=== PATIENT | male | born 1950 | race Caucasian/White ===

== ENCOUNTER 2019-12-20 10:56 | Emergency (ER) | payer OTHER ==
[~2019-12-20] VITALS: Ht 180.3 cm; Wt 106.8 kg
[~2019-12-20 10:56] MED LIST: ATR20T PO; BUDE10.2 IH; C250T PO; CLOP75TA PO; LOSA50TA63 PO; MELO-195 PO; MTX2.5T PO; MULT-974 PO; NIA500ERT PO; OMG1KC PO; TRAM50TA2 PO
[2019-12-20] MEDS ORDERED: NS IV 500 ML 500 ML IV ONE (11:35)
--- NOTE | 2019-12-20 11:39 | ED GU-Male ---
General Chief Complaint: Male Reproductive Stated Complaint: GROIN PAIN Nursing Triage Note: AMB TO ROOM C/O R TESTICULAR PAIN FOR 1 WEEK. PAIN WORSE TODAY C/O NAUSEA WITH IT. Source: patient Exam Limitations: no limitations History of Present Illness Date Seen by Provider: Dec 20, 2019 Time Seen by Provider: 11:25 Initial Comments Patient presents to the ER with a history of 4-5 days of hematuria, dysuria and now the last day or so has increased swelling and pain in his right testicle. No history of prostatitis, STD. He has a fever today. No cough shortness of air or sick contacts. Does not follow with urologist. Known to Dr. Manning. No history of prostate cancer. He has a history of COPD so nursing put him on 2 L because after walking in the ER he had a oxygen saturation of 90%. Patient is a history of prostatism having to get up 3 or 4 times within the night to urinate. He does not feel like he has incomplete emptying of bladder at this time. Allergies and Home Medications Allergies Coded Allergies: No Known Drug Allergies (Unverified , 03/28/13) Home Medications Atorvastatin 20 Mg Tablet, 1 EACH PO DAILY, (Reported) Budesonide/Formoterol Fumarate 10.2 Gm Hfa.aer.ad, 2 PUFF IH BID, (Reported) Losartan Potassium 50 Mg Tablet, 50 MG PO DAILY, (Reported) Tramadol Hcl 50 Mg Tablet, 50 MG PO DAILY, (Reported) Patient Home Medication List Home Medication List Reviewed: Yes Review of Systems Review of Systems Constitutional: No chills, No diaphoresis EENTM: No ear discharge, No ear pain Respiratory: No cough, No short of breath Cardiovascular: No chest pain, No edema Gastrointestinal: No abdominal pain, No nausea, No vomiting Genitourinary: denies discharge; dysuria, pain (r teste) Musculoskeletal: No back pain, No joint pain Skin: No pruritus, No rash Psychiatric/Neurological: Denies Headache, Denies Numbness All Other Systemes Reviewed Negative Unless Noted: Yes Past Pzeemmt-Epeing-Tbqzzk Hx Patient Social History Alcohol Use: Denies Use Recreational Drug Use: No Smoking Status: Current Everyday Smoker Recent Foreign Travel: No Contact w/Someone Who Travel: No Recent Infectious Disease Expo: No Immunizations Up To Date Date of Pneumonia Vaccine: Feb 28, 2007 Past Medical History Surgeries: Yes (HERNIA, LUNG) Respiratory: Yes (PNEUMOTHORAX) Pneumonia Cardiac: No Neurological: No Gastrointestinal: No Musculoskeletal: Yes Rheumatoid Arthritis Endocrine: No Cancer: No Physical Exam Vital Signs Vital Signs - First Documented 12/20/19 11:04 Temp 39.0 Pulse 85 Resp 18 B/P (MAP) 194/90 (124) Pulse Ox 90 O2 Delivery Room Air Capillary Refill : Less Than 3 Seconds Height, Weight, BMI Height: 5'11.00" Weight: 270lbs. 0.0oz. 122.756476nn; 32.00 BMI Method: General Appearance: WD/WN, moderate distress HEENT: PERRL/EOMI, pharynx normal Neck: full range of motion, normal inspection Cardiovascular: normal peripheral pulses, regular rate, rhythm Respiratory: no respiratory distress, no accessory muscle use Gastrointestinal: normal bowel sounds, non tender, soft Genital/Rectal: other (normal-appearing penis without lesions or discharge from the urethra. Right testicle is erythematous, warm to touch, swollen about 4 times normal size and exquisitely tender to touch. No significant, palpable hernia in the right inguinal canal.) Neurologic/Psychiatric: alert, normal mood/affect, oriented x 3 Skin: normal color, warm/dry Focused Exam Lactate Level 12/20/19 12:21: Lactic Acid Level 0.96 Lactic Acid Level Laboratory Tests Test 12/20/19 12:21 Lactic Acid Level 0.96 MMOL/L (0.50-2.00) Progress/Results/Core Measures Suspected Sepsis Recent Fever Within 48 Hours: No Infection Criteria Present: None New/Unexplained Altered Menta: No Sepsis Screen: No Definite Risk SIRS Temperature: Pulse: 85 Respiratory Rate: 18 Laboratory Tests 12/20/19 12:21: White Blood Count 10.0 Blood Pressure 194 /90 Mean: 124 12/20/19 12:21: Lactic Acid Level 0.96 Laboratory Tests 12/20/19 12:21: Creatinine 0.81, Platelet Count 110L, Total Bilirubin 1.3H Results/Orders Lab Results Laboratory Tests Test 12/20/19 12:21 12/20/19 13:27 Range/Units White Blood Count 10.0 4.3-11.0 10^3/uL Red Blood Count 4.73 4.30-5.52 10^6/uL Hemoglobin 15.9 13.3-17.7 g/dL Hematocrit 47 40-54 % Mean Corpuscular Volume 99 80-99 fL Mean Corpuscular Hemoglobin 34 25-34 pg Mean Corpuscular Hemoglobin Concent 34 32-36 g/dL Red Cell Distribution Width 14.0 10.0-14.5 % Platelet Count 110 L 130-400 10^3/uL Mean Platelet Volume 9.1 9.0-12.2 fL Immature Granulocyte % (Auto) 1 % Neutrophils (%) (Auto) 91 H 42-75 % Lymphocytes (%) (Auto) 3 L 12-44 % Monocytes (%) (Auto) 5 0-12 % Eosinophils (%) (Auto) 0 0-10 % Basophils (%) (Auto) 0 0-10 % Neutrophils # (Auto) 9.1 H 1.8-7.8 10^3/uL Lymphocytes # (Auto) 0.3 L 1.0-4.0 10^3/uL Monocytes # (Auto) 0.5 0.0-1.0 10^3/uL Eosinophils # (Auto) 0.0 0.0-0.3 10^3/uL Basophils # (Auto) 0.0 0.0-0.1 10^3/uL Immature Granulocyte # (Auto) 0.1 0.0-0.1 10^3/uL Neutrophils % (Manual) 86 % Lymphocytes % (Manual) 5 % Monocytes % (Manual) 4 % Eosinophils % (Manual) 0 % Basophils % (Manual) 0 % Band Neutrophils 5 % Blood Morphology Comment NORMAL Sodium Level 136 135-145 MMOL/L Potassium Level 4.4 3.6-5.0 MMOL/L Chloride Level 97 L 98-107 MMOL/L Carbon Dioxide Level 29 21-32 MMOL/L Anion Gap 10 5-14 MMOL/L Blood Urea Nitrogen 16 7-18 MG/DL Creatinine 0.81 0.60-1.30 MG/DL Estimat Glomerular Filtration Rate > 60 BUN/Creatinine Ratio 20 Glucose Level 118 H 70-105 MG/DL Lactic Acid Level 0.96 0.50-2.00 MMOL/L Calcium Level 9.1 8.5-10.1 MG/DL Corrected Calcium 9.1 8.5-10.1 MG/DL Total Bilirubin 1.3 H 0.1-1.0 MG/DL Aspartate Amino Transf (AST/SGOT) 17 5-34 U/L Alanine Aminotransferase (ALT/SGPT) 31 0-55 U/L Alkaline Phosphatase 70 40-136 U/L Total Protein 6.5 6.4-8.2 GM/DL Albumin 4.0 3.2-4.5 GM/DL Urine Color YELLOW Urine Clarity CLEAR Urine pH 6.0 5-[address] 1.025 H 1.016-1.022 Urine Protein 1+ H NEGATIVE Urine Glucose (UA) NEGATIVE NEGATIVE Urine Ketones 1+ H NEGATIVE Urine Nitrite POSITIVE H NEGATIVE Urine Bilirubin 1+ H NEGATIVE Urine Urobilinogen 1.0 < = 1.0 MG/DL Urine Leukocyte Esterase TRACE H NEGATIVE Urine RBC (Auto) 2+ H NEGATIVE Urine RBC 0-2 /HPF Urine WBC 5-10 H /HPF Urine Squamous Epithelial Cells 0-2 /HPF Urine Crystals PRESENT H /LPF Urine Amorphous Sediment RARE LUIS URATES H /LPF Urine Bacteria MODERATE H /HPF Urine Casts NONE /LPF Urine Mucus NEGATIVE /LPF Urine Culture Indicated YES My Orders Orders - CARA GUERRERO Us Scrotum (Testicle) [id number] (12/20/19 11:35) Ed Iv/Invasive Line Start (12/20/19 11:35) Ns Iv 500 Ml (Sodium Chloride 0.9%) (12/20/19 11:35) Ua Culture If Indicated (12/20/19 11:35) Fentanyl Injection (Sublimaze Injection (12/20/19 11:45) Cbc With Automated Diff (12/20/19 11:35) Comprehensive Metabolic Panel (12/20/19 11:35) Ceftriaxone For Iv Use (Rocephin For I (12/20/19 11:45) Blood Culture (12/20/19 11:39) Acetaminophen Tablet (Tylenol Tablet) (12/20/19 12:30) Lactic Acid Analyzer (12/20/19 12:21) Manual Differential (12/20/19 12:21) Urine Culture (12/20/19 13:27) Midazolam Injection (Versed Injection) (12/20/19 15:30) Medications Given in ED Current Medications Medications Dose Ordered Sig/Margarita Route Start Time Stop Time Status Last Admin Dose Admin Acetaminophen 1,000 mg ONCE ONCE PO 12/20/19 12:30 12/20/19 12:31 DC 12/20/19 12:33 1,000 MG Ceftriaxone Sodium 1000 mg/ Sterile Water 10 ml @ 200 mls/hr ONCE ONCE IV 12/20/19 11:45 12/20/19 11:47 DC 12/20/19 13:11 200 MLS/HR Fentanyl Citrate 50 mcg ONCE ONCE IVP 12/20/19 11:45 12/20/19 11:46 DC 12/20/19 12:19 50 MCG Sodium Chloride 500 ml @ 0 mls/hr Q0M ONCE IV 12/20/19 11:35 12/20/19 11:38 DC 12/20/19 12:19 500 MLS/HR Vital Signs/I&O 12/20/19 11:04 Temp 39.0 Pulse 85 Resp 18 B/P (MAP) 194/90 (124) Pulse Ox 90 O2 Delivery Room Air Capillary Refill : Less Than 3 Seconds Blood Pressure Mean: 124 Progress Note #1: Time: 11:55 Progress Note Orchitis possibly from a prostatitis. He does describe a history of prostatism. We'll give him a gram or Rocephin get some blood cultures and labs. He has a fever so we'll give him some Tylenol. If he has an elevated white count we would do a septic workup. We have ordered an ultrasound to ascertain good blood flow and rule out torsion or cancer. Progress Note #2: Time: 15:19 Progress Note Patient's no longer septic with normal heart rate. If his pains under control we can let him follow-up outpatient with urology on antibiotics. Diagnostic Imaging Diagonstic Imaging: Ultrasound Plain Films/CT/US/NM/MRI: other Comments [facility] [place], [place] NAME: MIKHAIL VEGA [facility] REC#: [id number] PT STATUS: REG ER : 1950 PHYSICIAN: CARA GUERRERO MD ADMIT DATE: 12/20/19/ER Draft Date of Exam:12/20/19 US SCROTUM (Testicle) [id number] PROCEDURE: US Scrotum. TECHNIQUE: Multiple real-time grayscale images were obtained over the scrotum in various projections bilaterally. INDICATION: Testicular swelling for one week. FINDINGS: Right testicle measures 5.1 x 3.3 x 3.6 cm and the left testicle measures 4.5 x 2.4 x 2.9 cm. The testes demonstrate homogeneous echotexture. No discrete testicular mass is identified. There is blood flow to both testes. Left epididymis is unremarkable. Right epididymis is enlarged and shows increased vascularity, suggestive of acute epididymitis. There is also a moderate complex hydrocele on the right containing internal debris and septations. There is a simple small left hydrocele. No varicocele is detected. IMPRESSION: 1. No evidence of testicular mass or vascular compromise. 2. Enlarged, heterogeneous and vascular right epididymis consistent with acute epididymitis. There is also a complex right hydrocele which could represent a pyocele. Dictated on workstation # [id number] Dict: 12/20/19 1305 Trans: 12/20/19 1311 [id number] [id number] Interpreted by: DEIDRA PULLIAM MD Electronically signed by: Reviewed: Reviewed by Me Departure Impression Primary Impression: Epididymitis Additional Impression: Prostatitis Qualified Codes: N41.0 - Acute prostatitis Disposition: 01 HOME, SELF-CARE Condition: Improved Departure-Patient Inst. Decision time for Depature: 15:26 Referrals: ANNALISA MANNING MD (PCP/Family) Primary Care Physician KRSITEN WIGGINS MD Patient Instructions: Epididymitis (DC) Add. Discharge Instructions: Drink lots of fluids to help flush out her bladder. Levaquin 1 tablet with food every day for the next [address] Wiggins, urology and request a follow-up appointment next week. Return to the ER if you're having inability to take your medicines, worsening pain or other worrisome symptoms. Hydrocodone one tablet every 6 hours as necessary for breakthrough pain. Tylenol and warm moist compresses for pain. All discharge instructions reviewed with patient and/or family. Voiced understanding. Scripts Levofloxacin (Levofloxacin) 500 Mg Tablet 500 MG PO DAILY for 7 Days, #7 TAB 0 Refills Prov: CARA GUERRERO 12/20/19 Copy Copies To 1: KRISTEN WIGGINS MD, TITUS J Dec 20, 2019 11:39
[2019-12-20] MEDS ORDERED: fentaNYL INJECTION 100 MCG/2 ML AMP IVP ONE (11:45)
[2019-12-20] MEDS ORDERED: cefTRIAXone FOR IV USE 1,000 MG in WATER (STERILE) FOR INJECTION 10 ML IV ONE (11:45)
[2019-12-20] MEDS ORDERED: ACETAMINOPHEN 500 MG TAB (TYLENOL) PO ONE (12:30)
[2019-12-20 12:37] LABS: BASOPHILS % (AUTO) 0 % (0-10); EOSINOPHILS % (AUTO) 0 % (0-10); HEMATOCRIT 47 % (40-54); HEMOGLOBIN 15.9 g/dL (13.3-17.7); LYMPHOCYTES # (AUTO) 0.3 10^3/uL (1.0-4.0); LYMPHOCYTES % (AUTO) 3 % (12-44); MEAN CORPUSCULAR HEMOGLOBIN 34 pg (25-34); MEAN CORPUSCULAR HGB CONC 34 g/dL (32-36); MEAN CORPUSCULAR VOLUME 99 fL (80-99); MEAN PLATELET VOLUME 9.1 fL (9.0-12.2); MONOCYTES # (AUTO) 0.5 10^3/uL (0.0-1.0); MONOCYTES % (AUTO) 5 % (0-12); NEUTROPHILS # (AUTO) 9.1 10^3/uL (1.8-7.8); NEUTROPHILS % (AUTO) 91 % (42-75); PLATELET COUNT 110 10^3/uL (130-400)
[2019-12-20 12:45] LABS: CHLORIDE 97 MMOL/L (98-107); POTASSIUM 4.4 MMOL/L (3.6-5.0); SODIUM 136 MMOL/L (135-145)
[2019-12-20 12:46] LABS: CALCIUM 9.1 MG/DL (8.5-10.1)
[2019-12-20 12:47] LABS: GLUCOSE 118 MG/DL (70-105); TOTAL PROTEIN 6.5 GM/DL (6.4-8.2)
[2019-12-20 12:48] LABS: CARBON DIOXIDE 29 MMOL/L (21-32)
[2019-12-20 12:49] LABS: BILIRUBIN,TOTAL 1.3 MG/DL (0.1-1.0)
[2019-12-20 12:50] LABS: ALKALINE PHOSPHATASE 70 U/L (40-136)
[2019-12-20 12:51] LABS: CREATININE SERUM 0.81 MG/DL (0.60-1.30); GFR ESTIMATED > 60
[2019-12-20 12:52] LABS: BUN/CREATININE RATIO 20
[2019-12-20 12:53] LABS: ALANINE AMINOTRANSFERASE 31 U/L (0-55)
--- NOTE | 2019-12-20 13:11 | Diagnostic Imaging Report ---
PROCEDURE: US Scrotum. TECHNIQUE: Multiple real-time grayscale images were obtained over the scrotum in various projections bilaterally. INDICATION: Testicular swelling for one week. FINDINGS: Right testicle measures 5.1 x 3.3 x 3.6 cm and the left testicle measures 4.5 x 2.4 x 2.9 cm. The testes demonstrate homogeneous echotexture. No discrete testicular mass is identified. There is blood flow to both testes. Left epididymis is unremarkable. Right epididymis is enlarged and shows increased vascularity, suggestive of acute epididymitis. There is also a moderate complex hydrocele on the right containing internal debris and septations. There is a simple small left hydrocele. No varicocele is detected. IMPRESSION: 1. No evidence of testicular mass or vascular compromise. 2. Enlarged, heterogeneous and vascular right epididymis consistent with acute epididymitis. There is also a complex right hydrocele which could represent a pyocele. Dictated by: Dictated on workstation # [id number]
[2019-12-20 13:18] LABS: BAND NEUTROPHILS 5 %; BASOPHILS % (MANUAL) 0 %; EOSINOPHILS % (MANUAL) 0 %; LYMPHOCYTES % (MANUAL) 5 %; MONOCYTES % (MANUAL) 4 %; NEUTROPHILS % (MANUAL) 86 %; RBC MORPH NORMAL
[2019-12-20 13:33] LABS: CLARITY,URINE CLEAR; COLOR,URINE YELLOW; GLUCOSE, URINE (UA) NEGATIVE (NEGATIVE); KETONES,URINE 1+ (NEGATIVE); LEUKOCYTE ESTERASE ,URINE TRACE (NEGATIVE); NITRITE,URINE POSITIVE (NEGATIVE); PROTEIN,URINE 1+ (NEGATIVE)
[2019-12-20 13:42] LABS: BILIRUBIN,URINE 1+ (NEGATIVE)
[2019-12-20 13:43] LABS: AMORPHOUS SEDIMENT,UR RARE AMOR URATES /LPF; BACTERIA,URINE MODERATE /HPF; RBC,URINE 0-2 /HPF; SQUAMOUS EPITHELIAL CELL,UR 0-2 /HPF
[2019-12-20] MEDS ORDERED: ACHD5005 PO (15:28)
[2019-12-20] MEDS ORDERED: LEVO500T80 PO (15:28)
[2019-12-20] MEDS ORDERED: MIDAZOLAM 5 MG/5 ML (VERSED) VIAL IVP ONE (15:30)
[2019-12-20 15:38] VITALS: BP 144/56
== END 2019-12-20 15:38 | disposition home or self-care (01) ==
LOC: EDUNIT# 10:56 → ER 11:00
DX: N45.1 Epididymitis (principal); N41.9 Inflammatory disease of prostate, unspecified; F17.200 Nicotine dependence, unspecified, uncomplicated
CPT/HCPCS: 36415; 76870; 80053; 81000; 83605; 85007; 85027; 87040; 87077; 87088; 87186

== ENCOUNTER → 2020-07-08 | Outpatient (CLI) | payer OTHER ==
[~2020-07-08] MED LIST changes: +ACHD5005 PO; +LEVO500T80 PO
--- NOTE | 2020-07-08 11:41 | Diagnostic Imaging Report ---
CT Lung Screening INDICATION:60 pack-year smoking history. TECHNIQUE: Noncontrast, low-dose CT imaging performed according to the lung cancer screening protocol. Auto Exposure Controls were utilize during the CT exam to meet ALARA standards for radiation dose reduction. COMPARISON: 02/14/2015 FINDINGS: The previous CT chest exam performed on 02/14/2015 noted a 4.7 cm spiculated mass along the posterior medial aspect of the left midlung. This mass was subsequently biopsied using CT guidance on 02/27/2015. The results of the biopsy are not known to me on this exam that mass appears to have resolved. There is no residual density still present in this area. The previous study also showed a thin band of increased density in the right lung base near the right hemidiaphragm. This measured approximately 1 cm. That density has increased in size since the prior study and is now estimated to be 1.9 cm. This finding could be secondary to scar formation/chronic atelectasis. The possibility that this is neoplastic in nature should still be considered. I would recommend that a short-term (three-month) follow-up CT chest exam be performed for further study. There is no other parenchymal lung mass noted. There are chronic pulmonary changes evident. There is no sign of failure, pneumonia or pleural effusion to indicate an acute abnormality. The heart is enlarged but stable when compared to the prior exam. Coronary calcifications are again noted. The aorta is not abnormally dilated. There is no obvious mediastinal or hilar adenopathy. The thyroid gland was not well visualized. The bone windows show no sign of a fracture or destructive lesion. The sections through the upper abdomen are unremarkable for an acute abnormality. IMPRESSION: 1. There are mixed results. The mass along the posterior aspect of the left midlung seen previously has resolved. However, there is now a small area of increased density in the right lung base which has increased in size since the prior study. This finding may be secondary to chronic atelectasis/scar formation alone, but the possibility that this is neoplastic in nature should still be considered. Recommendations as above. 2. There is no acute cardiopulmonary abnormality noted. 3. There is cardiomegaly and coronary disease. LUNG-RADS CATEGORY: 4A MODIFIER: OTHER SIGNIFICANT FINDINGS: Dictated by: Dictated on workstation # [id number]
== END ==
LOC: RAD 10:38
PROVIDERS: ATTEND Nurse Practitioner Family
DX: Z12.2 Encounter for screening for malignant neoplasm of respiratory organs (principal); I51.7 Cardiomegaly; I25.10 Atherosclerotic heart disease of native coronary artery without angina pectoris; Z87.891 Personal history of nicotine dependence
CPT/HCPCS: 71271

== ENCOUNTER 2020-07-24 05:41 | Outpatient (CLI) | payer MEDICARE ==
[~2020-07-24] VITALS: Ht 177.8 cm; Wt 106.2 kg
[2020-07-29] MEDS ORDERED: AMLO-251 PO (14:41)
[2020-07-29] MEDS ORDERED: ATOR20TA66 PO (14:41)
[2020-07-29] MEDS ORDERED: METO50TA15 PO (14:41)
[2020-07-29] MEDS ORDERED: LOSA100T57 PO (14:41)
[2020-07-29] MEDS ORDERED: MELO10CA3 PO (14:41)
[2020-07-29] MEDS ORDERED: HYDR-3820 PO (14:41)
[2020-07-29] MEDS ORDERED: ESCI20TA39 PO (14:41)
== END 2020-07-29 15:12 | disposition home or self-care (01) ==
LOC: PREOP 05:41
PROVIDERS: ATTEND Internal Medicine
DX: Z01.818 Encounter for other preprocedural examination (principal)

== ENCOUNTER 2020-08-01 07:50 | Day surgery (SDC) | payer MEDICARE, OTHER ==
--- NOTE | 2020-07-24 07:47 | HISTORY AND PHYSICAL ---
DATE OF SERVICE: COLONOSCOPY HISTORY AND PHYSICAL HISTORY OF PRESENT ILLNESS: The patient is a 69-year-old white male referred by ROBE Valdivia for screening colonoscopy. He reports no change in bowel habit. Denies abdominal pain, melena or bright red blood per rectum. He is not aware of a definite family history for colon cancer. His father did in his early 70s of cancer that had spread to the liver, but is understanding they were not sure where the primary tumor site was. PAST MEDICAL HISTORY: Significant for longstanding smoking with presumed COPD and recent need for oxygen 2 liters per nasal cannula continuous for reported O2 saturation on his wellness exam in May of 82% on room air, which increased to 92% at rest. He has history of hypertension, anxiety and depression and no known history of coronary artery disease. Review of his electronic medical record did reveal that he had rather large suspicious pulmonary mass in 2014, but biopsies were negative and it subsequently resolved, although he has a new smaller lesion that is increased in size on screening CT scan from 1 cm to 1.9 cm over the last year. 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 FAMILY HISTORY: He has one brother living alive and well. A daughter and son who are alive and well. Father around 70 with reportedly metastatic cancer to the liver of unknown primary and mother of complications of congestive heart failure at age of 72. REVIEW OF SYSTEMS: CONSTITUTIONAL: The patient reports increased fatigue and some dyspnea on exertion, but no dyspnea at rest with no night sweats, chills, fever. He believes that he has put on some weight over the past several months, although believes he has been eating less. CARDIOVASCULAR: The patient denies chest pain. Positive dyspnea on exertion, no dyspnea at rest and no syncope or presyncope. RESPIRATORY: The patient reports cough, nonpurulent sputum production. Denies hemoptysis. Denies wheezing. GASTROINTESTINAL: As noted in the HPI. PHYSICAL EXAMINATION: GENERAL: Reveals a white male, overweight, in no acute distress. VITAL SIGNS: Weight 234 pounds, blood pressure 150/74. NECK: Revealed no JVD, adenopathy or bruits. CHEST: Clear, although some diminishment of breath sounds posteriorly. No wheezes, rales or rhonchi noted. CARDIOVASCULAR: Reveals a regular rate and rhythm without significant murmur, S3 or S4. ABDOMEN: Obese. There is a firm left large mid quadrant abdominal mass that is nontender to palpation. No organomegaly is noted, although obesity diminishes sensitivity of evaluation. EXTREMITIES: Reveal no cyanosis or clubbing. There is trace bilateral edema. ASSESSMENT AND PLAN: The patient was being set up for screening colonoscopy, although on physical examination, there is a large left mid quadrant abdominal mass. We will proceed with colonoscopy with likely a CT evaluation to follow. Prep instructions with the Suprep kit were given and questions were answered with review of electronic medical record and 45 minutes care time spent. Thank you for the referral of this pleasant gentleman. Job ID: [id number] DocumentID: [id number] Dictated Date: 07/11/2020 06:46:22 Cushion Maker Hand Date: 07/11/2020 07:23:35 Dictated By: APOLINAR ZHANG MD
[~2020-08-01] VITALS: Ht 177.8 cm; Wt 106.2 kg
[2020-08-01] VITALS (8 sets, daily range): BP systolic 106–157; BP diastolic 60–78
[~2020-08-01 07:50] MED LIST changes: +AMLO-251 PO; +ATOR20TA66 PO; +ESCI20TA39 PO; +HYDR-3820 PO; +LACTATED RINGERS 1,000 ML IV ONE; +LOSA100T57 PO; +MELO10CA3 PO; +METO50TA15 PO
[2020-08-01] MEDS ORDERED: LACTATED RINGERS 1,000 ML IV STA (07:57)
[2020-08-01] MEDS ORDERED: LIDOCAINE JELLY 2% 6 ML SYRINGE MM PRN (08:00)
[2020-08-01] MEDS ORDERED: PROPOFOL INJECTION 50 ML IV ONE (08:54)
--- NOTE | 2020-08-01 10:02 | Anesthesia-General Post-Op ---
MAC Patient Condition Mental Status/LOC: Same as Preop Cardiovascular: Satisfactory Nausea/Vomiting: Absent Respiratory: Satisfactory Pain: Controlled Complications: Absent Post Op Complications Complications None Follow Up Care/Instructions Patient Instructions None needed. Anesthesiology Discharge Order Discharge Order Patient is doing well, no complaints, stable vital signs, no apparent adverse anesthesia problems. No complications reported per nursing. RENE OH CRNA Aug 01, 2020 10:02
--- NOTE | 2020-08-01 13:04 | Pre-Op Note & Conscious Sedat ---
Pre-Operative Progress Note H&P Reviewed The H&P was reviewed, patient examined and no changes noted. Date H&P Reviewed: Aug 01, 2020 Time H&P Reviewed: 07:55 Conscious Sedation Pre-Proced ASA Score 2 For ASA 3 and 4: Consider anesthesia and medical clearance. Also, for patients with a history of failed moderate sedation consider anesthesia. Airway Lungs Heart ASA score ASA 1: a normal healthy patient ASA 2: a patient with a mild systemic disease (mid diabetes, controlled hypertension, obesity ASA 3: a patient with a severe systemic disease that limits activity (angina, COPD, prior Myocardial infarction) ASA 4: a patient with an incapacitating disease that is a constant threat to life (CHF, renal failure) ASA 5: a moribund patient not expected to survive 24 hrs. (ruptured aneurysm) ASA 6: a declared brain- patient whose organs are being harvested. For emergent operations, add the letter E after the classification Mallampati Classification Grade 1 Sedation Plan Analgesia, Amnesia, Plan communicated to team members, Discussed options with patient/fam, Discussed risks with patient/fam The patient is an appropriate candidate to undergo the planned procedure, sedation, and anesthesia. The patient immediately re-assessed prior to indication. APOLINAR ZHAGN MD Aug 01, 2020 13:04
--- NOTE | 2020-08-01 14:30 | OPERATIVE REPORT ---
DATE OF SERVICE: COLONOSCOPY SUMMARY INDICATION FOR THE PROCEDURE: Screening colonoscopy. DESCRIPTION OF PROCEDURE: The patient was placed in the left lateral decubitus position. Prior to undergoing colonoscopy, digital rectal evaluation was performed. Anal sphincter tone was normal and the perianal reflexes intact. Prostate is mildly enlarged and anodular on digital inspection. No abnormalities were noted on digital inspection of anal canal or distal rectal vault. The colonoscope was then inserted into the rectum and under direct visualization advanced to the cecum. The cecum was identified by identification of the ileocecal valve and cecal strap. Photographic documentation was obtained. Careful inspection was made as the colonoscope withdrawn. Quality of prep was fair. FINDINGS: There was no evidence for internal or external hemorrhoids. Present in the rectosigmoid junction was a diminutive polyp. It was biopsied and ablated and submitted for histopathology. An inflammatory appearing polyp was noted in the distal sigmoid colon measuring 8 mm in size. It was biopsied and ablated as well. The remainder of the sigmoid colon, descending colon, splenic flexure and transverse colon were unremarkable. Small sessile adenomatous appearing polyps were noted, one in the distal ascending and the other in the mid ascending colon, both biopsied and ablated with no subsequent blood loss. The cecum and the colon were unremarkable. ASSESSMENT: Four polyps were removed today. The largest 8 mm in size noted in the distal sigmoid colon. As long as there are no surprises on histopathology report, we will advocate repeat surveillance colonoscopy in one year. Digital evaluation of the prostate was compatible with mild benign prostatic hypertrophy. I thank you for the referral of this pleasant gentleman. Job ID: [id number] DocumentID: [id number] Dictated Date: 08/01/2020 09:44:06 Instructional Support Assistant Date: 08/01/2020 14:29:12 Dictated By: APOLINAR ZHANG MD
== END 2020-08-01 10:25 | disposition home or self-care (01) ==
LOC: ENDO 07:50
PROVIDERS: ATTEND Internal Medicine
DX: Z12.11 Encounter for screening for malignant neoplasm of colon (principal); D12.2 Benign neoplasm of ascending colon; K63.5 Polyp of colon; J44.9 Chronic obstructive pulmonary disease, unspecified; I10 Essential (primary) hypertension; F41.9 Anxiety disorder, unspecified; F32.9 Major depressive disorder, single episode, unspecified; Z87.891 Personal history of nicotine dependence; Z99.81 Dependence on supplemental oxygen; E66.9 Obesity, unspecified

== ENCOUNTER → 2020-10-08 | Outpatient (CLI) | payer MEDICARE ==
[~2020-10-08] MED LIST changes: -LACTATED RINGERS 1,000 ML IV ONE
[2020-10-08 10:08] LABS: ABSOLUTE RETIC # 51 10e9/uL (24-90); BASOPHILS % (AUTO) 0 % (0-10); EOSINOPHILS # (AUTO) 0.2 10^3/uL (0.0-0.3); EOSINOPHILS % (AUTO) 5 % (0-10); HEMATOCRIT 37 % (40-54); HEMOGLOBIN 12.1 g/dL (13.3-17.7); LYMPHOCYTES # (AUTO) 0.8 10^3/uL (1.0-4.0); LYMPHOCYTES % (AUTO) 21 % (12-44); MEAN CORPUSCULAR HEMOGLOBIN 35 pg (25-34); MEAN CORPUSCULAR HGB CONC 33 g/dL (32-36); MEAN CORPUSCULAR VOLUME 106 fL (80-99); MEAN PLATELET VOLUME 9.7 fL (9.0-12.2); MONOCYTES # (AUTO) 0.4 10^3/uL (0.0-1.0); MONOCYTES % (AUTO) 12 % (0-12); NEUTROPHILS # (AUTO) 2.2 10^3/uL (1.8-7.8); NEUTROPHILS % (AUTO) 62 % (42-75); PLATELET COUNT 128 10^3/uL (130-400); RETICULOCYTE % 1.48 % (0.50-2.40); WHITE BLOOD COUNT 3.6 10^3/uL (4.3-11.0)
--- NOTE | 2020-10-08 10:38 | Diagnostic Imaging Report ---
EXAMINATION: CT chest without contrast. TECHNIQUE: Multiple contiguous axial images were obtained through the chest without the use of intravenous contrast. All CT scans use one or more of the following dose optimizing techniques: automated exposure control, MA and/or KvP adjustment based on patient size and exam type or iterative reconstruction. HISTORY: Abnormal lung cancer screening. COMPARISON: 07/08/2020 FINDINGS: There is no edema or pneumonia. No pleural effusion. No pneumothorax. The right lower lobe abnormality is unchanged and now has the appearance of atelectasis or scarring. No discrete measurable nodule is present. Lungs are mildly emphysematous. There has been a prior partial left lung resection. There is no axillary or supraclavicular lymphadenopathy. There is no mediastinal lymphadenopathy. Heart size is normal. There are moderate coronary artery calcifications. No pericardial effusion. Aorta is normal in caliber. Limited views of the upper abdomen show an indeterminate likely cystic left renal lesion measuring 9.5 x 7.7 cm with calcifications associated with the blakely. There are no suspicious osseous lesions. IMPRESSION: 1. The right lower lobe abnormality now has the appearance of atelectasis or scarring and is unchanged in overall size. Patient can return to annual screening (lung RADS category: 2). 2. Indeterminate left renal lesion is likely a complex cyst but a renal protocol CT or MRI is recommended for further evaluation. Dictated by: Dictated on workstation # [id number]
[2020-10-08 11:04] LABS: BAND NEUTROPHILS 2 %; EOSINOPHILS % (MANUAL) 3 %; LYMPHOCYTES % (MANUAL) 17 %; MONOCYTES % (MANUAL) 12 %; NEUTROPHILS % (MANUAL) 66 %; STOMATOCYTES SLIGHT
== END ==
LOC: RAD 10:15
PROVIDERS: ATTEND Nurse Practitioner Family
DX: Z12.2 Encounter for screening for malignant neoplasm of respiratory organs (principal); J98.4 Other disorders of lung; D61.818 Other pancytopenia; N28.89 Other specified disorders of kidney and ureter
CPT/HCPCS: 36415; 71250; 85007; 85027; 85045; 85055

== ENCOUNTER → 2021-07-02 | Outpatient (CLI) | payer MEDICARE ==
[~2021-07-02] MED LIST changes: -LEVO500T80 PO; +LEVO500T81 PO
== END ==
LOC: CARD 13:00
PROVIDERS: ATTEND Nurse Practitioner Family
DX: I48.91 Unspecified atrial fibrillation (principal)
CPT/HCPCS: 93005

== ENCOUNTER 2021-07-08 10:00 | Inpatient (IN) | payer MEDICARE ==
[~2021-07-08] VITALS: Ht 180 cm; Wt 102.0 kg
[2021-07-08 12:12] LABS: HEMATOCRIT 37 % (40-54); HEMOGLOBIN 11.7 g/dL (13.3-17.7); MEAN CORPUSCULAR HEMOGLOBIN 34 pg (25-34); MEAN CORPUSCULAR HGB CONC 32 g/dL (32-36); MEAN CORPUSCULAR VOLUME 106 fL (80-99); MEAN PLATELET VOLUME 10.4 fL (9.0-12.2); PLATELET COUNT 155 10^3/uL (130-400)
[2021-07-08] MEDS ORDERED: NS IV 1000 ML 1,000 ML IV ONE ×2 (12:15→14:15)
[2021-07-08 12:16] LABS: ALBUMIN 3.4 GM/DL (3.2-4.5); POTASSIUM 4.4 MMOL/L (3.6-5.0)
[2021-07-08] MEDS: dilTIAZem DRIP PRE-MIX 125 ML IV SCH (12:16)
[2021-07-08 12:17] LABS: CALCIUM 8.8 MG/DL (8.5-10.1)
[2021-07-08 12:18] LABS: INR 1.8 (0.8-1.4); PROTHROMBIN TIME PATIENT 21.3 SEC (12.2-14.7); TOTAL PROTEIN 5.6 GM/DL (6.4-8.2)
[2021-07-08 12:20] LABS: BILIRUBIN,TOTAL 0.7 MG/DL (0.1-1.0)
[2021-07-08 12:22] LABS: CREATININE SERUM 0.87 MG/DL (0.60-1.30)
--- NOTE | 2021-07-08 13:11 | Consultation-Cardiology ---
HPI-Cardiology Cardiology Consultation Date of Consultation 07/08/21 Date of Admission Time Seen by Provider: 13:07 Indication: Tachycardia HPI 70-year-old gentleman with history of COPD, oxygen dependent. Noted to have tachycardia during office visit, he was in atrial fibrillation on December 07, 2021, refused hospital admission, I started him on Cardizem and arrange for 2D echo evaluation. Today during his 2D echo he was still tachycardic, complained of fatigue and shortness of breath. Echocardiogram showed severe cardiomyopathy, I discussed with him the management plan recommended admission to ICU. Patient agreed and he will be started on Cardizem. Home Medications & Allergies Allergies: Coded Allergies: No Known Drug Allergies (Unverified , 03/28/13) Home Medication List Reviewed: Yes HJP-[id number]-[id number] Hx Patient Social History Marital Status: Employed/Student: employed Type Used: Cigarettes 2nd Hand Smoke Exposure: No Recent Hopitalizations: No Immunizations Up To Date Date of Pneumonia Vaccine: Feb 28, 2007 Past Medical History Discussed below Family Medical History Family Medical Hx Noncontributory Review of Systems-General Review of Systems Constitutional: see HPI, malaise, weakness EENTM: see HPI, no symptoms reported Respiratory: no symptoms reported, see HPI; No cough; dyspnea on exertion; No hemoptysis, No orthopnea, No phlegm; short of breath; No stridor, No wheezing, No other Cardiovascular: see HPI; No chest pain; edema; No Hx of Intervention; palpitations; No syncope, No vascular heart diseas, No other Gastrointestinal: no symptoms reported, see HPI Genitourinary: no symptoms reported, see HPI Musculoskeletal: no symptoms reported, see HPI Skin: no symptoms reported, see HPI Psychiatric/Neurological: No Symptoms Reported, See HPI Reviewed Test Results Reviewed Test Results Lab Laboratory Tests Test 07/08/21 12:02 Range/Units White Blood Count 5.0 4.3-11.0 10^3/uL Red Blood Count 3.44 L 4.30-5.52 10^6/uL Hemoglobin 11.7 L 13.3-17.7 g/dL Hematocrit 37 L 40-54 % Mean Corpuscular Volume 106 H 80-99 fL Mean Corpuscular Hemoglobin 34 25-34 pg Mean Corpuscular Hemoglobin Concent 32 32-36 g/dL Red Cell Distribution Width 12.9 10.0-14.5 % Platelet Count 155 130-400 10^3/uL Mean Platelet Volume 10.4 9.0-12.2 fL Prothrombin Time 21.3 H 12.2-14.7 SEC INR Comment 1.8 H 0.8-1.4 Activated Partial Thromboplast Time 39 H 24-35 SEC Sodium Level 142 135-145 MMOL/L Potassium Level 4.4 3.6-5.0 MMOL/L Chloride Level 101 98-107 MMOL/L Carbon Dioxide Level 32 21-32 MMOL/L Anion Gap 9 5-14 MMOL/L Blood Urea Nitrogen 26 H 7-18 MG/DL Creatinine 0.87 0.60-1.30 MG/DL Estimat Glomerular Filtration Rate 94 BUN/Creatinine Ratio 30 Glucose Level 104 70-105 MG/DL Calcium Level 8.8 8.5-10.1 MG/DL Corrected Calcium 9.3 8.5-10.1 MG/DL Total Bilirubin 0.7 0.1-1.0 MG/DL Aspartate Amino Transf (AST/SGOT) 15 5-34 U/L Alanine Aminotransferase (ALT/SGPT) 14 0-55 U/L Alkaline Phosphatase 99 40-136 U/L Total Protein 5.6 L 6.4-8.2 GM/DL Albumin 3.4 3.2-4.5 GM/DL Physical Exam Physical Exam Vital Signs Vital Signs - First Documented 07/08/21 07/08/21 07/08/21 11:00 11:05 11:15 Pulse 161 Resp 29 B/P (MAP) 93/61 Pulse Ox 93 Capillary Refill : Height, Weight, BMI Height: 5'11.00" Weight: 270lbs. 0.0oz. 122.505350zl; 33.59 BMI Method: General Appearance: No Apparent Distress, WD/WN Eyes: Bilateral Eye Normal Inspection, Bilateral Eye PERRL, Bilateral Eye EOMI HEENT: PERRL/EOMI, TMs Normal, Normal ENT Inspection, Pharynx Normal, Moist Mucous Membranes Neck: Full Range of Motion, Normal Inspection, Non Tender, Supple, Carotid Bruit Respiratory: Chest Non Tender, Normal Breath Sounds, No Accessory Muscle Use, No Respiratory Distress Cardiovascular: No Edema, No Gallop, No JVD, No Murmur, Normal Peripheral Pulses, Irregularly Irregular, Tachycardia Gastrointestinal: Normal Bowel Sounds, No Organomegaly, No Pulsatile Mass, Non Tender, Soft Back: Normal Inspection, No CVA Tenderness, No Vertebral Tenderness Extremity: Normal Capillary Refill, Normal Inspection, Normal Range of Motion, Non Tender, No Calf Tenderness, No Pedal Edema Neurologic/Psychiatric: Alert, Oriented x3, No Motor/Sensory Deficits, Normal Mood/Affect Skin: Normal Color, Warm/Dry Lymphatic: No Adenopathy A/P-Cardiology Admission Diagnosis Paroxysmal atrial fibrillation Tachycardia Congestive heart failure, acute left ventricular systolic dysfunction Hypotension Assessment/Plan Paroxysmal atrial fibrillation, new onset, unknown duration. Patient is at a h igher risk of stroke. Start oral Cardizem CD1 20 mg daily on July 07, 2021. Seen today in the echo lab and he was severely tachycardic. Patient is admitted to ICU and started on Cardizem drip. I will monitor heart rate closely, planning for MOON and cardi oversion Started on Xarelto. To reduce the risk of stroke. [id number] score 3, started on Xarelto on July 07, 2021. Generalized fatigue, shortness of breath, loss of energy, oxygen dependent. Currently in atrial fibrillation. 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 Will evaluate troponin level. COPD, oxygen dependent, dyspnea on exertion. EKG is abnormal along with atrial fibrillation with a heart rate 140 and right bundle branch block. I am adding Cardizem and I will evaluate his tolerance and response. My recommendation is admission to the hospital for aggressive management Hypertension, currently borderline hypotensive. I will give him bolus of IV fluid and monitor tolerance and response Hyperlipidemia, maintained on Lipitor 20 mg daily, I will evaluate lipid profile Mild bilateral carotid stenosis, ultrasound was done on July 07, 2021 Obesity, BMI is 33, concern about loss of appetite. I instructed him on additional diet and weight loss. LAURA MACE MD July 08, 2021 13:11
[2021-07-08] MEDS ORDERED: DIGOXIN 0.25 MG/ML (LANOXIN) 2 ML AMP ONE (13:58)
[2021-07-08] MEDS ORDERED: NS IV 1000 ML 1,000 ML ONE (13:58)
[2021-07-08] MEDS ORDERED: DIGOXIN 0.25 MG/ML (LANOXIN) 2 ML AMP IV ONE ×2 (14:15→21:00)
--- NOTE | 2021-07-08 15:18 | Tele-ICU Consult ---
History of Present Illness History of Present Illness Date Seen by Provider: July 08, 2021 Time Seen by Provider: 15:16 Date of Admission (Tele-ICU Physician , consultation) Available chart/ vitals / labs / Images reviewed H&P is from ER notes Patient's information available about PMH, Shx, Fhx allergy reviewed in EMR. ROS as per chart and RN report Now in ICU, hemodynamically stable Video assessment done using teleICU camera, rest of exam as per RN Discussed with RN. Consultants: jorge Hospital course: 70 y/o male from OP with afib rvr from outpatient ECHO lab A/P PAF , RVR ( new onset, unknown duration -cardizem gtt , dig -ECHO pending -planning for MOON and cardioversion as per [facility] note - on Xarelto CHF - compensated COPD, -oxygen dependent, 4 L - MAT prot Obesity, BMI is 33- ? FRANCISCO Lines : (Central Line Necessity Reviewed) Plasencia: OG: Nutrition: Analgesia: Anxiety/ delirium VTE Prophylaxis: xarelto Stress Ulcer Prophylaxis: po Plans in collaboration with bedside consultants and IM MDs. Discussed with RN to reach out if any questions or concerns A total of 20 minutes of critical care time was devoted to this patient today, required to treat and/or prevent further deterioration of critical care condition ( as above ) . Reason for Visit: Tachycardia Allergies and Home Medications Allergies Coded Allergies: No Known Drug Allergies (Unverified , 03/28/13) Home Medications Amlodipine Besylate 10 Mg Tablet, 10 MG PO DAILY, (Reported) Atorvastatin Calcium 20 Mg Tablet, 20 MG PO DAILY, (Reported) Escitalopram Oxalate 20 Mg Tablet, 20 MG PO DAILY, (Reported) Hydrocodone/Acetaminophen 1 Each Tablet, 1 EACH PO PRN, (Reported) Losartan Potassium 100 Mg Tablet, 100 MG PO DAILY, (Reported) Meloxicam, Submicronized 10 Mg Capsule, 10 MG PO DAILY, (Reported) Metoprolol Tartrate 50 Mg Tablet, 50 MG PO BID, (Reported) Past Medical/Social/Family Hx Patient Social History Marrital Status: Employed/Student: employed Immunizations Up To Date Date of Pneumonia Vaccine: Feb 28, 2007 Review of Systems Constitutional: see HPI Focused Exam Height, Weight, BMI Height: 5'11.00" Weight: 270lbs. 0.0oz. 122.965086os; 33.59 BMI Method: Exam Exam Patient acknowledged, consented, and participated in this virtual visit which was conducted using real time audio/video Vital Signs Date Time Temp Pulse Resp B/P (MAP) Pulse Ox O2 Delivery O2 Flow Rate FiO2 07/08/21 15:00 135 18 103/91 94 Nasal Cannula 4.00 07/08/21 14:00 138 15 91/53 92 Nasal Cannula 4.00 07/08/21 13:00 140 16 119/91 96 Nasal Cannula 4.00 07/08/21 12:56 109 07/08/21 12:00 144 16 91/76 96 07/08/21 11:30 105 9 116/76 94 07/08/21 11:15 147 29 117/75 93 07/08/21 11:05 161 07/08/21 11:00 93/61 Height & Weight Height: 5'" Weight: 270lbs. 0.0oz. 122.316006lb; 33.59 BMI Method: General Appearance: No Apparent Distress, WD/WN HEENT: PERRL/EOMI, TMs Normal, Normal ENT Inspection, Pharynx Normal, Moist M ucous Membranes Neck: Full Range of Motion, Normal Inspection, Non Tender, Supple, Carotid Bruit Respiratory: Chest Non Tender, Normal Breath Sounds, No Accessory Muscle Use, No Respiratory Distress Cardiovascular: No Edema, No Gallop, No JVD, No Murmur, Normal Peripheral Pulses, Irregularly Irregular, Tachycardia Extremity: Normal Capillary Refill, Normal Inspection, Normal Range of Motion, Non Tender, No Calf Tenderness, No Pedal Edema Neurologic/Psychiatric: Alert, Oriented x3, No Motor/Sensory Deficits, Normal Mood/Affect Skin: Normal Color, Warm/Dry Lymphatic: No Adenopathy Results Lab Laboratory Tests 07/08/21 12:02 Assessment/Plan Assessment/Plan ` YANELIS MCKEON MD July 08, 2021 15:18
[2021-07-08] MEDS ORDERED: ASCO-262 PO (15:44)
[2021-07-08] MEDS ORDERED: RIVA20TA PO (15:44)
[2021-07-08] MEDS ORDERED: MELO15TA39 PO (15:44)
[2021-07-08] MEDS ORDERED: METO50TA7 PO (15:44)
[2021-07-08] MEDS ORDERED: DILT-27 PO (15:44)
[2021-07-08] MEDS ORDERED: CYAN-41 PO (15:44)
[2021-07-08 16:03] VITALS: BP 103/91
[2021-07-08] MEDS ORDERED: RT-ALBUTEROL/IPRATROPIUM 3 ML (DUONEB) VIAL INH PRN (16:15)
--- NOTE | 2021-07-08 16:54 | History & Physical ---
History of Present Illness History of Present Illness Reason for visit/HPI PT IS A 70 Y/O MALE WHO IS KNOWN TO ME FROM CLINIC. HE WAS ADMITTED TO THE HOSPITAL BY DR. REYNA AFTER AN ECHOCARDIOGRAM REVEALED SEVERE CARDIAC FUNCTIONAL DECLINE WITH ACUTE ATRIAL FIBRILLATION. THE PATIENT WAS SEEN IN OUR OFFICE ABOUT 7 DAYS AGO WITH COMPLAINT OF FATIGUE AND WEAKNESS, FOUND TO BE IN ATRIAL FIBRILLATION, STARTED ON ANTICOAGULATION AND REFERRED TO DR. REYNA, HE STARTED EVAL ON PATIENT, ADVISED ADMISSION WHICH THE PT REFUSED, AND THEN FURTHER WORK UP REVEALED A DECREASED EJECTION FRACTION AND PT EVENTUALLY AGREED TO ADMISSION FOR TREATMENT. HE WAS SENT TO THE ICU, STARTED ON A CARDIZEM DRIP, AND REPORTS THIS EVENING THAT HE IS FEELING A LITTLE BIT BETTER. Date of Admission July 08, 2021 at 11:19 Date Seen by a Provider: July 08, 2021 Time Seen by a Provider: 16:20 I consulted on this patient on 07/08/21 16:38 Attending Physician Cali Reyna MD Admitting Physician Annalisa Manning MD Consult EICU Allergies and Home Medications Allergies Coded Allergies: No Known Drug Allergies (Unverified , 03/28/13) Patient Home Medication List Home Medication List Reviewed: Yes Ascorbate Calcium (Vitamin C) 500 Mg Tablet, 500 MG PO DAILY, (Reported) Entered as Reported by: KEVAN HARTLEY on 07/08/211543 Last Action: Held Atorvastatin Calcium (Atorvastatin Calcium) 20 Mg Tablet, 20 MG PO DAILY, (Reported) Entered as Reported by: ANUP VASQUEZ on 07/29/201440 Last Action: Continued Cyanocobalamin (Vitamin B-12) (Vitamin B-12) 1,000 Mcg Tablet, 1,000 MCG PO DAILY, (Reported) Entered as Reported by: KEVAN HARTLEY on 07/08/211543 Last Action: Held Diltiazem HCl (Diltiazem 24Hr ER) 120 Mg Cap.er.24h, 120 MG PO DAILY, (Reported) Entered as Reported by: KEVAN HARTLEY on 07/08/211543 Last Action: Held Hydrocodone/Acetaminophen (Hydrocodone-Acetamin 10-325 mg) 1 Each Tablet, 1 EACH PO Q6H PRN for PAIN-MODERATE (5-7), (Reported) Entered as Reported by: ANUP VASQUEZ on 07/29/201440 Last Action: Continued Meloxicam (Meloxicam) 15 Mg Tablet, 15 MG PO DAILY, (Reported) Entered as Reported by: KEVAN HARTLEY on 07/08/211543 Last Action: Held Metoprolol Succinate (Metoprolol Succinate) 50 Mg Tab.er.24h, 50 MG PO DAILY, (Reported) Entered as Reported by: KEVAN HARTLEY on 07/08/211543 Last Action: Reviewed Rivaroxaban (Xarelto) 20 Mg Tablet, 20 MG PO DAILY, (Reported) Entered as Reported by: KEVAN HARTLEY on 07/08/211543 Last Action: Reviewed Discontinued Medications Amlodipine Besylate (Amlodipine Besylate) 10 Mg Tablet, 10 MG PO DAILY, (Reported) Discontinued Reason: No Longer Taking Entered as Reported by: ANUP VASQUEZ on 07/29/201440 Last Action: Discontinued Escitalopram Oxalate (Escitalopram Oxalate) 20 Mg Tablet, 20 MG PO DAILY, (Reported) Discontinued Reason: No Longer Taking Entered as Reported by: ANUP VASQUEZ on 07/29/201440 Last Action: Discontinued Losartan Potassium (Losartan Potassium) 100 Mg Tablet, 100 MG PO DAILY, (Reported) Discontinued Reason: No Longer Taking Entered as Reported by: ANUP VASQUEZ on 07/29/201440 Last Action: Discontinued Meloxicam, Submicronized (Meloxicam) 10 Mg Capsule, 10 MG PO DAILY, (Reported) Discontinued Reason: Duplicate Order Entered as Reported by: ANUP VASQUEZ on 07/29/201440 Last Action: Discontinued Metoprolol Tartrate (Metoprolol Tartrate) 50 Mg Tablet, 50 MG PO BID, (Reported) Discontinued Reason: No Longer Taking Entered as Reported by: ANUP VASQUEZ on 07/29/201440 Last Action: Discontinued Past Nsfyqpw-Qmpowi-Ehdstk Hx Patient Social History Marrital Status: Employed/Student: employed Tobacco Use?: Yes Tobacco type used: Cigarettes Smoking Status: Current Everyday Smoker Use of E-Cig and/or Vaping dev: No Substance use?: No Alcohol Use?: No Pt feels they are or have been: No Immunizations Up To Date Date of Pneumonia Vaccine: Feb 28, 2007 Seasonal Allergies Seasonal Allergies: No Current Status Implanted or Applied Medical D: None Past Medical History Pneumonia, COPD Currently Using CPAP: No Hypertension TIA Sexually Transmitted Disease: No HIV/AIDS: No Hiatal Hernia Rheumatoid Arthritis Are Your Blood Sugars Over 250: No Loss of Vision: Denies Hearing Impairment: Denies Blood Disorders: No HERNIA REPAIR, 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 (NONCANCEROUS), LEFT RENAL MASS (PT HAS AVOIDED FOLLOW UP IMAGING) Family Medical History Reviewed and Corrections made Review of Systems Constitutional: No chills, No fever; malaise, weakness EENTM: No hoarseness Respiratory: cough, dyspnea on exertion, short of breath Cardiovascular: No chest pain; palpitations Gastrointestinal: No abdominal pain, No nausea, No vomiting Genitourinary: no symptoms reported Musculoskeletal: No back pain; muscle weakness Skin: other (DRY SKIN ON LOWER LEGS) Psychiatric/Neurological: Denies Anxiety, Denies Depressed; Weakness All Other Systems Reviewed Negative Unless Noted: Yes Physical Exam Vital Signs Vital Signs - First Documented 07/08/21 07/08/21 07/08/21 07/08/21 11:00 11:05 11:15 13:00 Pulse 161 Resp 29 B/P (MAP) 93/61 Pulse Ox 93 O2 Delivery Nasal Cannula O2 Flow Rate 4.00 Capillary Refill : Height, Weight, BMI Height: 5'11.00" Weight: 270lbs. 0.0oz. 122.069854rt; 33.59 BMI Method: General Appearance: No Apparent Distress, WD/WN HEENT: PERRL/EOMI, Pharynx Normal Neck: Full Range of Motion, Non Tender, Supple Respiratory: Chest Non Tender, Lungs Clear, No Accessory Muscle Use, Other (FAINT WHEEZING) Cardiovascular: Irregularly Irregular, Tachycardia Gastrointestinal: Normal Bowel Sounds, No Organomegaly, No Pulsatile Mass, Non Tender, Soft Rectal: Deferred Extremity: Normal Capillary Refill, Pedal Edema (2+ AT ANKLES/LOWER LEGS AND 1+ POSTERIOR THIGHS) Neurologic/Psychiatric: Alert, Oriented x3, No Motor/Sensory Deficits, Normal Mood/Affect, photo mask pattern generator II-XII Norm as Tested Skin: Normal Color, Warm/Dry Lymphatic: No Adenopathy Assessment/Plan Assessment and Plan ACUTE ATRIAL FIBRILLATION SEVERE CARDIOMYOPATHY HYPERTENSION HYPERTENSIVE HEART DISEASE COPD PULMONARY HYPERTENSION ANEMIA HYPERLIPIDEMIA ACUTE ATRIAL FIBRILLATION WITH SEVERE CARDIOMYOPATHY - CARDIZEM DRIP - ONE TIME DOSE OF IV DIGOXIN - ORAL ANTICOAG WITH XARELTO HYPERTENSION WITH HYPERTENSIVE HEART DISEASE - PT ON CARDIZEM AT THIS TIME, WILL NEED TO BE TRANSITIONED TO ORAL MEDICATIONS PRIOR TO DC. - HOLD HOME REGIMEN AT THIS TIME. COPD - PT ON DUONEB INHALERS - WILL CHECK CT OF CHEST PRIOR TO DC TO HOME. PULMONARY HYPERTENSION - MANAGEMENT OF CARDIAC DISEASE AND REPEAT ECHO WILL BE PERFORMED OUTPT PER DR. REYNA. ANEMIA - MONITOR LABS. HYPERLIPIDEMIA - RESUME STATIN THERAPY. DVT PROPHYLAXIS WITH SCD'S AND XARELTO GI PROPHYLAXIS WITH PPI THERAPY. ECHO REPORT - SEVERE CONCENTRIC HYPERTROPHY, SEVERELY REDUCED SYSTOLIC FUNCTION, EF ESTIMATION 25 - 30%, SEVERE DIFFUSE HYPOKINESIS OF LEFT VENTRICLE, AND INCREASED CAVITY SIDE OF RIGHT VENTRICLE AND REDUCED SYSTOLIC FUNCTION, DILATED LEFT ATRIUM, RIGHT ATRIUM AND MOD DRICUSPID REGURGITATION WITH PULMONARY ARTERY PRESSURE OF 35 - 40mmHg. Admission Diagnosis ACUTE ATRIAL FIBRILLATION SEVERE CARDIOMYOPATHY HYPERTENSION HYPERTENSIVE HEART DISEASE COPD PULMONARY HYPERTENSION ANEMIA HYPERLIPIDEMIA Admission Status: Inpatient Order (span 2 midnights) Reason for Inpatient Admission: INPT ADMISSION FOR ATRIAL FIBRILLATION AND CARDIOMYOPATHY - WILL REQUIRE AT LEAST 3-4 DAYS IN THE HOSPITAL. ANNALISA MANNING MD July 08, 2021 16:54
[2021-07-08 17:42] LABS: MAGNESIUM 1.5 MG/DL (1.6-2.4)
[2021-07-08] MEDS ORDERED: PANTOPRAZOLE 40 MG (PROTONIX) TAB PO NR (17:45)
[2021-07-08 18:03] LABS: FREE T4 (FREE THYROXINE) 0.91 NG/DL (0.70-1.48)
[2021-07-08] MEDS: RIVAROXABAN 20 MG TABLET (XARELTO) PO SCH (18:50)
[2021-07-08] MEDS: RT-ALBUTEROL/IPRATROPIUM 3 ML (DUONEB) VIAL INH SCH (20:24)
[2021-07-08] MEDS ORDERED: DIGOXIN 0.25 MG/ML (LANOXIN) 2 ML AMP IV SCH (23:00)
[2021-07-09] MEDS: dilTIAZem DRIP PRE-MIX 125 ML IV SCH ×2 (02:12→19:45)
[2021-07-09 04:46] LABS: HEMOGLOBIN 11.9 g/dL (13.3-17.7); MEAN PLATELET VOLUME 10.3 fL (9.0-12.2); WHITE BLOOD COUNT 4.7 10^3/uL (4.3-11.0)
[2021-07-09 05:02] LABS: ALBUMIN 3.3 GM/DL (3.2-4.5); CHLORIDE 103 MMOL/L (98-107); SODIUM 144 MMOL/L (135-145)
[2021-07-09 05:03] LABS: CALCIUM 8.7 MG/DL (8.5-10.1)
[2021-07-09 05:04] LABS: GLUCOSE 96 MG/DL (70-105)
[2021-07-09 05:05] LABS: TOTAL PROTEIN 5.5 GM/DL (6.4-8.2)
[2021-07-09 05:06] LABS: BILIRUBIN,TOTAL 0.6 MG/DL (0.1-1.0); CARBON DIOXIDE 30 MMOL/L (21-32)
[2021-07-09 05:08] LABS: ALKALINE PHOSPHATASE 93 U/L (40-136); CREATININE SERUM 0.71 MG/DL (0.60-1.30); GFR ESTIMATED 100
[2021-07-09 05:09] LABS: BUN/CREATININE RATIO 23
[2021-07-09 05:11] LABS: ALANINE AMINOTRANSFERASE 13 U/L (0-55)
[2021-07-09] MEDS ORDERED: NS IV 500 ML 500 ML ONE (07:26)
[2021-07-09] MEDS ORDERED: LIDOCAINE 2% VISCOUS 15 ML UDC ONE (07:29)
--- NOTE | 2021-07-09 07:45 | Progress Note ---
Subjective Subjective Date Seen by Provider: July 09, 2021 Time Seen by Provider: 07:30 Patient denies any chest pain, and reports trouble breathing that has not changed since yesterday. Review of Systems General: No Chills, No Night Sweats; Fatigue HEENT: No Head Aches, No Eye Pain; Other (dry throat) Pulmonary: Dyspnea, Cough; No Pleuritic Chest Pain Cardiovascular: Palpitations; No: Chest Pain Gastrointestinal: No: Nausea, Vomiting, Abdominal Pain Genitourinary: No Dysuria, No Frequency, No Hematuria Musculoskeletal: No: neck pain, back pain Neurological: No: Incoordination, Confusion All Other Systems Reviewed All Other Systems Reviewed: Yes Objective Exam Vital Signs Vital Signs Date Time Temp Pulse Resp B/P (MAP) Pulse Ox O2 Delivery O2 Flow Rate FiO2 07/09/21 06:00 103 26 95/71 95 Nasal Cannula 4.00 07/09/21 05:00 97 25 105/64 92 Nasal Cannula 4.00 07/09/21 04:00 96 25 108/73 95 Nasal Cannula 4.00 07/09/21 03:18 Nasal Cannula 4.00 07/09/21 03:00 124 25 111/84 94 Nasal Cannula 4.00 07/09/21 02:00 117 25 110/65 94 Nasal Cannula 4.00 07/09/21 01:00 115 07/09/21 01:00 115 24 120/77 90 Nasal Cannula 4.00 07/09/21 00:00 Nasal Cannula 4.00 07/09/21 00:00 112 19 118/95 92 Nasal Cannula 4.00 07/08/21 23:00 130 22 100/67 93 Nasal Cannula 4.00 07/08/21 22:00 103 25 100/73 90 Nasal Cannula 4.00 07/08/21 21:00 147 23 121/87 90 Nasal Cannula 4.00 07/08/21 20:36 Nasal Cannula 4.00 07/08/21 20:29 94 Nasal Cannula 3.50 07/08/21 20:00 137 20 95/73 95 Nasal Cannula 4.00 07/08/21 19:46 36.6 07/08/21 19:00 135 07/08/21 19:00 135 14 104/74 90 Nasal Cannula 4.00 07/08/21 18:00 96 19 106/65 93 Nasal Cannula 4.00 07/08/21 17:15 116 20 99/62 92 Nasal Cannula 4.00 07/08/21 17:00 98 07/08/21 16:03 135 94 07/08/21 16:00 36.0 Nasal Cannula 4.00 07/08/21 16:00 108 20 96/77 93 Nasal Cannula 4.00 07/08/21 16:00 Nasal Cannula 4.00 07/08/21 15:00 135 18 103/91 94 Nasal Cannula 4.00 07/08/21 14:00 138 15 91/53 92 Nasal Cannula 4.00 07/08/21 13:00 140 16 119/91 96 Nasal Cannula 4.00 07/08/21 12:56 109 07/08/21 12:00 144 16 91/76 96 07/08/21 12:00 Nasal Cannula 4.00 07/08/21 11:30 105 9 116/76 94 07/08/21 11:15 147 29 117/75 93 07/08/21 11:05 161 07/08/21 11:05 36.5 07/08/21 11:00 93/61 I & O 07/09/21 07:00 Intake Total 2665 ml Output Total 1350 ml Balance 1315 ml General Appearance: No Apparent Distress, WD/WN Eyes: Bilateral Eye Normal Inspection, Bilateral Eye PERRL, Bilateral Eye EOMI HEENT: PERRL/EOMI, Pharynx Normal Neck: Full Range of Motion, Non Tender, Supple Respiratory: Chest Non Tender, Lungs Clear, No Accessory Muscle Use Cardiovascular: Irregularly Irregular, Tachycardia Gastrointestinal: Normal Bowel Sounds, No Organomegaly, Non Tender, Soft, Mass Rectal: Deferred Back: Normal Inspection, No CVA Tenderness, No Vertebral Tenderness Extremity: Normal Capillary Refill, Pedal Edema Neurologic/Psychiatric: Alert, Oriented x3, No Motor/Sensory Deficits, Normal 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, 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 Skin: Normal Color, Warm/Dry Lymphatic: No Adenopathy Results Lab Laboratory Tests 07/08/21 12:02: White Blood Count 5.0, Red Blood Count 3.44L, Hemoglobin 11.7L, Hematocrit 37L, Mean Corpuscular Volume 106H, Mean Corpuscular Hemoglobin 34, Mean Corpuscular Hemoglobin Concent 32, Red Cell Distribution Width 12.9, Platelet Count 155, Mean Platelet Volume 10.4, Prothrombin Time 21.3H, INR Comment 1.8H, Activated Partial Thromboplast Time 39H, Sodium Level 142, Potassium Level 4.4, Chloride Level 101, Carbon Dioxide Level 32, Anion Gap 9, Blood Urea Nitrogen 26H, Creatinine 0.87, Estimat Glomerular Filtration Rate 94, BUN/Creatinine Ratio 30, Glucose Level 104, Calcium Level 8.8, Corrected Calcium 9.3, Magnesium Level 1.5L, Total Bilirubin 0.7, Aspartate Amino Transf (AST/SGOT) 15, Alanine Aminotransferase (ALT/SGPT) 14, Alkaline Phosphatase 99, Troponin I < 0.028, Total Protein 5.6L, Albumin 3.4, Thyroid Stimulating Hormone (TSH) 1.52, Free Thyroxine 0.91 07/09/21 04:30: White Blood Count 4.7, Red Blood Count 3.54L, Hemoglobin 11.9L, Hematocrit 38L, Mean Corpuscular Volume 107H, Mean Corpuscular Hemoglobin 34, Mean Corpuscular Hemoglobin Concent 31L, Red Cell Distribution Width 12.8, Platelet Count 113L, Mean Platelet Volume 10.3, Sodium Level 144, Potassium Level 4.0, Chloride Level 103, Carbon Dioxide Level 30, Anion Gap 11, Blood Urea Nitrogen 16, Creatinine 0.71, Estimat Glomerular Filtration Rate 100, BUN/Creatinine Ratio 23, Glucose Level 96, Calcium Level 8.7, Corrected Calcium 9.3, Total Bilirubin 0.6, Aspartate Amino Transf (AST/SGOT) 13, Alanine Aminotransferase (ALT/SGPT) 13, Alkaline Phosphatase 93, Troponin I < 0.028, Total Protein 5.5L, Albumin 3.3, Percent Immature Platelet Fraction 3.0 Assessment/Plan Assessment/Plan Admission Dx ACUTE ATRIAL FIBRILLATION SEVERE CARDIOMYOPATHY HYPERTENSION HYPERTENSIVE HEART DISEASE COPD PULMONARY HYPERTENSION ANEMIA HYPERLIPIDEMIA Elevated BUN Low magnesium Assessment and Plan ACUTE ATRIAL FIBRILLATION SEVERE CARDIOMYOPATHY HYPERTENSION HYPERTENSIVE HEART DISEASE COPD PULMONARY HYPERTENSION ANEMIA HYPERLIPIDEMIA Thrombocytopenia Hypotension Elevated BUN Low magnesium ACUTE ATRIAL FIBRILLATION WITH SEVERE CARDIOMYOPATHY - CARDIZEM DRIP - ONE TIME DOSE OF IV DIGOXIN - ORAL ANTICOAG WITH XARELTO -Will have a MOON and cardioversion performed today, repeat EKG, follow troponin levels HYPERTENSION WITH HYPERTENSIVE HEART DISEASE - PT ON CARDIZEM AT THIS TIME, WILL NEED TO BE TRANSITIONED TO ORAL MEDICAT IONS PRIOR TO DC. - HOLD HOME REGIMEN AT THIS TIME. COPD - PT ON DUONEB INHALERS, continue use of oxygen, incentive spirometer - WILL CHECK CT OF CHEST PRIOR TO DC TO HOME. PULMONARY HYPERTENSION - MANAGEMENT OF CARDIAC DISEASE AND REPEAT ECHO WILL BE PERFORMED OUTPT PER DR. MACE. ANEMIA - MONITOR LABS. HYPERLIPIDEMIA - RESUME STATIN THERAPY. Thrombocytopenia Hypotension -Monitor BP Elevated BUN -Resolved Low magnesium DVT PROPHYLAXIS WITH SCD'S AND XARELTO GI PROPHYLAXIS WITH PPI THERAPY. ECHO REPORT - SEVERE CONCENTRIC HYPERTROPHY, SEVERELY REDUCED SYSTOLIC FUNCTION, EF ESTIMATION 25 - 30%, SEVERE DIFFUSE HYPOKINESIS OF LEFT VENTRICLE, AND INCREASED CAVITY SIDE OF RIGHT VENTRICLE AND REDUCED SYSTOLIC FUNCTION, DILATED LEFT ATRIUM, RIGHT ATRIUM AND MOD DRICUSPID REGURGITATION WITH PULMONARY ARTERY PRESSURE OF 35 - 40mmHg. Supervisory-Addendum Brief Verification & Attestation Participated in pt care: history, MDM, physical Personally performed: exam, history, MDM, supervision of care Care discussed with: Medical Student Procedures: n/a Results interpretation: Verified all documentation AGREE WITH STUDENT NOTE DOCUMENTED. ACUTE ATRIAL FIBRILLATION SEVERE CARDIOMYOPATHY HYPERTENSION HYPERTENSIVE HEART DISEASE COPD PULMONARY HYPERTENSION ANEMIA HYPERLIPIDEMIA ACUTE ATRIAL FIBRILLATION WITH SEVERE CARDIOMYOPATHY - CARDIZEM DRIP - ONE TIME DOSE OF IV DIGOXIN - ORAL ANTICOAG WITH XARELTO HYPERTENSION WITH HYPERTENSIVE HEART DISEASE - PT ON CARDIZEM AT THIS TIME, WILL NEED TO BE TRANSITIONED TO ORAL MEDICATIONS PRIOR TO DC. - HOLD HOME REGIMEN AT THIS TIME. COPD - PT ON DUONEB INHALERS - WILL CHECK CT OF CHEST PRIOR TO DC TO HOME. PULMONARY HYPERTENSION - MANAGEMENT OF CARDIAC DISEASE AND REPEAT ECHO WILL BE PERFORMED OUTPT PER DR. MACE. ANEMIA - MONITOR LABS. HYPERLIPIDEMIA - RESUME STATIN THERAPY. DVT PROPHYLAXIS WITH SCD'S AND XARELTO GI PROPHYLAXIS WITH PPI THERAPY. ECHO REPORT - SEVERE CONCENTRIC HYPERTROPHY, SEVERELY REDUCED SYSTOLIC FUNCTION, EF ESTIMATION 25 - 30%, SEVERE DIFFUSE HYPOKINESIS OF LEFT VENTRICLE, AND INCREASED CAVITY SIDE OF RIGHT VENTRICLE AND REDUCED SYSTOLIC FUNCTION, DILATED LEFT ATRIUM, RIGHT ATRIUM AND MOD DRICUSPID REGURGITATION WITH PULMONARY ARTERY PRESSURE OF 35 - 40mmHg. ANITA MIRAMONTES July 09, 2021 07:45 ANNALISA VALDIVIA MD July 11, 2021 09:40
--- NOTE | 2021-07-09 07:48 | Conscious Sedation/ASA ---
Conscious Sedation Pre-Proced Time 07:48 ASA Score 3 For ASA 3 and 4: Consider anesthesia and medical clearance. Also, for patients with a history of failed moderate sedation consider anesthesia. Airway Lungs Heart ASA score ASA 1: a normal healthy patient ASA 2: a patient with a mild systemic disease (mid diabetes, controlled hypertension, obesity x ASA 3: a patient with a severe systemic disease that limits activity (angina, COPD, prior Myocardial infarction) ASA 4: a patient with an incapacitating disease that is a constant threat to life (CHF, renal failure) ASA 5: a moribund patient not expected to survive 24 hrs. (ruptured aneurysm) ASA 6: a declared brain- patient whose organs are being harvested. For emergent operations, add the letter E after the classification Mallampati Classification Grade 3 Sedation Plan Analgesia, Amnesia, Plan communicated to team members, Discussed options with patient/fam, Discussed risks with patient/fam The patient is an appropriate candidate to undergo the planned procedure, sedation, and anesthesia. The patient immediately re-assessed prior to indication. LAURA MACE MD July 09, 2021 07:48
--- NOTE | 2021-07-09 07:48 | Cardiology Progress Note ---
Subjective Date Seen by Provider: July 09, 2021 Time Seen by Provider: 07:46 Subjective/Events-last exam Patient is laying down in bed, feeling better. Still tachycardic Review of Systems General: No Chills, No Night Sweats; Fatigue; No Malaise, No Appetite, No Other HEENT: No Head Aches, No Visual Changes, No Eye Pain, No Ear Pain, No Dysphasia, No Sinus Congestion, No Post Nasal Drip, No Sore Throat, No Other Pulmonary: Dyspnea; No Cough, No Pleuritic Chest Pain, No Other Cardiovascular: No: Chest Pain, Palpitations, Orthopnea, Paroxysmal Noc. Dyspnea, Edema, Lt Headedness, Other Objective-Cardiology Exam Last Set of Vital Signs Vital Signs 07/08/21 07/09/21 19:46 06:00 Temp 36.6 Pulse 103 Resp 26 B/P (MAP) 95/71 Pulse Ox 95 O2 Delivery Nasal Cannula O2 Flow Rate 4.00 I&O Intake and Output 07/09/21 00:00 Intake Total 2540 ml Output Total 350 ml Balance 2190 ml Intake Oral 540 ml IV Total 2000 ml Output Urine Total 350 ml Daily Weight Change No General: Alert, Oriented X3, Cooperative HEENT: Atraumatic, PERRLA Neck: Supple, No JVD, No Thyromegaly Lungs: Clear to Auscultation, Normal Air Movement Heart: Normal S1, Normal S2, No Murmurs, Other (Atrial fibrillation) Abdomen: Normal Bowel Sounds, Soft, No Tenderness, No Hepatosplenomegaly, No Masses Extremities: No Clubbing, No Cyanosis, No Edema, Normal Pulses, No Tenderness/Swelling Skin: No Rashes, No Breakdown, No Significant Lesion Neuro: Normal Gait, Normal Speech, Strength at 5/5 X4 Ext, Normal Tone, Sensation Intact Psych/Mental Status: Mental Status NL, Mood NL Results Lab Laboratory Tests 07/08/21 12:02 07/09/21 04:30 A/P-Cardiology Admission Diagnosis Paroxysmal atrial fibrillation Tachycardia Congestive heart failure, acute left ventricular systolic dysfunction Hypotension Assessment/Plan Paroxysmal atrial fibrillation, new onset, unknown duration. Patient is at a higher risk of stroke. Start oral Cardizem CD1 20 mg daily on July 07, 2021. Seen today in the echo lab and he was severely tachycardic. Patient is admitted to ICU and started on Cardizem drip. I will monitor heart rate closely, planning for MOON and cardioversion [id number] score 3, started on Xarelto on July 07, 2021. Generalized fatigue, shortness of breath, loss of energy, oxygen dependent. Currently in atrial fibrillation. 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 Will evaluate troponin level. COPD, oxygen dependent, dyspnea on exertion. EKG is abnormal along with atrial fibrillation with a heart rate 140 and right bundle branch block. I am adding Cardizem and I will evaluate his tolerance and response. My recommendation is admission to the hospital for aggressive management Hypertension, was hypotensive, blood pressure is better at this point. Continue to monitor Hyperlipidemia, maintained on Lipitor 20 mg daily, I will evaluate lipid profile Mild bilateral carotid stenosis, ultrasound was done on July 07, 2021 Obesity, BMI is 33, concern about loss of appetite. I instructed him on additi onal diet and weight loss. LAURA MACE MD July 09, 2021 07:47
--- NOTE | 2021-07-09 08:26 | Diagnostic Imaging Report ---
PROCEDURE: US Renal Bilateral. TECHNIQUE: Multiple real-time grayscale images were obtained over the kidneys in various projections bilaterally. INDICATION: Renal lesion. No relevant comparison. The right kidney measures 10.6 and the left 12.7 cm. Some exophytic lower pole cyst measuring 2.4 cm. The left kidney measures 12.7 cm. There is a large heterogeneous exophytic left renal mass which appears solid measuring 6.3 cm as well as an additional cystic appearing lesion measuring 2.4 cm. There is no hydronephrosis. Urinary bladder appeared unremarkable. There is an echodense fatty appearing liver. Additional smaller appearing bilateral renal cysts noted. IMPRESSION: Large complex solid appearing left renal mass of at least 6.3 cm worrisome for carcinoma. If this patient cannot tolerate iodinated contrast pre and postcontrast enhanced abdominal MRI would be recommended for its further workup. There are additional cystic-appearing renal lesions with no other suspected solid renal mass revealed at this exam. Normal renal volumes with no hydronephrosis. Fatty infiltration of the liver noted incidentally. Dictated by: Dictated on workstation # [id number]
[2021-07-09] MEDS ORDERED: MIDAZOLAM 2 MG/2 ML (VERSED) VIAL ONE (08:34)
[2021-07-09] MEDS ORDERED: KETAMINE 50 MG/5 ML SYRINGE ONE (08:34)
[2021-07-09] MEDS ORDERED: proPOfol 200 MG/20 ML (DIPRIVAN) VIAL IV ONE (08:34)
--- NOTE | 2021-07-09 09:42 | Tele-ICU Progress Note ---
Subjective Date Seen by a Provider: July 09, 2021 Time Seen by a Provider: 09:42 Subjective/Events-last exam Patient today underwent MOON procedure and found to have a left ventricular clot hence the cardioversion was not done. He is on digoxin and Cardizem orally. Also receiving anticoagulant with Xarelto. He is still tachycardic with a heart rate of about 150-120/min. Cardiology following the patient. Review of Systems ROS PER RN Sepsis Event Evaluation Height, Weight, BMI Height: 5'11.00" Weight: 270lbs. 0.0oz. 122.093412be; 33.20 BMI Method: Exam Exam Patient acknowledged, consented, and participated in this virtual visit which was conducted using real time audio/video Vital Signs Date Time Temp Pulse Resp B/P (MAP) Pulse Ox O2 Delivery O2 Flow Rate FiO2 07/09/21 09:00 113 39 98/77 94 Nasal Cannula 4.00 07/09/21 08:00 36.8 07/09/21 08:00 131 19 125/76 88 Nasal Cannula 4.00 07/09/21 07:00 131 07/09/21 07:00 126 26 119/83 95 Nasal Cannula 4.00 07/09/21 06:00 103 26 95/71 95 Nasal Cannula 4.00 07/09/21 05:00 97 25 105/64 92 Nasal Cannula 4.00 07/09/21 04:00 96 25 108/73 95 Nasal Cannula 4.00 07/09/21 03:18 Nasal Cannula 4.00 07/09/21 03:00 124 25 111/84 94 Nasal Cannula 4.00 07/09/21 02:00 117 25 110/65 94 Nasal Cannula 4.00 07/09/21 01:00 115 07/09/21 01:00 115 24 120/77 90 Nasal Cannula 4.00 07/09/21 00:00 Nasal Cannula 4.00 07/09/21 00:00 112 19 118/95 92 Nasal Cannula 4.00 07/08/21 23:00 130 22 100/67 93 Nasal Cannula 4.00 07/08/21 22:00 103 25 100/73 90 Nasal Cannula 4.00 07/08/21 21:00 147 23 121/87 90 Nasal Cannula 4.00 07/08/21 20:36 Nasal Cannula 4.00 07/08/21 20:29 94 Nasal Cannula 3.50 5/11/22 20:00 137 20 95/73 95 Nasal Cannula 4.00 07/08/21 19:46 36.6 07/08/21 19:00 135 07/08/21 19:00 135 14 104/74 90 Nasal Cannula 4.00 07/08/21 18:00 96 19 106/65 93 Nasal Cannula 4.00 07/08/21 17:15 116 20 99/62 92 Nasal Cannula 4.00 07/08/21 17:00 98 07/08/21 16:03 135 94 07/08/21 16:00 36.0 Nasal Cannula 4.00 07/08/21 16:00 108 20 96/77 93 Nasal Cannula 4.00 07/08/21 16:00 Nasal Cannula 4.00 07/08/21 15:00 135 18 103/91 94 Nasal Cannula 4.00 07/08/21 14:00 138 15 91/53 92 Nasal Cannula 4.00 07/08/21 13:00 140 16 119/91 96 Nasal Cannula 4.00 07/08/21 12:56 109 07/08/21 12:00 144 16 91/76 96 07/08/21 12:00 Nasal Cannula 4.00 07/08/21 11:30 105 9 116/76 94 07/08/21 11:15 147 29 117/75 93 07/08/21 11:05 161 07/08/21 11:05 36.5 07/08/21 11:00 93/61 I & O 07/09/21 07:00 Intake Total 2665 ml Output Total 1350 ml Balance 1315 ml Height & Weight Height: 5'11.00" Weight: 270lbs. 0.0oz. 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 2. Acute systolic congestive heart failure 3. Obesity. Recommendations 1. Management of atrial fibrillation per cardiology service 2. Continue diuretic therapy per cardiology service. 3. Needs chronic anticoagulation per cardiology service. Critical Care: Critically Ill Patient Time spent with patient (mins): 15 CHEPE SCHWARTZ MD July 09, 2021 09:42
[2021-07-09] MEDS: NICOTINE 21 MG (NICODERM) PATCH TD SCH (10:00)
[2021-07-09] MEDS: PANTOPRAZOLE 40 MG (PROTONIX) TAB PO SCH (10:01)
[2021-07-09] MEDS: meTOproloL SUCCINATE 50 MG (TOPROL XL) TAB PO SCH (10:01)
[2021-07-09] MEDS: DIGOXIN 0.25 MG (LANOXIN) TAB PO SCH (10:01)
[2021-07-09] MEDS: RT-ALBUTEROL/IPRATROPIUM 3 ML (DUONEB) VIAL INH SCH ×2 (10:15→18:47)
--- NOTE | 2021-07-09 10:19 | Anesthesia-General Post-Op ---
MAC Patient Condition Mental Status/LOC: Same as Preop Cardiovascular: Satisfactory Nausea/Vomiting: Absent Respiratory: Satisfactory Pain: Controlled Complications: Absent Post Op Complications Complications None Follow Up Care/Instructions Patient Instructions None needed. Anesthesiology Discharge Order Discharge Order Patient is doing well, no complaints, stable vital signs, no apparent adverse anesthesia problems. DEB STEPHENSON DO July 09, 2021 10:19
[2021-07-09] MEDS: RIVAROXABAN 20 MG TABLET (XARELTO) PO SCH (16:51)
[2021-07-09] MEDS: PATCH REMOVAL TP SCH (21:30)
[2021-07-10] MEDS: POTASSIUM CL 10MEQ/50ML IVPB 50 ML IV SCH (05:45)
[2021-07-10] MEDS: KCL 20 MEQ TAB (K-DUR) PO SCH (05:45)
[2021-07-10 05:47] LABS: CREATININE SERUM 0.63 MG/DL (0.60-1.30)
[2021-07-10 05:49] LABS: MAGNESIUM 1.4 MG/DL (1.6-2.4)
[2021-07-10] MEDS: MAGNESIUM 1 GM/100 ML IVPB 100 ML IV SCH ×3 (05:54→06:31)
--- NOTE | 2021-07-10 07:13 | Progress Note ---
Subjective Subjective Date Seen by Provider: July 10, 2021 Time Seen by Provider: 07:00 Patient denies any chest pain, and reports trouble breathing that has not changed since he got here, but is otherwise doing well. Review of Systems General: No Chills, No Night Sweats; Fatigue HEENT: No Head Aches, No Eye Pain; Other (dry throat) Pulmonary: Dyspnea, Cough; No Pleuritic Chest Pain Cardiovascular: Palpitations; No: Chest Pain Gastrointestinal: No: Nausea, Vomiting, Abdominal Pain Genitourinary: No Dysuria, No Frequency, No Hematuria Musculoskeletal: No: neck pain, back pain Neurological: No: Incoordination, Confusion All Other Systems Reviewed All Other Systems Reviewed: Yes Objective Exam Vital Signs Vital Signs Date Time Temp Pulse Resp B/P (MAP) Pulse Ox O2 Delivery O2 Flow Rate FiO2 07/10/21 06:00 81 18 139/64 97 Nasal Cannula 6.00 07/10/21 05:00 92 18 114/69 96 Nasal Cannula 6.00 07/10/21 04:00 36.3 07/10/21 04:00 High Flow N/C 6.00 07/10/21 04:00 104 19 115/70 91 Nasal Cannula 6.00 07/10/21 03:00 87 12 123/71 100 Nasal Cannula 6.00 07/10/21 02:00 89 14 107/66 92 Nasal Cannula 6.00 07/10/21 01:00 80 07/10/21 01:00 92 18 110/71 93 Nasal Cannula 6.00 07/10/21 00:00 92 20 92/56 95 Nasal Cannula 6.00 07/10/21 00:00 High Flow N/C 6.00 07/10/21 00:00 36.3 07/09/21 23:00 93 20 105/48 94 Nasal Cannula 6.00 07/09/21 22:00 65 20 107/63 98 Nasal Cannula 6.00 07/09/21 21:00 112 22 116/74 96 Nasal Cannula 6.00 07/09/21 20:00 High Flow N/C 6.00 07/09/21 20:00 36.1 07/09/21 20:00 96 16 111/68 96 Nasal Cannula 6.00 07/09/21 19:44 Nasal Cannula 6.00 07/09/21 19:00 80 07/09/21 19:00 105 19 112/64 92 Nasal Cannula 6.00 07/09/21 18:47 93 High Flow N/C 8.00 07/09/21 18:00 77 19 128/82 98 Nasal Cannula 4.00 07/09/21 17:00 80 18 114/71 Nasal Cannula 4.00 07/09/21 16:00 90 19 113/63 98 Nasal Cannula 4.00 07/09/21 16:00 36.8 07/09/21 15:32 High Flow N/C 6.00 07/09/21 15:00 78 17 116/81 99 Nasal Cannula 4.00 07/09/21 14:00 101 22 94/68 97 Nasal Cannula 4.00 07/09/21 13:00 96 104/64 99 Nasal Cannula 4.00 07/09/21 13:00 129 07/09/21 12:00 High Flow N/C 6.00 07/09/21 12:00 92 High Flow N/C 6.00 07/09/21 12:00 90 23 89/54 95 Nasal Cannula 4.00 07/09/21 11:00 112 21 105/65 88 Nasal Cannula 4.00 07/09/21 10:15 92 Nasal Cannula 5.00 07/09/21 10:00 141 22 122/70 91 Nasal Cannula 4.00 07/09/21 09:00 113 39 98/77 94 Nasal Cannula 4.00 07/09/21 08:25 97 OxyMask 12.00 07/09/21 08:00 36.8 07/09/21 08:00 131 19 125/76 88 Nasal Cannula 4.00 07/09/21 08:00 Nasal Cannula 4.00 I & O 07/10/21 07:00 Intake Total 750 ml Output Total 1700 ml Balance -950 ml General Appearance: No Apparent Distress, WD/WN Eyes: Bilateral Eye Normal Inspection, Bilateral Eye PERRL, Bilateral Eye EOMI HEENT: PERRL/EOMI, Pharynx Normal Neck: Full Range of Motion, Non Tender, Supple Respiratory: Chest Non Tender, Lungs Clear, No Accessory Muscle Use Cardiovascular: Irregularly Irregular, Tachycardia Gastrointestinal: Normal Bowel Sounds, No Organomegaly, Non Tender, Soft, Mass (LLQ) Rectal: Deferred Back: Normal Inspection, No CVA Tenderness, No Vertebral Tenderness Extremity: Normal Capillary Refill, Pedal Edema Neurologic/Psychiatric: Alert, Oriented x3, No Motor/Sensory Deficits, Normal Mood/Affect, 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 Norm as Tested Skin: Normal Color, Warm/Dry Lymphatic: No Adenopathy Results Lab Laboratory Tests 07/09/21 12:08: Lab Scanned Report Transfusion Reaction Form 07/10/21 04:05: Sodium Level 145, Potassium Level 4.0, Chloride Level 102, Carbon Dioxide Level 31, Anion Gap 12, Blood Urea Nitrogen 10, Creatinine 0.63, Estimat Glomerular Filtration Rate 104, BUN/Creatinine Ratio 16, Glucose Level 90, Calcium Level 9.0, Magnesium Level 1.4L, Digoxin Level 1.03 Microbiology 07/08/21 MRSA Screen - Final, Complete MRSA not isolated Assessment/Plan Assessment/Plan Admission Dx ACUTE ATRIAL FIBRILLATION SEVERE CARDIOMYOPATHY HYPERTENSION HYPERTENSIVE HEART DISEASE COPD PULMONARY HYPERTENSION ANEMIA HYPERLIPIDEMIA Elevated BUN Low magnesium Assessment and Plan ACUTE ATRIAL FIBRILLATION SEVERE CARDIOMYOPATHY HYPERTENSION HYPERTENSIVE HEART DISEASE COPD PULMONARY HYPERTENSION ANEMIA HYPERLIPIDEMIA Thrombocytopenia Hypotension Elevated BUN Low magnesium Renal mass ACUTE ATRIAL FIBRILLATION WITH SEVERE CARDIOMYOPATHY - CARDIZEM DRIP - ONE TIME DOSE OF IV DIGOXIN - ORAL ANTICOAG WITH XARELTO -Will have a MOON and cardioversion performed on 07/09, repeat EKG, follow troponin levels -Cardioversion not performed due to clot in atrium, will continue anticoagulation medications and rate control for 6 weeks and will be seen by Dr. Reyna outpatient. -[facility] one or two weeks, manager social services will be notified to talk to him again. HYPERTENSION WITH HYPERTENSIVE HEART DISEASE - PT ON CARDIZEM AT THIS TIME, WILL NEED TO BE TRANSITIONED TO ORAL MEDICATIONS PRIOR TO DC. - HOLD HOME REGIMEN AT THIS TIME. COPD - PT ON DUONEB INHALERS, continue use of oxygen, incentive spirometer - WILL CHECK CT OF CHEST PRIOR TO DC TO HOME. PULMONARY HYPERTENSION - MANAGEMENT OF CARDIAC DISEASE AND REPEAT ECHO WILL BE PERFORMED OUTPT PER DR. REYNA. ANEMIA - MONITOR LABS. HYPERLIPIDEMIA - RESUME STATIN THERAPY. Thrombocytopenia Hypotension -Monitor BP Elevated BUN -Resolved Low magnesium -IV magnesium given Renal Mass -MRI is recommended for further workup, previous metal removed from eye years ago will undergo X-ray of eyes before MRI. Depending on imaging, Urology will be consulted. DVT PROPHYLAXIS WITH SCD'S AND XARELTO GI PROPHYLAXIS WITH PPI THERAPY. ECHO REPORT - SEVERE CONCENTRIC HYPERTROPHY, SEVERELY REDUCED SYSTOLIC FUNCTION, EF ESTIMATION 25 - 30%, SEVERE DIFFUSE HYPOKINESIS OF LEFT VENTRICLE, AND INCREASED CAVITY SIDE OF RIGHT VENTRICLE AND REDUCED SYSTOLIC FUNCTION, DILATED LEFT ATRIUM, RIGHT ATRIUM AND MOD DRICUSPID REGURGITATION WITH PULMONARY ARTERY PRESSURE OF 35 - 40mmHg. Admission Dx ACUTE ATRIAL FIBRILLATION SEVERE CARDIOMYOPATHY HYPERTENSION HYPERTENSIVE HEART DISEASE COPD PULMONARY HYPERTENSION ANEMIA HYPERLIPIDEMIA Elevated BUN Low magnesium Clinical Quality Measures Admission Status Admission Dx ACUTE ATRIAL FIBRILLATION SEVERE CARDIOMYOPATHY HYPERTENSION HYPERTENSIVE HEART DISEASE COPD PULMONARY HYPERTENSION ANEMIA HYPERLIPIDEMIA Elevated BUN Low magnesium Supervisory-Addendum Brief Verification & Attestation Participated in pt care: history, MDM, physical Personally performed: exam, history, MDM, supervision of care Care discussed with: Medical Student Procedures: n/a Results interpretation: Verified all documentation ACUTE ATRIAL FIBRILLATION SEVERE CARDIOMYOPATHY HYPERTENSION HYPERTENSIVE HEART DISEASE COPD PULMONARY HYPERTENSION ANEMIA HYPERLIPIDEMIA RENAL MASS ACUTE ATRIAL FIBRILLATION WITH SEVERE CARDIOMYOPATHY - CARDIZEM DRIP - ORAL ANTICOAG WITH XARELTO HYPERTENSION WITH HYPERTENSIVE HEART DISEASE - PT ON CARDIZEM AT THIS TIME, WILL NEED TO BE TRANSITIONED TO ORAL MED ICATIONS PRIOR TO DC. - HOLD HOME REGIMEN AT THIS TIME. RENAL MASS - CHECK MRI TODAY COPD - PT ON DUONEB INHALERS - WILL CHECK CT OF CHEST PRIOR TO DC TO HOME. PULMONARY HYPERTENSION - MANAGEMENT OF CARDIAC DISEASE AND REPEAT ECHO WILL BE PERFORMED OUTPT PER DR. REYNA. ECHO REPORT - SEVERE CONCENTRIC HYPERTROPHY, SEVERELY REDUCED SYSTOLIC FUNCTION, EF ESTIMATION 25 - 30%, SEVERE DIFFUSE HYPOKINESIS OF LEFT VENTRICLE, AND INCREASED CAVITY SIDE OF RIGHT VENTRICLE AND REDUCED SYSTOLIC FUNCTION, DILATED LEFT ATRIUM, RIGHT ATRIUM AND MOD DRICUSPID REGURGITATION WITH PULMONARY ARTERY PRESSURE OF 35 - 40mmHg. ANEMIA - MONITOR LABS. HYPERLIPIDEMIA - RESUMED STATIN THERAPY. DVT PROPHYLAXIS WITH SCD'S AND XARELTO GI PROPHYLAXIS WITH PPI THERAPY. ANITA MIRAMONTES July 10, 2021 07:13 ANNALISA VALDVIIA MD July 11, 2021 09:41
[2021-07-10] MEDS: RT-ALBUTEROL/IPRATROPIUM 3 ML (DUONEB) VIAL INH SCH ×2 (07:18→19:57)
[2021-07-10] MEDS: DIGOXIN 0.25 MG (LANOXIN) TAB PO SCH (08:15)
[2021-07-10] MEDS: PANTOPRAZOLE 40 MG (PROTONIX) TAB PO SCH (08:15)
[2021-07-10] MEDS: meTOproloL SUCCINATE 50 MG (TOPROL XL) TAB PO SCH (08:15)
[2021-07-10] MEDS: NICOTINE 21 MG (NICODERM) PATCH TD SCH (08:15)
--- NOTE | 2021-07-10 09:50 | Cardiology Progress Note ---
Subjective Date Seen by Provider: July 10, 2021 Time Seen by Provider: 09:45 Subjective/Events-last exam Patient is laying down in bed. Slight improvement today Having generalized fatigue, still tachycardic Review of Systems General: No Chills, No Night Sweats; Fatigue, Malaise; No Appetite, No Other HEENT: No Head Aches, No Visual Changes, No Eye Pain, No Ear Pain, No Dysphasia, No Sinus Congestion, No Post Nasal Drip, No Sore Throat, No Other Pulmonary: Dyspnea; No Cough, No Pleuritic Chest Pain, No Other Cardiovascular: No: Chest Pain, Palpitations, Orthopnea, Paroxysmal Noc. Dyspnea, Edema, Lt Headedness, Other Objective-Cardiology Exam Last Set of Vital Signs Vital Signs 07/10/21 07/10/21 07:29 09:00 Temp 36.6 Pulse 129 Resp 16 B/P (MAP) 141/79 Pulse Ox 93 O2 Delivery Nasal Cannula O2 Flow Rate 6.00 I&O Intake and Output 07/09/21 23:59 Intake Total 725 ml Output Total 2100 ml Balance -1375 ml Intake Oral 475 ml IV Total 250 ml Output Urine Total 2100 ml General: Alert, Oriented X3, Cooperative HEENT: Atraumatic, PERRLA Neck: Supple, No JVD, No Thyromegaly Lungs: Clear to Auscultation, Normal Air Movement Heart: Normal S1, Normal S2, No Murmurs, Other (Atrial fibrillation) Abdomen: Normal Bowel Sounds, Soft, No Tenderness, No Hepatosplenomegaly, No Masses Extremities: No Clubbing, No Cyanosis, No Edema, Normal Pulses, No Tenderness/Swelling Skin: No Rashes, No Breakdown, No Significant Lesion Neuro: Normal Gait, Normal Speech, Strength at 5/5 X4 Ext, Normal Tone, Sensation Intact Psych/Mental Status: Mental Status NL, Mood NL Results Lab Laboratory Tests 07/10/21 04:05 A/P-Cardiology Admission Diagnosis Paroxysmal atrial fibrillation Tachycardia Congestive heart failure, acute left ventricular systolic dysfunction Hypotension Assessment/Plan Paroxysmal atrial fibrillation, new onset, unknown duration. MOON showed echogenic density in the left atrial appendage suggestive of a thrombus. Left ventricular systolic dysfunction, mild mitral regurgitation Still on Cardizem drip and digoxin, I am starting oral Cardizem with close monitoring to his blood pressure. [id number] score 3, identified thrombus within the left atrial appendage, started on Xarelto on July 07, 2021. Generalized fatigue, shortness of breath, loss of energy, oxygen dependent. Currently in atrial fibrillation. 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 2D echo done on July 08, 2021 showing dilated left ventricle with left ventricular hypertrophy and ejection fraction 20 to 25%, dilated right ventricle and biatrial enlargement, PA pressure 35 to 40 mmHg. During the MOON on July 09, 2021, his ejection fraction appeared to be better after his heart rate improved slightly. He was still tachycardic but ejection fraction appeared to be 45%. We will continue with aggressive calcium channel blockers rate control trying to add low-dose beta-blockers and MONICA inhibitor if tolerating it COPD, oxygen dependent, dyspnea on exertion. Hypertension, has been borderline hypotensive. Continue to monitor blood pressure Hyperlipidemia, maintained on Lipitor 20 mg daily, I will evaluate lipid profile Mild bilateral carotid stenosis, ultrasound was done on July 07, 2021 Hypomagnesemia, being replaced per protocol, monitor magnesium level Obesity, BMI is 33, concern about loss of appetite. I instructed him on additional diet and weight loss. LAURA MACE MD July 10, 2021 09:50
--- NOTE | 2021-07-10 09:59 | Diagnostic Imaging Report ---
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 Findings: No metallic opaque orbital foreign body. Impression: Negative. Dictated by: Dictated on workstation # [id number]
[2021-07-10] MEDS ORDERED: GADOTERATE 0.5 MMOL/ML (CLARISCAN) 5 ML VIAL IV ONE (10:30)
[2021-07-10] MEDS ORDERED: GADOTERATE 0.5 MMOL/ML (CLARISCAN) 20 ML VIAL IV ONE (10:30)
--- NOTE | 2021-07-10 11:09 | Physical Therapy Evaluation ---
PT Evaluation-General Medical Diagnosis Admission Date July 08, 2021 at 11:19 Medical Diagnosis: A-fib with RVR Onset Date: July 08, 2021 Therapy Diagnosis Therapy Diagnosis: debility/weakness Height/Weight Height (Feet): 5 Height (Inches): 11.00 Weight (Pounds): 270 Weight (Ounces): 0.0 Precautions Precautions/Isolations: Fall Prevention, Standard Precautions Referral Physician: Kerri Reason for Referral: Evaluation/Treatment Medical History Pertinent Medical History: Atrial Fib, COPD, HTN, Rheumatoid Arthritis, Smoking Current History Admit due to cardiac issues Reviewed History: Yes Social History Home: Single Level Current Living Status: Spouse Prior Prior Level of Function SCALE: Activities may be completed with or without assistive devices. 4-Lgfjjfbyli-emngoow completes the activity by him/herself with no assistance from a helper. 5-Set-up or Clean-up Assistance-helper sets up or cleans up; patient completes activity. Jasper assists only prior to or following the activity. 4-Supervision or Touching Assistance-helper provides verbal cues and/or touching/steadying and/or contact guard assistance as patient completes activity. Assistance may be provided throughout the activity or intermittently. 3-Partial/Moderate Assistance-helper does LESS THAN HALF the effort. Jasper lifts, holds or supports trunk or limbs, but provides less than half the effort. 2-Substantial/Maximal Assistance-helper does MORE THAN HALF the effort. Jasper lifts or holds trunk or limbs and provides more than half the effort. 5-Rbabacuvp-rkuwra does ALL the effort. Patient does none of the effort to complete the activity. Or, the assistance of 2 or more helpers is required for the patient to complete the activity. If activity was not attempted, code reason: 7-Patient Refused. 9-Not Applicable-not attempted and the patient did not perform the activity before the current illness, exacerbation or injury. 10-Not Attempted due to Environmental Limitations-(lack of equipment, weather restraints, etc.). 88-Not Attempted due to Medical Conditions or Safety Concerns. Bed Mobility: 6 Transfers (B,C,W/C): 6 Gait: 6 Stairs: 6 Indoor Mobility (Ambulation): Independent Stairs: Independent Prior Devices Use: None PT Evaluation-Current Subjective Patient reports he has just started using a walker for his safety. Objective Patient Orientation: Normal For Age Attachments: Oxygen ROM/Strength ROM Lower Extremities bilateral LE WFL Strength Lower Extremities 4/5 grossly bilateral LE Integumentary/Posture Bowel Incontinence: No Bladder Incontinence: No Posture WFL Neuromuscular (Tone, Coordination, Reflexes) grossly intact Sensory Vision: Wears Glasses Hearing: Functional Transfers Lying to Sitting/Side of Bed(Q: 6 Sit to Stand (QC): 4 Chair/Ppy-nl-Zzyqf Xfer(QC): 4 Gait Mode of Locomotion: Walk Anticipated Mode of Locomotion: Walk Walk 10 feet (QC): 4 Walk 50 ft with 2 Turns(QC): 4 Walk 150 ft (QC): 4 Distance: 175' Gait Assistive Device: FWW Comments/Gait Description safe and functional with no deviation Balance Sitting Static: Normal Sitting Dynamic: Normal Standing Static: Normal Standing Dynamic: Normal Assessment/Needs 70 y.o. male, will be seen short term by skilled PT to address functional strength and mobility to improve current LOF to safely return to home at maximum LOF. Rehab Potential: Fair PT Prison Goals Prison Goals PT Prison Goals Time Frame: July 18, 2021 Roll Left & Right (QC): 6 Sit to Lying (QC): 6 Lying-Sitting on Side/Bed(QC): 6 Sit to Stand (QC): 6 Chair/Rum-hh-Tgznd Xfer(QC): 6 Toilet Transfer (QC): 6 Walk 10 feet (QC): 6 Walk 50ft with 2 Turns (QC): 6 Walk 150 ft (QC): 6 PT Plan Problem List Problem List: Activity Tolerance, Functional Strength, Safety, Balance, Gait, Transfer, Bed Mobility Treatment/Plan Treatment Plan: Continue Plan of Care Treatment Plan: Bed Mobility, Education, Functional Activity Ramakrishna, Functional Strength, Gait, Safety, Therapeutic Exercise, Transfers Treatment Duration: July 18, 2021 Frequency: 6 times per week Estimated Hrs Per Day: .25 hour per day Patient and/or Family Agrees t: Yes Time/GCodes Time In: 1041 Time Out: 1051 Total Billed Treatment Time: 10 Total Billed Treatment 1 visit EVModC 10 min JUAN CHAVEZ PT July 10, 2021 11:09
--- NOTE | 2021-07-10 12:50 | Diagnostic Imaging Report ---
PROCEDURE: MR imaging abdomen with and without contrast. TECHNIQUE: Multiplanar, multisequence MR imaging of the abdomen was performed with and without contrast. INDICATION: Left renal lesion. Correlated with its partial visualization at a recent nonenhanced chest CT 10/08/2020, also correlated with recent ultrasound. FINDINGS: There are multiple bilateral simple benign renal cortical cysts the largest simple cyst exophytic off the ventral aspect of the lower pole the left kidney measuring a diameter of 12 cm. In addition, there is a large mixed cystic solid complex mass off the lower pole of the left kidney measuring 7 cm transverse by 6.5 cm AP by 6.6 cm cephalocaudal. This contains a hemorrhagic cystic component of 3 cm in length. This mass abuts and distorts the posterior contour of the large measured 11 cm adjacent lower pole cortical cyst. There is some stranding of the adjacent perinephric retroperitoneal fat tracking caudally into the upper iliac level which likely reflects an element of perilesional hemorrhage. This a small in volume. There is a 3.7 cm fusiform infrarenal abdominal aortic aneurysm, but no MRI findings to suggest its rupture. Small fatty umbilical hernia. There is no suspicious adrenal mass. No suspicious liver lesions. Gallbladder unremarkable. No bile duct dilatation. The spleen within normal limits. The renal veins appeared patent. The cava patent. There is no pathological appearing abdominal mesenteric or retroperitoneal lymphadenopathy. There appear to be small dependent pleural effusions. There is vertebral body marrow heterogeneity at the L4 level diffusely as well as small focal lesion in the L5 vertebral body and a partially visualized lesion in the left posterior iliac bone. Bony metastatic disease could not be excluded. IMPRESSION: 1. Complex solid cystic left renal lower pole mass worrisome for cystic neoplasm. Abnormal marrow lesions at L4-L5 in the left iliac bone may reflect metastatic deposits. Negative liver and no findings of adenopathy. 2. There is some infiltration of the retroperitoneal fat adjacent to the lower pole of the left kidney and extending caudally below the field of view suspicious for small amount of perilesional hemorrhage. 3. Unruptured fusiform infrarenal abdominal aortic aneurysm, probable trace pleural effusions. Nonfocal liver. No lymphadenopathy. Dictated by: Dictated on workstation # [id number]
--- NOTE | 2021-07-10 13:27 | Occupational Therapy Eval ---
OT Evaluation-General/PLF Medical Diagnosis Admission Date July 08, 2021 at 11:19 Medical Diagnosis: A-fib with RVR Onset Date: July 08, 2021 Therapy Diagnosis Therapy Diagnosis: reduced adl status Height/Weight Height (Feet): 5 Height (Inches): 11.00 Weight (Pounds): 270 Weight (Ounces): 0.0 Precautions Precautions/Isolations: Fall Prevention, Standard Precautions Referral Physician: Kerri Referral Reason: Evaluation/Treatment Medical History Pertinent Medical History: Atrial Fib, COPD, HTN, Rheumatoid Arthritis, Smoking Current History Pt admitted secondary to cardiac issues. Per patient, he lives with his in a single story home with a ramp entrance. Pt was indep with adls and his performs all the iadls. He states that he uses his walker to go up/down ramp as there is no handrails to hold onto and will use his cane for all other mobility. Pt states that he was recently given supplemental oxygen ~3 months ago but no one taught him how to use it. He will use it only when he is out in the community for a long time and at that time it will usually be set at 4L. Reviewed History: Yes Social History Home: Single Level Current Living Status: Spouse Entry Into Home: Ramp ADL-Prior Level of Function SCALE: Activities may be completed with or without assistive devices. 0-Tapjrxuldp-bjhmhgk completes the activity by him/herself with no assistance from a helper. 5-Set-up or Clean-up Assistance-helper sets up or cleans up; patient completes activity. [place] assists only prior to or following the activity. 4-Supervision or Touching Assistance-helper provides verbal cues and/or touching/steadying and/or contact guard assistance as patient completes activity. Assistance may be provided throughout the activity or intermittently. 3-Partial/Moderate Assistance-helper does LESS THAN HALF the effort. [place] lifts, holds or supports trunk or limbs, but provides less than half the effort. 2-Substantial/Maximal Assistance-helper does MORE THAN HALF the effort. [place] lifts or holds trunk or limbs and provides more than half the effort. 5-Rwvulagne-igmdgv does ALL the effort. Patient does none of the effort to complete the activity. Or, the assistance of 2 or more helpers is required for the patient to complete the activity. If activity was not attempted, code reason: 7-Patient Refused. 9-Not Applicable-not attempted and the patient did not perform the activity before the current illness, exacerbation or injury. 10-Not Attempted due to Environmental Limitations-(lack of equipment, weather restraints, etc.). 88-Not Attempted due to Medical Conditions or Safety Concerns. Self Care: Independent Functional Cognition: Needed Some Help DME/Equipment: Bath Chair, Tub/Shower Drive Self: Yes OT Current Status Subjective Pt denies pain, agreeable to eval. Appearance Pt returned to supine in bed, all needs within reach, [employer] notified regarding leaking IV. Mental Status/Objective Patient Orientation: Person, Place, Situation Attachments: IV, Oxygen, Telemetry Current Glasses/Contacts: Yes Hearing Aids: No Dentures/Partials: Yes Hand Dominance: Right Upper Extremity ROM WNL Upper Extremity Strength 4/5 throughout ADL-Treatment Eating (QC): 6 Oral Hygiene (QC): 5 (per clinical judgment) Lower Body Dressing (QC): 4 On/Off Footwear (QC): 4 Supine<>sit: SBA. Pt on 5L O2 at rest. Desats into high 80's once sitting upright. Recovers quickly with cues for PLB. Education provided on use of pulse ox and when to adjust oxygen L. HR ranging from low 80's to 120's with minimal activity. He was able to don/doff bilateral socks with use of cross over method and extra effort. Sit<>stand: CGA. He ambulated ~5 feet with use of walker and CGA, no unsteadiness. HR in 120's with gait. Anticipate steadying assist during dynamic standing activities at this time. He returned to sitting, cues for safety and reaching back for surface. Education OT Patient Education: Correct positioning, Energy conservation, Purpose of tx/functional activities, Reviewed precautions, Safety issues, Transfer techniques, Use of adapted equipment Teaching Recipient: Patient Teaching Methods: Demonstration, Discussion Response to Teaching: Verbalize Understanding, Return Demonstration, Reinforcement Needed OT [employer]rication Supervisor Goals Detention Goals Time Frame: July 21, 2021 Eating (QC): 6 Oral Hygiene (QC): 6 Toileting Hygiene (QC): 6 Shower/Bathe Self (QC): 4 Upper Body Dressing (QC): 5 Lower Body Dressing (QC): 5 On/Off Footwear (QC): 5 1=Demonstrate adherence to instructed precautions during ADL tasks. 2=Patient will verbalize/demonstrate understanding of assistive devices/modifications for ADL. 3=Patient will improve strength/tolerance for activity to enable patient to perform ADL's. OT Education/Plan Problem List/Assessment Assessment: Decreased Activ Tolerance, Decreased Safety Aware, Edema, Impaired Funct Balance, Impaired Self-Care Skills Discharge Recommendations Plan/Recommendations: Continue POC Target Placement ongoing assessment. Anticipate Home with family support vs home health pending progress Treatment Plan/Plan of Care Treatment,Training & Education: Yes Patient would benefit from OT for education, treatment and training to promote independence in ADL's, mobility, safety and/or upper extremity function for ADL's. Plan of Care: ADL Retraining, Functional Mobility, Group Exercise/Act as Ind, UE Funct Exercise/Act Treatment Duration: July 21, 2021 Frequency: 3 times per week (3-5x/week) Estimated Hrs Per Day: .25 hour per day Agreement: Yes Rehab Potential: Fair Time/GCodes Start Time: 12:42 Stop Time: 12:56 Total Time Billed (hr/min): 14 Billed Treatment Time 1 visit Ana Rhodes OT July 10, 2021 13:27
[2021-07-10] MEDS: RIVAROXABAN 20 MG TABLET (XARELTO) PO SCH (16:24)
[2021-07-10] MEDS: PATCH REMOVAL TP SCH (21:27)
[2021-07-11] MEDS: POTASSIUM CL 10MEQ/50ML IVPB 50 ML IV SCH (05:04)
[2021-07-11 05:25] LABS: CALCIUM 8.8 MG/DL (8.5-10.1)
[2021-07-11 05:30] LABS: CREATININE SERUM 0.56 MG/DL (0.60-1.30)
[2021-07-11 05:32] LABS: MAGNESIUM 1.5 MG/DL (1.6-2.4)
[2021-07-11] MEDS: MAGNESIUM 1 GM/100 ML IVPB 100 ML IV SCH (06:26)
[2021-07-11] MEDS: KCL 20 MEQ TAB (K-DUR) PO SCH (06:27)
[2021-07-11] MEDS: RT-ALBUTEROL/IPRATROPIUM 3 ML (DUONEB) VIAL INH SCH ×2 (07:21→19:59)
[2021-07-11] MEDS: PANTOPRAZOLE 40 MG (PROTONIX) TAB PO SCH (08:33)
[2021-07-11] MEDS: DIGOXIN 0.25 MG (LANOXIN) TAB PO SCH (08:33)
[2021-07-11] MEDS: meTOproloL SUCCINATE 50 MG (TOPROL XL) TAB PO SCH (08:33)
[2021-07-11] MEDS: NICOTINE 21 MG (NICODERM) PATCH TD SCH (08:33)
--- NOTE | 2021-07-11 09:42 | Progress Note ---
Subjective Subjective Date Seen by Provider: July 11, 2021 Time Seen by Provider: 08:15 PT REPORTS THAT HE IS FEELING A LITTLE BIT BETTER TODAY, LESS SWELLING IN HIS LEGS, STILL WITH ABOUT THE SAME AMOUNT OF SHORTNESS OF BREATH. HE REPORTS THAT HE IS ANXIOUS ABOUT GETTING HIS MRI REPORT. HE DOES FEEL VERY WEAK AND SHORT OF BREATH WITH ANY ACTIVITY. HE HAS NOT HAD A BOWEL MOVEMENT IN SEVERAL DAYS. Review of Systems General: No Chills, No Night Sweats; Fatigue HEENT: No Head Aches, No Eye Pain; Other (dry throat) Pulmonary: Dyspnea, Cough; No Pleuritic Chest Pain Cardiovascular: Palpitations; No: Chest Pain Gastrointestinal: Constipation; No: Nausea, Vomiting, Abdominal Pain Genitourinary: No Dysuria, No Frequency, No Hematuria Musculoskeletal: No: neck pain, back pain Neurological: No: Incoordination, Confusion All Other Systems Reviewed All Other Systems Reviewed: Yes Objective Exam Vital Signs Vital Signs Date Time Temp Pulse Resp B/P (MAP) Pulse Ox O2 Delivery O2 Flow Rate FiO2 07/11/21 08:00 124 19 129/77 93 Nasal Cannula 7.00 07/11/21 07:56 36.8 07/11/21 07:24 95 High Flow N/C 7.00 07/11/21 07:00 91 07/11/21 04:00 94 16 124/89 93 Nasal Cannula 7.00 07/11/21 01:00 112 07/11/21 00:00 93 18 120/64 92 Nasal Cannula 7.00 07/10/21 21:00 High Flow N/C 7.00 07/10/21 20:00 36.3 07/10/21 20:00 65 17 80/53 99 Nasal Cannula 6.00 07/10/21 19:57 98 High Flow N/C 7.00 07/10/21 19:00 81 07/10/21 16:00 98 19 132/76 93 Nasal Cannula 6.00 07/10/21 12:20 36.2 07/10/21 12:19 66 07/10/21 12:00 100 14 123/84 92 Nasal Cannula 6.00 I & O 07/11/21 07:00 Intake Total 475 ml Output Total 1650 ml Balance -1175 ml General Appearance: No Apparent Distress, WD/WN Eyes: Bilateral Eye Normal Inspection, Bilateral Eye PERRL, Bilateral Eye EOMI HEENT: PERRL/EOMI, Pharynx Normal Neck: Full Range of Motion, Non Tender, Supple Respiratory: Chest Non Tender, Lungs Clear, No Accessory Muscle Use, No Respiratory Distress Cardiovascular: Irregularly Irregular, Tachycardia, Other (EDEMA BILATERAL LOWER EXTREMITIES, IMPROVED) Gastrointestinal: Normal Bowel Sounds, No Organomegaly, Non Tender, Soft, Mass (LLQ) Rectal: Deferred Back: Normal Inspection, No CVA Tenderness, No Vertebral Tenderness Extremity: Normal Capillary Refill, Pedal Edema (IMPROVING) Neurologic/Psychiatric: Alert, Oriented x3, No Motor/Sensory Deficits, Normal Mood/Affect, physical integration practitioner II-XII Norm as Tested Skin: Normal Color, Warm/Dry Lymphatic: No Adenopathy Results Lab Laboratory Tests 07/11/21 04:00: Sodium Level 141, Potassium Level 4.0, Chloride Level 100, Carbon Dioxide Level 31, Anion Gap 10, Blood Urea Nitrogen 7, Creatinine 0.56L, Estimat Glomerular Filtration Rate 107, BUN/Creatinine Ratio 13, Glucose Level 89, Calcium Level 8.8, Magnesium Level 1.5L, Digoxin Level 1.20 Microbiology 07/08/21 MRSA Screen - Final, Complete MRSA not isolated Assessment/Plan Assessment/Plan Admission Dx ACUTE ATRIAL FIBRILLATION SEVERE CARDIOMYOPATHY HYPERTENSION HYPERTENSIVE HEART DISEASE COPD PULMONARY HYPERTENSION ANEMIA HYPERLIPIDEMIA RENAL MASS Assessment and Plan ACUTE ATRIAL FIBRILLATION SEVERE CARDIOMYOPATHY HYPERTENSION HYPERTENSIVE HEART DISEASE COPD PULMONARY HYPERTENSION ANEMIA HYPERLIPIDEMIA RENAL MASS CONSTIPATION ACUTE ATRIAL FIBRILLATION WITH SEVERE CARDIOMYOPATHY - CARDIZEM ORALLY - ORAL DIGOXIN - ORAL ANTICOAG WITH XARELTO HYPERTENSION WITH HYPERTENSIVE HEART DISEASE - PT ON CARDIZEM RENAL MASS - DISCUSSED WITH PT AND HIS SHE RECORDED THE CONVERSATION ON HER PHONE WITH MY PERMISSION SO THAT THEY COULD SEND IT TO HIS DTR. I INFORMED THE PT THAT THE PLAN WOULD BE TO SEE IF A BIOPSY COULD BE DONE HERE BY THE RADIOLOGIST, IF NOT, THEN WE WOULD HAVE TO INITIATE A REFERRAL TO UROLOGY FOR BIOPSY AND ULTIMATELY FOR THE INTERVENTION NEEDED EITHER THROUGH THE UROLOGY DEPARTMENT OR INTERVENTIONAL RADIOLOGY. - CHECKED MRI - 6.5 X 6.6 CM MASS IN LOWER POLE OF LEFT KIDNEY, CONCERN FOR POSSIBLE METASTATIC DISEASE IN L4/L5 AND INFRARENAL ANEURYSM - FULL FINDINGS AND IMPRESSION FOLLOWS: FINDINGS: There are multiple bilateral simple benign renal cortical cysts the largest simple cyst exophytic off the ventral aspect of the lower pole the left kidney measuring a diameter of 12 cm. In addition, there is a large mixed cystic solid complex mass off the lower pole of the left kidney measuring 7 cm transverse by 6.5 cm AP by 6.6 cm cephalocaudal. This contains a hemorrhagic cystic component of 3 cm in length. This mass abuts and distorts the posterior contour of the large measured 11 cm adjacent lower pole cortical cyst. There is some stranding of the adjacent perinephric retroperitoneal fat tracking caudally into the upper iliac level which likely reflects an element of perilesional hemorrhage. This a small in volume. There is a 3.7 cm fusiform infrarenal abdominal aortic aneurysm, but no MRI findings to suggest its rupture. Small fatty umbilical hernia. There is no suspicious adrenal mass. No suspicious liver lesions. Gallbladder unremarkable. No bile duct dilatation. The spleen within normal limits. The renal veins appeared patent. The cava patent. There is no pathological appearing abdominal mesenteric or retroperitoneal lymphadenopathy. There appear to be small dependent pleural effusions. There is vertebral body marrow heterogeneity at the L4 level diffusely as well as small focal lesion in the L5 vertebral body and a partially visualized lesion in the left posterior iliac bone. Bony metastatic disease could not be excluded. IMPRESSION: 1. Complex solid cystic left renal lower pole mass worrisome for cystic neoplasm. Abnormal marrow lesions at L4-L5 in the left iliac bone may reflect metastatic deposits. Negative liver and no findings of adenopathy. 2. There is some infiltration of the retroperitoneal fat adjacent to the lower pole of the left kidney and extending caudally below the field of view suspicious for small amount of perilesional hemorrhage. 3. Unruptured fusiform infrarenal abdominal aortic aneurysm, probable trace pleural effusions. Nonfocal liver. No lymphadenopathy. COPD - PT ON DUONEB INHALERS - WILL CHECK CT OF CHEST PRIOR TO DC TO HOME. PULMONARY HYPERTENSION - MANAGEMENT OF CARDIAC DISEASE AND REPEAT ECHO WILL BE PERFORMED OUTPT PER DR. MACE. ECHO REPORT - SEVERE CONCENTRIC HYPERTROPHY, SEVERELY REDUCED SYSTOLIC FUNCTION, EF ESTIMATION 25 - 30%, SEVERE DIFFUSE HYPOKINESIS OF LEFT VENTRICLE, AND INCREASED CAVITY SIDE OF RIGHT VENTRICLE AND REDUCED SYSTOLIC FUNCTION, DILATED LEFT ATRIUM, RIGHT ATRIUM AND MOD DRICUSPID REGURGITATION WITH PULMONARY ARTERY PRESSURE OF 35 - 40mmHg. ANEMIA - MONITOR LABS. HYPERLIPIDEMIA - RESUMED STATIN THERAPY. CONSTIPATION - TREAT WITH DULCOLAX AND MIRALAX DVT PROPHYLAXIS WITH SCD'S AND XARELTO GI PROPHYLAXIS WITH PPI THERAPY. Admission Dx ACUTE ATRIAL FIBRILLATION SEVERE CARDIOMYOPATHY HYPERTENSION HYPERTENSIVE HEART DISEASE COPD PULMONARY HYPERTENSION ANEMIA HYPERLIPIDEMIA Clinical Quality Measures Admission Status Admission Dx ACUTE ATRIAL FIBRILLATION SEVERE CARDIOMYOPATHY HYPERTENSION HYPERTENSIVE HEART DISEASE COPD PULMONARY HYPERTENSION ANEMIA HYPERLIPIDEMIA ANNALISA VALDIVIA MD July 11, 2021 09:42
[2021-07-11] MEDS ORDERED: BISACODYL 10 MG SUPP (DULCOLAX) PR ONE (10:00)
[2021-07-11] MEDS ORDERED: polyethylene glycoL POWDER 17 GM (MIRALAX) PACK PO ONE (10:00)
--- NOTE | 2021-07-11 10:02 | Physical Therapy Daily Note ---
PT Daily Note-Current Subjective Patient in bed pre tx, agrees to PT but states that he is not supposed to get out of bed until they get his HR under control. Nurse if not available to ask about this so patient agrees to exercises in bed. Patient has unrated pain in feet, knees, hips, and low back. Appearance Patient in bed post tx with nurse call, phone, tray, all needs met. Mental Status Patient Orientation: Person, Place, Situation Attachments: Oxygen Transfers SCALE: Activities may be completed with or without assistive devices. 7-Xamueezscb-fpzxjll completes the activity by him/herself with no assistance from a helper. 5-Set-up or Clean-up Assistance-helper sets up or cleans up; patient completes activity. [place] assists only prior to or following the activity. 4-Supervision or Touching Assistance-helper provides verbal cues and/or touching/steadying and/or contact guard assistance as patient completes activity. Assistance may be provided throughout the activity or intermittently. 3-Partial/Moderate Assistance-helper does LESS THAN HALF the effort. [place] lifts, holds or supports trunk or limbs, but provides less than half the effort. 2-Substantial/Maximal Assistance-helper does MORE THAN HALF the effort. [place] lifts or holds trunk or limbs and provides more than half the effort. 3-Fdebymzkx-aqdobb does ALL the effort. Patient does none of the effort to complete the activity. Or, the assistance of 2 or more helpers is required for the patient to complete the activity. If activity was not attempted, code reason: 7-Patient Refused. 9-Not Applicable-not attempted and the patient did not perform the activity before the current illness, exacerbation or injury. 10-Not Attempted due to Environmental Limitations-(lack of equipment, weather restraints, etc.). 88-Not Attempted due to Medical Conditions or Safety Concerns. Exercises Supine Ex: Ankle pumps, Quad Set, Glut sets, Heel Slides, Hip abd/add Supine Reps: 20 Treatments LE strengthening Assessment Current Status: Fair Progress Patient's HR varied from upper 90's to upper 120's during exercise PT Senior Living Goals Ups Driver Goals PT Ups Driver Goals Time Frame: July 18, 2021 Roll Left & Right (QC): 6 Sit to Lying (QC): 6 Lying-Sitting on Side/Bed(QC): 6 Sit to Stand (QC): 6 Chair/Gmt-mr-Ltzpy Xfer(QC): 6 Toilet Transfer (QC): 6 Walk 10 feet (QC): 6 Walk 50ft with 2 Turns (QC): 6 Walk 150 ft (QC): 6 PT Plan Problem List Problem List: Activity Tolerance, Functional Strength, Safety, Balance, Gait, Transfer, Bed Mobility, ROM Treatment/Plan Treatment Plan: Continue Plan of Care Treatment Plan: Bed Mobility, Education, Functional Activity Ramakrishna, Functional Strength, Gait, Safety, Therapeutic Exercise, Transfers Treatment Duration: July 18, 2021 Frequency: 6 times per week Estimated Hrs Per Day: .25 hour per day Patient and/or Family Agrees t: Yes Safety Risks/Education Patient Education: Correct Positioning, Safety Issues Teaching Recipient: Patient Teaching Methods: Demonstration, Discussion Response to Teaching: Reinforcement Needed Time/GCodes Time In: 0940 Time Out: 0950 Total Billed Treatment Time: 10 Total Billed Treatment 1 visit EX 10' NASIR DÍAZ PT July 11, 2021 10:02
[2021-07-11] MEDS: BISACODYL 5 MG (DULCOLAX) TABLET PO SCH (10:22)
[2021-07-11] MEDS: dilTIAZem DRIP PRE-MIX 125 ML IV SCH (12:00)
--- NOTE | 2021-07-11 12:13 | Diagnostic Imaging Report ---
PROCEDURE: CT chest without contrast. TECHNIQUE: Multiple contiguous axial images were obtained through the chest without the use of intravenous contrast. Auto Exposure Controls were utilized during the CT exam to meet ALARA standards for radiation dose reduction. INDICATION: Renal mass. Possible lung mass. Pleural effusions. COMPARISON: CT chest without contrast 10/08/2020. MRI abdomen without and with IV contrast 07/10/2021. FINDINGS: A 1.5 cm solid pulmonary nodule in the left lung base. There is also a region of adjacent consolidation with air bronchograms in the left lower lobe. Solid pulmonary nodule in the left upper lobe measures up to 0.5 cm. Solid pulmonary nodule in the right upper lobe measures up to 0.7 cm. Small to moderate bilateral pleural effusions. Cardiomegaly. Left hilar lymphadenopathy measuring up to 1.1 cm in short axis dimension has progressed since the prior. Colonic diverticulosis in the upper abdomen. Nonspecific cysts in the partially visualized kidneys. No acute osseous findings. Nonspecific lytic changes in the inferior endplate of the T3 vertebral body. Chronic right rib fractures. IMPRESSION: 1. New bilateral solid pulmonary nodules suspicious for metastatic disease. There is also a region of consolidation with air bronchograms in the left lower lobe which could represent pneumonitis. 2. Small to moderate bilateral pleural effusions are new. 3. Borderline enlarged left hilar lymph nodes have grown since the prior CT chest. 4. Indeterminate lytic changes in the inferior endplate of T3 could also represent metastatic disease. This could be further investigated with MRI. Dictated by: Dictated on workstation # [id number]
[2021-07-11] MEDS: RIVAROXABAN 20 MG TABLET (XARELTO) PO SCH (15:34)
[2021-07-11 16:18] VITALS: BP 132/79
--- NOTE | 2021-07-11 16:43 | Progress Note - Cardiology ---
Cardiology SOAP Progress Note Subjective: No cp or palp or syncope or shortness of breath Gen weakness and malaise present No n/v/d Objective: I&O/Vital Signs 07/11/21 07/11/21 07/11/21 07/11/21 07:00 07:24 07:56 08:00 Temp 36.8 Pulse 91 124 Resp 19 B/P (MAP) 129/77 Pulse Ox 95 93 O2 Delivery High Flow N/C Nasal Cannula O2 Flow Rate 7.00 7.00 07/11/21 07/11/21 07/11/21 07/11/21 09:00 11:48 12:00 12:48 Temp 37.1 Pulse 93 88 Resp 14 B/P (MAP) 132/79 Pulse Ox 98 O2 Delivery High Flow N/C Nasal Cannula O2 Flow Rate 4.00 7.00 07/11/21 16:18 Temp 37.1 Pulse 88 Pulse Ox 96 07/10/21 23:59 Intake Total 225 ml Output Total 800 ml Balance -575 ml Weight (Pounds): 270 Weight (Ounces): 0.0 Weight (Calculated Kilograms): [id number] Constitutional: AAO x 3, well-developed, well-nourished Respiratory: other (fair to good bilat air entry, diminished at the bases) Cardiovascular: irregularly irregular, S1 and S2, systolic murmur (soft KAREN at the card bse) Gastrointestional: No tender; soft; No guarding, No rebound; audible bowel sounds Extremities: other (mild, bilateral leg edema); No clubbing, No cyanosis Neurologic/Psychiatric: oriented x 3, other (moves all limbs equally) Results/Procedures: Labs Laboratory Tests 07/11/21 04:00: Sodium Level 141, Potassium Level 4.0, Chloride Level 100, Carbon Dioxide Level 31, Anion Gap 10, Blood Urea Nitrogen 7, Creatinine 0.56L, Estimat Glomerular Filtration Rate 107, BUN/Creatinine Ratio 13, Glucose Level 89, Calcium Level 8.8, Magnesium Level 1.5L, Digoxin Level 1.20 Microbiology 07/08/21 MRSA Screen - Final, Complete MRSA not isolated Laboratory Tests 07/10/21 04:05 07/11/21 04:00 A/P: Assessment: PAF, newly diagnosed, duration unknown - MOON showed echogenic density in the left atrial appendage suggestive of a thrombus. Left ventricular systolic dysfunction, mild mitral regurgitation - started on Xarelto on July 07, 2021. 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 - 2D echo done on July 08, 2021: dilated left ventricle with left ventricular hypertrophy and ejection fraction 20 to 25%, dilated right ventricle and biatrial enlargement, PA pressure 35 to 40 mmHg. - During the MOON on July 09, 2021, his ejection fraction appeared to be better after his heart rate improved slightly COPD, oxygen dependent, dyspnea on exertion. Hypertension, by history Hyperlipidemia - treated with atorvastatin Mild bilateral carotid stenosis - ultrasound was done on July 07, 2021 Plan: * I interviewed and examined the patient and reviewed his records * Continue current regimen * Monitor labs closely * I discussed his CV issues and our treatment plan with him KEVIN FOWLER MD FACP [facility] July 11, 2021 16:43
[2021-07-11] MEDS: PATCH REMOVAL TP SCH (22:14)
[2021-07-12] MEDS: RT-ALBUTEROL/IPRATROPIUM 3 ML (DUONEB) VIAL INH SCH ×4 (02:42→21:36)
[2021-07-12 05:37] LABS: BASOPHILS % (AUTO) 0 % (0-10); EOSINOPHILS # (AUTO) 0.1 10^3/uL (0.0-0.3); EOSINOPHILS % (AUTO) 2 % (0-10); HEMATOCRIT 38 % (40-54); HEMOGLOBIN 12.4 g/dL (13.3-17.7); LYMPHOCYTES # (AUTO) 0.5 10^3/uL (1.0-4.0); LYMPHOCYTES % (AUTO) 9 % (12-44); MEAN CORPUSCULAR HEMOGLOBIN 34 pg (25-34); MEAN CORPUSCULAR HGB CONC 33 g/dL (32-36); MEAN CORPUSCULAR VOLUME 104 fL (80-99); MEAN PLATELET VOLUME 9.7 fL (9.0-12.2); MONOCYTES # (AUTO) 0.4 10^3/uL (0.0-1.0); MONOCYTES % (AUTO) 8 % (0-12); NEUTROPHILS # (AUTO) 4.6 10^3/uL (1.8-7.8); NEUTROPHILS % (AUTO) 81 % (42-75); PLATELET COUNT 106 10^3/uL (130-400); WHITE BLOOD COUNT 5.6 10^3/uL (4.3-11.0)
[2021-07-12 05:56] LABS: ALBUMIN 3.2 GM/DL (3.2-4.5); POTASSIUM 4.1 MMOL/L (3.6-5.0)
[2021-07-12 05:58] LABS: CALCIUM 9.3 MG/DL (8.5-10.1)
[2021-07-12 05:59] LABS: TOTAL PROTEIN 5.6 GM/DL (6.4-8.2)
[2021-07-12 06:00] LABS: BILIRUBIN,TOTAL 0.9 MG/DL (0.1-1.0)
[2021-07-12 06:03] LABS: CREATININE SERUM 0.58 MG/DL (0.60-1.30)
[2021-07-12 06:05] LABS: MAGNESIUM 1.5 MG/DL (1.6-2.4)
[2021-07-12] MEDS: NICOTINE 21 MG (NICODERM) PATCH TD SCH (08:53)
[2021-07-12] MEDS: meTOproloL SUCCINATE 50 MG (TOPROL XL) TAB PO SCH (08:54)
[2021-07-12] MEDS: PANTOPRAZOLE 40 MG (PROTONIX) TAB PO SCH (08:54)
[2021-07-12] MEDS: DIGOXIN 0.25 MG (LANOXIN) TAB PO SCH (08:54)
[2021-07-12] MEDS: BISACODYL 5 MG (DULCOLAX) TABLET PO SCH ×2 (09:08→09:44)
--- NOTE | 2021-07-12 09:32 | Progress Note ---
Subjective Subjective Date Seen by Provider: July 12, 2021 Time Seen by Provider: 08:30 MIKHAIL REPORTS THAT HE IS FEELING A LITTLE STRONGER, HE IS WORRIED ABOUT THE COST OF GOING TO A ALF AND IS THINKING ABOUT JUST GOING HOME WITH HOME HEALTH INSTEAD. HE DOES FEEL WEAK AND SHORT OF BREATH WITH ACTIVITY, BUT WITH HIS HEART RATE IMPROVED HE IS FEELING A LITTLE BETTER THAN YESTERDAY. HE HAS NOT HAD A BOWEL MOVEMENT IN SEVERAL DAYS DESPITE MEDICATION YESTERDAY. Review of Systems General: No Chills, No Night Sweats; Fatigue HEENT: No Head Aches, No Eye Pain; Other (dry throat) Pulmonary: Dyspnea, Cough; No Pleuritic Chest Pain Cardiovascular: Palpitations; No: Chest Pain Gastrointestinal: Constipation; No: Nausea, Vomiting, Abdominal Pain Genitourinary: No Dysuria, No Frequency, No Hematuria Musculoskeletal: No: neck pain, back pain Neurological: No: Incoordination, Confusion All Other Systems Reviewed All Other Systems Reviewed: Yes Objective Exam Vital Signs Vital Signs Date Time Temp Pulse Resp B/P (MAP) Pulse Ox O2 Delivery O2 Flow Rate FiO2 07/12/21 08:06 High Flow N/C 4.00 07/12/21 07:50 36.8 07/12/21 07:00 122 07/12/21 04:00 109 15 133/75 95 Nasal Cannula 5.00 07/12/21 02:42 92 High Flow N/C 4.00 07/12/21 01:00 80 07/12/21 00:00 36.3 Nasal Cannula 5.00 07/12/21 00:00 93 15 85/66 97 Nasal Cannula 5.00 07/11/21 21:00 High Flow N/C 4.00 07/11/21 20:00 75 21 116/66 98 Nasal Cannula 5.00 07/11/21 19:59 99 High Flow N/C 4.50 07/11/21 19:50 36.6 Nasal Cannula 5.00 07/11/21 19:00 80 07/11/21 16:18 37.1 88 96 07/11/21 16:00 83 17 126/78 98 Nasal Cannula 7.00 07/11/21 12:48 88 07/11/21 12:00 93 14 132/79 98 Nasal Cannula 7.00 07/11/21 11:48 37.1 I & O 07/12/21 07:00 Intake Total 775 ml Output Total 925 ml Balance -150 ml General Appearance: No Apparent Distress, WD/WN Eyes: Bilateral Eye Normal Inspection, Bilateral Eye PERRL, Bilateral Eye EOMI HEENT: PERRL/EOMI, Pharynx Normal Neck: Full Range of Motion, Non Tender, Supple Respiratory: Chest Non Tender, Lungs Clear, No Accessory Muscle Use, No Respiratory Distress Cardiovascular: Irregularly Irregular, Tachycardia (improved - rate between 80- 110 this morning), Other (EDEMA BILATERAL LOWER EXTREMITIES, IMPROVED) Gastrointestinal: Normal Bowel Sounds, No Organomegaly, Non Tender, Soft, Mass (LLQ) Rectal: Deferred Back: Normal Inspection, No CVA Tenderness, No Vertebral Tenderness Extremity: Normal Capillary Refill, Pedal Edema (IMPROVING) Neurologic/Psychiatric: Alert, Oriented x3, No Motor/Sensory Deficits, Normal Mood/Affect, adjutant general II-XII Norm as Tested Skin: Normal Color, Warm/Dry Lymphatic: No Adenopathy Results Lab Laboratory Tests 07/12/21 05:05: White Blood Count 5.6, Red Blood Count 3.67L, Hemoglobin 12.4L, Hematocrit 38L, Mean Corpuscular Volume 104H, Mean Corpuscular Hemoglobin 34, Mean Corpuscular Hemoglobin Concent 33, Red Cell Distribution Width 12.6, Platelet Count 106L, Mean Platelet Volume 9.7, Immature Granulocyte % (Auto) 0, Neutrophils (%) (Auto) 81H, Lymphocytes (%) (Auto) 9L, Monocytes (%) (Auto) 8, Eosinophils (%) (Auto) 2, Basophils (%) (Auto) 0, Neutrophils # (Auto) 4.6, Lymphocytes # (Auto) 0.5L, Monocytes # (Auto) 0.4, Eosinophils # (Auto) 0.1, Basophils # (Auto) 0.0, Immature Granulocyte # (Auto) 0.0, Sodium Level 140, Potassium Level 4.1, Chloride Level 97L, Carbon Dioxide Level 31, Anion Gap 12, Blood Urea Nitrogen 7, Creatinine 0.58L, Estimat Glomerular Filtration Rate 106, BUN/Creatinine Ratio 12, Glucose Level 92, Calcium Level 9.3, Corrected Calcium 9.9, Magnesium Level 1.5L, Total Bilirubin 0.9, Aspartate Amino Transf (AST/SGOT) 9, Alanine Aminotransferase (ALT/SGPT) 8, Alkaline Phosphatase 98, Total Protein 5.6L, Albumin 3.2, Digoxin Level 1.07 Microbiology 07/08/21 MRSA Screen - Final, Complete MRSA not isolated Assessment/Plan Assessment/Plan Admission Dx ACUTE ATRIAL FIBRILLATION SEVERE CARDIOMYOPATHY HYPERTENSION HYPERTENSIVE HEART DISEASE COPD PULMONARY HYPERTENSION ANEMIA HYPERLIPIDEMIA RENAL MASS Assessment and Plan ACUTE ATRIAL FIBRILLATION SEVERE CARDIOMYOPATHY HYPERTENSION HYPERTENSIVE HEART DISEASE COPD PULMONARY HYPERTENSION ANEMIA HYPERLIPIDEMIA RENAL MASS CONSTIPATION LUNG NODULES POSSIBLE METASTATIC DISEASE IN BONES OF SPINE ACUTE ATRIAL FIBRILLATION WITH SEVERE CARDIOMYOPATHY - CARDIZEM ORALLY - ORAL DIGOXIN - CARDIOLOGY ADDED METOPROLOL, HEART RATE IMPROVED - ORAL ANTICOAG WITH XARELTO HYPERTENSION WITH HYPERTENSIVE HEART DISEASE - PT ON CARDIZEM AND METOPROLOL RENAL MASS - DISCUSSED WITH PT AND HIS SHE RECORDED THE CONVERSATION ON HER PHONE WITH MY PERMISSION SO THAT THEY COULD SEND IT TO HIS DTR. I INFORMED THE PT THAT THE PLAN WOULD BE TO SEE IF A BIOPSY COULD BE DONE HERE BY THE RADIOLOGIST, IF NOT, THEN WE WOULD HAVE TO INITIATE A REFERRAL TO UROLOGY FOR BIOPSY AND ULTIMATELY FOR THE INTERVENTION NEEDED EITHER THROUGH THE UROLOGY DEPARTMENT OR INTERVENTIONAL RADIOLOGY. - CHECKED MRI - 6.5 X 6.6 CM MASS IN LOWER POLE OF LEFT KIDNEY, CONCERN FOR POSSIBLE METASTATIC DISEASE IN L4/L5 AND INFRARENAL ANEURYSM - FULL FINDINGS AND IMPRESSION FOLLOWS: FINDINGS: There are multiple bilateral simple benign renal cortical cysts the largest simple cyst exophytic off the ventral aspect of the lower pole the left kidney measuring a diameter of 12 cm. In addition, there is a large mixed cystic solid complex mass off the lower pole of the left kidney measuring 7 cm transverse by 6.5 cm AP by 6.6 cm cephalocaudal. This contains a hemorrhagic cystic component of 3 cm in length. This mass abuts and distorts the posterior contour of the large measured 11 cm adjacent lower pole cortical cyst. There is some stranding of the adjacent perinephric retroperitoneal fat tracking caudally into the upper iliac level which likely reflects an element of perilesional hemorrhage. This a small in volume. There is a 3.7 cm fusiform infrarenal abdominal aortic aneurysm, but no MRI findings to suggest its rupture. Small fatty umbilical hernia. There is no suspicious adrenal mass. No suspicious liver lesions. Gallbladder unremarkable. No bile duct dilatation. The spleen within normal limits. The renal veins appeared patent. The cava patent. There is no pathological appearing abdominal mesenteric or retroperitoneal lymphadenopathy. There appear to be small dependent pleural effusions. There is vertebral body marrow heterogeneity at the L4 level diffusely as well as small focal lesion in the L5 vertebral body and a partially visualized lesion in the left posterior iliac bone. Bony metastatic disease could not be excluded. IMPRESSION: 1. Complex solid cystic left renal lower pole mass worrisome for cystic n eoplasm. Abnormal marrow lesions at L4-L5 in the left iliac bone may reflect metastatic deposits. Negative liver and no findings of adenopathy. 2. There is some infiltration of the retroperitoneal fat adjacent to the lower pole of the left kidney and extending caudally below the field of view suspicious for small amount of perilesional hemorrhage. 3. Unruptured fusiform infrarenal abdominal aortic aneurysm, probable trace pleural effusions. Nonfocal liver. No lymphadenopathy. COPD - PT ON DUONEB INHALERS - WILL CHECK CT OF CHEST PRIOR TO DC TO HOME. PULMONARY HYPERTENSION - MANAGEMENT OF CARDIAC DISEASE AND REPEAT ECHO WILL BE PERFORMED OUTPT PER DR. MACE. ECHO REPORT - SEVERE CONCENTRIC HYPERTROPHY, SEVERELY REDUCED SYSTOLIC FUNCTION, EF ESTIMATION 25 - 30%, SEVERE DIFFUSE HYPOKINESIS OF LEFT VENTRICLE, AND INCREASED CAVITY SIDE OF RIGHT VENTRICLE AND REDUCED SYSTOLIC FUNCTION, DILATED LEFT ATRIUM, RIGHT ATRIUM AND MOD DRICUSPID REGURGITATION WITH PULMONARY ARTERY PRESSURE OF 35 - 40mmHg. ANEMIA - MONITOR LABS. HYPERLIPIDEMIA - RESUMED STATIN THERAPY. HYPOMAGNESEMIA - REPLENISH WITH IV MAG TODAY CONSTIPATION - TREAT WITH DULCOLAX AND MIRALAX CHRONIC TOBACCOISM (SMOKING) WITH LUNG NODULES WITH POSSIBLE METASTATIC DISEASE IN BONES OF SPINE - CT SCAN FINDINGS BELOW, WILL SEE WHEN/IF BIOPSY OF LUNG OR SPINE OR RENAL MASS CAN BE OBTAINED. IMPRESSION: 1. New bilateral solid pulmonary nodules suspicious for metastatic disease. There is also a region of consolidation with air bronchograms in the left lower lobe which could represent pneumonitis. 2. Small to moderate bilateral pleural effusions are new. 3. Borderline enlarged left hilar lymph nodes have grown since the prior CT chest. 4. Indeterminate lytic changes in the inferior endplate of T3 could also represent metastatic disease. This could be further investigated with MRI. DVT PROPHYLAXIS WITH SCD'S AND XARELTO GI PROPHYLAXIS WITH PPI THERAPY. INITIAL PLANS FOR DC WERE TO GO TO ALF FOR THERAPY -PT NOW FEELING BETTER WITH HIS HEART RATE BEING CONTROLLED, WILL NOW ATTEMPT HOME HEALTH FOR THERAPY ON DC. I WILL DISCUSS WITH RADIOLOGY BIOPSY PLANS, AND WE WILL INITIATE A REFERRAL TO [facility]. Admission Dx ACUTE ATRIAL FIBRILLATION SEVERE CARDIOMYOPATHY HYPERTENSION HYPERTENSIVE HEART DISEASE COPD PULMONARY HYPERTENSION ANEMIA HYPERLIPIDEMIA RENAL MASS Clinical Quality Measures Admission Status Admission Dx ACUTE ATRIAL FIBRILLATION SEVERE CARDIOMYOPATHY HYPERTENSION HYPERTENSIVE HEART DISEASE COPD PULMONARY HYPERTENSION ANEMIA HYPERLIPIDEMIA RENAL MASS ANNALISA VALDIVIA MD July 12, 2021 09:32
[2021-07-12] MEDS: MAGNESIUM 1 GM/100 ML IVPB 100 ML IV SCH (09:44)
[2021-07-12] MEDS ORDERED: polyethylene glycoL POWDER 17 GM (MIRALAX) PACK PO ONE (09:45)
[2021-07-12] MEDS: dilTIAZem DRIP PRE-MIX 125 ML IV SCH (12:07)
[2021-07-12] MEDS: RIVAROXABAN 20 MG TABLET (XARELTO) PO SCH (17:15)
[2021-07-12] MEDS: PATCH REMOVAL TP SCH (21:44)
[2021-07-13] MEDS: RT-ALBUTEROL/IPRATROPIUM 3 ML (DUONEB) VIAL INH SCH ×4 (03:10→21:12)
[2021-07-13 04:29] LABS: EOSINOPHILS # (AUTO) 0.1 10^3/uL (0.0-0.3); LYMPHOCYTES # (AUTO) 0.5 10^3/uL (1.0-4.0)
[2021-07-13 04:31] LABS: BASOPHILS % (AUTO) 0 % (0-10); EOSINOPHILS % (AUTO) 2 % (0-10); HEMATOCRIT 37 % (40-54); HEMOGLOBIN 12.2 g/dL (13.3-17.7); LYMPHOCYTES % (AUTO) 9 % (12-44); MEAN CORPUSCULAR HEMOGLOBIN 34 pg (25-34); MEAN CORPUSCULAR HGB CONC 33 g/dL (32-36); MEAN CORPUSCULAR VOLUME 103 fL (80-99); MEAN PLATELET VOLUME 9.5 fL (9.0-12.2); MONOCYTES # (AUTO) 0.4 10^3/uL (0.0-1.0); MONOCYTES % (AUTO) 8 % (0-12); NEUTROPHILS % (AUTO) 81 % (42-75); PLATELET COUNT 113 10^3/uL (130-400)
[2021-07-13 04:51] LABS: POTASSIUM 4.2 MMOL/L (3.6-5.0)
[2021-07-13 04:52] LABS: CALCIUM 9.4 MG/DL (8.5-10.1)
[2021-07-13 04:56] LABS: CREATININE SERUM 0.56 MG/DL (0.60-1.30)
[2021-07-13 04:58] LABS: MAGNESIUM 1.8 MG/DL (1.6-2.4)
[2021-07-13] MEDS: DIGOXIN 0.25 MG (LANOXIN) TAB PO SCH (07:57)
[2021-07-13] MEDS: BISACODYL 5 MG (DULCOLAX) TABLET PO SCH (07:58)
[2021-07-13] MEDS: NICOTINE 21 MG (NICODERM) PATCH TD SCH (07:58)
[2021-07-13] MEDS: PANTOPRAZOLE 40 MG (PROTONIX) TAB PO SCH (07:58)
[2021-07-13] MEDS: meTOproloL SUCCINATE 50 MG (TOPROL XL) TAB PO SCH (07:58)
--- NOTE | 2021-07-13 08:35 | Progress Note ---
Subjective Subjective Date Seen by Provider: July 13, 2021 Time Seen by Provider: 08:15 PT REPORTS THAT HE IS DOING BETTER. HE REPORTS THAT HE IS STILL SHORT OF BREATH, BUT HE FEELS IF IT IS IMPROVED. HE REPORTS STILL HAVING NO BOWEL MOVEMENT FOR THE PAST FEW DAYS. Review of Systems General: No Chills, No Night Sweats; Fatigue HEENT: No Head Aches, No Eye Pain; Other (dry throat) Pulmonary: Dyspnea, Cough; No Pleuritic Chest Pain Cardiovascular: Palpitations; No: Chest Pain Gastrointestinal: Constipation; No: Nausea, Vomiting, Abdominal Pain Genitourinary: No Dysuria, No Frequency, No Hematuria Musculoskeletal: No: neck pain, back pain Neurological: No: Incoordination, Confusion All Other Systems Reviewed All Other Systems Reviewed: Yes Objective Exam Vital Signs Vital Signs Date Time Temp Pulse Resp B/P (MAP) Pulse Ox O2 Delivery O2 Flow Rate FiO2 07/13/21 08:00 36.2 07/13/21 07:27 High Flow N/C 5.00 07/13/21 07:12 94 High Flow N/C 6.00 07/13/21 07:00 106 07/13/21 04:18 92 29 91 High Flow N/C 6.00 07/13/21 04:00 74 16 98/50 89 High Flow N/C 4.00 07/13/21 03:30 76 13 94 High Flow N/C 4.00 07/13/21 03:23 75 12 96 High Flow N/C 8.00 07/13/21 03:19 96 High Flow N/C 8.00 07/13/21 03:10 94 High Flow N/C 12.00 07/13/21 02:00 72 111/70 92 High Flow N/C 10.00 07/13/21 01:00 78 07/13/21 00:11 91 17 131/85 High Flow N/C 3.50 07/12/21 21:52 54 12 94 High Flow N/C 7.00 07/12/21 21:44 94 High Flow N/C 7.00 07/12/21 21:36 94 High Flow N/C 9.00 07/12/21 21:00 High Flow N/C 7.00 07/12/21 20:50 72 91 High Flow N/C 9.00 07/12/21 20:00 65 15 117/68 95 High Flow N/C 3.50 07/12/21 19:35 36.5 07/12/21 19:00 81 07/12/21 15:56 High Flow N/C 3.50 07/12/21 15:52 81 16 127/78 93 High Flow N/C 3.50 07/12/21 15:44 36.3 07/12/21 15:00 96 Nasal Cannula 4.00 07/12/21 12:46 91 07/12/21 12:07 High Flow N/C 3.50 07/12/21 12:00 70 21 129/77 96 High Flow N/C 4.00 07/12/21 12:00 36.8 07/12/21 10:41 95 High Flow N/C 3.50 07/12/21 09:00 High Flow N/C 4.00 I & O 07/13/21 07:00 Intake Total 625 ml Output Total 1650 ml Balance -1025 ml General Appearance: No Apparent Distress, WD/WN Eyes: Bilateral Eye Normal Inspection, Bilateral Eye PERRL, Bilateral Eye EOMI HEENT: PERRL/EOMI, Pharynx Normal Neck: Full Range of Motion, Non Tender, Supple Respiratory: Chest Non Tender, Lungs Clear, No Accessory Muscle Use, No Respiratory Distress Cardiovascular: Irregularly Irregular, Tachycardia (IMPROVED RATE, STILL INTERMITTENT ELEVATIONS WITH ACTIVITY/EXERTION) Gastrointestinal: Normal Bowel Sounds, No Organomegaly, Non Tender, Soft, Mass (LUQ/LLQ) Rectal: Deferred Back: Normal Inspection, No CVA Tenderness, No Vertebral Tenderness Extremity: Normal Capillary Refill, No Pedal Edema Neurologic/Psychiatric: Alert, Oriented x3, No Motor/Sensory Deficits, Normal Mood/Affect, community relations coordinator II-XII Norm as Tested Skin: Normal Color, Warm/Dry Lymphatic: No Adenopathy Results Lab Laboratory Tests 07/13/21 04:05: White Blood Count 5.0, Red Blood Count 3.62L, Hemoglobin 12.2L, Hematocrit 37L, Mean Corpuscular Volume 103H, Mean Corpuscular Hemoglobin 34, Mean Corpuscular Hemoglobin Concent 33, Red Cell Distribution Width 12.4, Platelet Count 113L, Mean Platelet Volume 9.5, Immature Granulocyte % (Auto) 0, Neutrophils (%) (Auto) 81H, Lymphocytes (%) (Auto) 9L, Monocytes (%) (Auto) 8, Eosinophils (%) (Auto) 2, Basophils (%) (Auto) 0, Neutrophils # (Auto) 4.0, Lymphocytes # (Auto) 0.5L, Monocytes # (Auto) 0.4, Eosinophils # (Auto) 0.1, Basophils # (Auto) 0.0, Immature Granulocyte # (Auto) 0.0, Percent Immature Platelet Fraction 2.8, Sodium Level 140, Potassium Level 4.2, Chloride Level 96L, Carbon Dioxide Level 33H, Anion Gap 11, Blood Urea Nitrogen 7, Creatinine 0.56L, Estimat Glomerular Filtration Rate 107, BUN/Creatinine Ratio 13, Glucose Level 88, Calcium Level 9.4, Magnesium Level 1.8 Microbiology 07/08/21 MRSA Screen - Final, Complete MRSA not isolated Assessment/Plan Assessment/Plan Admission Dx ACUTE ATRIAL FIBRILLATION SEVERE CARDIOMYOPATHY HYPERTENSION HYPERTENSIVE HEART DISEASE COPD PULMONARY HYPERTENSION ANEMIA HYPERLIPIDEMIA RENAL MASS Assessment and Plan ACUTE ATRIAL FIBRILLATION SEVERE CARDIOMYOPATHY HYPERTENSION HYPERTENSIVE HEART DISEASE COPD PULMONARY HYPERTENSION ANEMIA HYPERLIPIDEMIA RENAL MASS CONSTIPATION LUNG NODULES POSSIBLE METASTATIC DISEASE IN BONES OF SPINE ACUTE ATRIAL FIBRILLATION WITH SEVERE CARDIOMYOPATHY - CARDIZEM ORALLY - ORAL DIGOXIN - CARDIOLOGY ADDED METOPROLOL, HEART RATE IMPROVED - ORAL ANTICOAG WITH XARELTO (WILL HOLD 07/13 - 07/15, RESTART 07/16 - LOVENOX UNTIL AFTER BIOPSY OF LUMBAR OR THORACIC SPINE) HYPERTENSION WITH HYPERTENSIVE HEART DISEASE - PT ON CARDIZEM AND METOPROLOL RENAL MASS - DISCUSSED WITH PT AND HIS SHE RECORDED THE CONVERSATION ON HER PHONE WITH MY PERMISSION SO THAT THEY COULD SEND IT TO HIS DTR. I INFORMED THE PT THAT THE PLAN WOULD BE TO SEE IF A BIOPSY COULD BE DONE HERE BY THE RADIOLOGIST, IF NOT, THEN WE WOULD HAVE TO INITIATE A REFERRAL TO UROLOGY FOR BIOPSY AND ULTIMATELY FOR THE INTERVENTION NEEDED EITHER THROUGH THE UROLOGY DEPARTMENT OR INTERVENTIONAL RADIOLOGY. - CHECKED MRI - 6.5 X 6.6 CM MASS IN LOWER POLE OF LEFT KIDNEY, CONCERN FOR POSSIBLE METASTATIC DISEASE IN L4/L5 AND INFRARENAL ANEURYSM - FULL FINDINGS AND IMPRESSION FOLLOWS: FINDINGS: There are multiple bilateral simple benign renal cortical cysts the largest simple cyst exophytic off the ventral aspect of the lower pole the left kidney measuring a diameter of 12 cm. In addition, there is a large mixed cystic solid complex mass off the lower pole of the left kidney measuring 7 cm transverse by 6.5 cm AP by 6.6 cm cephalocaudal. This contains a hemorrhagic cystic component of 3 cm in length. This mass abuts and distorts the posterior contour of the large measured 11 cm adjacent lower pole cortical cyst. There is some stranding of the adjacent perinephric retroperitoneal fat tracking caudally into the upper iliac level which likely reflects an element of perilesional hemorrhage. This a small in volume. There is a 3.7 cm fusiform infrarenal abdominal aortic aneurysm, but no MRI findings to suggest its rupture. Small fatty umbilical hernia. There is no suspicious adrenal mass. No suspicious liver lesions. Gallbladder unremarkable. No bile duct dilatation. The spleen within normal limits. The renal veins appeared patent. The cava patent. There is no pathological appearing abdominal mesenteric or retroperitoneal lymphadenopathy. There appear to be small dependent pleural effusions. There is vertebral body marrow heterogeneity at the L4 level diffusely as well as small focal lesion in the L5 vertebral body and a partially visualized lesion in the left posterior iliac bone. Bony metastatic disease could not be excluded. IMPRESSION: 1. Complex solid cystic left renal lower pole mass worrisome for cystic neoplasm. Abnormal marrow lesions at L4-L5 in the left iliac bone may reflect metastatic deposits. Negative liver and no findings of adenopathy. 2. There is some infiltration of the retroperitoneal fat adjacent to the lower pole of the left kidney and extending caudally below the field of view suspicious for small amount of perilesional hemorrhage. 3. Unruptured fusiform infrarenal abdominal aortic aneurysm, probable trace pleural effusions. Nonfocal liver. No lymphadenopathy. COPD - PT ON DUONEB INHALERS - WILL CHECK CT OF CHEST PRIOR TO DC TO HOME. PULMONARY HYPERTENSION - MANAGEMENT OF CARDIAC DISEASE AND REPEAT ECHO WILL BE PERFORMED OUTPT PER DR. MACE. ECHO REPORT - SEVERE CONCENTRIC HYPERTROPHY, SEVERELY REDUCED SYSTOLIC FUNCTION, EF ESTIMATION 25 - 30%, SEVERE DIFFUSE HYPOKINESIS OF LEFT VENTRICLE, AND INCREASED CAVITY SIDE OF RIGHT VENTRICLE AND REDUCED SYSTOLIC FUNCTION, DILATED LEFT ATRIUM, RIGHT ATRIUM AND MOD TRICUSPID REGURGITATION WITH PULMONARY ARTERY PRESSURE OF 35 - 40mmHg. ANEMIA - STABLE - MONITOR LABS. HYPERLIPIDEMIA - RESUMED STATIN THERAPY. CONSTIPATION - TREAT WITH DULCOLAX AND MIRALAX - GIVE SENNA S AND SOAP SUDS ENEMA TODAY AFTER CT SCAN CHRONIC TOBACCOISM (SMOKING) WITH LUNG NODULES WITH POSSIBLE METASTATIC DISEASE IN BONES OF SPINE - CT SCAN FINDINGS BELOW, WILL SEE WHEN/IF BIOPSY OF LUNG OR SPINE OR RENAL MASS CAN BE OBTAINED. - HAVE TO REPEAT A CT OF ABD/PELVIS TODAY SINCE WE NEED TO DETERMINE IF BIOPSY OF SPINAL METASTATIC DISEASE CAN TAKE PLACE WHILE HE IS IN THE HOSPITAL IMPRESSION: 1. New bilateral solid pulmonary nodules suspicious for metastatic disease. There is also a region of consolidation with air bronchograms in the left lower lobe which could represent pneumonitis. 2. Small to moderate bilateral pleural effusions are new. 3. Borderline enlarged left hilar lymph nodes have grown since the prior CT chest. 4. Indeterminate lytic changes in the inferior endplate of T3 could also represent metastatic disease. This could be further investigated with MRI. DVT PROPHYLAXIS WITH SCD'S AND XARELTO GI PROPHYLAXIS WITH PPI THERAPY. INITIAL PLANS FOR DC WERE TO GO TO LONG TERM FOR THERAPY -PT NOW FEELING BETTER WITH HIS HEART RATE BEING CONTROLLED, WILL NOW ATTEMPT HOME HEALTH FOR THERAPY ON DC. WILL INITIATE A REFERRAL TO UROLOGY OUTPATIENT. Admission Dx ACUTE ATRIAL FIBRILLATION SEVERE CARDIOMYOPATHY HYPERTENSION HYPERTENSIVE HEART DISEASE COPD PULMONARY HYPERTENSION ANEMIA HYPERLIPIDEMIA RENAL MASS Clinical Quality Measures Admission Status Admission Dx ACUTE ATRIAL FIBRILLATION SEVERE CARDIOMYOPATHY HYPERTENSION HYPERTENSIVE HEART DISEASE COPD PULMONARY HYPERTENSION ANEMIA HYPERLIPIDEMIA RENAL MASS ANNALISA VALDIVIA MD July 13, 2021 08:35
[2021-07-13] MEDS: SENNA W/DOCUSATE (SENOKOT S) TABLET PO SCH ×2 (09:46→20:43)
--- NOTE | 2021-07-13 09:47 | Diagnostic Imaging Report ---
PROCEDURE: CT abdomen and pelvis without contrast. TECHNIQUE: Multiple contiguous axial images were obtained through the abdomen and pelvis without the use of intravenous contrast. Auto Exposure Controls were utilized during the CT exam to meet ALARA standards for radiation dose reduction. INDICATION: Renal mass, suspicious for renal cell carcinoma. Small nodules in the lung bases are again noted and described on recent CT chest, concerning for pulmonary metastatic disease. There is areas of parenchymal consolidation bilateral lower lobes. There are also small bilateral pleural effusions. The liver and gallbladder are unremarkable. No biliary duct dilatation is seen. The pancreas and spleen are unremarkable. No adrenal mass is detected. Cortical low-attenuation lesions right kidney consistent with cysts are noted. There are numerous cortical low-attenuation lesions left kidney, largest extending exophytically and anteriorly from the left kidney measuring approximately 12 cm. The mixed solid and cystic lesion arising from lower pole left kidney is again noted and described on recent MRI and concerning for a renal neoplasm. Perinephric inflammatory stranding is again noted. Infrarenal abdominal aortic aneurysm measuring up to 3.9 cm AP diameter is noted. It terminates above the bifurcation. No definite central retroperitoneal or mesenteric lymphadenopathy is seen. There does appear to be a small lymph node in left periaortic region measuring 13 mm x 9 mm. There is a fat-containing umbilical hernia. Bowel loops are normal caliber. There is some mild diverticulosis of the descending and sigmoid colon but no evidence of acute diverticulitis. No free fluid or fluid collection is seen. The bladder and prostate are unremarkable. There is some heterogeneity in the L4 vertebral body, described on recent MRI. Metastatic lesion cannot be entirely excluded. No other definite osseous lesions are detected by CT. IMPRESSION: 1. Bibasilar consolidation and bibasilar pulmonary nodules concerning for metastatic disease described on recent CT chest. 2. Small bilateral pleural effusions. 3. Bilateral renal cystic lesions. There is also a complex lesion in the lower pole left kidney, concerning for renal neoplasm. 4. Infrarenal abdominal aortic aneurysm. 5. Fat-containing umbilical hernia. 6. Uncomplicated diverticulosis. 7. Questionable heterogeneity of the L4 vertebral body. Metastatic lesion cannot be entirely excluded. No other definite osseous lesions are identified. Dictated by: Dictated on workstation # [id number]
--- NOTE | 2021-07-13 10:56 | Cardiology Progress Note ---
Subjective Date Seen by Provider: July 13, 2021 Time Seen by Provider: 10:52 Subjective/Events-last exam Patient was seen at bedside, laying down comfortably, denied any chest pain. Feeling better Review of Systems General: No Chills, No Night Sweats, No Fatigue, No Malaise, No Appetite, No Other HEENT: No Head Aches, No Visual Changes, No Eye Pain, No Ear Pain, No Dysphasia, No Sinus Congestion, No Post Nasal Drip, No Sore Throat, No Other Pulmonary: No Dyspnea, No Cough, No Pleuritic Chest Pain, No Other Cardiovascular: No: Chest Pain, Palpitations, Orthopnea, Paroxysmal Noc. Dyspnea, Edema, Lt Headedness, Other Objective-Cardiology Exam Last Set of Vital Signs Vital Signs 07/13/21 07/13/21 07/13/21 07/13/21 07/13/21 07/13/21 04:00 04:18 07:00 07:12 07:27 08:00 Temp 36.2 Pulse 106 Resp 29 B/P (MAP) 98/50 Pulse Ox 94 O2 Delivery High Flow N/C O2 Flow Rate 5.00 I&O Intake and Output 07/13/21 00:00 Intake Total 625 ml Output Total 1400 ml Balance -775 ml Intake Oral 425 ml IV Total 200 ml Output Urine Total 1400 ml # Voids 1 General: Alert, Oriented X3, Cooperative HEENT: Atraumatic, PERRLA Neck: Supple, No JVD, No Thyromegaly Lungs: Clear to Auscultation, Normal Air Movement Heart: Normal S1, Normal S2, No Murmurs, Other (Atrial fibrillation) Abdomen: Normal Bowel Sounds, Soft, No Tenderness, No Hepatosplenomegaly, No Masses Extremities: No Clubbing, No Cyanosis, No Edema, Normal Pulses, No Tenderness/Swelling Skin: No Rashes, No Breakdown, No Significant Lesion Neuro: Normal Gait, Normal Speech, Strength at 5/5 X4 Ext, Normal Tone, Sensation Intact Psych/Mental Status: Mental Status NL, Mood NL Results Lab Laboratory Tests 07/13/21 04:05 A/P-Cardiology Admission Diagnosis Paroxysmal atrial fibrillation Tachycardia Congestive heart failure, acute left ventricular systolic dysfunction Hypotension Assessment/Plan Paroxysmal atrial fibrillation, new onset, unknown duration. MOON showed echogenic density in the left atrial appendage suggestive of a thrombus. Left ventricular systolic dysfunction, mild mitral regurgitation Heart rate is better controlled on Cardizem. Continue at this time. [id number] score 3, identified thrombus within the left atrial appendage, started on Xarelto on July 07, 2021. Generalized fatigue, shortness of breath, loss of energy, oxygen dependent. Currently in atrial fibrillation. 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 2D echo done on July 08, 2021 showing dilated left ventricle with left ventricular hypertrophy and ejection fraction 20 to 25%, dilated right ventricle and biatrial enlargement, PA pressure 35 to 40 mmHg. During the MOON on July 09, 2021, his ejection fraction appeared to be better after his heart rate improved slightly. Cannot tolerate beta-blockers and/or MONICA inhibitor and/or ARB due to hypotension. 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 LifeVest was ordered at this point Renal mass, will need a biopsy. Work-up initiated with by Dr. Manning for possible referral to [facility]. COPD, oxygen dependent, dyspnea on exertion. Hypertension, has been borderline hypotensive. Continue to monitor blood pressure Hyperlipidemia, maintained on Lipitor 20 mg daily, continue to monitor Mild bilateral carotid stenosis, ultrasound was done on July 07, 2021 Obesity, BMI is 33, concern about loss of appetite. I instructed him on additional diet and weight loss. LAURA MACE MD July 13, 2021 10:56
--- NOTE | 2021-07-13 11:04 | Physical Therapy Daily Note ---
PT Daily Note-Current Subjective Patient in bed pre tx, agrees to PT, has unrated pain in knees, hips, and low back. Nurse states he is ok to work with and HR is doing much better. Appearance Patient in bed post tx with nurse call, phone, tray, all needs met. Mental Status Patient Orientation: Person, Place, Situation Attachments: Oxygen Transfers SCALE: Activities may be completed with or without assistive devices. 7-Hyvaimianb-lntomrw completes the activity by him/herself with no assistance from a helper. 5-Set-up or Clean-up Assistance-helper sets up or cleans up; patient completes activity. [place] assists only prior to or following the activity. 4-Supervision or Touching Assistance-helper provides verbal cues and/or touching/steadying and/or contact guard assistance as patient completes activity. Assistance may be provided throughout the activity or intermittently. 3-Partial/Moderate Assistance-helper does LESS THAN HALF the effort. [place] lifts, holds or supports trunk or limbs, but provides less than half the effort. 2-Substantial/Maximal Assistance-helper does MORE THAN HALF the effort. [place] lifts or holds trunk or limbs and provides more than half the effort. 0-Sgdtutjhu-ttuwoj does ALL the effort. Patient does none of the effort to complete the activity. Or, the assistance of 2 or more helpers is required for the patient to complete the activity. If activity was not attempted, code reason: 7-Patient Refused. 9-Not Applicable-not attempted and the patient did not perform the activity before the current illness, exacerbation or injury. 10-Not Attempted due to Environmental Limitations-(lack of equipment, weather restraints, etc.). 88-Not Attempted due to Medical Conditions or Safety Concerns. Roll Left & Right (QC): 6 Sit to Lying (QC): 6 Lying to Sitting/Side of Bed(Q: 6 Sit to Stand (QC): 4 Gait Training Distance: 200' Walk 10 feet (QC): 4 Walk 50 ft with 2 Turns(QC): 4 Walk 150 ft (QC): 4 Gait Persons Needed: 1 Gait Assistive Device: FWW CGA, slow but steady ambulation Exercises Seated Therapy Exercises: Ankle pumps, Long arc quads Seated Reps: 20 Treatments LE ROM, bed mobility and transfers, ambulation Assessment Current Status: Fair Progress no LOB or unsteadiness with ambulation, good motivation PT Fdc Goals Fdc Goals PT Fdc Goals Time Frame: July 18, 2021 Roll Left & Right (QC): 6 Sit to Lying (QC): 6 Lying-Sitting on Side/Bed(QC): 6 Sit to Stand (QC): 6 Chair/Kma-dn-Lurfi Xfer(QC): 6 Toilet Transfer (QC): 6 Walk 10 feet (QC): 6 Walk 50ft with 2 Turns (QC): 6 Walk 150 ft (QC): 6 PT Plan Problem List Problem List: Activity Tolerance, Functional Strength, Safety, Balance, Gait, Transfer, Bed Mobility, ROM Treatment/Plan Treatment Plan: Continue Plan of Care Treatment Plan: Bed Mobility, Education, Functional Activity Ramakirshna, Functional Strength, Gait, Safety, Therapeutic Exercise, Transfers Treatment Duration: July 18, 2021 Frequency: 6 times per week Estimated Hrs Per Day: .25 hour per day Patient and/or Family Agrees t: Yes Safety Risks/Education Patient Education: Gait Training, Transfer Techniques, Correct Positioning, Safety Issues Teaching Recipient: Patient Teaching Methods: Demonstration, Discussion Response to Teaching: Reinforcement Needed Time/GCodes Time In: 1036 Time Out: 1047 Total Billed Treatment Time: 11 Total Billed Treatment 1 visit FA 11NASIR MALDONADO PT July 13, 2021 11:04
--- NOTE | 2021-07-13 12:32 | Occupational Ther Daily Note ---
OT Current Status-Daily Note Subjective Pt alert, lying in bed. Pt agrees to therapy. Nrsg in room. No c/o pain. Mental Status/Objective Patient Orientation: Person, Place, Time, Situation Attachments: IV, Telemetry ADL-Treatment Therapy Code Descriptions/Definitions Functional [place] Measure: 0=Not Assessed/NA 4=Minimal Assistance 1=Total Assistance 5=Supervision or Setup 2=Maximal Assistance 6=Modified [place] 3=Moderate Assistance 7=Complete IndependenceSCALE: Activities may be completed with or without assistive devices. 2-Kjaqttgwvw-eblwhwr completes the activity by him/herself with no assistance from a helper. 5-Set-up or Clean-up Assistance-helper sets up or cleans up; patient completes activity. [place] assists only prior to or following the activity. 4-Supervision or Touching Assistance-helper provides verbal cues and/or touching/steadying and/or contact guard assistance as patient completes activity. Assistance may be provided throughout the activity or intermittently. 3-Partial/Moderate Assistance-helper does LESS THAN HALF the effort. [place] lifts, holds or supports trunk or limbs, but provides less than half the effort. 2-Substantial/Maximal Assistance-helper does MORE THAN HALF the effort. [place] lifts or holds trunk or limbs and provides more than half the effort. 6-Tuzocxfaz-wiixmj does ALL the effort. Patient does none of the effort to complete the activity. Or, the assistance of 2 or more helpers is required for the patient to complete the activity. If activity was not attempted, code reason: 7-Patient Refused. 9-Not Applicable-not attempted and the patient did not perform the activity before the current illness, exacerbation or injury. 10-Not Attempted due to Environmental Limitations-(lack of equipment, weather restraints, etc.). 88-Not Attempted due to Medical Conditions or Safety Concerns. Other Treatment Pt completed B UE exercises against gravity with skilled instruction for correct technique and modifications when necessary. 2 sets 15 reps of shldr flex/ext, modified shldr abd/add, tricep ext. Pt tolerated well, requiring breaks between each set for recovery. After session, pt lying in bed with call light/phone in reach. All needs met in room. OT French Binding Folder Goals French Binding Folder Goals Time Frame: July 21, 2021 Eating (QC): 6 Oral Hygiene (QC): 6 Toileting Hygiene (QC): 6 Shower/Bathe Self (QC): 4 Upper Body Dressing (QC): 5 Lower Body Dressing (QC): 5 On/Off Footwear (QC): 5 1=Demonstrate adherence to instructed precautions during ADL tasks. 2=Patient will verbalize/demonstrate understanding of assistive devices/modifications for ADL. 3=Patient will improve strength/tolerance for activity to enable patient to perform ADL's. OT Education/Plan Problem List/Assessment Assessment: Decreased Activ Tolerance, Decreased UE Strength Discharge Recommendations Plan/Recommendations: Continue POC Treatment Plan/Plan of Care Patient would benefit from OT for education, treatment and training to promote independence in ADL's, mobility, safety and/or upper extremity function for ADL's. Plan of Care: ADL Retraining, Functional Mobility, Group Exercise/Act as Ind, UE Funct Exercise/Act Treatment Duration: July 21, 2021 Frequency: 3 times per week (3-5x/week) Estimated Hrs Per Day: .25 hour per day Agreement: Yes Rehab Potential: Fair Time/GCodes Start Time: 11:45 Stop Time: 11:55 Total Time Billed (hr/min): 10 Billed Treatment Time 1 visit-EX 1 (10 min) CAROLINA WALTERS July 13, 2021 12:32
--- NOTE | 2021-07-13 16:55 | Tele-ICU Progress Note ---
Subjective Date Seen by a Provider: July 13, 2021 Time Seen by a Provider: 16:55 Subjective/Events-last exam (Tele-ICU Physician , Progress Note ) Available chart/ vitals / labs / Images reviewed Video assessment done using teleICU camera, rest of exam as per RN Discussed with RN , EXAM PER RN Events overnight : Afebrile FiO2 - 2l I/O = Drips: Pressors: , hemodynamically stable Consultants: jorge Hospital course: 70 y/o male from OP with afib rvr from outpatient ECHO lab A/P PAF , RVR ( new onset, unknown duration -cardizem PO , dig PO - MOON showed echogenic density in the left atrial appendage suggestive of a thrombus. Left ventricular systolic dysfunction, mild mitral regurgitation - started on Xarelto on July 07, 2021. CHF -acute left ventricular systolic dysfunction, probably combination of ischemic and nonischemic cardiomyopathy. - 2D echo done on July 08, 2021: dilated left ventricle with left ventricular hypertrophy and EF 20 to 25%, dilated right ventricle and biatrial enlargement, PA pressure 35 to 40 mmHg. COPD, -oxygen dependent, 4 L - MAT prot Obesity, BMI is 33- ? FRANCISCO RENAL MASS, New bilateral solid pulmonary nodules suspicious for metastatic di sease. - w/up as per PCP Lines : (Central Line Necessity Reviewed) Plasencia: OG: Nutrition: Analgesia: Anxiety/ delirium VTE Prophylaxis: xarelto Stress Ulcer Prophylaxis: po Plans in collaboration with bedside consultants and IM MDs. Discussed with RN to reach out if any questions or concerns A total of 20 minutes of critical care time was devoted to this patient today, required to treat and/or prevent further deterioration of critical care condition ( as above ) . Sepsis Event Evaluation Height, Weight, BMI Height: 5'11.00" Weight: 270lbs. 0.0oz. [id number]; 33.20 BMI Method: Exam Exam Patient acknowledged, consented, and participated in this virtual visit which was conducted using real time audio/video Vital Signs Date Time Temp Pulse Resp B/P (MAP) Pulse Ox O2 Delivery O2 Flow Rate FiO2 07/13/21 16:30 36.5 07/13/21 14:47 96 Nasal Cannula 5.00 07/13/21 13:00 75 07/13/21 12:00 36.2 07/13/21 12:00 104 12 110/76 97 High Flow N/C 5.00 07/13/21 09:00 92 High Flow N/C 5.00 07/13/21 08:00 82 18 122/67 92 High Flow N/C 5.00 07/13/21 08:00 36.2 07/13/21 07:27 High Flow N/C 5.00 07/13/21 07:12 94 High Flow N/C 6.00 07/13/21 07:00 106 07/13/21 04:18 92 29 91 High Flow N/C 6.00 07/13/21 04:00 74 16 98/50 89 High Flow N/C 4.00 07/13/21 03:30 76 13 94 High Flow N/C 4.00 07/13/21 03:23 75 12 96 High Flow N/C 8.00 07/13/21 03:19 96 High Flow N/C 8.00 07/13/21 03:10 94 High Flow N/C 12.00 07/13/21 02:00 72 111/70 92 High Flow N/C 10.00 07/13/21 01:00 78 07/13/21 00:11 91 17 131/85 High Flow N/C 3.50 07/12/21 21:52 54 12 94 High Flow N/C 7.00 07/12/21 21:44 94 High Flow N/C 7.00 07/12/21 21:36 94 High Flow N/C 9.00 07/12/21 21:00 High Flow N/C 7.00 07/12/21 20:50 72 91 High Flow N/C 9.00 07/12/21 20:00 65 15 117/68 95 High Flow N/C 3.50 07/12/21 19:35 36.5 07/12/21 19:00 81 I & O 07/13/21 06:59 Intake Total 625 ml Output Total 1650 ml Balance -1025 ml Height & Weight Height: 5'11.00" Weight: 270lbs. 0.0oz. 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
[2021-07-13] MEDS: ENOXAPARIN 100 MG/1 ML (LOVENOX) SYR SC SCH (20:43)
[2021-07-13] MEDS: PATCH REMOVAL TP SCH (20:44)
[2021-07-14 03:14] VITALS: BP 132/79
[2021-07-14 06:09] LABS: CALCIUM 8.9 MG/DL (8.5-10.1); CREATININE SERUM 0.6 MG/DL (0.60-1.30); MAGNESIUM 1.6 MG/DL (1.6-2.4); POTASSIUM 4.3 MMOL/L (3.6-5.0)
[2021-07-14] MEDS: RT-ALBUTEROL/IPRATROPIUM 3 ML (DUONEB) VIAL INH SCH ×4 (07:14→19:03)
--- NOTE | 2021-07-14 07:58 | Progress Note ---
Subjective Subjective Date Seen by Provider: July 14, 2021 Time Seen by Provider: 07:00 Patient denies any chest pain, and reports trouble breathing that is better than yesterday. He had a bowel movement yesterday and has a good appetite. Review of Systems General: No Chills, No Night Sweats, No Fatigue, No Malaise, No Appetite, No Other HEENT: No Head Aches, No Visual Changes, No Eye Pain, No Ear Pain, No Dysphasia, No Sinus Congestion, No Post Nasal Drip, No Sore Throat, No Other Pulmonary: No Dyspnea, No Cough, No Pleuritic Chest Pain, No Other Cardiovascular: No: Chest Pain, Palpitations, Orthopnea, Paroxysmal Noc. Dyspnea, Edema, Lt Headedness, Other Gastrointestinal: No: Nausea, Vomiting, Abdominal Pain, Constipation Genitourinary: No Dysuria, No Frequency, No Hematuria Musculoskeletal: No: neck pain, back pain Neurological: No: Incoordination, Confusion All Other Systems Reviewed All Other Systems Reviewed: Yes Objective Exam Vital Signs Vital Signs Date Time Temp Pulse Resp B/P (MAP) Pulse Ox O2 Delivery O2 Flow Rate FiO2 07/14/21 07:30 36.8 77 20 111/66 93 High Flow N/C 4.00 07/14/21 07:16 89 High Flow N/C 5.00 07/14/21 07:00 89 07/14/21 04:43 36.7 78 18 126/74 93 High Flow N/C 4.00 07/14/21 03:14 37.1 88 96 07/14/21 01:02 116 07/13/21 23:46 37.0 86 20 123/61 92 High Flow N/C 4.00 07/13/21 22:00 36.9 99 20 122/65 92 High Flow N/C 4.00 07/13/21 21:16 High Flow N/C 4.00 07/13/21 21:12 94 High Flow N/C 5.00 07/13/21 21:00 93 High Flow N/C 5.00 07/13/21 20:20 36.9 81 18 121/74 93 High Flow N/C 5.00 07/13/21 19:00 73 07/13/21 16:30 36.5 07/13/21 14:47 96 Nasal Cannula 5.00 07/13/21 13:00 75 07/13/21 12:00 36.2 07/13/21 12:00 104 12 110/76 97 High Flow N/C 5.00 07/13/21 09:00 92 High Flow N/C 5.00 07/13/21 08:00 82 18 122/67 92 High Flow N/C 5.00 07/13/21 08:00 36.2 I & O 07/14/21 07:00 Intake Total 500 ml Output Total 1100 ml Balance -600 ml General Appearance: No Apparent Distress, WD/WN Eyes: Bilateral Eye Normal Inspection, Bilateral Eye PERRL, Bilateral Eye EOMI HEENT: PERRL/EOMI, Pharynx Normal Neck: Full Range of Motion, Non Tender, Supple Respiratory: Chest Non Tender, Lungs Clear, No Accessory Muscle Use, No Respiratory Distress Cardiovascular: Irregularly Irregular, Tachycardia (IMPROVED RATE, STILL INTERMITTENT ELEVATIONS WITH ACTIVITY/EXERTION) Gastrointestinal: Normal Bowel Sounds, No Organomegaly, Non Tender, Soft, Mass (LUQ/LLQ) Rectal: Deferred Back: Normal Inspection, No CVA Tenderness, No Vertebral Tenderness Extremity: Normal Capillary Refill, No Pedal Edema Neurologic/Psychiatric: Alert, Oriented x3, No Motor/Sensory Deficits, Normal Mood/Affect, 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 Norm as Tested Skin: Normal Color, Warm/Dry Lymphatic: No Adenopathy Results Lab Laboratory Tests 07/14/21 05:31: Sodium Level 138, Potassium Level 4.3, Chloride Level 97L, Carbon Dioxide Level 30, Anion Gap 11, Blood Urea Nitrogen 9, Creatinine 0.60, Estimat Glomerular Filtration Rate 105, BUN/Creatinine Ratio 15, Glucose Level 81, Calcium Level 8.9, Magnesium Level 1.6 Microbiology 07/08/21 MRSA Screen - Final, Complete MRSA not isolated Assessment/Plan Assessment/Plan Admission Dx ACUTE ATRIAL FIBRILLATION SEVERE CARDIOMYOPATHY HYPERTENSION HYPERTENSIVE HEART DISEASE COPD PULMONARY HYPERTENSION ANEMIA HYPERLIPIDEMIA Elevated BUN Low magnesium Assessment and Plan ACUTE ATRIAL FIBRILLATION SEVERE CARDIOMYOPATHY HYPERTENSION HYPERTENSIVE HEART DISEASE COPD PULMONARY HYPERTENSION ANEMIA HYPERLIPIDEMIA RENAL MASS CONSTIPATION LUNG NODULES POSSIBLE METASTATIC DISEASE IN BONES OF SPINE ACUTE ATRIAL FIBRILLATION WITH SEVERE CARDIOMYOPATHY - CARDIZEM ORALLY - ORAL DIGOXIN - CARDIOLOGY ADDED METOPROLOL, HEART RATE IMPROVED - ORAL ANTICOAG WITH XARELTO (WILL HOLD 07/13 - 07/15, RESTART 07/16 - LOVENOX UNTIL AFTER BIOPSY OF LUMBAR OR THORACIC SPINE) HYPERTENSION WITH HYPERTENSIVE HEART DISEASE - PT ON CARDIZEM AND METOPROLOL RENAL MASS - DISCUSSED WITH PT AND HIS SHE RECORDED THE CONVERSATION ON HER PHONE WITH MY PERMISSION SO THAT THEY COULD SEND IT TO HIS DTR. I INFORMED THE PT THAT THE PLAN WOULD BE TO SEE IF A BIOPSY COULD BE DONE HERE BY THE RADIOLOGIST, IF NOT, THEN WE WOULD HAVE TO INITIATE A REFERRAL TO UROLOGY FOR BIOPSY AND ULTIMATELY FOR THE INTERVENTION NEEDED EITHER THROUGH THE UROLOGY DEPARTMENT OR INTERVENTIONAL RADIOLOGY. - CHECKED MRI - 6.5 X 6.6 CM MASS IN LOWER POLE OF LEFT KIDNEY, CONCERN FOR POSSIBLE METASTATIC DISEASE IN L4/L5 AND INFRARENAL ANEURYSM - FULL FINDINGS AND IMPRESSION FOLLOWS: FINDINGS: There are multiple bilateral simple benign renal cortical cysts the largest simple cyst exophytic off the ventral aspect of the lower pole the left kidney measuring a diameter of 12 cm. In addition, there is a large mixed cystic solid complex mass off the lower pole of the left kidney measuring 7 cm murphy sverse by 6.5 cm AP by 6.6 cm cephalocaudal. This contains a hemorrhagic cystic component of 3 cm in length. This mass abuts and distorts the posterior contour of the large measured 11 cm adjacent lower pole cortical cyst. There is some stranding of the adjacent perinephric retroperitoneal fat tracking caudally into the upper iliac level which likely reflects an element of perilesional hemorrhage. This a small in volume. There is a 3.7 cm fusiform infrarenal abdominal aortic aneurysm, but no MRI findings to suggest its rupture. Small fatty umbilical hernia. There is no suspicious adrenal mass. No suspicious liver lesions. Gallbladder unremarkable. No bile duct dilatation. The spleen within normal limits. The renal veins appeared patent. The cava patent. There is no pathological appearing abdominal mesenteric or retroperitoneal lymphadenopathy. There appear to be small dependent pleural effusions. There is vertebral body marrow heterogeneity at the L4 level diffusely as well as small focal lesion in the L5 vertebral body and a partially visualized lesion in the left posterior iliac bone. Bony metastatic disease could not be excluded. IMPRESSION: 1. Complex solid cystic left renal lower pole mass worrisome for cystic neoplasm. Abnormal marrow lesions at L4-L5 in the left iliac bone may reflect metastatic deposits. Negative liver and no findings of adenopathy. 2. There is some infiltration of the retroperitoneal fat adjacent to the lower pole of the left kidney and extending caudally below the field of view jacques spicious for small amount of perilesional hemorrhage. 3. Unruptured fusiform infrarenal abdominal aortic aneurysm, probable trace pleural effusions. Nonfocal liver. No lymphadenopathy. COPD - PT ON DUONEB INHALERS - WILL CHECK CT OF CHEST PRIOR TO DC TO HOME. PULMONARY HYPERTENSION - MANAGEMENT OF CARDIAC DISEASE AND REPEAT ECHO WILL BE PERFORMED OUTPT PER DR. MACE. ECHO REPORT - SEVERE CONCENTRIC HYPERTROPHY, SEVERELY REDUCED SYSTOLIC FUNCTION, EF ESTIMATION 25 - 30%, SEVERE DIFFUSE HYPOKINESIS OF LEFT VENTRICLE, AND INCREASED CAVITY SIDE OF RIGHT VENTRICLE AND REDUCED SYSTOLIC FUNCTION, DILATED LEFT ATRIUM, RIGHT ATRIUM AND MOD TRICUSPID REGURGITATION WITH PULMONARY ARTERY PRESSURE OF 35 - 40mmHg. ANEMIA - STABLE - MONITOR LABS. HYPERLIPIDEMIA - RESUMED STATIN THERAPY. CONSTIPATION - TREAT WITH DULCOLAX AND MIRALAX - GIVE SENNA S AND SOAP SUDS ENEMA TODAY AFTER CT SCAN CHRONIC TOBACCOISM (SMOKING) WITH LUNG NODULES WITH POSSIBLE METASTATIC DISEASE IN BONES OF SPINE - CT SCAN FINDINGS BELOW, WILL SEE WHEN/IF BIOPSY OF LUNG OR SPINE OR RENAL MASS CAN BE OBTAINED. IMPRESSION: 1. New bilateral solid pulmonary nodules suspicious for metastatic disease. There is also a region of consolidation with air bronchograms in the left lower lobe which could represent pneumonitis. 2. Small to moderate bilateral pleural effusions are new. 3. Borderline enlarged left hilar lymph nodes have grown since the prior CT chest. 4. Indeterminate lytic changes in the inferior endplate of T3 could also represent metastatic disease. This could be further investigated with MRI. DVT PROPHYLAXIS WITH SCD'S AND XARELTO GI PROPHYLAXIS WITH PPI THERAPY. INITIAL PLANS FOR DC WERE TO GO TO [facility] FOR THERAPY -PT NOW FEELING BETTER WITH HIS HEART RATE BEING CONTROLLED, WILL NOW ATTEMPT HOME HEALTH FOR THERAPY ON DC. WILL INITIATE A REFERRAL TO UROLOGY OUTPATIENT. Admission Dx ACUTE ATRIAL FIBRILLATION SEVERE CARDIOMYOPATHY HYPERTENSION HYPERTENSIVE HEART DISEASE COPD PULMONARY HYPERTENSION ANEMIA HYPERLIPIDEMIA Elevated BUN Low magnesium Clinical Quality Measures Admission Status Admission Dx ACUTE ATRIAL FIBRILLATION SEVERE CARDIOMYOPATHY HYPERTENSION HYPERTENSIVE HEART DISEASE COPD PULMONARY HYPERTENSION ANEMIA HYPERLIPIDEMIA Elevated BUN Low magnesium Supervisory-Addendum Brief Verification & Attestation Participated in pt care: history, MDM, physical Personally performed: exam, history, MDM, supervision of care Care discussed with: Medical Student Procedures: n/a Results interpretation: Verified all documentation ACUTE ATRIAL FIBRILLATION SEVERE CARDIOMYOPATHY HYPERTENSION HYPERTENSIVE HEART DISEASE COPD PULMONARY HYPERTENSION ANEMIA HYPERLIPIDEMIA RENAL MASS CONSTIPATION LUNG NODULES POSSIBLE METASTATIC DISEASE IN BONES OF SPINE ACUTE ATRIAL FIBRILLATION WITH SEVERE CARDIOMYOPATHY - CARDIZEM ORALLY - ORAL DIGOXIN - CARDIOLOGY ADDED METOPROLOL, HEART RATE IMPROVED - ORAL ANTICOAG WITH XARELTO (WILL HOLD 07/13 - 07/15, RESTART 07/16 - PT TO BE ON LOVENOX UNTIL AFTER BIOPSY OF LUMBAR OR THORACIC SPINE) HYPERTENSION WITH HYPERTENSIVE HEART DISEASE - PT ON CARDIZEM AND METOPROLOL RENAL MASS - DISCUSSED WITH PT AND HIS SHE RECORDED THE CONVERSATION ON HER PHONE WITH MY PERMISSION SO THAT THEY COULD SEND IT TO HIS DTR. I INFORMED THE PT THAT THE PLAN WOULD BE TO SEE IF A BIOPSY COULD BE DONE HERE BY THE RADIOLOGIST, IF NOT, THEN WE WOULD HAVE TO INITIATE A REFERRAL TO UROLOGY FOR BIOPSY AND ULTIMATELY FOR THE INTERVENTION NEEDED EITHER THROUGH THE UROLOGY DEPARTMENT OR INTERVENTIONAL RADIOLOGY. - CHECKED MRI - 6.5 X 6.6 CM MASS IN LOWER POLE OF LEFT KIDNEY, CONCERN FOR POSSIBLE METASTATIC DISEASE IN L4/L5 AND INFRARENAL ANEURYSM - FULL FINDINGS AND IMPRESSION FOLLOWS: FINDINGS: There are multiple bilateral simple benign renal cortical cysts the largest simple cyst exophytic off the ventral aspect of the lower pole the left kidney measuring a diameter of 12 cm. In addition, there is a large mixed cystic solid complex mass off the lower pole of the left kidney measuring 7 cm transverse by 6.5 cm AP by 6.6 cm cephalocaudal. This contains a hemorrhagic cystic component of 3 cm in length. This mass abuts and distorts the posterior contour of the large measured 11 cm adjacent lower pole cortical cyst. There is some stranding of the adjacent perinephric retroperitoneal fat tracking caudally into the upper iliac level which likely reflects an element of perilesional hemorrhage. This a small in volume. There is a 3.7 cm fusiform infrarenal abdominal aortic aneurysm, but no MRI findings to suggest its rupture. Small fatty umbilical hernia. There is no suspicious adrenal mass. No suspicious liver lesions. Gallbladder unremarkable. No bile duct dilatation. The spleen within normal limits. The renal veins appeared patent. The cava patent. There is no pathological appearing abdominal mesenteric or retroperitoneal lymphadenopathy. There appear to be small dependent pleural effusions. There is vertebral body marrow heterogeneity at the L4 level diffusely as well as small focal lesion in the L5 vertebral body and a partially visualized lesion in the left posterior iliac bone. Bony metastatic disease could not be excluded. IMPRESSION: 1. Complex solid cystic left renal lower pole mass worrisome for cystic neoplasm. Abnormal marrow lesions at L4-L5 in the left iliac bone may reflect metastatic deposits. Negative liver and no findings of adenopathy. 2. There is some infiltration of the retroperitoneal fat adjacent to the lower pole of the left kidney and extending caudally below the field of view suspicious for small amount of perilesional hemorrhage. 3. Unruptured fusiform infrarenal abdominal aortic aneurysm, probable trace pleural effusions. Nonfocal liver. No lymphadenopathy. COPD - PT ON DUONEB INHALERS - LUNG NODULES ON CT SCAN PULMONARY HYPERTENSION - MANAGEMENT OF CARDIAC DISEASE AND REPEAT ECHO WILL BE PERFORMED OUTPT PER DR. MACE. ECHO REPORT - SEVERE CONCENTRIC HYPERTROPHY, SEVERELY REDUCED SYSTOLIC FUNCTION, EF ESTIMATION 25 - 30%, SEVERE DIFFUSE HYPOKINESIS OF LEFT VENTRICLE, AND INCREASED CAVITY SIDE OF RIGHT VENTRICLE AND REDUCED SYSTOLIC FUNCTION, DILATED LEFT ATRIUM, RIGHT ATRIUM AND MOD TRICUSPID REGURGITATION WITH PULMONARY ARTERY PRESSURE OF 35 - 40mmHg. CONSTIPATION - IMPROVED CHRONIC TOBACCOISM (SMOKING) WITH LUNG NODULES WITH POSSIBLE METASTATIC DISEASE IN BONES OF SPINE - CT SCAN FINDINGS BELOW, WILL SEE WHEN/IF BIOPSY OF LUNG OR SPINE OR RENAL MASS CAN BE OBTAINED. - HAVE TO REPEAT A CT OF ABD/PELVIS TODAY SINCE WE NEED TO DETERMINE IF BIOPSY OF SPINAL METASTATIC DISEASE CAN TAKE PLACE WHILE HE IS IN THE HOSPITAL IMPRESSION: 1. New bilateral solid pulmonary nodules suspicious for metastatic disease. There is also a region of consolidation with air bronchograms in the left lower lobe which could represent pneumonitis. 2. Small to moderate bilateral pleural effusions are new. 3. Borderline enlarged left hilar lymph nodes have grown since the prior CT chest. 4. Indeterminate lytic changes in the inferior endplate of T3 could also represent metastatic disease. This could be further investigated with MRI. DVT PROPHYLAXIS WITH SCD'S AND XARELTO GI PROPHYLAXIS WITH PPI THERAPY. INITIAL PLANS FOR DC WERE TO GO TO [facility] FOR THER[facility]Y -PT NOW FEELING BETTER WITH HIS HEART RATE BEING CONTROLLED, WILL NOW ATTEMPT HOME HEALTH FOR THERAPY ON DC. WILL INITIATE A REFERRAL TO UROLOGY OUTPATIENT. ANITA MIRAMONTES July 14, 2021 07:57 ANNALISA VALDIVIA MD July 15, 2021 08:06
--- NOTE | 2021-07-14 08:09 | Cardiology Progress Note ---
Subjective Date Seen by Provider: July 14, 2021 Time Seen by Provider: 08:05 Subjective/Events-last exam Patient was seen at bedside, laying down comfortably, scheduled for biopsy today. Review of Systems General: No Chills, No Night Sweats; Fatigue; No Malaise, No Appetite, No Other HEENT: No Head Aches, No Visual Changes, No Eye Pain, No Ear Pain, No Dysphasia, No Sinus Congestion, No Post Nasal Drip, No Sore Throat, No Other Pulmonary: No Dyspnea, No Cough, No Pleuritic Chest Pain, No Other Cardiovascular: No: Chest Pain, Palpitations, Orthopnea, Paroxysmal Noc. Dyspnea, Edema, Lt Headedness, Other Objective-Cardiology Exam Last Set of Vital Signs Vital Signs 07/14/21 07:30 Temp 36.8 Pulse 77 Resp 20 B/P (MAP) 111/66 Pulse Ox 93 O2 Delivery High Flow N/C O2 Flow Rate 4.00 I&O Intake and Output 07/14/21 00:00 Intake Total 400 ml Output Total 950 ml Balance -550 ml Intake Oral 400 ml Output Urine Total 950 ml # Voids 1 # Bowel Movements 1 General: Alert, Oriented X3, Cooperative HEENT: Atraumatic, PERRLA Neck: Supple, No JVD, No Thyromegaly Lungs: Clear to Auscultation, Normal Air Movement Heart: Normal S1, Normal S2, No Murmurs, Other (Atrial fibrillation) Abdomen: Normal Bowel Sounds, Soft, No Tenderness, No Hepatosplenomegaly, No Masses Extremities: No Clubbing, No Cyanosis, No Edema, Normal Pulses, No Tenderness/Swelling Skin: No Rashes, No Breakdown, No Significant Lesion Neuro: Normal Gait, Normal Speech, Strength at 5/5 X4 Ext, Normal Tone, Sensation Intact Psych/Mental Status: Mental Status NL, Mood NL Results Lab Laboratory Tests 07/14/21 05:31 A/P-Cardiology Admission Diagnosis Paroxysmal atrial fibrillation Tachycardia Congestive heart failure, acute left ventricular systolic dysfunction Hypotension Assessment/Plan Paroxysmal atrial fibrillation, new onset, unknown duration. MOON showed echogenic density in the left atrial appendage suggestive of a thrombus. Left ventricular systolic dysfunction, mild mitral regurgitation Borderline tachycardic today. I will give him 1 dose of IV Lopressor while he is n.p.o. Change in Cardizem to Cardizem CD 240 mg daily and adding Lopressor 25 mg twice daily Monitor blood pressure and heart rate Renal mass, pulmonary nodule and hilar adenopathy Possible metastatic disease, scheduled for biopsy today Managed by medical team, possible referral to [id number] score 3, identified thrombus within the left atrial appendage, started on Xarelto on July 07, 2021. Currently Xarelto is on hold for biopsy. We will start counting 6 weeks after restarting oral anticoagulation Generalized fatigue, shortness of breath, loss of energy, oxygen dependent. Currently in atrial fibrillation. 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 2D echo done on July 08, 2021 showing dilated left ventricle with left ventricular hypertrophy and ejection fraction 20 to 25%, dilated right ventricle and biatrial enlargement, PA pressure 35 to 40 mmHg. During the MOON on July 09, 2021, his ejection fraction appeared to be better after his heart rate improved slightly. Cannot tolerate beta-blockers and/or MONICA inhibitor and/or ARB due to hypotension. 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 Did not qualify for LifeVest due to ejection fraction 45% on MOON. I am starting low-dose metoprolol and evaluate tolerance and response COPD, oxygen dependent, dyspnea on exertion. Hypertension, has been borderline hypotensive. Continue to monitor blood pressure Hyperlipidemia, maintained on Lipitor 20 mg daily, continue to monitor Mild bilateral carotid stenosis, ultrasound was done on July 07, 2021 Obesity, BMI is 33, concern about loss of appetite. I instructed him on additional diet and weight loss. LAURA MACE MD July 14, 2021 08:09
[2021-07-14] MEDS ORDERED: meTOprolol 5 MG/5 ML (LOPRESSOR) VIAL IV NR (08:40)
[2021-07-14] MEDS: meTOprolol TARTRATE 25 MG (LOPRESSOR) TABLET PO SCH ×2 (08:55→20:34)
[2021-07-14] MEDS: SENNA W/DOCUSATE (SENOKOT S) TABLET PO SCH ×2 (08:56→20:34)
[2021-07-14] MEDS: meTOproloL SUCCINATE 50 MG (TOPROL XL) TAB PO SCH (08:56)
[2021-07-14] MEDS: BISACODYL 5 MG (DULCOLAX) TABLET PO SCH (08:56)
[2021-07-14] MEDS: ENOXAPARIN 100 MG/1 ML (LOVENOX) SYR SC SCH ×2 (08:56→20:34)
[2021-07-14] MEDS: PANTOPRAZOLE 40 MG (PROTONIX) TAB PO SCH (08:56)
[2021-07-14] MEDS: DIGOXIN 0.25 MG (LANOXIN) TAB PO SCH (08:56)
[2021-07-14] MEDS: NICOTINE 21 MG (NICODERM) PATCH TD SCH (08:56)
--- NOTE | 2021-07-14 10:41 | Occupational Ther Daily Note ---
OT Current Status-Daily Note Subjective Pt alert, lying in bed. Pt agrees to therapy, declines any OOB tasks. present in room. No c/o pain. Mental Status/Objective Patient Orientation: Person, Place, Time, Situation Attachments: IV, Oxygen (hiFlo 4L), Telemetry ADL-Treatment Therapy Code Descriptions/Definitions Functional [place] Measure: 0=Not Assessed/NA 4=Minimal Assistance 1=Total Assistance 5=Supervision or Setup 2=Maximal Assistance 6=Modified [place] 3=Moderate Assistance 7=Complete IndependenceSCALE: Activities may be completed with or without assistive devices. 6-[id number] completes the activity by him/herself with no assistance from a helper. 5-Set-up or Clean-up Assistance-helper sets up or cleans up; patient completes activity. [place] assists only prior to or following the activity. 4-Supervision or Touching Assistance-helper provides verbal cues and/or touching/steadying and/or contact guard assistance as patient completes activity. Assistance may be provided throughout the activity or intermittently. 3-Partial/Moderate Assistance-helper does LESS THAN HALF the effort. [place] lifts, holds or supports trunk or limbs, but provides less than half the effort. 2-Substantial/Maximal Assistance-helper does MORE THAN HALF the effort. [place] lifts or holds trunk or limbs and provides more than half the effort. 1-[id number]-[id number] does ALL the effort. Patient does none of the effort to complete the activity. Or, the assistance of 2 or more helpers is required for the patient to complete the activity. If activity was not attempted, code reason: 7-Patient Refused. 9-Not Applicable-not attempted and the patient did not perform the activity before the current illness, exacerbation or injury. 10-Not Attempted due to Environmental Limitations-(lack of equipment, weather restraints, etc.). 88-Not Attempted due to Medical Conditions or Safety Concerns. Other Treatment Pt completed 5 B UE exercises against gravity with skilled instruction for correct technique. Pt tolerated exercises well though did stated that he was worn out after completing 1 set 15 reps of each. Will take HEP and light resistance theraband to pt at later time. After therapy, pt lying in bed with call light/phone in reach. All needs met in room. Safety measures in room. OT Group Home Goals Group Home Goals Time Frame: July 21, 2021 Eating (QC): 6 Oral Hygiene (QC): 6 Toileting Hygiene (QC): 6 Shower/Bathe Self (QC): 4 Upper Body Dressing (QC): 5 Lower Body Dressing (QC): 5 On/Off Footwear (QC): 5 1=Demonstrate adherence to instructed precautions during ADL tasks. 2=Patient will verbalize/demonstrate understanding of assistive devices/modifications for ADL. 3=Patient will improve strength/tolerance for activity to enable patient to perform ADL's. OT Education/Plan Problem List/Assessment Assessment: Decreased Activ Tolerance, Decreased UE Strength Discharge Recommendations Plan/Recommendations: Continue POC Treatment Plan/Plan of Care Patient would benefit from OT for education, treatment and training to promote independence in ADL's, mobility, safety and/or upper extremity function for ADL's. Plan of Care: ADL Retraining, Functional Mobility, Group Exercise/Act as Ind, UE Funct Exercise/Act Treatment Duration: July 21, 2021 Frequency: 3 times per week (3-5x/week) Estimated Hrs Per Day: .25 hour per day Agreement: Yes Rehab Potential: Fair Time/GCodes Start Time: 10:05 Stop Time: 10:15 Total Time Billed (hr/min): 10 Billed Treatment Time 1 visit-EX 1 (10 min) CAROLINA WALTERS July 14, 2021 10:41
[2021-07-14 11:43] VITALS: BP 128/76
--- NOTE | 2021-07-14 14:03 | Physical Therapy Daily Note ---
PT Daily Note-Current Subjective Pt R sidelying upon arrival. Pt agrees to walk w/PT. Pain Location: No Pain Reported Mental Status Patient Orientation: Person, Place, Situation Attachments: Oxygen (4L) Transfers SCALE: Activities may be completed with or without assistive devices. 2-Nbpuoovxjt-dfwxdme completes the activity by him/herself with no assistance from a helper. 5-Set-up or Clean-up Assistance-helper sets up or cleans up; patient completes activity. [place] assists only prior to or following the activity. 4-Supervision or Touching Assistance-helper provides verbal cues and/or touching/steadying and/or contact guard assistance as patient completes activity. Assistance may be provided throughout the activity or intermittently. 3-Partial/Moderate Assistance-helper does LESS THAN HALF the effort. [place] lifts, holds or supports trunk or limbs, but provides less than half the effort. 2-Substantial/Maximal Assistance-helper does MORE THAN HALF the effort. [place] lifts or holds trunk or limbs and provides more than half the effort. 6-Ebidhiumk-wnwijt does ALL the effort. Patient does none of the effort to complete the activity. Or, the assistance of 2 or more helpers is required for the patient to complete the activity. If activity was not attempted, code reason: 7-Patient Refused. 9-Not Applicable-not attempted and the patient did not perform the activity before the current illness, exacerbation or injury. 10-Not Attempted due to Environmental Limitations-(lack of equipment, weather restraints, etc.). 88-Not Attempted due to Medical Conditions or Safety Concerns. Lying to Sitting/Side of Bed(Q: 5 Sit to Stand (QC): 5 Weight Bearing Full Weight Bearing Full Weight Bearing Gait Training Does the Patient Walk?: Yes Distance: 200' Walk 10 feet (QC): 5 Walk 50 ft with 2 Turns(QC): 5 Walk 150 ft (QC): 5 Gait Persons Needed: 1 Gait Assistive Device: FWW Treatments TF to EOB then standing. Pt amb. in hallway then returns to room to rest in bed. All needs met, call light in hand. Assessment Current Status: Good Progress Pt is fatigued from not sleeping well. PT Machine Baster Goals Jail Goals PT Machine Baster Goals Time Frame: July 18, 2021 Roll Left & Right (QC): 6 Sit to Lying (QC): 6 Lying-Sitting on Side/Bed(QC): 6 Sit to Stand (QC): 6 Chair/Thn-yr-Zptbb Xfer(QC): 6 Toilet Transfer (QC): 6 Walk 10 feet (QC): 6 Walk 50ft with 2 Turns (QC): 6 Walk 150 ft (QC): 6 PT Plan Problem List Problem List: Activity Tolerance Treatment/Plan Treatment Plan: Continue Plan of Care Treatment Plan: Bed Mobility, Education, Functional Activity Ramakrishna, Functional Strength, Gait, Safety, Therapeutic Exercise, Transfers Treatment Duration: July 18, 2021 Frequency: 6 times per week Estimated Hrs Per Day: .25 hour per day Patient and/or Family Agrees t: Yes Time/GCodes Time In: 1303 Time Out: 1326 Total Billed Treatment Time: 23 Total Billed Treatment 1, GT x2 (23m) ADOLFO SAUCEDO PTA July 14, 2021 14:03
[2021-07-14 16:00] VITALS: BP 126/74
[2021-07-14 20:00] VITALS: BP 118/96
[2021-07-14] MEDS: PATCH REMOVAL TP SCH (20:34)
[2021-07-15 00:06] VITALS: BP 135/74
[2021-07-15 04:00] VITALS: BP 133/80
[2021-07-15 06:03] LABS: POTASSIUM 4.3 MMOL/L (3.6-5.0)
[2021-07-15 06:04] LABS: CALCIUM 9.6 MG/DL (8.5-10.1)
[2021-07-15 06:09] LABS: CREATININE SERUM 0.57 MG/DL (0.60-1.30)
[2021-07-15 06:11] LABS: MAGNESIUM 1.7 MG/DL (1.6-2.4)
--- NOTE | 2021-07-15 07:31 | Progress Note ---
Subjective Subjective Date Seen by Provider: July 15, 2021 Time Seen by Provider: 07:00 Patient denies any chest pain, and reports trouble breathing that is improving to stable. His last bowel movement was on Tuesday, but reports that he normally has 2 BM a week and that is typical for him. Review of Systems General: No Chills, No Night Sweats, No Fatigue, No Malaise, No Appetite, No Other HEENT: No Head Aches, No Visual Changes, No Eye Pain, No Ear Pain, No Dysphasia, No Sinus Congestion, No Post Nasal Drip, No Sore Throat, No Other Pulmonary: Dyspnea; No Cough, No Pleuritic Chest Pain, No Other Cardiovascular: No: Chest Pain, Palpitations, Orthopnea, Paroxysmal Noc. Dyspnea, Edema, Lt Headedness, Other Gastrointestinal: No: Nausea, Vomiting, Abdominal Pain, Constipation Genitourinary: No Dysuria, No Frequency, No Hematuria Musculoskeletal: No: neck pain, back pain Neurological: No: Incoordination, Confusion All Other Systems Reviewed All Other Systems Reviewed: Yes Objective Exam Vital Signs Vital Signs Date Time Temp Pulse Resp B/P (MAP) Pulse Ox O2 Delivery O2 Flow Rate FiO2 07/15/21 04:00 36.6 75 18 133/80 (97) 96 High Flow N/C 4.00 07/15/21 01:01 91 07/15/21 00:06 36.7 85 22 135/74 (94) 93 High Flow N/C 4.00 07/14/21 21:00 High Flow N/C 4.00 07/14/21 20:00 37.1 104 19 118/96 (103) 90 Nasal Cannula 4.00 07/14/21 19:04 93 Nasal Cannula 4.00 07/14/21 19:00 106 07/14/21 16:00 36.5 84 20 126/74 (91) 93 Nasal Cannula 4.00 07/14/21 14:51 96 High Flow N/C 5.00 07/14/21 13:00 85 07/14/21 11:43 36.6 70 20 128/76 (93) 92 Nasal Cannula 4.00 07/14/21 10:56 95 High Flow N/C 5.00 07/14/21 09:00 93 High Flow N/C 4.00 07/14/21 07:30 36.8 77 20 111/66 93 High Flow N/C 4.00 I & O 07/15/21 07:00 Intake Total 840 ml Output Total 2600 ml Balance -1760 ml General Appearance: No Apparent Distress, WD/WN Eyes: Bilateral Eye Normal Inspection, Bilateral Eye PERRL, Bilateral Eye EOMI HEENT: PERRL/EOMI, Pharynx Normal Neck: Full Range of Motion, Non Tender, Supple Respiratory: Chest Non Tender, Lungs Clear, No Accessory Muscle Use, No Respiratory Distress Cardiovascular: Irregularly Irregular, Tachycardia (IMPROVED RATE, STILL INTERMITTENT ELEVATIONS WITH ACTIVITY/EXERTION) Gastrointestinal: Normal Bowel Sounds, No Organomegaly, Non Tender, Soft, Mass (LUQ/LLQ) Rectal: Deferred Back: Normal Inspection, No CVA Tenderness, No Vertebral Tenderness Extremity: Normal Capillary Refill, No Pedal Edema Neurologic/Psychiatric: Alert, Oriented x3, No Motor/Sensory Deficits, Normal Mood/Affect, engineer operations and maintenance II-XII Norm as Tested Skin: Normal Color, Warm/Dry Lymphatic: No Adenopathy Results Lab Laboratory Tests 07/15/21 05:29: Sodium Level 141, Potassium Level 4.3, Chloride Level 96L, Carbon Dioxide Level 32, Anion Gap 13, Blood Urea Nitrogen 8, Creatinine 0.57L, Estimat Glomerular Filtration Rate 107, BUN/Creatinine Ratio 14, Glucose Level 83, Calcium Level 9.6, Magnesium Level 1.7 Microbiology 07/08/21 MRSA Screen - Final, Complete MRSA not isolated Assessment/Plan Assessment/Plan Admission Dx ACUTE ATRIAL FIBRILLATION SEVERE CARDIOMYOPATHY HYPERTENSION HYPERTENSIVE HEART DISEASE COPD PULMONARY HYPERTENSION ANEMIA HYPERLIPIDEMIA Elevated BUN Low magnesium Assessment and Plan ACUTE ATRIAL FIBRILLATION SEVERE CARDIOMYOPATHY HYPERTENSION HYPERTENSIVE HEART DISEASE COPD PULMONARY HYPERTENSION ANEMIA HYPERLIPIDEMIA RENAL MASS CONSTIPATION LUNG NODULES POSSIBLE METASTATIC DISEASE IN BONES OF SPINE ACUTE ATRIAL FIBRILLATION WITH SEVERE CARDIOMYOPATHY - CARDIZEM ORALLY - ORAL DIGOXIN - CARDIOLOGY ADDED METOPROLOL, HEART RATE IMPROVED - ORAL ANTICOAG WITH XARELTO (WILL HOLD 07/13 - 07/15, RESTART 07/16 - LOVENOX UNTIL AFTER BIOPSY OF LUMBAR OR THORACIC SPINE) -Restart oral anticoagulation as biopsy was cancelled, will be discharged today and will try to get an appointment at with Urology/Oncology HYPERTENSION WITH HYPERTENSIVE HEART DISEASE - PT ON CARDIZEM AND METOPROLOL RENAL MASS - DISCUSSED WITH PT AND HIS SHE RECORDED THE CONVERSATION ON HER PHONE WITH MY PERMISSION SO THAT THEY COULD SEND IT TO HIS DTR. I INFORMED THE PT THAT THE PLAN WOULD BE TO SEE IF A BIOPSY COULD BE DONE HERE BY THE RADIOLOGIST, IF NOT, THEN WE WOULD HAVE TO INITIATE A REFERRAL TO UROLOGY FOR BIOPSY AND ULTIMATELY FOR THE INTERVENTION NEEDED EITHER THROUGH THE UROLOGY DEPARTMENT OR INTERVENTIONAL RADIOLOGY. - CHECKED MRI - 6.5 X 6.6 CM MASS IN LOWER POLE OF LEFT KIDNEY, CONCERN FOR POSSIBLE METASTATIC DISEASE IN L4/L5 AND INFRARENAL ANEURYSM - FULL FINDINGS AND IMPRESSION FOLLOWS: FINDINGS: There are multiple bilateral simple benign renal cortical cysts the largest simple cyst exophytic off the ventral aspect of the lower pole the left kidney measuring a diameter of 12 cm. In addition, there is a large mixed cystic solid complex mass off the lower pole of the left kidney measuring 7 cm transverse by 6.5 cm AP by 6.6 cm cephalocaudal. This contains a hemorrhagic cystic component of 3 cm in length. This mass abuts and distorts the posterior contour of the large measured 11 cm adjacent lower pole cortical cyst. There is some stranding of the adjacent perinephric retroperitoneal fat tracking caudally into the upper iliac level which likely reflects an element of perilesional hemorrhage. This a small in volume. There is a 3.7 cm fusiform infrarenal abdominal aortic aneurysm, but no MRI findings to suggest its rupture. Small fatty umbilical hernia. There is no suspicious adrenal mass. No suspicious liver lesions. Gallbladder unremarkable. No bile duct dilatation. The spleen within normal limits. The renal veins appeared patent. The cava patent. There is no pathological appearing abdominal mesenteric or retroperitoneal lymphadenopathy. There appear to be small dependent pleural effusions. There is vertebral body marrow heterogeneity at the L4 level diffusely as well as small focal lesion in the L5 vertebral body and a partially visualized lesion in the left posterior iliac bone. Bony metastatic disease could not be excluded. IMPRESSION: 1. Complex solid cystic left renal lower pole mass worrisome for cystic neoplasm. Abnormal marrow lesions at L4-L5 in the left iliac bone may reflect metastatic deposits. Negative liver and no findings of adenopathy. 2. There is some infiltration of the retroperitoneal fat adjacent to the lower pole of the left kidney and extending caudally below the field of view suspicious for small amount of perilesional hemorrhage. 3. Unruptured fusiform infrarenal abdominal aortic aneurysm, probable trace pleural effusions. Nonfocal liver. No lymphadenopathy. COPD - PT ON DUONEB INHALERS - WILL CHECK CT OF CHEST PRIOR TO DC TO HOME. PULMONARY HYPERTENSION - MANAGEMENT OF CARDIAC DISEASE AND REPEAT ECHO WILL BE PERFORMED OUTPT PER DR. MACE. ECHO REPORT - SEVERE CONCENTRIC HYPERTROPHY, SEVERELY REDUCED SYSTOLIC FUNCTION, EF ESTIMATION 25 - 30%, SEVERE DIFFUSE HYPOKINESIS OF LEFT VENTRICLE, AND INCREASED CAVITY SIDE OF RIGHT VENTRICLE AND REDUCED SYSTOLIC FUNCTION, DILATED LEFT ATRIUM, RIGHT ATRIUM AND MOD TRICUSPID REGURGITATION WITH PULMONARY ARTERY PRESSURE OF 35 - 40mmHg. ANEMIA - STABLE - MONITOR LABS. HYPERLIPIDEMIA - RESUMED STATIN THERAPY. CONSTIPATION - TREAT WITH DULCOLAX AND MIRALAX - GIVE SENNA S AND SOAP SUDS ENEMA TODAY AFTER CT SCAN CHRONIC TOBACCOISM (SMOKING) WITH LUNG NODULES WITH POSSIBLE METASTATIC DISEASE IN BONES OF SPINE - CT SCAN FINDINGS BELOW, WILL SEE WHEN/IF BIOPSY OF LUNG OR SPINE OR RENAL MASS CAN BE OBTAINED. IMPRESSION: 1. New bilateral solid pulmonary nodules suspicious for metastatic disease. There is also a region of consolidation with air bronchograms in the left lower lobe which could represent pneumonitis. 2. Small to moderate bilateral pleural effusions are new. 3. Borderline enlarged left hilar lymph nodes have grown since the prior CT chest. 4. Indeterminate lytic changes in the inferior endplate of T3 could also represent metastatic disease. This could be further investigated with MRI. DVT PROPHYLAXIS WITH SCD'S AND XARELTO GI PROPHYLAXIS WITH PPI THERAPY. INITIAL PLANS FOR DC WERE TO GO TO [facility] HOME FOR THERAPY -PT NOW FEELING BETTER WITH HIS HEART RATE BEING CONTROLLED, WILL NOW ATTEMPT HOME HEALTH FOR THERAPY ON DC. WILL INITIATE A REFERRAL TO UROLOGY OUTPATIENT. Admission Dx ACUTE ATRIAL FIBRILLATION SEVERE CARDIOMYOPATHY HYPERTENSION HYPERTENSIVE HEART DISEASE COPD PULMONARY HYPERTENSION ANEMIA HYPERLIPIDEMIA Elevated BUN Low magnesium Clinical Quality Measures Admission Status Admission Dx ACUTE ATRIAL FIBRILLATION SEVERE CARDIOMYOPATHY HYPERTENSION HYPERTENSIVE HEART DISEASE COPD PULMONARY HYPERTENSION ANEMIA HYPERLIPIDEMIA Elevated BUN Low magnesium ANITA MIRAMONTES July 15, 2021 07:31
[2021-07-15 08:00] VITALS: BP 154/73
[2021-07-15] MEDS: RT-ALBUTEROL/IPRATROPIUM 3 ML (DUONEB) VIAL INH SCH ×2 (08:20→11:38)
--- NOTE | 2021-07-15 08:49 | Occ Therapy Progress Note ---
Therapy Progress Note Pt and state that pt is discharging today. Pt's asks about getting grabbar for tub/shower, pt states that they already have tub seat. BARRERA educates pt and on different types of grabbars and uses of each then demonstrates safe step in method for getting in/out of tub with/without grabbar. Pt and verbalize understanding. Pt declines any further assistance from BARRERA. 1 [id number] CAROLINA WALTERS July 15, 2021 08:49
--- NOTE | 2021-07-15 08:55 | Cardiology Progress Note ---
Subjective Date Seen by Provider: July 15, 2021 Time Seen by Provider: 08:52 Subjective/Events-last exam Patient sitting up in bed, no new complaints. Objective-Cardiology Exam Last Set of Vital Signs Vital Signs 07/15/21 12:26 Temp 36.5 Pulse 65 Resp 18 B/P (MAP) 127/76 Pulse Ox 95 O2 Delivery High Flow N/C O2 Flow Rate 4.00 I&O Intake and Output 07/14/21 23:59 Intake Total 840 ml Output Total 2500 ml Balance -1660 ml Intake Oral 840 ml Output Urine Total 2500 ml # Voids 1 General: Alert, Oriented X3, Cooperative HEENT: Atraumatic, PERRLA Neck: Supple, No JVD, No Thyromegaly Lungs: Clear to Auscultation, Normal Air Movement Heart: Normal S1, Normal S2, No Murmurs, Other (Atrial fibrillation) Abdomen: Normal Bowel Sounds, Soft, No Tenderness, No Hepatosplenomegaly, No Masses Extremities: No Clubbing, No Cyanosis, No Edema, Normal Pulses, No Tenderness/Swelling Skin: No Rashes, No Breakdown, No Significant Lesion Neuro: Normal Gait, Normal Speech, Strength at 5/5 X4 Ext, Normal Tone, Sensation Intact Psych/Mental Status: Mental Status NL, Mood NL Results Lab Laboratory Tests 07/15/21 05:29 A/P-Cardiology Admission Diagnosis Paroxysmal atrial fibrillation Tachycardia Congestive heart failure, acute left ventricular systolic dysfunction Hypotension Assessment/Plan Paroxysmal atrial fibrillation, new onset, unknown duration. MOON showed echogenic density in the left atrial appendage suggestive of a thrombus. Left ventricular systolic dysfunction, mild mitral regurgitation Maintained on Cardizem CD 240 mg daily, Lopressor 25 mg twice daily, digoxin. Heart rate better controlled. Plan for CV after uninterrupted OAC x 6 weeks. Monitor blood pressure and heart rate Renal mass, pulmonary nodule and hilar adenopathy Possible metastatic disease Managed by medical team, possible referral to [facility] [id number] score 3, identified thrombus within the left atrial appendage, started on Xarelto on July 07, 2021. Currently Xarelto is on hold for biopsy. We will start counting 6 weeks after restarting oral anticoagulation Generalized fatigue, shortness of breath, loss of energy, oxygen dependent. Currently in atrial fibrillation. 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 2D echo done on July 08, 2021 showing dilated left ventricle with left ventricular hypertrophy and ejection fraction 20 to 25%, dilated right ventricle and biatrial enlargement, PA pressure 35 to 40 mmHg. During the MOON on July 09, 2021, his ejection fraction appeared to be better after his heart rate improved slightly. Cannot tolerate MONICA inhibitor and/or ARB due to hypotension. 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 Did not qualify for LifeVest due to ejection fraction 45% on MOON. Starting low-dose metoprolol and evaluate tolerance and response COPD, oxygen dependent, dyspnea on exertion. Hypertension, has been borderline hypotensive. Continue to monitor blood pressure Hyperlipidemia, maintained on Lipitor 20 mg daily, continue to monitor Mild bilateral carotid stenosis, ultrasound was done on July 07, 2021 Obesity, BMI is 33, concern about loss of appetite. I instructed him on additional diet and weight loss. Supervisory-Addendum Brief Supervisory Addendum Participated in pt care: history, MDM, physical Personally performed: exam, history, MDM Care discussed with: PHYLLIS Results interpretation: Verified all documentation Notes: Patient was evaluated, management plan discussed Agree with the current note Patient will be scheduled for biopsy as an outpatient Heart rate is better controlled on current medication. Will arrange for follow-up as an outpatient. SHAD ANGUIANO July 15, 2021 08:55 LAURA MACE MD July 15, 2021 16:21
[2021-07-15] MEDS: meTOproloL SUCCINATE 50 MG (TOPROL XL) TAB PO SCH (10:19)
[2021-07-15] MEDS: DIGOXIN 0.25 MG (LANOXIN) TAB PO SCH (10:19)
[2021-07-15] MEDS: NICOTINE 21 MG (NICODERM) PATCH TD SCH (10:19)
[2021-07-15] MEDS: meTOprolol TARTRATE 25 MG (LOPRESSOR) TABLET PO SCH (10:19)
[2021-07-15] MEDS: PANTOPRAZOLE 40 MG (PROTONIX) TAB PO SCH (10:19)
[2021-07-15] MEDS: BISACODYL 5 MG (DULCOLAX) TABLET PO SCH (10:20)
[2021-07-15] MEDS: SENNA W/DOCUSATE (SENOKOT S) TABLET PO SCH (10:21)
--- NOTE | 2021-07-15 10:53 | Physical Therapy Daily Note ---
PT Daily Note-Current Subjective Patient in bed pre tx, agrees to PT, has no complaints of pain. Appearance Patient in bed post tx with nurse call, phone, tray, all needs met, bed alarm on. Mental Status Patient Orientation: Person, Place, Situation Attachments: Oxygen Transfers SCALE: Activities may be completed with or without assistive devices. 2-Zbxizbqttd-eglropl completes the activity by him/herself with no assistance from a helper. 5-Set-up or Clean-up Assistance-helper sets up or cleans up; patient completes activity. [place] assists only prior to or following the activity. 4-Supervision or Touching Assistance-helper provides verbal cues and/or touching/steadying and/or contact guard assistance as patient completes activity. Assistance may be provided throughout the activity or intermittently. 3-Partial/Moderate Assistance-helper does LESS THAN HALF the effort. [place] lifts, holds or supports trunk or limbs, but provides less than half the effort. 2-Substantial/Maximal Assistance-helper does MORE THAN HALF the effort. [place] lifts or holds trunk or limbs and provides more than half the effort. 4-Mgcjgkwht-hxolvo does ALL the effort. Patient does none of the effort to complete the activity. Or, the assistance of 2 or more helpers is required for the patient to complete the activity. If activity was not attempted, code reason: 7-Patient Refused. 9-Not Applicable-not attempted and the patient did not perform the activity before the current illness, exacerbation or injury. 10-Not Attempted due to Environmental Limitations-(lack of equipment, weather restraints, etc.). 88-Not Attempted due to Medical Conditions or Safety Concerns. Roll Left & Right (QC): 6 Sit to Lying (QC): 6 Lying to Sitting/Side of Bed(Q: 6 Sit to Stand (QC): 4 Chair/Gxm-pz-Lkfbh Xfer(QC): 4 Weight Bearing Full Weight Bearing Full Weight Bearing Gait Training Distance: 300' Walk 10 feet (QC): 4 Walk 50 ft with 2 Turns(QC): 4 Walk 150 ft (QC): 4 Gait Assistive Device: FWW SBA, patient does have some unsteady moments but no LOB, close guarding Exercises Supine Ex: Ankle pumps, Heel Slides Supine Reps: 20 Treatments bed mobility and transfers, ambulation, LE exercise Assessment Current Status: Fair Progress patient can be impulsive PT Fci Goals Fci Goals PT [employer] Brusher Goals Time Frame: July 18, 2021 Roll Left & Right (QC): 6 Sit to Lying (QC): 6 Lying-Sitting on Side/Bed(QC): 6 Sit to Stand (QC): 6 Chair/Kge-zw-Rpipt Xfer(QC): 6 Toilet Transfer (QC): 6 Walk 10 feet (QC): 6 Walk 50ft with 2 Turns (QC): 6 Walk 150 ft (QC): 6 PT Plan Problem List Problem List: Activity Tolerance, Functional Strength, Safety, Balance, Gait, Transfer, ROM Treatment/Plan Treatment Plan: Continue Plan of Care Treatment Plan: Bed Mobility, Education, Functional Activity Ramakrishna, Functional Strength, Gait, Safety, Therapeutic Exercise, Transfers Treatment Duration: July 18, 2021 Frequency: 6 times per week Estimated Hrs Per Day: .25 hour per day Patient and/or Family Agrees t: Yes Safety Risks/Education Patient Education: Gait Training, Transfer Techniques, Correct Positioning, Safety Issues Teaching Recipient: Patient Teaching Methods: Demonstration, Discussion Response to Teaching: Reinforcement Needed Time/GCodes Time In: 1038 Time Out: 1050 Total Billed Treatment Time: 12 Total Billed Treatment 1 visit FA 12' NASIR DÍAZ PT July 15, 2021 10:53
[2021-07-15] MEDS ORDERED: PANT40TA52 PO (11:09)
[2021-07-15] MEDS ORDERED: DILT240C91 PO (11:09)
[2021-07-15] MEDS ORDERED: IPRA3AMP31 INH (11:09)
[2021-07-15] MEDS ORDERED: METO-333 PO (11:09)
[2021-07-15] MEDS ORDERED: NICO1PAT34 TD (11:09)
[2021-07-15] MEDS ORDERED: DIGO250T15 PO (11:09)
--- NOTE | 2021-07-15 11:11 | D/C HH Face to Face Order ---
D/C Face to Face Orders Reconcile Patient Problems Problems Reviewed?: Yes Instructions for Patient [facility] Patient Instructions/FollowUp: [facility] wk [facility] [address] 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 Patient Data-Allergies,Ht & Wt Patient Allergies: Coded Allergies: No Known Drug Allergies (Unverified , 03/28/13) Height (Feet): 5 Height (Inches): 11.00 Weight (Pounds): 270 Weight (Ounces): 0.0 Home Health Need/Face to Face Date of Face to Face: July 15, 2021 Clinical Findings: Generalized weakness and fatigue, Muscle weakness, Shortness of breath I have seen Pt oxhx-hj-lbck: Yes Discharged To: Home Diagnosis/Conditions: 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 Pt req the following assistanc: [facility] Home Health Nursing Orders Home Health Services Order: Nursing Services, Physical Therapy-Evaluate & Treat cbc, cmp, dig level 1 wk from [place] [facility] Line Start Date: July 08, 2021 Therapy Orders Therapy Orders: PT to assess for OT Therapy Specific Orders: Eval assistive deivces, Teach enviro modif ications/safety, Increase strength/endurance Certify Stmt I certify that this patient is under my care and that I, a nurse practitioner or a physician; a warehouse administrative assistant working with me, had a face to face encounter that - meets the physician face to face encounter requirements with this patient as dated. ANNALISA VALDIVIA MD July 15, 2021 11:11
[2021-07-15 11:58] VITALS: BP 127/76
[2021-07-15 12:26] VITALS: BP 127/76
--- NOTE | 2021-07-15 15:17 | Physician Query Clarification ---
Physician Query-General Query to Physician: The medical record reflects the following clinical evidence: Clinical Indicators: 02 sats dipping to 88% on 4L, (P/F =153), Required 02 to be increased as high as 10-12L, had 02 sats of 92 % on 10L and 94% on 12% (P/F= 68-73%), Documentation of SOA at Rest and with exertion on admission, RR on admission 29, then generally 18 to as high as 39, Risk Factor(s): Chronic 02 use at 4L , COPD Treatment: High flow Supplemental 02 up to 12L, [place], 1. Acute and chronic respiratory failure with hypoxia, 2. Other explanation of clinical findings 3. Unable to determine (no explanation for clinical findings) Please clarify and document your clinical opinion in the progress notes and di scharge summary including the definitive and/or presumptive diagnosis, (suspected or probable), related to the above clinical findings. Please include clinical findings supporting your diagnosis. Yareli Frost MSN, RN Clinical Procurement Forester [phone] [email or web address] PHYSICIAN RESPONSE: Based on the clinical findings in the record, please respond to the query above on this document as an addendum. Physician Response: Physician Response Acute on Chronic resp Failure If you have questions please contact: Printing Machine Operator: Ext: Thank you for your time and cooperation. Clinical Procurement Forester/Printing Machine Operator This is a permanent part of the medical record YARELI FROST July 15, 2021 15:17 LAURA MACE MD July 15, 2021 17:09
== END 2021-07-15 13:35 | disposition home health service (06) | DRG 308 ==
LOC: CARD 10:00 → ICU 11:19 → CARD 11:21 → 4TH 07-13 20:08
PROVIDERS: ADMIT Internal Medicine Cardiovascular Disease; ATTEND Internal Medicine Cardiovascular Disease
DX: I48.0 Paroxysmal atrial fibrillation (principal); I50.21 Acute systolic (congestive) heart failure; J96.20 Acute and chronic respiratory failure, unspecified whether with hypoxia or hypercapnia; I11.0 Hypertensive heart disease with heart failure; J44.9 Chronic obstructive pulmonary disease, unspecified; I27.20 Pulmonary hypertension, unspecified; D64.9 Anemia, unspecified; D69.6 Thrombocytopenia, unspecified; I25.5 Ischemic cardiomyopathy; I42.8 Other cardiomyopathies; F17.210 Nicotine dependence, cigarettes, uncomplicated; E78.5 Hyperlipidemia, unspecified; I95.9 Hypotension, unspecified; K59.00 Constipation, unspecified; I65.23 Occlusion and stenosis of bilateral carotid arteries; E66.9 Obesity, unspecified; I51.3 Intracardiac thrombosis, not elsewhere classified; I08.1 Rheumatic disorders of both mitral and tricuspid valves; E83.42 Hypomagnesemia; N28.89 Other specified disorders of kidney and ureter; Z68.33 Body mass index [BMI] 33.0-33.9, adult
CPT/HCPCS: 36415; 71250; 74176; 74183; 76770; 80048; 80053; 80162; 83735; 84439; 84443; 84484; 85025; 85027; 85610; 85730; 87081; 93005; 93306; 93312; 93320; 93325; 94640; 94760

== ENCOUNTER 2021-08-26 10:21 | Outpatient (RCR) | payer MEDICARE ==
[~2021-08-26 10:21] MED LIST changes: +ASCO-262 PO; +CYAN-41 PO; +DIGO250T15 PO; +DILT-27 PO; +DILT240C91 PO; +IPRA3AMP31 INH; +MELO15TA39 PO; +METO-333 PO; +METO50TA7 PO; +NICO1PAT34 TD; +PANT40TA52 PO; +RIVA20TA PO
== END 2021-08-27 ==
LOC: ONC 10:21
PROVIDERS: ATTEND Internal Medicine Hematology & Oncology
DX: C64.9 Malignant neoplasm of unspecified kidney, except renal pelvis (principal)
CPT/HCPCS: 99204

== ENCOUNTER → 2021-08-28 | Outpatient (CLI) | payer MEDICARE | LOC: CARD 09:32 | PROVIDERS: ATTEND Nurse Practitioner Family | DX: I08.3 Combined rheumatic disorders of mitral, aortic and tricuspid valves (principal); I42.9 Cardiomyopathy, unspecified | CPT/HCPCS: 93306 ==

== ENCOUNTER 2021-09-07 10:04 | Emergency (ER) | payer MEDICARE ==
[~2021-09-07] VITALS: Ht 175.3 cm; Wt 89.8 kg
--- NOTE | 2021-09-07 10:48 | ED Chest Pain ---
General Chief Complaint: Respiratory Problems Stated Complaint: CP Source: patient Exam Limitations: no limitations History of Present Illness Date Seen by Provider: Sep 07, 2021 Time Seen by Provider: 10:44 Initial Comments Patient ER by private conveyance with significant other chief complaint of chest pain lasting 3 to 4 minutes at a time substernal nonradiating and a history of atrial fibrillation. Chest pain for the past 1 to 2 days. He is having some s hortness of air and is on Xarelto for known A. fib. 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 He has not had any recent falls. He is on digoxin, diltiazem and metoprolol. Cardiology by Dr. Reyna. He is getting ready to start chemotherapy through [facility] after he gets cardiac clearance. Primary care by Dr. Manning. Patient has no history of coronary artery disease. Echocardiogram by Dr. Uriostegui 10 days ago demonstrating an EF of 25 to 30% with severe diffuse hypo kinesis and minor regional variation. Recovered ejection fraction after holding some medications and starting him on a low-dose metoprolol. EF of 45% on MOON. Patient has not had any chest pain since arriving in the ER last episode was about 2 hours prior to arrival. Allergies and Home Medications Allergies Coded Allergies: No Known Drug Allergies (Unverified , 03/28/13) Patient Home Medication List Home Medication List Reviewed: Yes Ascorbate Calcium (Vitamin C) 500 Mg Tablet, 500 MG PO DAILY, (Reported) Entered as Reported by: KEVAN HARTLEY on 07/08/21 1544 Atorvastatin Calcium (Atorvastatin Calcium) 20 Mg Tablet, 20 MG PO DAILY, (Reported) Entered as Reported by: ANUP VASQUEZ on 07/29/20 1441 Cyanocobalamin (Vitamin B-12) (Vitamin B-12) 1,000 Mcg Tablet, 1,000 MCG PO DAILY, (Reported) Entered as Reported by: KEVAN HARTLEY on 07/08/21 1544 Digoxin (Digox) 250 Mcg (0.25 Mg) Tablet, 0.25 MG PO DAILY Prescribed by: ANNALISA MANNING on 07/15/21 1109 Diltiazem HCl (Diltiazem 24Hr ER) 240 Mg Cap.er.24h, 240 MG PO DAILY Prescribed by: ANNALISA MANNING on 07/15/21 1109 Hydrocodone/Acetaminophen (Hydrocodone-Acetamin 10-325 mg) 1 Each Tablet, 1 EACH PO Q6H PRN for PAIN-MODERATE (5-7), (Reported) Entered as Reported by: ANUP VASQUEZ on 07/29/20 1441 Ipratropium/Albuterol Sulfate (Iprat-Albut 0.5-3(2.5) mg/3 ml) 0.5 Mg-3 Mg (2.5 Mg Base)/3 Ml Ampul.neb, 3 ML INH RTQID Prescribed by: ANNALISA MANNING on 07/15/21 110 Metoprolol Succinate (Metoprolol Succinate) 50 Mg Tab.er.24h, 50 MG PO DAILY, (Reported) Entered as Reported by: KEVAN HARTLEY on 07/08/21 154 Metoprolol Tartrate (Metoprolol Tartrate) 25 Mg Tablet, 25 MG PO BID Prescribed by: ANNALISA MANNING on 07/15/21 110 Nicotine (Nicoderm Cq) 21 Mg/24 Hour Patch.td24, 21 MG TD DAILY Prescribed by: ANNALISA MANNING on 07/15/21 110 Pantoprazole Sodium (Pantoprazole Sodium) 40 Mg Tablet.dr, 40 MG PO DAILY Prescribed by: ANNALISA MANNING on 07/15/21 110 Rivaroxaban (Xarelto) 20 Mg Tablet, 20 MG PO DAILY, (Reported) Entered as Reported by: KEVAN HARTLEY on 07/08/21 154 Review of Systems Review of Systems Constitutional: No chills, No diaphoresis EENTM: No Blurred Vision, No Double Vision Respiratory: Denies Cough, Denies Shortness of Air Cardiovascular: Denies Chest Pain, Denies Lightheadedness Gastrointestinal: Denies Constipated, Denies Diarrhea, Denies Nausea Genitourinary: Denies Discharge, Denies Drainage Musculoskeletal: No back pain, No joint pain Skin: No pruritus, No rash Psychiatric/Neurological: Denies Headache, Denies Numbness All Other Systems Reviewed Negative Unless Noted: Yes Past Pnugboo-Dsinun-Wgwesn Hx Patient Social History Tobacco Use?: No Tobacco type used: Cigarettes Smoking Status: Former Smoker Use of E-Cig and/or Vaping dev: No Substance use?: No Seasonal Allergies Seasonal Allergies: No Past Medical History Surgeries: Yes (HERNIA, LUNG) Respiratory: Yes (HOME O2) Pneumonia, COPD Currently Using CPAP: No Cardiac: Yes Hypertension Neurological: No Sexually Transmitted Disease: No HIV/AIDS: No Genitourinary: No Gastrointestinal: Yes Hiatal Hernia Musculoskeletal: Yes Rheumatoid Arthritis Endocrine: No HEENT: No Cancer: No Psychosocial: No Integumentary: No Blood Disorders: No Physical Exam Vital Signs Vital Signs - First Documented Capillary Refill : Height, Weight, BMI Height: 5'11.00" Weight: 270lbs. 0.0oz. 122.837694xv; 33.59 BMI Method: General Appearance: WD/WN, Anxious, Mild Distress HEENT: PERRL/EOMI, TMs Normal, Normal ENT Inspection, Pharynx Normal, Moist Mucous Membranes Neck: Full Range of Motion, Normal Inspection Respiratory: Lungs Clear, Normal Breath Sounds, No Accessory Muscle Use, No Respiratory Distress Cardiovascular: Normal Peripheral Pulses, Irregularly Irregular, Tachycardia (130s) Gastrointestinal: Normal Bowel Sounds, Non Tender, Soft Extremity: Normal Capillary Refill, Normal Inspection, No Pedal Edema Neurologic/Psychiatric: Alert, Oriented x3 Skin: Normal Color, Warm/Dry Progress/Results/Core Measures Results/Orders Lab Results Laboratory Tests Test 09/07/21 10:20 09/07/21 12:06 09/07/21 12:25 Range/Units White Blood Count 8.0 4.3-11.0 10^3/uL Red Blood Count 3.49 L 4.30-5.52 10^6/uL Hemoglobin 11.3 L 13.3-17.7 g/dL Hematocrit 36 L 40-54 % Mean Corpuscular Volume 104 H 80-99 fL Mean Corpuscular Hemoglobin 32 25-34 pg Mean Corpuscular Hemoglobin Concent 31 L 32-36 g/dL Red Cell Distribution Width 14.9 H 10.0-14.5 % Platelet Count 300 130-400 10^3/uL Mean Platelet Volume 9.2 9.0-12.2 fL Immature Granulocyte % (Auto) 1 % Neutrophils (%) (Auto) 76 H 42-75 % Lymphocytes (%) (Auto) 13 12-44 % Monocytes (%) (Auto) 10 0-12 % Eosinophils (%) (Auto) 1 0-10 % Basophils (%) (Auto) 0 0-10 % Neutrophils # (Auto) 6.1 1.8-7.8 10^3/uL Lymphocytes # (Auto) 1.0 1.0-4.0 10^3/uL Monocytes # (Auto) 0.8 0.0-1.0 10^3/uL Eosinophils # (Auto) 0.1 0.0-0.3 10^3/uL Basophils # (Auto) 0.0 0.0-0.1 10^3/uL Immature Granulocyte # (Auto) 0.1 0.0-0.1 10^3/uL Prothrombin Time 29.6 H 12.2-14.7 SEC INR Comment 2.8 H 0.8-1.4 Activated Partial Thromboplast Time 57 H 24-35 SEC Sodium Level 142 135-145 MMOL/L Potassium Level 3.6 3.6-5.0 MMOL/L Chloride Level 99 98-107 MMOL/L Carbon Dioxide Level 28 21-32 MMOL/L Anion Gap 15 H 5-14 MMOL/L Blood Urea Nitrogen 13 7-18 MG/DL Creatinine 0.80 0.60-1.30 MG/DL Estimat Glomerular Filtration Rate 96 BUN/Creatinine Ratio 16 Glucose Level 128 H 70-105 MG/DL Calcium Level 10.1 8.5-10.1 MG/DL Corrected Calcium 10.4 H 8.5-10.1 MG/DL Magnesium Level 1.3 L 1.6-2.4 MG/DL Total Bilirubin 1.0 0.1-1.0 MG/DL Aspartate Amino Transf (AST/SGOT) 13 5-34 U/L Alanine Aminotransferase (ALT/SGPT) 11 0-55 U/L Alkaline Phosphatase 107 40-136 U/L Myoglobin 25.5 10.0-92.0 NG/ML Troponin I < 0.028 < 0.028 <0.028 NG/ML B-Type Natriuretic Peptide 329.7 H <100.0 PG/ML Total Protein 6.5 6.4-8.2 GM/DL Albumin 3.6 3.2-4.5 GM/DL Digoxin Level 1.84 0.80-2.00 NG/ML SARS-CoV-2 RNA (RT-PCR) Not Detected Not Detecte My Orders Orders - CARA GUERRERO Continuous Ekg Monitoring (09/07/21 10:10) Ekg Tracing (09/07/21 10:10) Covid 19 Inhouse Test (09/07/21 10:10) Digoxin (09/07/21 10:49) Cbc With Automated Diff (09/07/21 10:49) Magnesium (09/07/21 10:49) Chest 1 View, Ap/Pa Only (09/07/21 10:49) Comprehensive Metabolic Panel (09/07/21 10:49) Myoglobin Serum (09/07/21 10:49) Protime With Inr (09/07/21 10:49) Partial Thromboplastin Time (09/07/21 10:49) O2 (09/07/21 10:49) Lipid Panel (09/08/21 06:00) Ed Iv/Invasive Line Start (09/07/21 10:49) Bnp Lyly (09/07/21 10:49) Troponin I Lyly (09/07/21 10:49) Aspirin Chewable Tablet (Baby Aspirin Ch (09/07/21 11:00) Diltiazem Drip Pre-Mix (Cardizem Drip Pr (09/07/21 11:00) Diltiazem Injection (Cardizem Injection) (09/07/21 11:00) Diltiazem Injection (Cardizem Injection) (09/07/21 11:00) Ed Iv/Invasive Line Start (09/07/21 10:56) Ns Iv 500 Ml (Sodium Chloride 0.9%) (09/07/21 11:00) Ekg Tracing (09/07/21 11:44) Troponin I Lyly (09/07/21 12:20) Medications Given in ED Current Medications Medications Dose Ordered Sig/Margarita Route Start Time Stop Time Status Last Admin Dose Admin Aspirin 324 mg ONCE ONCE PO 09/07/21 11:00 09/07/21 11:01 DC 09/07/21 11:07 324 MG Diltiazem HCl 10 mg ONCE ONCE IVP 09/07/21 11:00 09/07/21 11:01 DC 09/07/21 11:06 10 MG Sodium Chloride 500 ml @ 0 mls/hr Q0M ONCE IV 09/07/21 11:00 09/07/21 11:01 DC 09/07/21 11:07 999 MLS/HR Vital Signs/I&O 09/07/21 09/07/21 10:09 10:09 Temp 36.2 Pulse 123 Resp 17 B/P (MAP) 152/108 (123) Pulse Ox 95 O2 Delivery Nasal Cannula Nasal Cannula O2 Flow Rate 4.00 4.00 Progress Progress Note : Time: 12:50 Progress Note 10 mg of Cardizem and a Cardizem drip and the patient is back into a controlled rate in the 70s, atrial fibrillation. Delta troponin at 1220 to compare to the less than detectable troponin from 1020. Initial ECG Impression Date: Sep 07, 2021 Initial ECG Impression Time: 10:18 Initial ECG Rate: 142 Initial ECG Rhythm: A Fib/Flutter Initial ECG Intervals: QT (370) Initial ECG Impression: Atrial Fibrillation w/RVR Initial ECG Comparisson: Changed Comment Atrial fibrillation with rapid ventricular response and no clinically relevant ST changes. Some diffuse ST depression about 1 blocks are left seen in the anterolateral leads. EKG : EKG Time: 11:59 Rate: 78 Rhythm: A Fib/Flutter Intervals: QT (410) ECG Comparisson: Changed ECG Impression: Atrial Fibrillation Comment Atrial fibrillation without rapid ventricular response. Right bundle branch block. No appreciable, clinically significant ST changes noted. Diagnostic Imaging Diagonstic Imaging: Xray Plain Films/CT/US/NM/MRI: chest Comments [facility]. [place], [place] NAME: MIKHAIL VEGA [facility] REC#: [id number] PT STATUS: REG ER : 1950 PHYSICIAN: CARA GUERRERO MD ADMIT DATE: 09/07/21/ER Draft Date of Exam:09/07/21 CHEST 1 VIEW, AP/PA ONLY INDICATION: Chest pain. EXAMINATION: Portable chest at 1:03 PM. FINDINGS: The heart size and pulmonary vascularity are normal. The lungs are clear. There are no effusions or pneumothoraces. IMPRESSION: No acute abnormalities in the chest. Dictated on workstation # [id number] Dict: 09/07/21 1302 Trans: 09/07/21 1305 [id number] Interpreted by: JUAN SIMMONS MD Electronically signed by: Reviewed: Reviewed by Me Departure Impression Primary Impression: Atrial fibrillation with RVR Disposition: 01 HOME, SELF-CARE Condition: Stable Departure-Patient Inst. Decision time for Depature: 13:26 Referrals: ANNALISA MANNING MD (PCP/Family) Primary Care Physician LAURA REYNA MD Patient Instructions: Heart Failure and Atrial Fibrillation Add. Discharge Instructions: Continue taking your medications as prescribed. Follow-up with your carry out clerk at your scheduled appointment tomorrow in [place]. Return to the ER for intractable chest pain, shortness of air or other worrisome symptoms. All discharge instructions reviewed with patient and/or family. Voiced understanding. Copy Copies To 1: LAURA REYNA MD, TITUS J Sep 07, 2021 10:48
[2021-09-07 10:57] LABS: BASOPHILS % (AUTO) 0 % (0-10); EOSINOPHILS # (AUTO) 0.1 10^3/uL (0.0-0.3); EOSINOPHILS % (AUTO) 1 % (0-10); HEMATOCRIT 36 % (40-54); HEMOGLOBIN 11.3 g/dL (13.3-17.7); LYMPHOCYTES % (AUTO) 13 % (12-44); MEAN CORPUSCULAR HEMOGLOBIN 32 pg (25-34); MEAN CORPUSCULAR HGB CONC 31 g/dL (32-36); MEAN CORPUSCULAR VOLUME 104 fL (80-99); MEAN PLATELET VOLUME 9.2 fL (9.0-12.2); MONOCYTES # (AUTO) 0.8 10^3/uL (0.0-1.0); MONOCYTES % (AUTO) 10 % (0-12); NEUTROPHILS # (AUTO) 6.1 10^3/uL (1.8-7.8); NEUTROPHILS % (AUTO) 76 % (42-75); PLATELET COUNT 300 10^3/uL (130-400)
[2021-09-07] MEDS ORDERED: dilTIAZem DRIP PRE-MIX 125 ML IV SCH (11:00)
[2021-09-07] MEDS ORDERED: NS IV 500 ML 500 ML IV ONE (11:00)
[2021-09-07] MEDS ORDERED: ASPIRIN 81 MG CHEW (CHILDREN'S ASA) PO ONE (11:00)
[2021-09-07 11:01] LABS: ALBUMIN 3.6 GM/DL (3.2-4.5); POTASSIUM 3.6 MMOL/L (3.6-5.0)
[2021-09-07 11:03] LABS: CALCIUM 10.1 MG/DL (8.5-10.1)
[2021-09-07 11:04] LABS: TOTAL PROTEIN 6.5 GM/DL (6.4-8.2)
[2021-09-07 11:06] LABS: INR 2.8 (0.8-1.4); PROTHROMBIN TIME PATIENT 29.6 SEC (12.2-14.7)
[2021-09-07 11:08] LABS: CREATININE SERUM 0.8 MG/DL (0.60-1.30)
[2021-09-07 11:11] LABS: MAGNESIUM 1.3 MG/DL (1.6-2.4)
--- NOTE | 2021-09-07 13:05 | Diagnostic Imaging Report ---
INDICATION: Chest pain. EXAMINATION: Portable chest at 1:03 PM. FINDINGS: The heart size and pulmonary vascularity are normal. The lungs are clear. There are no effusions or pneumothoraces. IMPRESSION: No acute abnormalities in the chest. Dictated by: Dictated on workstation # [id number]
[2021-09-07 13:36] VITALS: BP 133/61
== END 2021-09-07 13:36 | disposition home or self-care (01) ==
LOC: EDUNIT# 10:04 → ER 10:06
DX: I48.91 Unspecified atrial fibrillation (principal); I45.10 Unspecified right bundle-branch block; J44.9 Chronic obstructive pulmonary disease, unspecified; Z20.822 Contact with and (suspected) exposure to COVID-19; Z99.81 Dependence on supplemental oxygen; Z87.891 Personal history of nicotine dependence; Z79.01 Long term (current) use of anticoagulants
CPT/HCPCS: 36415; 71045; 80053; 80162; 83735; 83874; 83880; 84484; 85025; 85610; 85730; 87636; 93005

== ENCOUNTER 2021-09-28 19:43 | Inpatient (IN) | payer MEDICARE ==
[~2021-09-28] VITALS: Ht 175.3 cm; Wt 83.9 kg
[2021-09-28 20:22] LABS: BASOPHILS % (AUTO) 0 % (0-10); EOSINOPHILS % (AUTO) 0 % (0-10); HEMATOCRIT 29 % (40-54); HEMOGLOBIN 9.5 g/dL (13.3-17.7); LYMPHOCYTES # (AUTO) 0.9 10^3/uL (1.0-4.0); LYMPHOCYTES % (AUTO) 9 % (12-44); MEAN CORPUSCULAR HEMOGLOBIN 32 pg (25-34); MEAN CORPUSCULAR HGB CONC 33 g/dL (32-36); MEAN CORPUSCULAR VOLUME 98 fL (80-99); MEAN PLATELET VOLUME 9.5 fL (9.0-12.2); MONOCYTES # (AUTO) 0.9 10^3/uL (0.0-1.0); MONOCYTES % (AUTO) 9 % (0-12); NEUTROPHILS # (AUTO) 7.2 10^3/uL (1.8-7.8); NEUTROPHILS % (AUTO) 80 % (42-75); PLATELET COUNT 287 10^3/uL (130-400)
[2021-09-28 20:28] LABS: INR 1.2 (0.8-1.4); PROTHROMBIN TIME PATIENT 15.9 SEC (12.2-14.7)
--- NOTE | 2021-09-28 20:38 | ED General ---
General Chief Complaint: Altered Mental Status Stated Complaint: A-FIB/AMS Nursing Triage Note: PT PRESENTS VIA EMS. EMS REPORT PTS FAMILY REPORTS PT IS ALTERED AND COMBATIVE. PT IS SPEAKING TO HIS GRANDMOTHER AND CONVERSATIONS ARE INAPPROPRIATE. PT IS UNABLE TO FOLLOW COMMAND D/T CONFUSION. PT IS CONFUSED, AND RESTELESS. ARRIVED AND REPORTS PT HAS STAGE 4 CANCER AND THAT THIS LEVEL OF CONFUSION IS NEW OF TODAY AFTER WAKING UP FROM HIS NAP AROUND 1100. Source of Information: Old Records, Spouse ( IS EXTREMELY POOR HISTORIAN) Exam Limitations: Other (PT IS CONFUSED AND UNABLE TO GIVE ANY INFORMATION) History of Present Illness Date Seen by Provider: Sep 28, 2021 Time Seen by Provider: 20:10 Initial Comments PT ARRIVES VIA EMS FROM HOME, ARRIVES VIA POV PT IS UNABLE TO GIVE ANY INFORMATION. STATES THAT HE IS MORE CONFUSED THAN NORMAL TODAY--STATES "HE IS TALKING TO HIMSELF" PT HAS STAGE 4 CANCER, AND ATRIAL FIBRILLATION, AND IS ALWAYS CONFUSED, BUT TODAY HE WAS TALKING TO HIS GRANDMOTHER AND SEEMED MORE CONFUSED THAN NORMAL. NOTICED THIS AROUND 1500 WHEN HE WOKE UP FROM HIS NAP. STATES NO FALL OR RECENT INJURY NO FEVER NO COUGH OR SHORTNESS OF BREATH NO VOMITING OR DIARRHEA. PT IS ON XARELTO AND DIGOXIN AND METOPROLOL FOR A. FIB.--DX IN JUNE 2021. PT HAS BEEN SEEN AT FOR CANCER, BUT HAS NOT STARTED ANY TREATMENT YET, AND IS NOT ON HOSPICE. PCP: DR. VALDIVIA Allergies and Home Medications Allergies Coded Allergies: No Known Drug Allergies (Unverified , 03/28/13) Patient Home Medication List Ascorbate Calcium (Vitamin C) 500 Mg Tablet, 500 MG PO DAILY, (Reported) Entered as Reported by: KEVAN HARTLEY on 07/08/21 1544 Atorvastatin Calcium (Atorvastatin Calcium) 20 Mg Tablet, 20 MG PO DAILY, (Reported) Entered as Reported by: ANUP VASQUEZ on 07/29/20 1441 Cyanocobalamin (Vitamin B-12) (Vitamin B-12) 1,000 Mcg Tablet, 1,000 MCG PO DAILY, (Reported) Entered as Reported by: KEVAN HARTLEY on 07/08/21 1544 Digoxin (Digox) 250 Mcg (0.25 Mg) Tablet, 0.25 MG PO DAILY Prescribed by: ANNALISA VALDIVIA on 07/15/21 1109 Diltiazem HCl (Diltiazem 24Hr ER) 240 Mg Cap.er.24h, 240 MG PO DAILY Prescribed by: ANNALISA VALDIVIA on 07/15/21 110 Hydrocodone/Acetaminophen (Hydrocodone-Acetamin 10-325 mg) 1 Each Tablet, 1 EACH PO Q6H PRN for PAIN-MODERATE (5-7), (Reported) Entered as Reported by: ANUP VASQUEZ on 07/29/20 1441 Ipratropium/Albuterol Sulfate (Iprat-Albut 0.5-3(2.5) mg/3 ml) 0.5 Mg-3 Mg (2.5 Mg Base)/3 Ml Ampul.neb, 3 ML INH RTQID Prescribed by: ANNALISA VALDIVIA on 07/15/21 110 Metoprolol Succinate (Metoprolol Succinate) 50 Mg Tab.er.24h, 50 MG PO DAILY, (Reported) Entered as Reported by: KEVAN HARTLEY on 07/08/21 154 Metoprolol Tartrate (Metoprolol Tartrate) 25 Mg Tablet, 25 MG PO BID Prescribed by: ANNALISA VALDIVIA on 07/15/21 110 Nicotine (Nicoderm Cq) 21 Mg/24 Hour Patch.td24, 21 MG TD DAILY Prescribed by: ANNALISA VALDIVIA on 07/15/21 110 Pantoprazole Sodium (Pantoprazole Sodium) 40 Mg Tablet.dr, 40 MG PO DAILY Prescribed by: ANNALISA VALDIVIA on 07/15/21 110 Rivaroxaban (Xarelto) 20 Mg Tablet, 20 MG PO DAILY, (Reported) Entered as Reported by: KEVAN HARTLEY on 07/08/21 154 Review of Systems Review of Systems Constitutional: No fever Respiratory: No cough, No short of breath Cardiovascular: no symptoms reported Gastrointestinal: no symptoms reported Genitourinary: no symptoms reported Psychiatric/Neurological: See HPI; Denies Seizure Past Rrfolxu-Mqwfdo-Gxkksh Hx Patient Social History Tobacco Use?: Yes Tobacco type used: Cigarettes Smoking Status: Current Everyday Smoker Substance use?: No Alcohol Use?: No Seasonal Allergies Seasonal Allergies: No Past Medical History Surgeries: Yes (HERNIA, LUNG BIOPSY) Abdominal Respiratory: Yes (HOME O2; LUNG NODULES DX 06/2021;PULMONARY HTN) Pneumonia, COPD Currently Using CPAP: No Cardiac: Yes (PULMONARY HTN;HYPERTENSIVE HEART DZ) Atrial Fibrillation, Cardiomyopathy, High Cholesterol, Hypertension Neurological: No Sexually Transmitted Disease: No HIV/AIDS: No Genitourinary: Yes (RENAL MASS DX 06/2021 ) Gastrointestinal: Yes Gastroesophageal Reflux, Chronic Constipation, Hiatal Hernia Musculoskeletal: Yes (METASTATIC SPINE LESIONS DX 06/2021) Rheumatoid Arthritis Endocrine: No HEENT: No Cancer: No Psychosocial: No Integumentary: No Blood Disorders: No Physical Exam Vital Signs Vital Signs - First Documented 09/28/21 09/28/21 20:13 21:55 Temp 36.9 Pulse 121 Resp 20 B/P (MAP) 182/164 (170) Pulse Ox 95 O2 Delivery Room Air O2 Flow Rate 4.00 Capillary Refill : Height, Weight, BMI Height: 5'11.00" Weight: 270lbs. 0.0oz. 122.019560bd; 29.00 BMI Method: General Appearance: Other (AGITATED, CONSTANT MOVEMENTS, TALKING NON- SENSICALLY, BUT SPEECH IS NOT SLURRED. PT REEKS OF CIGARETTES. ) HEENT: PERRL/EOMI Neck: Normal Inspection Respiratory: Normal Breath Sounds, No Accessory Muscle Use, No Respiratory Distress Cardiovascular: Irregularly Irregular Gastrointestinal: Non Tender, Soft Back: No CVA Tenderness Extremity: Normal Inspection Neurologic/Psychiatric: Alert, No Motor/Sensory Deficits, Other (UNABLE TO ANSWER ANY QUESTIONS, BUT TALKING NON-STOP, NON-SENSICALLY. SPEECH IS CLEAR-NOT SLURRED, NO FOCAL NEUROLOGICAL DEFICITS--MOVES ALL EXTREMITES EQUALLY) Skin: Normal Color, Warm/Dry Progress/Results/Core Measures Suspected Sepsis SIRS Temperature: Pulse: 121 Respiratory Rate: 20 Laboratory Tests 09/28/21 19:59: White Blood Count 9.0 Blood Pressure 182 /164 Mean: 86 Laboratory Tests 09/28/21 19:59: Creatinine 0.68, INR Comment 1.2, Platelet Count 287, Total Bilirubin 0.9 Results/Orders Lab Results Laboratory Tests Test 09/28/21 19:59 09/28/21 20:29 09/28/21 20:58 Range/Units White Blood Count 9.0 4.3-11.0 10^3/uL Red Blood Count 2.95 L 4.30-5.52 10^6/uL Hemoglobin 9.5 L 13.3-17.7 g/dL Hematocrit 29 L 40-54 % Mean Corpuscular Volume 98 80-99 fL Mean Corpuscular Hemoglobin 32 25-34 pg Mean Corpuscular Hemoglobin Concent 33 32-36 g/dL Red Cell Distribution Width 13.9 10.0-14.5 % Platelet Count 287 130-400 10^3/uL Mean Platelet Volume 9.5 9.0-12.2 fL Immature Granulocyte % (Auto) 1 % Neutrophils (%) (Auto) 80 H 42-75 % Lymphocytes (%) (Auto) 9 L 12-44 % Monocytes (%) (Auto) 9 0-12 % Eosinophils (%) (Auto) 0 0-10 % Basophils (%) (Auto) 0 0-10 % Neutrophils # (Auto) 7.2 1.8-7.8 10^3/uL Lymphocytes # (Auto) 0.9 L 1.0-4.0 10^3/uL Monocytes # (Auto) 0.9 0.0-1.0 10^3/uL Eosinophils # (Auto) 0.0 0.0-0.3 10^3/uL Basophils # (Auto) 0.0 0.0-0.1 10^3/uL Immature Granulocyte # (Auto) 0.1 0.0-0.1 10^3/uL Prothrombin Time 15.9 H 12.2-14.7 SEC INR Comment 1.2 0.8-1.4 Activated Partial Thromboplast Time 23 L 24-35 SEC Sodium Level 143 135-145 MMOL/L Potassium Level 2.9 L 3.6-5.0 MMOL/L Chloride Level 93 L 98-107 MMOL/L Carbon Dioxide Level 31 21-32 MMOL/L Anion Gap 19 H 5-14 MMOL/L Blood Urea Nitrogen 26 H 7-18 MG/DL Creatinine 0.68 0.60-1.30 MG/DL Estimat Glomerular Filtration Rate 101 BUN/Creatinine Ratio 38 Glucose Level 103 70-105 MG/DL Calcium Level 9.6 8.5-10.1 MG/DL Corrected Calcium 9.9 8.5-10.1 MG/DL Magnesium Level 1.0 *L 1.6-2.4 MG/DL Total Bilirubin 0.9 0.1-1.0 MG/DL Aspartate Amino Transf (AST/SGOT) 14 5-34 U/L Alanine Aminotransferase (ALT/SGPT) 10 0-55 U/L Alkaline Phosphatase 223 H 40-136 U/L Ammonia 30 11-32 UMOL/L Troponin I 0.058 H <0.028 NG/ML Total Protein 6.2 L 6.4-8.2 GM/DL Albumin 3.6 3.2-4.5 GM/DL Amylase Level 25 25-125 U/L Lipase 140 H 8-78 U/L TSH [place] Testing 1.14 0.35-4.94 UIU/ML Acetaminophen Level < 10 L 10-30 UG/ML Serum Alcohol < 10 <10 MG/DL Digoxin Level 1.60 0.80-2.00 NG/ML Urine Color YELLOW Urine Clarity SL CLOUDY Urine pH 6.0 5-9 Urine Specific [place] 1.010 L 1.016-1.022 Urine Protein TRACE H NEGATIVE Urine Glucose (UA) NEGATIVE NEGATIVE Urine Ketones 2+ H NEGATIVE Urine Nitrite NEGATIVE NEGATIVE Urine Bilirubin NEGATIVE NEGATIVE Urine Urobilinogen 2.0 < = 1.0 MG/DL Urine Leukocyte Esterase NEGATIVE NEGATIVE Urine RBC (Auto) NEGATIVE NEGATIVE Urine RBC NONE /HPF Urine WBC 0-2 /HPF Urine Squamous Epithelial Cells NONE /HPF Urine Renal Epithelial Cells NONE /HPF Urine Crystals NONE /LPF Urine Bacteria NEGATIVE /HPF Urine Casts NONE /LPF Urine Mucus NEGATIVE /LPF Urine Culture Indicated NO Urine Opiates Screen POSITIVE H NEGATIVE Urine Oxycodone Screen POSITIVE H NEGATIVE Urine Methadone Screen NEGATIVE NEGATIVE Urine Propoxyphene Screen NEGATIVE NEGATIVE Urine Barbiturates Screen NEGATIVE NEGATIVE Ur Tricyclic Antidepressants Screen NEGATIVE NEGATIVE Urine Phencyclidine Screen NEGATIVE NEGATIVE Urine Amphetamines Screen NEGATIVE NEGATIVE Urine Methamphetamines Screen NEGATIVE NEGATIVE Urine Benzodiazepines Screen POSITIVE H NEGATIVE Urine Cocaine Screen NEGATIVE NEGATIVE Urine Cannabinoids Screen NEGATIVE NEGATIVE My Orders Orders - BUDDY REDDING DO Ed Iv/Invasive Line Start (09/28/21 20:14) Monitor-Rhythm Ecg Trace Only (09/28/21 20:14) Ct Head Wo-R/O Stroke (09/28/21 20:14) Chest 1 View, Ap/Pa Only (09/28/21 20:14) Acetaminophen (09/28/21 20:14) Alcohol (09/28/21 20:14) Ammonia (09/28/21 20:14) Amylase (09/28/21 20:14) Cbc With Automated Diff (09/28/21 20:14) Comprehensive Metabolic Panel (09/28/21 20:14) Drug Screen Stat (Urine) (09/28/21 20:14) Lipase (09/28/21 20:14) Magnesium (09/28/21 20:14) Protime With Inr (09/28/21 20:14) Partial Thromboplastin Time (09/28/21 20:14) Thyroid Analyzer (09/28/21 20:14) Ua Culture If Indicated (09/28/21 20:14) Troponin I Lyly (09/28/21 20:14) Straight Cath For Spec.-Adult (09/28/21 20:17) Digoxin (09/28/21 20:20) Lorazepam Injection (Ativan Injection) (09/28/21 21:15) Olanzapine Orally Dissolve Tab (Zyprexa (09/28/21 21:15) Olanzapine Orally Dissolve Tab (Zyprexa (09/28/21 22:00) Magnesium 1 Gm/100 Ml Ivpb (Magnesium [place] (09/28/21 23:30) D5 1/2 Ns W/Kcl 20 Meq/L (Dextrose 5%/0. (09/28/21 23:30) Ziprasidone Injection (Geodon Injection) (09/28/21 23:45) Water (Sterile) For Injection (Sterile W (09/28/21 23:45) Medications Given in ED Current Medications Medications Dose Ordered Sig/Margarita Route Start Time Stop Time Status Last Admin Dose Admin Olanzapine 5 mg ONCE ONCE PO 09/28/21 21:15 09/28/21 21:16 DC 09/28/21 21:20 5 MG Olanzapine 5 mg ONCE ONCE PO 09/28/21 22:00 09/28/21 22:01 DC 09/28/21 22:21 5 MG Ziprasidone 20 mg ONCE ONCE IM 09/28/21 23:45 09/28/21 23:46 DC 09/28/21 23:38 20 MG Vital Signs/I&O 09/28/21 09/28/21 09/28/21 20:13 20:19 21:55 Temp 36.9 Pulse 121 101 Resp 20 20 B/P (MAP) 182/164 (170) 126/66 122/29 Pulse Ox 95 97 O2 Delivery Room Air Nasal Cannula O2 Flow Rate 4.00 Capillary Refill : Blood Pressure Mean: 86 Progress Note : Progress Note VIGOROUSLY FIGHTS IN/OUT CATHETER--YELLING "MOMMY" AND "PLEASE" AND "GRANDMA" --REMAINDER OF SPEECH IS NON-SENSICAL. ECG Initial ECG Impression Date: Sep 28, 2021 Initial ECG Impression Time: 19:52 Initial ECG Rate: 90 Initial ECG Rhythm: A Fib/Flutter (IVCD) Initial ECG Impression: Atrial Fibrillation Departure Departure-Patient Inst. Referrals: ANNALISA VALDIVIA MD (PCP/Family) Primary Care Physician BUDDY REDDING DO Sep 28, 2021 20:38
[2021-09-28 20:39] LABS: ALANINE AMINOTRANSFERASE 10 U/L (0-55); ALBUMIN 3.6 GM/DL (3.2-4.5); ALKALINE PHOSPHATASE 223 U/L (40-136); AMMONIA 30 UMOL/L (11-32); AMYLASE 25 U/L (25-125); BILIRUBIN,TOTAL 0.9 MG/DL (0.1-1.0); BUN/CREATININE RATIO 38; CALCIUM 9.6 MG/DL (8.5-10.1); CARBON DIOXIDE 31 MMOL/L (21-32); CHLORIDE 93 MMOL/L (98-107); CREATININE SERUM 0.68 MG/DL (0.60-1.30); GFR ESTIMATED 101; GLUCOSE 103 MG/DL (70-105); LIPASE 140 U/L (8-78); POTASSIUM 2.9 MMOL/L (3.6-5.0); SODIUM 143 MMOL/L (135-145); TOTAL PROTEIN 6.2 GM/DL (6.4-8.2)
[2021-09-28 20:53] LABS: TSH (THYROID ANALYZER) 1.14 UIU/ML (0.35-4.94)
[2021-09-28 20:58] LABS: ACETAMINOPHEN < 10 UG/ML (10-30)
[2021-09-28 21:03] LABS: BILIRUBIN,URINE NEGATIVE (NEGATIVE); CLARITY,URINE SL CLOUDY; COLOR,URINE YELLOW; GLUCOSE, URINE (UA) NEGATIVE (NEGATIVE); KETONES,URINE 2+ (NEGATIVE); LEUKOCYTE ESTERASE ,URINE NEGATIVE (NEGATIVE); NITRITE,URINE NEGATIVE (NEGATIVE); PROTEIN,URINE TRACE (NEGATIVE)
[2021-09-28 21:10] LABS: BACTERIA,URINE NEGATIVE /HPF; WBC,URINE 0-2 /HPF
[2021-09-28 21:14] LABS: AMPHETAMINE SCREEN, URINE NEGATIVE (NEGATIVE); BARBITURATE SCREEN URINE NEGATIVE (NEGATIVE); BENZODIAZEPINES SCREEN URINE POSITIVE (NEGATIVE); CANNABINOID SCREEN, URINE NEGATIVE (NEGATIVE); COCAINE SCREEN URINE NEGATIVE (NEGATIVE); METHADONE STAT NEGATIVE (NEGATIVE); OPIATE SCREEN URINE POSITIVE (NEGATIVE); OXYCODONE STAT POSITIVE (NEGATIVE); PROPOXYPHENE STAT NEGATIVE (NEGATIVE); TRICYCLIC ANTIDEPRESSANTS SCRE NEGATIVE (NEGATIVE)
[2021-09-28] MEDS ORDERED: LORazepam INJ 2 MG/ML (ATIVAN) VIAL IVP ONE (21:15)
[2021-09-28] MEDS ORDERED: OLANZapine 5 MG ODT (ZyPREXA ZYDIS) PO ONE ×2 (21:15→22:00)
--- NOTE | 2021-09-28 22:21 | Diagnostic Imaging Report ---
INDICATION: Altered mental status. COMPARISON: 09/07/2021. FINDINGS: Chronic pulmonary interstitial changes with diaphragmatic flattening and air trapping are unchanged. There is stable enlargement of the cardiac silhouette. There are no findings of new alveolar consolidation to suggest pneumonia. There is no significant effusion. Pulmonary vascularity appears appropriate. IMPRESSION: 1. Chronic pulmonary interstitial changes with hyperinflation suggesting underlying COPD. 2. Enlarged cardiac silhouette without edema or failure. 3. No findings of new pneumonia or effusion. Dictated by: Dictated on workstation # [id number]
[2021-09-28] MEDS ORDERED: D5 1/2 NS W/KCL 20 MEQ/L 1,000 ML IV SCH (23:30)
[2021-09-28] MEDS: WATER (STERILE) FOR INJ 10 ML BTL INJ SCH (23:38)
[2021-09-28] MEDS ORDERED: ZIPRASIDONE 20 MG INJ (GEODON) VIAL IM ONE (23:45)
[2021-09-29] MEDS: MAGNESIUM 1 GM/100 ML IVPB 100 ML IV SCH ×3 (01:20→06:05)
[2021-09-29] MEDS ORDERED: HALOPERIDOL 5 MG/ML (HALDOL) VIAL ONE (02:13)
[2021-09-29] MEDS ORDERED: DexMEDEtomidine 250 ML DRIP 250 ML IV ONE (03:24)
--- NOTE | 2021-09-29 03:35 | Tele-ICU Consult ---
History of Present Illness History of Present Illness Date Seen by Provider: Sep 29, 2021 Time Seen by Provider: 03:31 Date of Admission ED coursePT PRESENTS VIA EMS. EMS REPORT PTS FAMILY REPORTS PT IS ALTERED AND COMBATIVE. PT IS SPEAKING TO HIS GRANDMOTHER AND CONVERSATIONS ARE INAPPROPRIATE. PT IS UNABLE TO FOLLOW COMMAND D/T CONFUSION. PT IS CONFUSED, AND RESTELESS. ARRIVED AND REPORTS PT HAS STAGE 4 CANCER AND THAT THIS LEVEL OF CONFUSION IS NEW OF TODAY AFTER WAKING UP FROM HIS NAP AROUND 1100. ICU; pt continues to be combative and precedex nathen be started Allergies and Home Medications Allergies Coded Allergies: No Known Drug Allergies (Unverified , 03/28/13) Home Medications Ascorbate Calcium 500 Mg Tablet, 500 MG PO DAILY, (Reported) Atorvastatin Calcium 20 Mg Tablet, 20 MG PO DAILY, (Reported) Cyanocobalamin (Vitamin B-12) 1,000 Mcg Tablet, 1,000 MCG PO DAILY, (Reported) Digoxin 250 Mcg (0.25 Mg) Tablet, 0.25 MG PO DAILY Prescribed by: ANNALISA VALDIVIA on 07/15/211108 Diltiazem HCl 240 Mg Cap.er.24h, 240 MG PO DAILY Prescribed by: ANNALISA VALDIVIA on 07/15/211108 Hydrocodone/Acetaminophen 1 Each Tablet, 1 EACH PO Q6H PRN for PAIN-MODERATE (5- 7), (Reported) Ipratropium/Albuterol Sulfate 0.5 Mg-3 Mg (2.5 Mg Base)/3 Ml Ampul.neb, 3 ML INH RTQID Prescribed by: ANNALISA VALDIVIA on 07/15/211108 Metoprolol Succinate 50 Mg Tab.er.24h, 50 MG PO DAILY, (Reported) Metoprolol Tartrate 25 Mg Tablet, 25 MG PO BID Prescribed by: ANNALISA VALDIVIA on 07/15/211108 Nicotine 21 Mg/24 Hour Patch.td24, 21 MG TD DAILY Prescribed by: ANNALISA VALDIVIA on 07/15/211108 Pantoprazole Sodium 40 Mg Tablet.dr, 40 MG PO DAILY Prescribed by: ANNALISA VALDIVIA on 07/15/211108 Rivaroxaban 20 Mg Tablet, 20 MG PO DAILY, (Reported) Past Medical/Social/Family Hx Immunizations Up To Date Tetanus Booster (TDap): Unknown Date of Pneumonia Vaccine: Feb 28, 2007 Current Status Advance Directives: Unable to obtain Primary Language: Cymro Preferred Spoken Language: Cymro Past Medical History stage 4 lung ca Review of Systems Constitutional: see HPI Focused Exam Height, Weight, BMI Height: 5'11.00" Weight: 270lbs. 0.0oz. 122.410631wr; 29.00 BMI Method: Exam Exam Patient acknowledged, consented, and participated in this virtual visit which was conducted using real time audio/video Vital Signs Date Time Temp Pulse Resp B/P (MAP) Pulse Ox O2 Delivery O2 Flow Rate FiO2 09/28/21 21:55 101 20 122/29 97 Nasal Cannula 4.00 09/28/21 20:19 126/66 09/28/21 20:13 36.9 121 20 182/164 (170) 95 Room Air Height & Weight Height: 5'11.00" Weight: 270lbs. 0.0oz. 122.081264yg; 29.00 BMI Method: General Appearance: Other (agitated) HEENT: PERRL/EOMI Neck: Normal Inspection Respiratory: Normal Breath Sounds, No Accessory Muscle Use, No Respiratory Distress Cardiovascular: Irregularly Irregular Extremity: Normal Inspection Neurologic/Psychiatric: Alert, No Motor/Sensory Deficits, Other (UNABLE TO ANSWER ANY QUESTIONS, BUT TALKING NON-STOP, NON-SENSICALLY. SPEECH IS CLEAR-NOT SLURRED, NO FOCAL NEUROLOGICAL DEFICITS--MOVES ALL EXTREMITES EQUALLY) Skin: Normal Color, Warm/Dry Results Lab Laboratory Tests 09/28/21 19:59 Assessment/Plan Assessment/Plan Pt with advanced lung cancer stage [address] presented with excessive agitation. [address] head still pending in terms of results we will monitor from neuro stand point/ observe for possible seizures -cpk/ lactic acid/ iv fluids to be given dvt prophylaxis cct 20 min dw bed side and teleicu rn pt was visualized via camera RITIKA WATKINS MD Sep 29, 2021 03:35
[2021-09-29] MEDS ORDERED: D5 NS 1000 ML IV SOLUTION 1,000 ML IV SCH (03:45)
[2021-09-29] MEDS ORDERED: diphenhydrAMINE 50 MG/ML INJ (BENADRYL) IM PRN (03:45)
[2021-09-29] MEDS ORDERED: ONDANSETRON 4 MG/2 ML (SDV) Z0FRAN IV PRN (03:45)
[2021-09-29] MEDS ORDERED: DexMEDEtomidine 250 ML DRIP 250 ML IV SCH (03:45)
[2021-09-29 04:50] LABS: BASOPHILS % (AUTO) 0 % (0-10); EOSINOPHILS % (AUTO) 0 % (0-10); HEMATOCRIT 26 % (40-54); LYMPHOCYTES # (AUTO) 0.9 10^3/uL (1.0-4.0); LYMPHOCYTES % (AUTO) 12 % (12-44); MEAN CORPUSCULAR HEMOGLOBIN 31 pg (25-34); MEAN CORPUSCULAR HGB CONC 31 g/dL (32-36); MEAN CORPUSCULAR VOLUME 99 fL (80-99); MEAN PLATELET VOLUME 9.6 fL (9.0-12.2); MONOCYTES % (AUTO) 14 % (0-12); NEUTROPHILS # (AUTO) 5.4 10^3/uL (1.8-7.8); NEUTROPHILS % (AUTO) 73 % (42-75); PLATELET COUNT 210 10^3/uL (130-400); WHITE BLOOD COUNT 7.4 10^3/uL (4.3-11.0)
[2021-09-29 05:09] LABS: ALBUMIN 3.2 GM/DL (3.2-4.5); BILIRUBIN,TOTAL 0.6 MG/DL (0.1-1.0); CALCIUM 9.1 MG/DL (8.5-10.1); CREATININE SERUM 0.71 MG/DL (0.60-1.30); MAGNESIUM 1.8 MG/DL (1.6-2.4); PHOSPHORUS 2.2 MG/DL (2.3-4.7); POTASSIUM 2.9 MMOL/L (3.6-5.0); TOTAL PROTEIN 5.5 GM/DL (6.4-8.2)
[2021-09-29] MEDS ORDERED: NS IV 500 ML 500 ML IV PRN (05:30)
[2021-09-29] MEDS: D5 1/2 NS W/KCL 20 MEQ/L 1,000 ML IV SCH ×3 (05:50→17:37)
[2021-09-29] MEDS ORDERED: POTASSIUM CL 10MEQ/50ML IVPB 250 ML IV ONE (05:53)
[2021-09-29] MEDS: POTASSIUM CL 10MEQ/50ML IVPB 50 ML IV SCH ×5 (06:04→08:52)
[2021-09-29] MEDS: KCL 20 MEQ TAB (K-DUR) PO SCH (06:05)
--- NOTE | 2021-09-29 07:43 | Diagnostic Imaging Report ---
PROCEDURE: CT head wo r/o stroke. TECHNIQUE: Multiple contiguous axial images were obtained through the brain without the use of intravenous contrast. Auto Exposure Controls were utilized during the CT exam to meet ALARA standards for radiation dose reduction. INDICATION: 62-year-old male, confusion, restless, history of advanced cancer CORRELATION STUDY: CT head 03/28/2013 FINDINGS: Examination compromised by patient motion artifact despite repeated imaging. Given this, the ventricles and sulci appear generally age-appropriate. No definitive large areas of decreased attenuation to suggest edema. No appreciable midline shift or mass effect. No gross intracranial hemorrhage. Bony calvarium and visualized paranasal sinuses are grossly clear. IMPRESSION: 1. Significant limitations owing to a significant motion artifact despite repeat imaging. Given significant limitations. No gross acute intracranial abnormality. Initial report by stat rad. Dictated by: Dictated on workstation # [id number]
--- NOTE | 2021-09-29 08:19 | History & Physical ---
MEGGAN LAZARO 09/29/21818: History of Present Illness History of Present Illness Reason for visit/HPI CC: Delirium, Metastatic Renal Cancer, A Fib Patient is a 70 year old male w/ a past medhx of Pulm HTN, Metastatic HTN, A Fib who presented to [facility] ER via EMS yesterday for altered mental status/combative behavior. Patient's family called the ambulance. States yesterday he talked to his therapist and then took a nap. Upon waking he was AMS and combative. They attempted to help calm patient down, then decided to call EMS. At ER patient was still AMS and combative. Patient was admitted to ICU, who started precedex to help sedate patient. Family states that patient has not had an episode like this prior. Patient was diagnosed at [facility] with Renal cancer with mets to distant sites including lungs. They do state that lately he has been struggling to keep caloric intake up. Not drinking or eating very well. Head CT was negative for acute processes, but noted to be of poor image quality due to motion artifact. Patient was unable to give ROS 2/2 current clinical condition. Date of Admission Sep 28, 2021 at 23:50 Time Seen by a Provider: 08:19 I consulted on this patient on 09/29/21 08:13 Attending Physician Annalisa Manning MD Admitting Physician Admitting Physician: Annalisa Manning MD Attending Physician: Annalisa Manning MD Consult Allergies and Home Medications Allergies Coded Allergies: No Known Drug Allergies (Unverified , 03/28/13) Patient Home Medication List Home Medication List Reviewed: Yes Ascorbic Acid (Vitamin C) 1,000 Mg Tablet, 1,000 MG PO DAILY, (Reported) Entered as Reported by: KEVAN HARTLEY on 09/29/211557 Last Action: Reviewed Cyanocobalamin (Vitamin B-12) (Vitamin B-12) 1,000 Mcg Tablet, 1,000 MCG PO DAILY, (Reported) Entered as Reported by: KEVAN HARTLEY on 09/29/211557 Last Action: Reviewed Digoxin (Digoxin) 250 Mcg (0.25 Mg) Tablet, 250 MCG PO DAILY, (Reported) Entered as Reported by: KEVAN HARTLEY on 09/29/211557 Last Action: Reviewed Furosemide (Furosemide) 20 Mg Tablet, 20 MG PO DAILY, (Reported) Entered as Reported by: KEVAN HARTLEY on 09/29/211557 Last Action: Reviewed Hydrocodone/Acetaminophen (Hydrocodone-Acetamin 10-325 mg) 10 Mg-325 Mg Tablet, 1 EACH PO Q4H PRN for PAIN-MODERATE (5-7), (Reported) Entered as Reported by: ANUP VASQUEZ on 07/29/20 144 Last Action: Reviewed Ipratropium/Albuterol Sulfate (Iprat-Albut 0.5-3(2.5) mg/3 ml) 0.5 Mg-3 Mg (2.5 Mg Base)/3 Ml Ampul.neb, 3 ML INH RTQID Prescribed by: ANNALISA MANNING on 07/15/21 110 Last Action: Reviewed Meloxicam (Meloxicam) 15 Mg Tablet, 15 MG PO DAILY, (Reported) Entered as Reported by: KEVAN HARTLEY on 09/29/211557 Last Action: Reviewed Metoprolol Succinate (Metoprolol Succinate) 50 Mg Tab.er.24h, 50 MG PO DAILY, (Reported) Entered as Reported by: KEVAN HARTLEY on 07/08/211543 Last Action: Reviewed Pantoprazole Sodium (Pantoprazole Sodium) 40 Mg Tablet.dr, 40 MG PO DAILY, (Reported) Entered as Reported by: KEVAN HARTLEY on 09/29/211557 Last Action: Reviewed Rivaroxaban (Xarelto) 20 Mg Tablet, 20 MG PO DAILY, (Reported) Entered as Reported by: KEVAN HARTLEY on 09/29/211558 Last Action: Reviewed Discontinued Medications Ascorbate Calcium (Vitamin C) 500 Mg Tablet, 500 MG PO DAILY, (Reported) Discontinued Reason: No Longer Taking Entered as Reported by: KEVAN HARTLEY on 07/08/211543 Last Action: Discontinued Atorvastatin Calcium (Atorvastatin Calcium) 20 Mg Tablet, 20 MG PO DAILY, (Reported) Discontinued Reason: No Longer Taking Entered as Reported by: ANUP VASQUEZ on 07/29/20 144 Last Action: Discontinued Cyanocobalamin (Vitamin B-12) (Vitamin B-12) 1,000 Mcg Tablet, 1,000 MCG PO DAILY, (Reported) Discontinued Reason: No Longer Taking Entered as Reported by: KEVAN HARTLEY on 07/08/211543 Last Action: Discontinued Digoxin (Digox) 250 Mcg (0.25 Mg) Tablet, 0.25 MG PO DAILY Discontinued Reason: No Longer Taking Prescribed by: ANNALISA MANNING on 07/15/211108 Last Action: Discontinued Diltiazem HCl (Diltiazem 24Hr ER) 240 Mg Cap.er.24h, 240 MG PO DAILY Discontinued Reason: No Longer Taking Prescribed by: ANNALISA MANNING on 07/15/211108 Last Action: Discontinued Metoprolol Tartrate (Metoprolol Tartrate) 25 Mg Tablet, 25 MG PO BID Discontinued Reason: No Longer Taking Prescribed by: ANNALISA MANNING on 07/15/211108 Last Action: Discontinued Nicotine (Nicoderm Cq) 21 Mg/24 Hour Patch.td24, 21 MG TD DAILY Discontinued Reason: No Longer Taking Prescribed by: ANNALISA MANNING on 07/15/211108 Last Action: Discontinued Pantoprazole Sodium (Pantoprazole Sodium) 40 Mg Tablet.dr, 40 MG PO DAILY Discontinued Reason: No Longer Taking Prescribed by: ANNALISA MANNING on 07/15/211108 Last Action: Discontinued Rivaroxaban (Xarelto) 20 Mg Tablet, 20 MG PO DAILY, (Reported) Discontinued Reason: No Longer Taking Entered as Reported by: KEVAN HARTLEY on 07/08/21 1544 Last Action: Discontinued Past Corljde-Roshub-Vwhfdw Hx Patient Social History Tobacco Use?: Yes Tobacco type used: Cigarettes Smoking Status: Current Everyday Smoker Use of E-Cig and/or Vaping dev: No Substance use?: No Alcohol Use?: No Alcohol Frequency: Rarely Pt feels they are or have been: No Immunizations Up To Date Tetanus Booster (TDap): Unknown Date of Pneumonia Vaccine: Feb 28, 2007 Seasonal Allergies Seasonal Allergies: No Current Status Advance Directives: No Communicates: Verbally Primary Language: Anguillan Preferred Spoken Language: [place] Is interpretation needed?: No Implanted or Applied Medical D: None Past Medical History Surgeries: Abdominal Pneumonia, COPD Currently Using CPAP: No Atrial Fibrillation, Cardiomyopathy, High Cholesterol, Hypertension Sexually Transmitted Disease: No HIV/AIDS: No Gastroesophageal Reflux, Chronic Constipation, Hiatal Hernia Rheumatoid Arthritis Kidney Did You Recieve Any Treatments: No Blood Disorders: No Family Medical History Cancer (Mother) Review of Systems ROS-Unable to Obtain: Unable to obtain 2/2 patient's current clinical condition Physical Exam Vital Signs Vital Signs - First Documented 09/28/21 09/28/21 20:13 21:55 Temp 36.9 Pulse 121 Resp 20 B/P (MAP) 182/164 (170) Pulse Ox 95 O2 Delivery Room Air O2 Flow Rate 4.00 Capillary Refill : Height, Weight, BMI Height: 5'11.00" Weight: 270lbs. 0.0oz. 122.810239cz; 26.00 BMI Method: General Appearance: Other (sedated) Neck: Supple Respiratory: Lungs Clear, Decreased Breath Sounds (anterior posts only) Cardiovascular: Irregularly Irregular Gastrointestinal: Normal Bowel Sounds, Soft Extremity: No Pedal Edema Neurologic/Psychiatric: Other (sedated; prior was A+Ox0) Skin: Warm/Dry, Pallor Assessment/Plan Assessment and Plan Type 2 NE * Troponin 0.058 on initial check, 0.113 on repeat * concern for demand ischemia given past med hx and current clinical condition, though CAD cannot be ruled out * Cardiology Consulted * Patient on Toprol, Diltiazem, Xareloto, and Dig at home Atrial Fibrillation * Patient on Toprol, Diltiazem, Xarelto, and Digoxin at home * Family states patient had a cardioversion in the past * Cardiology Consulted Metastatic Renal Cancer * Attempting to get records from [facility] * Head CT was negative for acute processes, but with poor image quality 2/2 motion artifact. * Will order a Head MRI today Acute Delirium * Chronic illness vs Metastatic process vs acute stressor * Patient currently sedated with Haldol and Precedex * Patient has been restrained, but going to attempt a trial of only arm constraints. Concern being pt only has one IV and a [place] in * Upon awakening, continual reorientation and reassurance Pulmonary Hypertension * Breathing treatments and oxygen * Continue to monitor O2 sats Hypertension * Continue home medications Hyperlipidemia * Continue home medications Admission Diagnosis Atrial Fibrillation Altered Mental Status Metastatic Renal Cancer Admission Status: Inpatient Order (span 2 midnights) Reason for Inpatient Admission: Atrial Fibrillation Altered Mental Status Metastatic Renal Cancer ANNALISA AMNNING MD 09/29/21 8036: History of Present Illness History of Present Illness Reason for visit/HPI Pt is a 70 y/o male who presented to the hospital with combative behavior/confused behavior. He was crying out for his mother and his could not get him to calm down, he was up and down to the bed and chair back and forth several times and then the ambulance was called after he woke up from his nap combative. he was found to be in distress and was sedated for his CT scan which was not successful and he was admitted to the hospital for altered mental status (concern for metastatic disease to his brain) and dehydration with weight loss and afib. Date of Admission 09/28/21 Date Seen by a Provider: Sep 29, 2021 Time Seen by a Provider: 08:30 Attending Physician annalisa manning md Admitting Physician annalisa manning md Consult eicu dr. reyna Allergies and Home Medications Allergies Coded Allergies: No Known Drug Allergies (Unverified , 03/28/13) Patient Home Medication List Home Medication List Reviewed: Yes Ascorbic Acid (Vitamin C) 1,000 Mg Tablet, 1,000 MG PO DAILY, (Reported) Entered as Reported by: KEVAN HARTLEY on 09/29/211557 Last Action: Reviewed Cyanocobalamin (Vitamin B-12) (Vitamin B-12) 1,000 Mcg Tablet, 1,000 MCG PO DAILY, (Reported) Entered as Reported by: KEVAN HARTLEY on 09/29/211557 Last Action: Reviewed Digoxin (Digoxin) 250 Mcg (0.25 Mg) Tablet, 250 MCG PO DAILY, (Reported) Entered as Reported by: KEVAN HARTLEY on 09/29/211557 Last Action: Reviewed Furosemide (Furosemide) 20 Mg Tablet, 20 MG PO DAILY, (Reported) Entered as Reported by: KEVAN HARTLEY on 09/29/211557 Last Action: Reviewed Hydrocodone/Acetaminophen (Hydrocodone-Acetamin 10-325 mg) 10 Mg-325 Mg Tablet, 1 EACH PO Q4H PRN for PAIN-MODERATE (5-7), (Reported) Entered as Reported by: ANUP VASQUEZ on 07/29/20 1441 Last Action: Reviewed Ipratropium/Albuterol Sulfate (Iprat-Albut 0.5-3(2.5) mg/3 ml) 0.5 Mg-3 Mg (2.5 Mg Base)/3 Ml Ampul.neb, 3 ML INH RTQID Prescribed by: ANNALISA MANNING on 07/15/21 1109 Last Action: Reviewed Meloxicam (Meloxicam) 15 Mg Tablet, 15 MG PO DAILY, (Reported) Entered as Reported by: KEVAN HARTLEY on 09/29/211557 Last Action: Reviewed Metoprolol Succinate (Metoprolol Succinate) 50 Mg Tab.er.24h, 50 MG PO DAILY, (Reported) Entered as Reported by: KEVAN HARTLEY on 07/08/211543 Last Action: Reviewed Pantoprazole Sodium (Pantoprazole Sodium) 40 Mg Tablet.dr, 40 MG PO DAILY, (Reported) Entered as Reported by: KEVAN HARTLEY on 09/29/211557 Last Action: Reviewed Rivaroxaban (Xarelto) 20 Mg Tablet, 20 MG PO DAILY, (Reported) Entered as Reported by: KEVAN HARTLEY on 09/29/211558 Last Action: Reviewed Discontinued Medications Ascorbate Calcium (Vitamin C) 500 Mg Tablet, 500 MG PO DAILY, (Reported) Discontinued Reason: No Longer Taking Entered as Reported by: KEVAN HARTLEY on 07/08/211543 Last Action: Discontinued Atorvastatin Calcium (Atorvastatin Calcium) 20 Mg Tablet, 20 MG PO DAILY, (Reported) Discontinued Reason: No Longer Taking Entered as Reported by: ANUP VASQUEZ on 07/29/20 1441 Last Action: Discontinued Cyanocobalamin (Vitamin B-12) (Vitamin B-12) 1,000 Mcg Tablet, 1,000 MCG PO DAILY, (Reported) Discontinued Reason: No Longer Taking Entered as Reported by: KEVAN HARTLEY on 07/08/211543 Last Action: Discontinued Digoxin (Digox) 250 Mcg (0.25 Mg) Tablet, 0.25 MG PO DAILY Discontinued Reason: No Longer Taking Prescribed by: ANNALISA MANNING on 07/15/211108 Last Action: Discontinued Diltiazem HCl (Diltiazem 24Hr ER) 240 Mg Cap.er.24h, 240 MG PO DAILY Discontinued Reason: No Longer Taking Prescribed by: ANNALISA MANNING on 07/15/211108 Last Action: Discontinued Metoprolol Tartrate (Metoprolol Tartrate) 25 Mg Tablet, 25 MG PO BID Discontinued Reason: No Longer Taking Prescribed by: ANNALISA MANNING on 07/15/211108 Last Action: Discontinued Nicotine (Nicoderm Cq) 21 Mg/24 Hour Patch.td24, 21 MG TD DAILY Discontinued Reason: No Longer Taking Prescribed by: ANNALISA MANNING on 5/18/22 1109 Last Action: Discontinued Pantoprazole Sodium (Pantoprazole Sodium) 40 Mg Tablet.dr, 40 MG PO DAILY Discontinued Reason: No Longer Taking Prescribed by: ANNALISA MANNING on 07/15/21 1109 Last Action: Discontinued Rivaroxaban (Xarelto) 20 Mg Tablet, 20 MG PO DAILY, (Reported) Discontinued Reason: No Longer Taking Entered as Reported by: KEVAN HARTLEY on 07/08/21 1544 Last Action: Discontinued Past Rlrutfw-Rmakjq-Hssyoa Hx Patient Social History Marrital Status: Living Status: lives at home with his spouse Employed/Student: retired Tobacco Use?: Yes Tobacco type used: Cigarettes Smoking Status: Current Everyday Smoker Use of E-Cig and/or Vaping dev: No Substance use?: No Seasonal Allergies Seasonal Allergies: No Current Status Advance Directives: Yes Communicates: Verbally Primary Language: Anguillan Preferred Spoken Language: Anguillan Past Medical History Surgeries: Abdominal (HERNIA REPAIR, 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) Atrial Fibrillation, Coronary Artery Disease, High Cholesterol, Hypertension Sexually Transmitted Disease: No HIV/AIDS: No Arthritis Loss of Vision: Denies Hearing Impairment: Hard of Hearing Kidney Did You Recieve Any Treatments: No Anxiety HERNIA REPAIR, 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 (NONCANCEROUS), LEFT RENAL MASS Family Medical History Reviewed and Corrections made Cancer (Mother) Review of Systems ROS-Unable to Obtain: pt obtunded Constitutional: other (pt obtuneded cannot obtain ros) All Other Systems Reviewed Negative Unless Noted: No Physical Exam Respiratory: Decreased Breath Sounds (anterior posts only) Assessment/Plan Assessment and Plan Acute mental status changes/Delirium Acute type II myocardial infarction Atrial fibrillation Renal Cell Carcinoma, metastatic Hypokalemia Chronic CAD Chronic Hypertension chronic Hyperlipdemia Acute Anemia Pt admitted to the hospital, given multiple doses of geodon, haldol, and eventually placed in 2 point restraints to prevent self harm from pulling at his IV site and [place]. Pt has a sitter outside of his room and his family is in the room at bedside. his , Minoo states that he has mentioned multiple times that he is not interested in living if he will be kept alive by machines or in a vegetative state. She desires for Ileanay to be made DNR/DNI per his previously stated desires. MRI ordered for today- hopefully will have better imaging than the CT scan was able to provide. Type II NE - perfusion related secondary to afib and dehydration - defer to Dr. Reyna for medical management. Renal Cell CA - waiting on paperwork from [employer]. Acute on chronic anemia - monitor labs Rest of chronic issues will be managed with resumption of some of his home medications when he is stable enough to take PO. Admission Diagnosis Admission Status: Inpatient Order (span 2 midnights) Reason for Inpatient Admission: admission for afib, altered mental state and metastatic renal cell CA - will require at least 3 midnights for stabilization and further treatment Supervisory-Addendum Brief Verification & Attestation Participated in pt care: history, MDM, physical Personally performed: exam, history, MDM, supervision of care Care discussed with: Medical Student Procedures: n/a Results interpretation: Verified all documentation see my documentation for details MEGGAN LAZARO Sep 29, 2021 08:19 ANNALISA MANNING MD Sep 29, 2021 21:46
[2021-09-29] MEDS ORDERED: POTASSIUM PHOSPHATE INJ 30 MM in NS (IVPB) 250 ML IV ONE (08:45)
[2021-09-29] MEDS ORDERED: ENOXAPARIN 40 MG/0.4 ML (LOVENOX) SYR SC SCH (09:00)
[2021-09-29] MEDS ORDERED: GADOTERATE 0.5 MMOL/ML (CLARISCAN) 15 ML VIAL IV ONE (11:00)
[2021-09-29] MEDS: diphenhydrAMINE 50 MG/ML INJ (BENADRYL) IV PRN (11:29)
--- NOTE | 2021-09-29 12:33 | Diagnostic Imaging Report ---
PROCEDURE: MR imaging of the brain without contrast. TECHNIQUE: Multiplanar, multisequence MR imaging of the brain was performed without contrast. INDICATION: Altered mental status. History of renal cancer. COMPARISON: CT head from 09/28/2021. FINDINGS: All the acquired sequences are degraded by patient motion artifact. This renders some of the acquired sequences nondiagnostic. The diffusion imaging is usable and shows no large territorial region of restricted diffusion to indicate an acute infarct. No hydrocephalus or space-occupying mass. No vasogenic edema is appreciated. No large hemorrhage. The FLAIR and T1-weighted images are nondiagnostic due to the degree of motion present. IMPRESSION: 1. There are significant limitations to examination due to extensive patient motion artifact. 2. A few of the acquired sequences do allow assessment that there is no acute territorial infarct, mass effect or vasogenic edema. Dictated by: Dictated on workstation # [id number]
[2021-09-29] MEDS: DexMEDEtomidine 250 ML DRIP 250 ML IV SCH ×2 (12:48→16:50)
[2021-09-29 14:53] LABS: ABG BASE EXCESS 11.5 MMOL/L (-2.5-2.5); ABG OXYGEN SATURATION 100 % (94-100); ABG PCO2 45 MMHG (35-45); ABG PO2 149 MMHG (79-93)
[2021-09-29] MEDS ORDERED: NS IV 1000 ML 1,000 ML IV SCH (15:15)
[2021-09-29 15:29] LABS: ABG PH 7.51 (7.37-7.43)
[2021-09-29 15:30] LABS: ABG TCO2 36.9 MMOL/L (21.0-31.0)
[2021-09-29 15:31] LABS: ALLENS TEST YES-POS; PATIENT TEMP 36.7; VENTILATOR NO
--- NOTE | 2021-09-29 15:52 | Consultation-Cardiology ---
HPI-Cardiology Cardiology Consultation Date of Consultation 09/29/21 Date of Admission Time Seen by Provider: 15:42 Indication: Change in mental status HPI 70-year-old gentleman with history of metastatic renal cancer, hypertension pulmonary hypertension, paroxysmal atrial fibrillation/persistent at this point. Was in his usual state of health until he had sudden onset of change in mental status, became combative, not following commands, confused and not answering appropriately. On my evaluation patient was pleasant but confused, disoriented to time and place. Unable to answer directly any question. Mainly smiling, no focal deficit was noted. Able to move his upper extremities. Denied any active pain. No chest pain. CT of the chest was negative, MRI was poor quality due to motion artifact Home Medications & Allergies Allergies: Coded Allergies: No Known Drug Allergies (Unverified , 03/28/13) Home Medication List Reviewed: Yes DRS-Vnaigt-Bwsdsy Hx Patient Social History Marital Status: Employed/Student: retired Smoking Status: Current Everyday Smoker Type Used: Cigarettes 2nd Hand Smoke Exposure: No Recent Hopitalizations: No Have you traveled recently?: No Alcohol Use?: No Immunizations Up To Date Date of Pneumonia Vaccine: Feb 28, 2007 Past Medical History Discussed below Family Medical History Significant Family History: Cancer (Mother) Family Medical Hx Noncontributory Review of Systems-General Review of Systems Constitutional: No fever EENTM: see HPI, no symptoms reported Respiratory: No cough, No short of breath Cardiovascular: no symptoms reported Gastrointestinal: no symptoms reported Genitourinary: no symptoms reported Musculoskeletal: no symptoms reported, see HPI Skin: no symptoms reported, see HPI Psychiatric/Neurological: See HPI; Denies Seizure; Other (Confusion, agitation.) Reviewed Test Results Reviewed Test Results Lab Laboratory Tests Test 09/28/21 19:59 09/28/21 20:29 09/28/21 20:58 09/29/21 04:35 Range/Units White Blood Count 9.0 7.4 4.3-11.0 10^3/uL Red Blood Count 2.95 L 2.59 L 4.30-5.52 10^6/uL Hemoglobin 9.5 L 8.0 L 13.3-17.7 g/dL Hematocrit 29 L 26 L 40-54 % Mean Corpuscular Volume 98 99 80-99 fL Mean Corpuscular Hemoglobin 32 31 25-34 pg Mean Corpuscular Hemoglobin Concent 33 31 L 32-36 g/dL Red Cell Distribution Width 13.9 13.9 10.0-14.5 % Platelet Count 287 210 130-400 10^3/uL Mean Platelet Volume 9.5 9.6 9.0-12.2 fL Immature Granulocyte % (Auto) 1 0 % Neutrophils (%) (Auto) 80 H 73 42-75 % Lymphocytes (%) (Auto) 9 L 12 12-44 % Monocytes (%) (Auto) 9 14 H 0-12 % Eosinophils (%) (Auto) 0 0 0-10 % Basophils (%) (Auto) 0 0 0-10 % Neutrophils # (Auto) 7.2 5.4 1.8-7.8 10^3/uL Lymphocytes # (Auto) 0.9 L 0.9 L 1.0-4.0 10^3/uL Monocytes # (Auto) 0.9 1.0 0.0-1.0 10^3/uL Eosinophils # (Auto) 0.0 0.0 0.0-0.3 10^3/uL Basophils # (Auto) 0.0 0.0 0.0-0.1 10^3/uL Immature Granulocyte # (Auto) 0.1 0.0 0.0-0.1 10^3/uL Prothrombin Time 15.9 H 12.2-14.7 SEC INR Comment 1.2 0.8-1.4 Activated Partial Thromboplast Time 23 L 24-35 SEC Sodium Level 143 144 135-145 MMOL/L Potassium Level 2.9 L 2.9 L 3.6-5.0 MMOL/L Chloride Level 93 L 95 L 98-107 MMOL/L Carbon Dioxide Level 31 33 H 21-32 MMOL/L Anion Gap 19 H 16 H 5-14 MMOL/L Blood Urea Nitrogen 26 H 23 H 7-18 MG/DL Creatinine 0.68 0.71 0.60-1.30 MG/DL Estimat Glomerular Filtration Rate 101 100 BUN/Creatinine Ratio 38 32 Glucose Level 103 120 H 70-105 MG/DL Calcium Level 9.6 9.1 8.5-10.1 MG/DL Corrected Calcium 9.9 9.7 8.5-10.1 MG/DL Magnesium Level 1.0 *L 1.8 1.6-2.4 MG/DL Total Bilirubin 0.9 0.6 0.1-1.0 MG/DL Aspartate Amino Transf (AST/SGOT) 14 13 5-34 U/L Alanine Aminotransferase (ALT/SGPT) 10 9 0-55 U/L Alkaline Phosphatase 223 H 185 H 40-136 U/L Ammonia 30 11-32 UMOL/L Troponin I 0.058 H 0.113 H <0.028 NG/ML Total Protein 6.2 L 5.5 L 6.4-8.2 GM/DL Albumin 3.6 3.2 3.2-4.5 GM/DL Amylase Level 25 25-125 U/L Lipase 140 H 8-78 U/L TSH [place] Testing 1.14 0.35-4.94 UIU/ML Acetaminophen Level < 10 L 10-30 UG/ML Serum Alcohol < 10 <10 MG/DL Digoxin Level 1.60 0.80-2.00 NG/ML Urine Color YELLOW Urine Clarity SL CLOUDY Urine pH 6.0 5-9 Urine Specific [place] 1.010 L 1.016-1.022 Urine Protein TRACE H NEGATIVE Urine Glucose (UA) NEGATIVE NEGATIVE Urine Ketones 2+ H NEGATIVE Urine Nitrite NEGATIVE NEGATIVE Urine Bilirubin NEGATIVE NEGATIVE Urine Urobilinogen 2.0 < = 1.0 MG/DL Urine Leukocyte Esterase NEGATIVE NEGATIVE Urine RBC (Auto) NEGATIVE NEGATIVE Urine RBC NONE /HPF Urine WBC 0-2 /HPF Urine Squamous Epithelial Cells NONE /HPF Urine Renal Epithelial Cells NONE /HPF Urine Crystals NONE /LPF Urine Bacteria NEGATIVE /HPF Urine Casts NONE /LPF Urine Mucus NEGATIVE /LPF Urine Culture Indicated NO Urine Opiates Screen POSITIVE H NEGATIVE Urine Oxycodone Screen POSITIVE H NEGATIVE Urine Methadone Screen NEGATIVE NEGATIVE Urine Propoxyphene Screen NEGATIVE NEGATIVE Urine Barbiturates Screen NEGATIVE NEGATIVE Ur Tricyclic Antidepressants Screen NEGATIVE NEGATIVE Urine Phencyclidine Screen NEGATIVE NEGATIVE Urine Amphetamines Screen NEGATIVE NEGATIVE Urine Methamphetamines Screen NEGATIVE NEGATIVE Urine Benzodiazepines Screen POSITIVE H NEGATIVE Urine Cocaine Screen NEGATIVE NEGATIVE Urine Cannabinoids Screen NEGATIVE NEGATIVE Lactic Acid Level 0.85 0.50-2.00 MMOL/L Phosphorus Level 2.2 L 2.3-4.7 MG/DL Total Creatine Kinase 37 30-200 U/L Test 09/29/21 14:42 Range/Units Blood Gas Puncture Site L RADIAL Blood Gas Patient Temperature 36.7 Arterial Blood pH 7.51 H 7.37-7.43 Arterial Blood Partial Pressure CO2 45 35-45 MMHG Arterial Blood Partial Pressure O2 149 H 79-93 MMHG Arterial Blood HCO3 36 H 23-27 MMOL/L Arterial Blood Total CO2 36.9 H 21.0-31.0 MMOL/L Arterial Blood Oxygen Saturation 100 94-100 % Arterial Blood Base Excess 11.5 H -2.5-2.5 MMOL/L [place] Test YES-POS Blood Gas Ventilator Setting NO Blood Gas Inspired Oxygen NA Physical Exam Physical Exam Vital Signs Vital Signs - First Documented 09/28/21 09/28/21 20:13 21:55 Temp 36.9 Pulse 121 Resp 20 B/P (MAP) 182/164 (170) Pulse Ox 95 O2 Delivery Room Air O2 Flow Rate 4.00 Capillary Refill : Height, Weight, BMI Height: 5'11.00" Weight: 270lbs. 0.0oz. [id number]; 26.00 BMI Method: General Appearance: Other (sedated) Eyes: Bilateral Eye Normal Inspection, Bilateral Eye PERRL, Bilateral Eye EOMI HEENT: PERRL/EOMI Neck: Supple Respiratory: Lungs Clear, Decreased Breath Sounds (anterior posts only) Cardiovascular: Systolic Murmur, Irregularly Irregular Gastrointestinal: Normal Bowel Sounds, Soft Back: No CVA Tenderness Extremity: No Pedal Edema Neurologic/Psychiatric: Other (sedated; prior was A+Ox0) Skin: Warm/Dry, Pallor Lymphatic: No Adenopathy A/P-Cardiology Admission Diagnosis Acute change in mental status Atrial fibrillation Metastatic renal cell carcinoma Hyperlipidemia Assessment/Plan Acute change in mental status, unknown etiology CT of the head was negative, MRI was nondiagnostic ABG showed good oxygenation. Electrolytes were corrected. Possible microembolization from his underlying atrial fibrillation versus metabolic causes or metastatic disease. Persistent atrial fibrillation, rate is controlled. MOON was done in June 2021 showing echogenic density in the left atrial appendage suggestive of a thrombus Rate controlled was elected, maintained on beta-blockers and calcium channel blockers and oral anticoagulation. Metastatic renal cell carcinoma, stage IV, managed at . Generalized fatigue, shortness of breath, loss of energy, oxygen dependent. Currently in atrial fibrillation. 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 2D echo done on July 08, 2021 showing dilated left ventricle with left ventricular hypertrophy and ejection fraction 20 to 25%, dilated right ventricle and biatrial enlargement, PA pressure 35 to 40 mmHg. During the MOON on July 09, 2021, his ejection fraction appeared to be better after his heart rate improved slightly. COPD, oxygen dependent, currently oxygenation is well. Hypertension, has been borderline hypotensive. Continue to monitor blood pressure Hyperlipidemia, maintained on Lipitor 20 mg daily, continue to monitor Mild bilateral carotid stenosis, ultrasound was done on July 07, 2021 Obesity, BMI is 26, concern about loss of appetite. Significant weight loss over the past 3 months LAURA MACE MD Sep 29, 2021 15:52
[2021-09-29] MEDS ORDERED: PANT40TA52 PO (15:58)
[2021-09-29] MEDS ORDERED: CYAN-41 PO (15:58)
[2021-09-29] MEDS ORDERED: DIGO250T3 PO (15:58)
[2021-09-29] MEDS ORDERED: ASCO100024 PO (15:58)
[2021-09-29] MEDS ORDERED: MELO15TA39 PO (15:58)
[2021-09-29] MEDS ORDERED: FURO20TA4 PO (15:58)
[2021-09-29] MEDS ORDERED: RIVA20TA PO (15:59)
[2021-09-29 19:36] LABS: POTASSIUM 3.9 MMOL/L (3.6-5.0)
[2021-09-29 19:37] LABS: CALCIUM 8.5 MG/DL (8.5-10.1)
[2021-09-29 19:42] LABS: CREATININE SERUM 0.59 MG/DL (0.60-1.30)
[2021-09-30] MEDS: D5 1/2 NS W/KCL 20 MEQ/L 1,000 ML IV SCH ×4 (01:02→20:22)
[2021-09-30] MEDS ORDERED: ACETAMINOPHEN 325 MG TABLET PO ONE (02:00)
[2021-09-30 05:35] LABS: BASOPHILS % (AUTO) 0 % (0-10); EOSINOPHILS % (AUTO) 0 % (0-10); HEMATOCRIT 23 % (40-54); HEMOGLOBIN 7.2 g/dL (13.3-17.7); LYMPHOCYTES # (AUTO) 0.8 10^3/uL (1.0-4.0); LYMPHOCYTES % (AUTO) 10 % (12-44); MEAN CORPUSCULAR HEMOGLOBIN 31 pg (25-34); MEAN CORPUSCULAR HGB CONC 31 g/dL (32-36); MEAN CORPUSCULAR VOLUME 100 fL (80-99); MONOCYTES # (AUTO) 0.9 10^3/uL (0.0-1.0); MONOCYTES % (AUTO) 11 % (0-12); NEUTROPHILS # (AUTO) 6.4 10^3/uL (1.8-7.8); NEUTROPHILS % (AUTO) 78 % (42-75); PLATELET COUNT 182 10^3/uL (130-400); WHITE BLOOD COUNT 8.1 10^3/uL (4.3-11.0)
[2021-09-30 05:49] LABS: POTASSIUM 3.6 MMOL/L (3.6-5.0)
[2021-09-30 05:51] LABS: CALCIUM 8.3 MG/DL (8.5-10.1)
[2021-09-30 05:52] LABS: TOTAL PROTEIN 5.1 GM/DL (6.4-8.2)
[2021-09-30 05:54] LABS: BILIRUBIN,TOTAL 0.7 MG/DL (0.1-1.0)
[2021-09-30 05:55] LABS: PHOSPHORUS 2.5 MG/DL (2.3-4.7)
[2021-09-30 05:56] LABS: CREATININE SERUM 0.55 MG/DL (0.60-1.30)
[2021-09-30 05:58] LABS: MAGNESIUM 1.3 MG/DL (1.6-2.4)
[2021-09-30] MEDS: POTASSIUM CL 10MEQ/50ML IVPB 50 ML IV SCH ×2 (06:54→07:50)
[2021-09-30] MEDS: MAGNESIUM 1 GM/100 ML IVPB 100 ML IV SCH ×6 (06:54→15:45)
[2021-09-30] MEDS: KCL 20 MEQ TAB (K-DUR) PO SCH ×2 (06:55→07:51)
--- NOTE | 2021-09-30 08:07 | Cardiology Progress Note ---
Subjective Date Seen by Provider: Sep 30, 2021 Time Seen by Provider: 08:02 Subjective/Events-last exam Patient was seen at bedside, laying down comfortably. More oriented today, feeling better. Review of Systems General: No Chills, No Night Sweats, No Fatigue, No Malaise, No Appetite, No O ther HEENT: No Head Aches, No Visual Changes, No Eye Pain, No Ear Pain, No Dys phasia, No Sinus Congestion, No Post Nasal Drip, No Sore Throat, No Other Pulmonary: No Dyspnea, No Cough, No Pleuritic Chest Pain, No Other Cardiovascular: No: Chest Pain, Palpitations, Orthopnea, Paroxysmal Noc. Dyspnea, Edema, Lt Headedness, Other Focused Exam Lactate Level 09/29/21 04:35: Lactic Acid Level 0.85 Objective-Cardiology Exam Last Set of Vital Signs Vital Signs 09/30/21 09/30/21 09/30/21 07:00 07:18 07:48 Temp 37.3 Pulse 110 Resp 13 B/P (MAP) 145/78 Pulse Ox 97 O2 Delivery Nasal Cannula O2 Flow Rate 4.00 I&O Intake and Output 09/30/21 00:00 Intake Total 1510 ml Output Total 650 ml Balance 860 ml Intake Oral 0 ml IV Total 1510 ml Output Urine Total 650 ml Daily Weight Change Unsure General: Alert, Oriented X3, Cooperative HEENT: Atraumatic, PERRLA Neck: Supple, No JVD, No Thyromegaly Lungs: Clear to Auscultation, Normal Air Movement Heart: Normal S1, Normal S2, No Murmurs, Other (Atrial fibrillation with rapid ventricular response) Abdomen: Normal Bowel Sounds, Soft, No Tenderness, No Hepatosplenomegaly, No Masses Extremities: No Clubbing, No Cyanosis, No Edema, Normal Pulses, No Tenderness/Swelling Skin: No Rashes, No Breakdown, No Significant Lesion Neuro: Normal Gait, Normal Speech, Strength at 5/5 X4 Ext, Normal Tone, Sensation Intact Psych/Mental Status: Mental Status NL, Mood NL Results Lab Laboratory Tests 09/29/21 19:21 09/30/21 04:45 A/P-Cardiology Admission Diagnosis Acute change in mental status Atrial fibrillation Metastatic renal cell carcinoma Hyperlipidemia Assessment/Plan Acute change in mental status, unknown etiology Returned to baseline at this time. Feeling better. CT of the head was negative, MRI was nondiagnostic ABG showed good oxygenation. Electrolytes were corrected. Possible microembolization from his underlying atrial fibrillation versus metabolic causes or metastatic disease. Paroxysmal atrial fibrillation MOON was done in June 2021 showing echogenic density in the left atrial appendage suggestive of a thrombus Family reported that he underwent cardioversion while he was at . Apparently he is back in atrial fibrillation with rapid ventricular response Rate controlled was elected, maintained on beta-blockers and calcium channel blockers and oral anticoagulation. Did not receive Xarelto or metoprolol yesterday, received only 40 mg of Lovenox. I am restarting Xarelto and monitoring, planning for MOON and possible cardioversion on October 01, 2021 Metastatic renal cell carcinoma, stage IV, managed at . Generalized fatigue, shortness of breath, loss of energy, oxygen dependent. Currently in atrial fibrillation. 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 2D echo done on July 08, 2021 showing dilated left ventricle with left ventricular hypertrophy and ejection fraction 20 to 25%, dilated right ventricle and biatrial enlargement, PA pressure 35 to 40 mmHg. During the MOON on July 09, 2021, his ejection fraction appeared to be better after his heart rate improved slightly. COPD, oxygen dependent, currently oxygenation is well. Hypertension, has been borderline hypotensive. Continue to monitor blood pressure Hyperlipidemia, maintained on Lipitor 20 mg daily, continue to monitor Mild bilateral carotid stenosis, ultrasound was done on July 07, 2021 Obesity, BMI is 26, concern about loss of appetite. Significant weight loss over the past 3 months LAURA MACE MD Sep 30, 2021 08:07
[2021-09-30] MEDS ORDERED: meTOprolol 5 MG/5 ML (LOPRESSOR) VIAL IV ONE (08:15)
[2021-09-30] MEDS: DIGOXIN 0.25 MG (LANOXIN) TAB PO SCH ×2 (09:10→12:05)
[2021-09-30] MEDS: meTOproloL SUCCINATE 50 MG (TOPROL XL) TAB PO SCH ×2 (09:10→12:05)
[2021-09-30] MEDS: RIVAROXABAN 20 MG TABLET (XARELTO) PO SCH ×2 (09:10→12:05)
--- NOTE | 2021-09-30 09:16 | Progress Note ---
Subjective Subjective Date Seen by Provider: Sep 30, 2021 Time Seen by Provider: 08:00 Patient is being seen in follow up for AMS + Atrial Fibrillation Patient resting comfortably in bed this morning. Is alert and oriented to place and time. Still has some underlying confusion. Discussed MRI results w/ patient and need for a repeat MRI given the inconclusive results of previous. Patient is to have a full body scan at [facility] this Tuesday. Planning on reaching out to Dr. Sauceda's office to see if they would like the images done here. Had long discussion with patient about placement goals after leaving the hospital to attempt to regain strength and ADLs. Patient's Hgb dropped to 7.2 today from 8.0 yesterday, 9.5 on presentation. Review of Systems General: No Chills, No Night Sweats HEENT: No Head Aches, No Visual Changes Pulmonary: No Dyspnea, No Cough Cardiovascular: No: Chest Pain, Palpitations Gastrointestinal: No: Nausea, Vomiting, Abdominal Pain, Diarrhea, Constipation Genitourinary: No Dysuria All Other Systems Reviewed All Other Systems Reviewed: No Objective Exam Vital Signs Vital Signs Date Time Temp Pulse Resp B/P (MAP) Pulse Ox O2 Delivery O2 Flow Rate FiO2 09/30/21 09:00 111 7 151/75 Nasal Cannula 4.00 09/30/21 08:00 108 24 133/112 97 Nasal Cannula 4.00 09/30/21 07:48 37.3 09/30/21 07:18 110 09/30/21 07:00 105 13 145/78 97 Nasal Cannula 4.00 09/30/21 06:00 105 20 132/88 97 Nasal Cannula 4.00 09/30/21 05:00 92 24 87/67 97 Nasal Cannula 4.00 09/30/21 04:00 120 20 141/73 96 Nasal Cannula 4.00 09/30/21 04:00 92 Nasal Cannula 4.00 09/30/21 03:00 115 25 122/94 96 Nasal Cannula 4.00 09/30/21 02:00 96 20 113/80 98 Nasal Cannula 4.00 09/30/21 01:00 90 18 119/82 96 Nasal Cannula 4.00 09/30/21 01:00 90 09/30/21 00:00 92 Nasal Cannula 4.00 09/30/21 00:00 97 28 116/27 92 Nasal Cannula 4.00 09/29/21 23:00 84 26 115/64 93 Nasal Cannula 4.00 09/29/21 22:00 77 26 112/68 94 Nasal Cannula 4.00 09/29/21 21:00 73 26 86/55 95 Nasal Cannula 4.00 09/29/21 20:00 92 Nasal Cannula 4.00 09/29/21 20:00 61 13 90/59 91 Nasal Cannula 4.00 09/29/21 19:28 36.9 09/29/21 19:10 97 Nasal Cannula 4.00 09/29/21 19:00 62 18 114/56 88 Nasal Cannula 4.00 09/29/21 19:00 65 09/29/21 18:00 66 18 122/92 97 Nasal Cannula 4.00 09/29/21 17:00 56 39 105/74 100 Nasal Cannula 4.00 09/29/21 16:10 92 Nasal Cannula 4.00 09/29/21 16:00 54 18 100/54 98 Nasal Cannula 4.00 09/29/21 15:00 55 20 91/79 98 Nasal Cannula 4.00 09/29/21 14:00 56 16 95/51 96 Nasal Cannula 4.00 09/29/21 13:00 76 22 90/44 97 Nasal Cannula 4.00 09/29/21 12:48 63 94/63 09/29/21 12:19 63 09/29/21 12:15 96 Nasal Cannula 4.00 09/29/21 12:00 61 18 87/59 100 Nasal Cannula 4.00 09/29/21 11:00 64 94/63 100 Nasal Cannula 4.00 09/29/21 10:00 44 10 98/61 100 Nasal Cannula 4.00 I & O 09/30/21 07:00 Intake Total 1510 ml Output Total 725 ml Balance 785 ml General Appearance: No Apparent Distress, Chronically ill Eyes: Bilateral Eye Normal Inspection, Bilateral Eye PERRL, Bilateral Eye EOMI HEENT: PERRL/EOMI Neck: Supple Respiratory: Lungs Clear (anterior posts only), No Accessory Muscle Use, No Respiratory Distress Cardiovascular: Systolic Murmur, Irregularly Irregular Gastrointestinal: Normal Bowel Sounds, Non Tender, Soft Rectal: Deferred Extremity: Non Tender, No Calf Tenderness, No Pedal Edema Neurologic/Psychiatric: Alert, Other (Oriented X2; still some confusion) Skin: Normal Color (Patient had pallor yesterday, color has improved), Warm/Dry Results Lab Laboratory Tests 09/29/21 14:42: Blood Gas Puncture Site L RADIAL, Blood Gas Patient Temperature 36.7, Arterial Blood pH 7.51H, Arterial Blood Partial Pressure CO2 45, Arterial Blood Partial Pressure O2 149H, Arterial Blood HCO3 36H, Arterial Blood Total CO2 36.9H, Arterial Blood Oxygen Saturation 100, Arterial Blood Base Excess 11.5H, [place] Test YES-POS, Blood Gas Ventilator Setting NO, Blood Gas Inspired Oxygen NA 09/29/21 19:21: Sodium Level 142, Potassium Level 3.9, Chloride Level 101, Carbon Dioxide Level 32, Anion Gap 9, Blood Urea Nitrogen 17, Creatinine 0.59L, Estimat Glomerular Filtration Rate 106, BUN/Creatinine Ratio 29, Glucose Level 121H, Calcium Level 8.5 09/29/21 19:42: Glucometer 126H 09/30/21 04:45: Sodium Level 143, Potassium Level 3.6, Chloride Level 104, Carbon Dioxide Level 29, Anion Gap 10, Blood Urea Nitrogen 14, Creatinine 0.55L, Estimat Glomerular Filtration Rate 108, BUN/Creatinine Ratio 25, Glucose Level 109H, Calcium Level 8.3L, White Blood Count 8.1, Red Blood Count 2.29L, Hemoglobin 7.2L, Hematocrit 23L, Mean Corpuscular Volume 100H, Mean Corpuscular Hemoglobin 31, Mean Corpuscular Hemoglobin Concent 31L, Red Cell Distribution Width 14.6H, Platelet Count 182, Mean Platelet Volume 10.0, Immature Granulocyte % (Auto) 1, Neutrophils (%) (Auto) 78H, Lymphocytes (%) (Auto) 10L, Monocytes (%) (Auto) 11, Eosinophils (%) (Auto) 0, Basophils (%) (Auto) 0, Neutrophils # (Auto) 6.4, Lymphocytes # (Auto) 0.8L, Monocytes # (Auto) 0.9, Eosinophils # (Auto) 0.0, Basophils # (Auto) 0.0, Immature Granulocyte # (Auto) 0.0, Corrected Calcium 9.1, Phosphorus Level 2.5, Magnesium Level 1.3L, Total Bilirubin 0.7, Aspartate Amino Transf (AST/SGOT) 9, Alanine Aminotransferase (ALT/SGPT) 8, Alkaline Phosphatase 150H, Total Protein 5.1L, Albumin 3.0L Microbiology 09/29/21 MRSA Screen - Final, Complete MRSA not isolated Assessment/Plan Assessment/Plan Admission Dx Assessment and Plan Type 2 NC Atrial Fibrillation * Troponin 0.058 on initial check, 0.113 on repeat * Patient on Toprol, Diltiazem, Xarelto, and Digoxin at home * Cardiology is planning on MOON + Cardioversion on 10/01. Metastatic Renal Cancer * Attempting to get records from [facility] * Head CT and MRI were of poor image quality due to motion artifact * Would like to repeat MRI on Tuesday (10/02) * Patient is supposed to have full body scan at on Tuesday * Will reach out to Dr. Braga and see if he is okay with having imaging done here * Will consult mental health social worker to see about placement at discharge Acute Delirium * Chronic illness vs Metastatic process vs acute thrombi vs acute stressor * Digoxin level WNL * Currently improved, patient still not back to baseline, but is able to hold conversation * Continue with reorientation and reassurance Anemia, undetermined origin * TUCKER vs Anemia of chronic disease * Patient's Hgb has dropped from 9.5 to 7.2 during stay. Believe this is in part 2/2 patient's fluid down status at admission and subsequent rehydration * Patient technically qualifies for transfusion given cardiac history, but is currently asymptomatic * Will order heme-occult, if negative may consider iron panel to help determine source of anemia * Will continue to monitor Pulmonary Hypertension * Breathing treatments and oxygen * Continue to monitor O2 sats Hypertension * Patient taking rate-control anti-hypertensives. * Continue to monitor Hyperlipidemia * Holding currently, as patient's clinical status improves will restart Admission Dx Type 2 NC * Troponin 0.058 on initial check, 0.113 on repeat * concern for demand ischemia given past med hx and current clinical condition, though CAD cannot be ruled out * Cardiology Consulted * Patient on Toprol, Diltiazem, Xareloto, and Dig at home Atrial Fibrillation * Patient on Toprol, Diltiazem, Xarelto, and Digoxin at home * Family states patient had a cardioversion in the past * Cardiology Consulted Metastatic Renal Cancer * Attempting to get records from [facility] * Head CT was negative for acute processes, but with poor image quality 2/2 motion artifact. * Will order a Head MRI today Acute Delirium * Chronic illness vs Metastatic process vs acute stressor * Patient currently sedated with Haldol and Precedex * Patient has been restrained, but going to attempt a trial of only arm constraints. Concern being pt only has one IV and a Plasencia in * Upon awakening, continual reorientation and reassurance Pulmonary Hypertension * Breathing treatments and oxygen * Continue to monitor O2 sats Hypertension * Continue home medications Hyperlipidemia * Continue home medications Clinical Quality Measures Admission Status Admission Dx Type 2 NC * Troponin 0.058 on initial check, 0.113 on repeat * concern for demand ischemia given past med hx and current clinical condition, though CAD cannot be ruled out * Cardiology Consulted * Patient on Toprol, Diltiazem, Xareloto, and Dig at home Atrial Fibrillation * Patient on Toprol, Diltiazem, Xarelto, and Digoxin at home * Family states patient had a cardioversion in the past * Cardiology Consulted Metastatic Renal Cancer * Attempting to get records from [facility] * Head CT was negative for acute processes, but with poor image quality 2/2 motion artifact. * Will order a Head MRI today Acute Delirium * Chronic illness vs Metastatic process vs acute stressor * Patient currently sedated with Haldol and Precedex * Patient has been restrained, but going to attempt a trial of only arm constraints. Concern being pt only has one IV and a Plasencia in * Upon awakening, continual reorientation and reassurance Pulmonary Hypertension * Breathing treatments and oxygen * Continue to monitor O2 sats Hypertension * Continue home medications Hyperlipidemia * Continue home medications Supervisory-Addendum Brief Verification & Attestation Participated in pt care: history, MDM, physical Personally performed: exam, history, MDM, supervision of care Care discussed with: Medical Student Procedures: n/a Results interpretation: Verified all documentation Agree with student note as documented. Pt confused, but improved from admission. Pt's spouse reports that he is still somewhat confused, but is less angry than he had been at home. em admits that he is still confused intermittently and is having pain in his back. plan to discuss pt's case with his oncologist and potentially order his expected scans tomorrow. MEGGAN LAZARO Sep 30, 2021 09:16 ANNALISA VALDIVIA MD Oct 01, 2021 22:06
[2021-09-30] MEDS: diphenhydrAMINE 50 MG/ML INJ (BENADRYL) IV PRN (12:08)
[2021-09-30 15:30] LABS: POTASSIUM 4.3 MMOL/L (3.6-5.0)
[2021-09-30 15:37] LABS: MAGNESIUM 2.1 MG/DL (1.6-2.4)
[2021-09-30] MEDS: HALOPERIDOL 5 MG/ML (HALDOL) VIAL IM PRN (20:21)
[2021-10-01] MEDS: HALOPERIDOL 5 MG/ML (HALDOL) VIAL IM PRN ×2 (01:45→21:21)
[2021-10-01] MEDS: DexMEDEtomidine 250 ML DRIP 250 ML IV SCH (02:50)
[2021-10-01] MEDS: D5 1/2 NS W/KCL 20 MEQ/L 1,000 ML IV SCH ×4 (03:56→23:44)
[2021-10-01 05:08] LABS: BASOPHILS % (AUTO) 0 % (0-10); EOSINOPHILS % (AUTO) 0 % (0-10); HEMATOCRIT 22 % (40-54); LYMPHOCYTES # (AUTO) 0.7 10^3/uL (1.0-4.0); LYMPHOCYTES % (AUTO) 9 % (12-44); MEAN CORPUSCULAR HEMOGLOBIN 32 pg (25-34); MEAN CORPUSCULAR HGB CONC 32 g/dL (32-36); MEAN CORPUSCULAR VOLUME 100 fL (80-99); MONOCYTES # (AUTO) 0.8 10^3/uL (0.0-1.0); MONOCYTES % (AUTO) 11 % (0-12); NEUTROPHILS # (AUTO) 5.8 10^3/uL (1.8-7.8); NEUTROPHILS % (AUTO) 79 % (42-75); PLATELET COUNT 165 10^3/uL (130-400); WHITE BLOOD COUNT 7.3 10^3/uL (4.3-11.0)
[2021-10-01 05:25] LABS: ALBUMIN 2.9 GM/DL (3.2-4.5); POTASSIUM 3.9 MMOL/L (3.6-5.0)
[2021-10-01 05:26] LABS: CALCIUM 8.4 MG/DL (8.5-10.1)
[2021-10-01 05:28] LABS: TOTAL PROTEIN 4.9 GM/DL (6.4-8.2)
[2021-10-01 05:29] LABS: BILIRUBIN,TOTAL 0.7 MG/DL (0.1-1.0)
[2021-10-01 05:31] LABS: CREATININE SERUM 0.55 MG/DL (0.60-1.30); PHOSPHORUS 2.1 MG/DL (2.3-4.7)
[2021-10-01 05:34] LABS: MAGNESIUM 2.1 MG/DL (1.6-2.4)
[2021-10-01] MEDS: POTASSIUM CL 10MEQ/50ML IVPB 50 ML IV SCH ×2 (05:39→08:15)
[2021-10-01] MEDS: MAGNESIUM 1 GM/100 ML IVPB 100 ML IV SCH ×2 (05:39→08:15)
[2021-10-01] MEDS: KCL 20 MEQ TAB (K-DUR) PO SCH ×2 (05:39→08:16)
[2021-10-01] MEDS ORDERED: NS IV 500 ML 500 ML IV SCH ×3 (07:45→08:45)
--- NOTE | 2021-10-01 08:13 | Progress Note ---
Subjective Subjective Date Seen by Provider: Oct 01, 2021 Time Seen by Provider: 08:06 Patient is being seen in follow up for AMS + Atrial Fibrillation Patient resting in bed this morning. Patient is alert and oriented x3 this morning, but still with some confusion. Knows it is 2021, but answered "Jovany Morales" when asked who was the president. Patient was having episodes of delirium again yesterday evening and night. Patient's Hgb went from 7.2 to 7, so he was unable to undergo MOON this morning and Cardiology would like to transfuse 1 unit of RBC. Patient's hemeoccult was negative yesterday. Patient states his mouth feels dry. Asked patient if he felt like he could eat and he thought maybe he was a little hungry. Patient also endorses some back pain/stiffness. Patient is supposed to have a full body scan [facility] tomorrow. Dr. Valdivia reached out to Dr. Sauceda, Oncology, to see if he wanted the scan done here. Patient's family pulled me aside this morning and asked me to be straight forward with them and tell them if he was dying. Review of Systems General: No Chills HEENT: No Head Aches, No Visual Changes Pulmonary: No Dyspnea, No Cough Cardiovascular: No: Chest Pain, Palpitations Gastrointestinal: No: Nausea, Vomiting, Abdominal Pain Genitourinary: No Dysuria Musculoskeletal: back pain All Other Systems Reviewed All Other Systems Reviewed: No Objective Exam Vital Signs Vital Signs Date Time Temp Pulse Resp B/P (MAP) Pulse Ox O2 Delivery O2 Flow Rate FiO2 10/01/21 07:46 36.4 10/01/21 07:00 108 10/01/21 06:00 82 22 93/60 100 High Flow N/C 4.00 10/01/21 05:00 84 23 100/71 High Flow N/C 4.00 10/01/21 04:43 37.4 High Flow N/C 4.00 10/01/21 04:00 98 Nasal Cannula 4.00 10/01/21 04:00 92 26 117/73 92 High Flow N/C 4.00 10/01/21 03:00 123 23 122/74 92 High Flow N/C 4.00 10/01/21 02:50 110 131/64 10/01/21 02:00 112 20 104/63 93 High Flow N/C 4.00 10/01/21 01:00 102 16 108/54 96 High Flow N/C 4.00 10/01/21 01:00 110 10/01/21 00:00 112 17 113/75 96 High Flow N/C 4.00 10/01/21 00:00 97 Nasal Cannula 4.00 09/30/21 23:00 111 20 131/64 High Flow N/C 4.00 09/30/21 22:45 37.7 High Flow N/C 4.00 09/30/21 22:00 98 20 125/72 96 High Flow N/C 4.00 09/30/21 21:00 126 13 135/68 100 High Flow N/C 4.00 09/30/21 20:00 101 20 127/75 97 High Flow N/C 4.00 09/30/21 20:00 99 Nasal Cannula 4.00 09/30/21 19:00 37.0 High Flow N/C 4.00 09/30/21 19:00 96 14 135/71 95 High Flow N/C 4.00 09/30/21 19:00 120 09/30/21 18:00 104 18 122/65 100 Nasal Cannula 4.00 09/30/21 17:00 102 16 106/73 100 Nasal Cannula 4.00 09/30/21 16:00 92 Nasal Cannula 4.00 09/30/21 16:00 89 20 126/111 100 Nasal Cannula 4.00 09/30/21 15:00 111 13 Nasal Cannula 4.00 09/30/21 14:00 89 15 129/101 Nasal Cannula 4.00 09/30/21 13:00 81 25 144/83 Nasal Cannula 4.00 09/30/21 12:19 121 09/30/21 12:00 115 16 126/90 Nasal Cannula 4.00 09/30/21 12:00 92 Nasal Cannula 4.00 09/30/21 11:00 73 22 126/64 89 Nasal Cannula 4.00 09/30/21 10:00 89 31 140/88 95 Nasal Cannula 4.00 09/30/21 09:54 37.9 09/30/21 09:00 111 7 151/75 Nasal Cannula 4.00 I & O 10/01/21 07:00 Intake Total 2060 ml Output Total 1700 ml Balance 360 ml General Appearance: No Apparent Distress, Chronically ill Eyes: Bilateral Eye Normal Inspection, Bilateral Eye PERRL, Bilateral Eye EOMI HEENT: PERRL/EOMI Neck: Supple Respiratory: Lungs Clear, No Accessory Muscle Use, No Respiratory Distress, Decreased Breath Sounds (bilateral bases ) Cardiovascular: Systolic Murmur, Irregularly Irregular Gastrointestinal: Normal Bowel Sounds, Non Tender, Soft Rectal: Deferred Extremity: Non Tender, No Calf Tenderness, No Pedal Edema Neurologic/Psychiatric: Alert, Other (oriented x3, but with some confusion still) Skin: Normal Color (Patient had pallor yesterday, color has improved), Warm/Dry Results Lab Laboratory Tests 09/30/21 15:13: Potassium Level 4.3, Magnesium Level 2.1 09/30/21 15:46: Glucometer 113H 09/30/21 20:31: Glucometer 111H 09/30/21 21:30: Stool Occult Blood Immunoassay NEGATIVE 10/01/21 04:49: White Blood Count 7.3, Red Blood Count 2.19L, Hemoglobin 7.0L, Hematocrit 22L, Mean Corpuscular Volume 100H, Mean Corpuscular Hemoglobin 32, Mean Corpuscular Hemoglobin Concent 32, Red Cell Distribution Width 14.6H, Platelet Count 165, Mean Platelet Volume 10.0, Immature Granulocyte % (Auto) 0, Neutrophils (%) (Auto) 79H, Lymphocytes (%) (Auto) 9L, Monocytes (%) (Auto) 11, Eosinophils (%) (Auto) 0, Basophils (%) (Auto) 0, Neutrophils # (Auto) 5.8, Lymphocytes # (Auto) 0.7L, Monocytes # (Auto) 0.8, Eosinophils # (Auto) 0.0, Basophils # (Auto) 0.0, Immature Granulocyte # (Auto) 0.0, Sodium Level 139, Potassium Level 3.9, Chloride Level 103, Carbon Dioxide Level 26, Anion Gap 10, Blood Urea Nitrogen 7, Creatinine 0.55L, Estimat Glomerular Filtration Rate 108, BUN/Creatinine Ratio 13, Glucose Level 109H, Calcium Level 8.4L, Corrected Calcium 9.3, Ph osphorus Level 2.1L, Magnesium Level 2.1, Total Bilirubin 0.7, Aspartate Amino Transf (AST/SGOT) 8, Alanine Aminotransferase (ALT/SGPT) 9, Alkaline Phosphatase 158H, Total Protein 4.9L, Albumin 2.9L Microbiology 09/30/21 C. difficile GDH Antigen & Toxins - Final, Complete 09/29/21 MRSA Screen - Final, Complete MRSA not isolated Assessment/Plan Assessment/Plan Admission Dx Assessment and Plan Type 2 SC Atrial Fibrillation * Troponin 0.058 on initial check, 0.113 on repeat * Patient on Toprol, Diltiazem, Xarelto, and Digoxin at home * Cardiology unable to perform cardioversion 04/01 patient's low Hgb today Metastatic Renal Cancer * Attempting to get records from [facility] * Head CT and MRI were of poor image quality due to motion artifact * Would like to repeat MRI on Tuesday (10/02) * Patient is supposed to have full body scan at on Tuesday * Will reach out to Dr. Braga and see if he is okay with having imaging done here * Will consult director of social media marketing to see about placement at discharge Acute Delirium * Chronic illness vs Metastatic process vs acute thrombi vs acute stressor * Digoxin level WNL * Currently improved, family states patient is still not at baseline * Patient had acute episode of delirium requiring precedex last night * Continue with reorientation and reassurance Anemia, undetermined origin * TUCKER vs Anemia of chronic disease * Patient's Hgb has dropped from 9.5 to 7.0 during stay. Believe this is in part 2/2 patient's fluid down status at admission and subsequent rehydration * Patient's Hgb dropped to 7.0 today, will transfuse 1 unit of RBCs * Heme-occult negative, consider iron panel to help determine cause of anemia * Will continue to monitor Pulmonary Hypertension * Continue oxygen * Continue to monitor O2 sats Hypertension * Patient taking rate-control anti-hypertensives. * Continue to monitor Hyperlipidemia * Holding currently Admission Dx Clinical Quality Measures Admission Status Admission Dx Supervisory-Addendum Brief Verification & Attestation Participated in pt care: history, MDM, physical Personally performed: exam, history, MDM, supervision of care Care discussed with: Medical Student Procedures: n/a Results interpretation: Verified all documentation agree with student note as documented. plan is for ct of chest/abd/pelvis today and bone scan if possible per request of his oncologist. anemia - needs transfusion - will give one unit of blood today, monitor labs in morning. waiting on MOON today due to anemia. Discussion with his , [place] about Jessica's prognosis, and it will truly be pending the outcome of the testing requested by his oncologist. The patient's symptoms suggest fairly metastatic disease, but some of the confusion may be related to overly generous consumption of pain medications to try to control his back pain. Pt is agreeable to transfer to a senior care on discharge. MEGGAN LAZARO Oct 01, 2021 08:13 ANNALISA VALDIVIA MD Oct 01, 2021 22:11
[2021-10-01] MEDS: WATER (STERILE) FOR INJ 10 ML BTL INJ SCH (08:16)
--- NOTE | 2021-10-01 08:28 | Tele-ICU Progress Note ---
Subjective Date Seen by a Provider: Oct 01, 2021 Time Seen by a Provider: 07:15 Subjective/Events-last exam This virtual visit was conducted using real time audio/video. Thank you for asking us to see this patient for respiratory insufficiency due to COPD. Pt admitted w AMS, met renal CA, abnl lytes Recent events: PE: restless. VSS. O2 sat 97% on 4 LPM HEENT: No obvious masses, adenopathy or JVD. Chest: clear to auscultation. CV: Irreg 73 BPM. S1 S2 No murmur or added sounds. Abd: Non-tender. Bowel sounds Y. : Unremarkable. Plasencia N. LATEX SPOOLER/psychiatric: Grossly intact. No obvious focal findings. Extremities: No edema. Capillary refill < 3 seconds. Skin: unremarkable. Results: Elevated BUN 23, BG 109. Decreased Hb 7.0. B.51/45/149. Available chart/ vitals / labs / images reviewed. Video assessment done using teleICU camera, rest of exam as per RN. A/P: Respiratory insufficiency: Continue present management with O2 Monitor for increasing oxygenation needs and/or need for intubation. Critical Care: critically ill patient. Cont. Xarelto, metop., dig. Consider transfer and palliative care consult. Discussed with RN Shaina. Asked RN to reach out to eICU if any questions or humphrey rns later. Time spent with patient/coordination of care with other health professionals (mins): 20 Sepsis Event Evaluation Height, Weight, BMI Height: 5'11.00" Weight: 270lbs. 0.0oz. [id number]; 27.88 BMI Method: Focused Exam Lactate Level 09/29/21 04:35: Lactic Acid Level 0.85 Exam Exam Patient acknowledged, consented, and participated in this virtual visit which was conducted using real time audio/video Vital Signs Date Time Temp Pulse Resp B/P (MAP) Pulse Ox O2 Delivery O2 Flow Rate FiO2 10/01/21 07:46 36.4 10/01/21 07:00 108 10/01/21 06:00 82 22 93/60 100 High Flow N/C 4.00 10/01/21 05:00 84 23 100/71 High Flow N/C 4.00 10/01/21 04:43 37.4 High Flow N/C 4.00 10/01/21 04:00 98 Nasal Cannula 4.00 10/01/21 04:00 92 26 117/73 92 High Flow N/C 4.00 10/01/21 03:00 123 23 122/74 92 High Flow N/C 4.00 10/01/21 02:50 110 131/64 10/01/21 02:00 112 20 104/63 93 High Flow N/C 4.00 10/01/21 01:00 102 16 108/54 96 High Flow N/C 4.00 10/01/21 01:00 110 10/01/21 00:00 112 17 113/75 96 High Flow N/C 4.00 10/01/21 00:00 97 Nasal Cannula 4.00 09/30/21 23:00 111 20 131/64 High Flow N/C 4.00 09/30/21 22:45 37.7 High Flow N/C 4.00 09/30/21 22:00 98 20 125/72 96 High Flow N/C 4.00 09/30/21 21:00 126 13 135/68 100 High Flow N/C 4.00 09/30/21 20:00 101 20 127/75 97 High Flow N/C 4.00 09/30/21 20:00 99 Nasal Cannula 4.00 09/30/21 19:00 37.0 High Flow N/C 4.00 09/30/21 19:00 96 14 135/71 95 High Flow N/C 4.00 09/30/21 19:00 120 09/30/21 18:00 104 18 122/65 100 Nasal Cannula 4.00 09/30/21 17:00 102 16 106/73 100 Nasal Cannula 4.00 09/30/21 16:00 92 Nasal Cannula 4.00 09/30/21 16:00 89 20 126/111 100 Nasal Cannula 4.00 09/30/21 15:00 111 13 Nasal Cannula 4.00 09/30/21 14:00 89 15 129/101 Nasal Cannula 4.00 09/30/21 13:00 81 25 144/83 Nasal Cannula 4.00 09/30/21 12:19 121 09/30/21 12:00 115 16 126/90 Nasal Cannula 4.00 09/30/21 12:00 92 Nasal Cannula 4.00 09/30/21 11:00 73 22 126/64 89 Nasal Cannula 4.00 09/30/21 10:00 89 31 140/88 95 Nasal Cannula 4.00 09/30/21 09:54 37.9 09/30/21 09:00 111 7 151/75 Nasal Cannula 4.00 I & O 10/01/21 07:00 Intake Total 2060 ml Output Total 1700 ml Balance 360 ml Height & Weight Height: 5'11.00" Weight: 270lbs. 0.0oz. 122.503323jb; 27.88 BMI Method: General Appearance: No Apparent Distress, Chronically ill HEENT: PERRL/EOMI Neck: Supple Respiratory: Lungs Clear, No Accessory Muscle Use, No Respiratory Distress, Decreased Breath Sounds (bilateral bases ) Cardiovascular: Systolic Murmur, Irregularly Irregular Capillary Refill: Less Than 3 Seconds Extremity: Non Tender, No Calf Tenderness, No Pedal Edema Neurologic/Psychiatric: Alert, Other (oriented x3, but with some confusion still) Skin: Normal Color (Patient had pallor yesterday, color has improved), Warm/Dry Results Lab Laboratory Tests 09/29/21 19:21 09/30/21 04:45 09/30/21 15:13 10/01/21 04:49 Assessment/Plan Assessment/Plan See free text. Critical Care: Critically Ill Patient ISSA BUI MD Oct 01, 2021 08:28
[2021-10-01] MEDS: DIGOXIN 0.25 MG (LANOXIN) TAB PO SCH (08:35)
[2021-10-01] MEDS: meTOproloL SUCCINATE 50 MG (TOPROL XL) TAB PO SCH (08:35)
[2021-10-01] MEDS ORDERED: diphenhydrAMINE 50 MG/ML INJ (BENADRYL) IVP PRN (08:45)
--- NOTE | 2021-10-01 08:56 | Cardiology Progress Note ---
Subjective Date Seen by Provider: Oct 01, 2021 Time Seen by Provider: 08:54 Subjective/Events-last exam Patient became confused and combative last night, started on Precedex On my evaluation he was sleeping. Focused Exam Lactate Level 09/29/21 04:35: Lactic Acid Level 0.85 Objective-Cardiology Exam Last Set of Vital Signs Vital Signs 10/01/21 10/01/21 07:46 08:00 Temp 36.4 Pulse 95 Resp 32 B/P (MAP) 97/62 Pulse Ox 100 O2 Delivery High Flow N/C O2 Flow Rate 4.00 I&O Intake and Output 10/01/21 00:00 Intake Total 1060 ml Output Total 1525 ml Balance -465 ml Intake Oral 60 ml IV Total 1000 ml Output Urine Total 1525 ml # Bowel Movements 2 General: Other (Sleeping) HEENT: Atraumatic, PERRLA Neck: Supple, No JVD, No Thyromegaly Lungs: Clear to Auscultation, Normal Air Movement Heart: Normal S1, Normal S2, No Murmurs, Other (Atrial fibrillation with rapid ventricular response) Abdomen: Normal Bowel Sounds, Soft, No Tenderness, No Hepatosplenomegaly, No Masses Extremities: No Clubbing, No Cyanosis, No Edema, Normal Pulses, No Tenderness/Swelling Skin: No Rashes, No Breakdown, No Significant Lesion Neuro: Normal Gait, Normal Speech, Strength at 5/5 X4 Ext, Normal Tone, Sensation Intact Psych/Mental Status: Mental Status NL, Mood NL Results Lab Laboratory Tests 09/30/21 15:13 10/01/21 04:49 A/P-Cardiology Admission Diagnosis Acute change in mental status Atrial fibrillation Metastatic renal cell carcinoma Hyperlipidemia Assessment/Plan Acute change in mental status, unknown etiology Returned to baseline at this time. Feeling better. CT of the head was negative, MRI was nondiagnostic ABG showed good oxygenation. Electrolytes were corrected. Possible microembolization from his underlying atrial fibrillation versus metabolic causes or metastatic disease. Paroxysmal atrial fibrillation MOON was done in June 2021 showing echogenic density in the left atrial appendage suggestive of a thrombus Family reported that he underwent cardioversion while he was at . Apparently he is back in atrial fibrillation with rapid ventricular response Rate controlled was elected, maintained on beta-blockers and calcium channel blockers and oral anticoagulation. Started back on Xarelto on September 30, 2021 Due to his mental status, I am hesitant to do MOON or cardioversion. His heart rate is better controlled at this time. Continue to monitor Metastatic renal cell carcinoma, stage IV, managed at . Generalized fatigue, shortness of breath, loss of energy, oxygen dependent. Currently in atrial fibrillation. 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 2D echo done on July 08, 2021 showing dilated left ventricle with left ventricular hypertrophy and ejection fraction 20 to 25%, dilated right ventricle and biatrial enlargement, PA pressure 35 to 40 mmHg. During the MOON on July 09, 2021, his ejection fraction appeared to be better after his heart rate improved slightly. COPD, oxygen dependent, currently oxygenation is well. Hypertension, has been borderline hypotensive. Continue to monitor blood pressure Hyperlipidemia, maintained on Lipitor 20 mg daily, continue to monitor Mild bilateral carotid stenosis, ultrasound was done on July 07, 2021 Obesity, BMI is 26, concern about loss of appetite. Significant weight loss over the past 3 months LAURA MACE MD Oct 01, 2021 08:56
[2021-10-01] MEDS ORDERED: FUROSEMIDE 40 MG/4 ML INJ (LASIX) IVP NR (09:00)
[2021-10-01 09:24] VITALS: BP 109/70
[2021-10-01 09:45] VITALS: BP 113/70
[2021-10-01] MEDS: NICOTINE 7 MG (NICODERM) PATCH TD SCH (10:05)
[2021-10-01] MEDS ORDERED: HOLD METFORMIN - RECEIVED CONTRAST 20 ML VIAL IV SCH (11:45)
[2021-10-01] MEDS ORDERED: IOHEXOL 350 MG/ML 100 ML (OMNIPAQUE 350) VIAL IV ONE (11:45)
[2021-10-01] MEDS ORDERED: NS 100 ML (IVPB) BAG IV ONE (11:45)
--- NOTE | 2021-10-01 12:43 | Diagnostic Imaging Report ---
EXAMINATION: CT chest with intravenous contrast, CT abdomen and pelvis without and with intravenous contrast. TECHNIQUE: Pre and post intravenous contrast axial imaging of the abdomen and pelvis and post contrast axial imaging of the chest were performed. All CT scans use one or more of the following dose optimizing techniques: automated exposure control, MA and/or KvP adjustment based on patient size and exam type or iterative reconstruction. HISTORY: Renal cell carcinoma. COMPARISON: 07/13/2021. FINDINGS: There is no edema or pneumonia. There are small bilateral pleural effusions. No pneumothorax. A 1.8 x 1.5 cm nodule in the left lower lobe previously measured 1.4 x 1.4 cm. There are a few tiny 2 to 3 mm right lower lobe pulmonary nodules which were not clearly present on the prior exam but may have been obscured by atelectasis. There is no axillary or supraclavicular lymphadenopathy. There is no mediastinal lymphadenopathy. Heart size is normal. There are moderate coronary artery calcifications. No pericardial effusion. Aorta is normal in caliber. The liver is normal without focal lesion. There is no biliary ductal dilation. Gallbladder is normal. Pancreas is normal. Spleen is normal. Adrenal glands are normal. There is a stable 7.0 x 6.7 cm solid enhancing mass in the left kidney with central low-attenuation. There are simple cysts in both kidneys. There is a second 1.5 cm enhancing lesion in the upper pole of the left kidney. There is no hydronephrosis. The bladder is decompressed by a Plasencia catheter. Bowel is normal in caliber without obstruction or inflammation. No free fluid or air. No abdominal or pelvic lymphadenopathy. There is a 3.7 x 4.0 cm abdominal aortic aneurysm. A fat-containing umbilical hernia is present. There are sclerotic lesions in L4 and L5 which have increased in conspicuity from the prior exam. A T2 sclerotic lesion is new from prior exam. IMPRESSION: 1. Increase in size of left lower lobe nodule. 2. There are two solid enhancing lesions in the left kidney in keeping with renal cell carcinoma. 3. Increasing conspicuity of L4 and L5 sclerotic lesions and new T2 sclerotic lesion. Dictated by: Dictated on workstation # [id number]
--- NOTE | 2021-10-01 14:22 | Occupational Therapy Eval ---
OT Evaluation-General/PLF Medical Diagnosis Admission Date Sep 28, 2021 at 23:50 Medical Diagnosis: AMS, Metastic CA, Electrolyte imbalance Onset Date: Sep 28, 2021 Therapy Diagnosis Therapy Diagnosis: decreased ADL status and weakness Height/Weight Height (Feet): 5 Height (Inches): 11.00 Weight (Pounds): 270 Weight (Ounces): 0.0 Precautions Precautions/Isolations: Fall Prevention, Standard Precautions Referral Physician: Kerri Referral Reason: Evaluation/Treatment Medical History Additional Medical History Pulmonary HTN, metastic HTN, AFib, renal cancer with mets to distant sites including lungs, cardiomyopathy, GERD, and RA Current History ED admit on 09/28 with AMS/combatic behavior. Admit to ICE, given precedix to help sedate him Social History Home: Single Level Current Living Status: Spouse Entry Into Home: Ramp (in back) ADL-Prior Level of Function SCALE: Activities may be completed with or without assistive devices. 9-Gsvbfupuvz-bcwsvsb completes the activity by him/herself with no assistance from a helper. 5-Set-up or Clean-up Assistance-helper sets up or cleans up; patient completes activity. [place] assists only prior to or following the activity. 4-Supervision or Touching Assistance-helper provides verbal cues and/or touching/steadying and/or contact guard assistance as patient completes activity. Assistance may be provided throughout the activity or intermittently. 3-Partial/Moderate Assistance-helper does LESS THAN HALF the effort. [place] lifts, holds or supports trunk or limbs, but provides less than half the effort. 2-Substantial/Maximal Assistance-helper does MORE THAN HALF the effort. [place] lifts or holds trunk or limbs and provides more than half the effort. 1-Cjqqczgze-hlszut does ALL the effort. Patient does none of the effort to complete the activity. Or, the assistance of 2 or more helpers is required for the patient to complete the activity. If activity was not attempted, code reason: 7-Patient Refused. 9-Not Applicable-not attempted and the patient did not perform the activity before the current illness, exacerbation or injury. 10-Not Attempted due to Environmental Limitations-(lack of equipment, weather restraints, etc.). 88-Not Attempted due to Medical Conditions or Safety Concerns. ADL PLOF Comments Pt reports being IND with ADLs at PLOF, but showering, LBD, and footwear have become increasingly difficult d/t fear of falling and decreased flexibility. While he lives with his , she is not able to provide any physical assistance d/t her poor health. He has been using a SPC or FWW for functional ambulation for the past 3months (specific AD unclear d/t pt being poor historian). Pt says he has fallen several times within the past 3months but none have resulted in major injuries/trips to the hospital. However, he says he has not fallen within the past 4 weeks. Pt reports getting home health services, having "three therapists and two nurses come twice a week for one hour each visit". 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 Mental Status/Objective Patient Orientation: Person, Place, Situation Attachments: Plasencia Catheter, Oxygen, Telemetry Current Upper Extremity ROM Bilaterally WFL Upper Extremity Sensation Pt denies BUE sensation deficits Upper Extremity Strength ~3/5 bilaterally ADL-Treatment Eating (QC): 5 (per pt report) Shower/Bathe Self (QC): 4 (V/c's for sequencing and safety) Upper Body Dressing (QC): 5 Lower Body Dressing (QC): 4 (CGA in stand for pant hike. Assitance to thread catheter) On/Off Footwear (QC): 4 (SBA for safety /pt impulsivity) Toileting Hygiene (QC): 4 (CGA for safety/ pt impulsivity) Other Treatments Pt provided information about PLOF and living situation and participated in BUE screen while seated in recliner. He required CGA to transfer from chair to BSC where he completed toileting, a sponge bath, and dressing tasks. Pt required frequent verbal and tactile cues for sequencing and safety as he was impulsive during self-care tasks. He repeatedly tried to pull attachments off, stand prior to finishing tasks, lean too far forward during LBD and footwear, and sit back in recliner without reaching back for the chair. Pt removed O2 prior to self- care tasks, and reported being SOB after ADLs, SPO2 levels read 96%. Post tx, pt SPT from BSC to recliner, O2 via NC and other attachments placed back on pt, and pt left with PT, all needs met. Live sitter present. Education OT Patient Education: Correct positioning, Energy conservation, Modified ADL techniques, Progress toward Goal/Update tx plan, Purpose of tx/functional activities, Rehab process, Safety issues, Transfer techniques Teaching Recipient: Patient Teaching Methods: Discussion Response to Teaching: Verbalize Understanding, Reinforcement Needed OT Residential Goals Title One Teacher Goals Time Frame: Oct 23, 2021 Lower Body Dressing (QC): 5 On/Off Footwear (QC): 5 Additional Goals: 1-Demonstrate ADL Tasks, 2-Verbalize Understanding, 3-Impr oveStrength/Ramakrishna 1=Demonstrate adherence to instructed precautions during ADL tasks. 2=Patient will verbalize/demonstrate understanding of assistive devices/modifications for ADL. 3=Patient will improve strength/tolerance for activity to enable patient to perform ADL's. OT Education/Plan Problem List/Assessment Assessment: Decreased Activ Tolerance, Decreased Safety Aware, Decreased UE Strength, Impaired Cognition, Impaired I ADL's, Impaired Self-Care Skills Pt is physically capable of completing ADLs, but his impulsivity and poor safety awareness limit him from being independent. Pt would benefit from skilled OT services in order to maximize LOF for safe discharge. Discharge Recommendations Plan/Recommendations: Continue POC Treatment Plan/Plan of Care Patient would benefit from OT for education, treatment and training to promote independence in ADL's, mobility, safety and/or upper extremity function for AD L's. Plan of Care: ADL Retraining, Cognitive Retraining, Functional Mobility, Group Exercise/Act as Ind, UE Funct Exercise/Act Treatment Duration: Oct 23, 2021 Frequency: 3 times per week (3-5x/wk) Rehab Potential: Guarded Time/GCodes Start Time: 13:48 Stop Time: 14:15 Total Time Billed (hr/min): 27 Billed Treatment Time 1, EVM (10'), ADL (17') EZE MEDINA OT Oct 01, 2021 14:22
--- NOTE | 2021-10-01 14:34 | Physical Therapy Evaluation ---
PT Evaluation-General Medical Diagnosis Admission Date Sep 28, 2021 at 23:50 Medical Diagnosis: AMS, Combative Onset Date: Sep 28, 2021 Therapy Diagnosis Therapy Diagnosis: Gait Deficit Height/Weight Height (Feet): 5 Height (Inches): 11.00 Weight (Pounds): 270 Weight (Ounces): 0.0 Precautions Precautions/Isolations: Fall Prevention, Standard Precautions Weight Bear Status Right Lower Extremity: Right Full Weight Bearing Left Lower Extremity: Left Full Weight Bearing Referral Physician: Dr. Manning Reason for Referral: Evaluation/Treatment Medical History Reviewed History: Yes Social History Home: Single Level Current Living Status: Spouse Entry Into Home: Ramp PT Steps Into Home: 0 Prior Prior Level of Function SCALE: Activities may be completed with or without assistive devices. 8-Mlckmpzwzs-ygzjkfu completes the activity by him/herself with no assistance from a helper. 5-Set-up or Clean-up Assistance-helper sets up or cleans up; patient completes activity. [place] assists only prior to or following the activity. 4-Supervision or Touching Assistance-helper provides verbal cues and/or touching/steadying and/or contact guard assistance as patient completes activity. Assistance may be provided throughout the activity or intermittently. 3-Partial/Moderate Assistance-helper does LESS THAN HALF the effort. [place] lifts, holds or supports trunk or limbs, but provides less than half the effort. 2-Substantial/Maximal Assistance-helper does MORE THAN HALF the effort. [place] lifts or holds trunk or limbs and provides more than half the effort. 1-Mnnclbkxy-lbqqhc does ALL the effort. Patient does none of the effort to complete the activity. Or, the assistance of 2 or more helpers is required for the patient to complete the activity. If activity was not attempted, code reason: 7-Patient Refused. 9-Not Applicable-not attempted and the patient did not perform the activity before the current illness, exacerbation or injury. 10-Not Attempted due to Environmental Limitations-(lack of equipment, weather restraints, etc.). 88-Not Attempted due to Medical Conditions or Safety Concerns. Bed Mobility: 6 Transfers (B,C,W/C): 6 Gait: 6 Stairs: 6 Indoor Mobility (Ambulation): Independent Stairs: Independent Prior Devices Use: Walker PT Evaluation-Current Subjective Patient on BSC with OT in the room upon PT arrival, patient agreeable to PT treatment. Objective Patient Orientation: Person, Place, Time, Situation Attachments: Oxygen, Plasencia Catheter, IV ROM/Strength ROM Lower Extremities WFLs all planes bilateral LEs Strength Lower Extremities 3/5 all planes bilateral LEs Sensory Vision: Functional Hearing: Functional Sensation Right Lower Extremit: Intact Sensation Left Lower Extremity: Intact Transfers Roll Left to Right (QC): 3 Sit to Lying (QC): 3 Lying to Sitting/Side of Bed(Q: 3 Sit to Stand (QC): 3 Chair/Xzi-sa-Lubmj Xfer(QC): 3 Gait Does the Patient Walk?: Yes Mode of Locomotion: Walk Anticipated Mode of Locomotion: Walk Balance Sitting Static: Good Sitting Dynamic: Good Standing Static: Fair Standing Dynamic: Fair Assessment/Needs Patient participated in large portion of the PT evaluation, however prior to ambulation his HR began to jump from 140 bpm to 190 bpm. Patient performs all observed transfers and bed mobility with Min A. Patient performed MMT of bilateral LEs with 3/5 bilaterally. Patient evaluation discontinued due to erratic HR and nurse notified. Patient in chair post treatment with all needs met, nursing notified, call light in reach and sitter in the room. Rehab Potential: Good PT Process Control Programmer Goals Process Control Programmer Goals PT Halfway Goals Time Frame: Oct 17, 2021 Roll Left & Right (QC): 6 Sit to Lying (QC): 6 Lying-Sitting on Side/Bed(QC): 6 Sit to Stand (QC): 6 Chair/Fok-gy-Gykyi Xfer(QC): 6 Toilet Transfer (QC): 6 Does the Patient Walk: Yes Walk 10 feet (QC): 6 Walk 50ft with 2 Turns (QC): 6 Walk 150 ft (QC): 6 PT Plan Problem List Problem List: Activity Tolerance, Functional Strength, Safety, Balance, Gait, Transfer, Bed Mobility, ROM Treatment/Plan Treatment Plan: Continue Plan of Care Treatment Plan: Bed Mobility, Education, Functional Activity Ramakrishna, Functional Strength, Group Therapy, Gait, Safety, Therapeutic Exercise, Transfers Treatment Duration: Oct 28, 2021 Frequency: 6 times per week Estimated Hrs Per Day: .25 hour per day Patient and/or Family Agrees t: Yes Safety Risks/Education Patient Education: Transfer Techniques Teaching Recipient: Patient Teaching Methods: Demonstration, Discussion Response to Teaching: Verbalize Understanding, Return Demonstration Time/GCodes Time In: 1408 Time Out: 1424 Total Billed Treatment Time: 16 Total Billed Treatment Visit, MEGAN Urbina PT Oct 01, 2021 14:34
[2021-10-01 14:47] LABS: HEMOGLOBIN 9.1 g/dL (13.3-17.7)
[2021-10-01] MEDS ORDERED: meTOprolol TARTRATE 25 MG (LOPRESSOR) TABLET PO ONE ×2 (17:45→21:15)
[2021-10-01] MEDS: ACETAMINOPHEN 325 MG TABLET PO PRN (18:00)
[2021-10-01 19:08] VITALS: BP 107/68
[2021-10-01] MEDS ORDERED: meTOprolol TARTRATE 25 MG (LOPRESSOR) TABLET ONE (21:18)
[2021-10-01] MEDS: diphenhydrAMINE 50 MG/ML INJ (BENADRYL) IV PRN (23:07)
[2021-10-01 23:28] VITALS: BP 125/86
[2021-10-02] VITALS (22 sets, daily range): BP systolic 94–146; BP diastolic 65–100
[2021-10-02] MEDS ORDERED: WATER (STERILE) FOR INJECTION 20 ML ONE (00:38)
[2021-10-02] MEDS ORDERED: ZIPRASIDONE 20 MG INJ (GEODON) VIAL IM ONE ×2 (00:38→00:45)
[2021-10-02] MEDS ORDERED: DIAZEPAM INJ 10 MG/2 ML (VALIUM) SYR IVP PRN (00:45)
[2021-10-02] MEDS ORDERED: WATER (STERILE) FOR INJ 10 ML BTL INJ SCH (00:45)
[2021-10-02] MEDS ORDERED: DIGOXIN 0.25 MG/ML (LANOXIN) 2 ML AMP IV ONE ×2 (02:00→08:30)
[2021-10-02] MEDS ORDERED: DIGOXIN 0.25 MG/ML (LANOXIN) 2 ML AMP ONE (02:01)
[2021-10-02] MEDS ORDERED: DIAZEPAM 5 MG (VALIUM) TABLET PO ONE (03:00)
[2021-10-02 05:57] LABS: BASOPHILS % (AUTO) 0 % (0-10); EOSINOPHILS % (AUTO) 0 % (0-10); HEMATOCRIT 27 % (40-54); HEMOGLOBIN 8.7 g/dL (13.3-17.7); LYMPHOCYTES # (AUTO) 1.1 10^3/uL (1.0-4.0); LYMPHOCYTES % (AUTO) 13 % (12-44); MEAN CORPUSCULAR HEMOGLOBIN 32 pg (25-34); MEAN CORPUSCULAR HGB CONC 32 g/dL (32-36); MEAN CORPUSCULAR VOLUME 99 fL (80-99); MEAN PLATELET VOLUME 10.1 fL (9.0-12.2); MONOCYTES % (AUTO) 12 % (0-12); NEUTROPHILS # (AUTO) 6.1 10^3/uL (1.8-7.8); NEUTROPHILS % (AUTO) 74 % (42-75); PLATELET COUNT 225 10^3/uL (130-400); WHITE BLOOD COUNT 8.1 10^3/uL (4.3-11.0)
[2021-10-02 06:10] LABS: ALBUMIN 3.3 GM/DL (3.2-4.5); POTASSIUM 4.2 MMOL/L (3.6-5.0)
[2021-10-02 06:14] LABS: BILIRUBIN,TOTAL 0.6 MG/DL (0.1-1.0)
[2021-10-02 06:15] LABS: PHOSPHORUS 2.4 MG/DL (2.3-4.7)
[2021-10-02 06:16] LABS: CREATININE SERUM 0.61 MG/DL (0.60-1.30)
[2021-10-02] MEDS: AMIODARONE INJECTION 450 MG in NORMAL SALINE 250 ML IV SCH ×2 (06:42→14:27)
--- NOTE | 2021-10-02 07:27 | Occ Therapy Progress Note ---
Therapy Progress Note Due to decline in medical status after transferring to 4th floor, pt will need new orders when able to actively participate in skilled therapy. CAROLINA WALTERS Oct 02, 2021 07:27
--- NOTE | 2021-10-02 07:58 | Tele-ICU Progress Note ---
Subjective Date Seen by a Provider: Oct 02, 2021 Time Seen by a Provider: 07:54 Subjective/Events-last exam 70 yo M with COPD and metastatic renal cell Ca recent CT shows enlarging pulmonary in LLL, known left kidney mass On Xarelto, IV amiodarone, po metoprolol and dig for a fib. V rate 103, prior to cardioversion was 160-180 DNR Today looks letheargic, had cardioversion, now lethargic from sedation Sepsis Event Evaluation Height, Weight, BMI Height: 5'11.00" Weight: 270lbs. 0.0oz. 122.684293gt; 27.79 BMI Method: Exam Exam Patient acknowledged, consented, and participated in this virtual visit which was conducted using real time audio/video Vital Signs Date Time Temp Pulse Resp B/P (MAP) Pulse Ox O2 Delivery O2 Flow Rate FiO2 10/02/21 06:35 99 Nasal Cannula 4.00 10/02/21 06:00 130 19 109/84 (92) 99 Nasal Cannula 4.00 10/02/21 05:45 158 22 99 Nasal Cannula 4.00 10/02/21 05:30 138 23 103/88 (93) 98 Nasal Cannula 4.00 10/02/21 05:15 36.6 164 22 100/86 (91) 98 Nasal Cannula 4.00 10/02/21 05:15 Nasal Cannula 4.00 10/02/21 03:27 37.1 138 22 146/99 (115) 99 Nasal Cannula 3.00 10/02/21 03:18 180 10/02/21 02:43 180 10/02/21 01:51 170 10/02/21 01:22 114 97/65 (76) 10/02/21 01:17 180 10/02/21 01:00 185 10/02/21 00:58 190 10/01/21 23:47 170 10/01/21 23:43 170 10/01/21 23:28 37.3 132 22 125/86 (99) 93 Nasal Cannula 3.00 10/01/21 22:42 171 10/01/21 22:34 167 10/01/21 22:15 176 10/01/21 21:35 171 10/01/21 21:17 185 10/01/21 21:03 173 10/01/21 19:45 Nasal Cannula 4.00 10/01/21 19:08 37.3 105 24 107/68 (81) 93 Nasal Cannula 3.00 10/01/21 19:00 160 10/01/21 16:15 98 Nasal Cannula 4.00 10/01/21 15:52 98 Nasal Cannula 4.00 10/01/21 13:00 109 10/01/21 12:00 105 28 100 High Flow N/C 4.00 10/01/21 12:00 98 Nasal Cannula 4.00 10/01/21 11:56 36.6 10/01/21 10:00 110 17 126/62 100 High Flow N/C 4.00 10/01/21 09:45 36.7 96 20 113/70 100 Nasal Cannula 4.00 10/01/21 09:24 36.7 98 20 109/70 100 Nasal Cannula 4.00 10/01/21 09:00 87 11 116/73 100 High Flow N/C 4.00 10/01/21 08:00 95 32 97/62 100 High Flow N/C 4.00 10/01/21 08:00 98 Nasal Cannula 4.00 I & O 10/02/21 07:00 Intake Total 1645 ml Output Total 900 ml Balance 745 ml Height & Weight Height: 5'11.00" Weight: 270lbs. 0.0oz. 122.686631fl; 27.79 BMI Method: General Appearance: No Apparent Distress, Chronically ill HEENT: PERRL/EOMI Neck: Supple Respiratory: Lungs Clear, No Accessory Muscle Use, No Respiratory Distress, Decreased Breath Sounds (bilateral bases ) Cardiovascular: Systolic Murmur, Irregularly Irregular, Tachycardia Capillary Refill: Less Than 3 Seconds Gastrointestinal: normal bowel sounds, non tender, soft Extremity: Non Tender, No Calf Tenderness, No Pedal Edema Neurologic/Psychiatric: Alert, Other (oriented x3, but with lesome confusion still, lethargic after sedation for cardioversion) Skin: Normal Color (Patient had pallor yesterday, color has improved), Warm/Dry Results Lab Laboratory Tests 09/30/21 15:13 10/01/21 04:49 10/01/21 14:40 10/02/21 05:36 Assessment/Plan Assessment/Plan metastatic renal cell ca, continue supportive measures, monitor after successful cardioversion a fib, continue IV amiodarone, dig and metoprolol out look poor To get PICC line and get bone scan today Critical Care: Critically Ill Patient MARIANA EAST MD Oct 02, 2021 07:58
--- NOTE | 2021-10-02 07:59 | Physical Therapy Progress Note ---
Therapy Progress Note Patient transferred to ICU from the 4th floor. Will need new orders to evaluate when appropriate. NASIR DÍAZ PT Oct 02, 2021 07:59
[2021-10-02] MEDS ORDERED: LIDOCAINE 2% VISCOUS 15 ML UDC PO ONE (08:40)
[2021-10-02] MEDS ORDERED: LIDOCAINE 2% VISCOUS 15 ML UDC ONE (08:41)
[2021-10-02] MEDS: NICOTINE PATCH REMOVAL TP SCH ×2 (09:00→10:53)
[2021-10-02] MEDS ORDERED: AMIODARONE FOR BOLUS 150 MG in NS (IVPB) 100 ML IV ONE (09:15)
--- NOTE | 2021-10-02 09:22 | Progress Note ---
Subjective Subjective Date Seen by Provider: Oct 02, 2021 Time Seen by Provider: 07:15 Patient is being seen in follow up for AMS, Atrial Fibrillation, metatstatic kidney disease Patient resting comfortably this morning. Was briefly moved to the floor yesterday. After being moved patient had an episode of agitation requiring geodon and valium. Last night around 9pm patient had a sudden increase in HR. Patient is in known afib; HR jumped into the 170-180 range and has consistently been elevated since. Dr. Uriostegui was called and patient was started on amiodarone protocol (1mg x 6hr and then 0.5mg x 18hr) and a low dose of digoxin (0.25mg). Cardizem drip was not pursued because patient's BP was soft, in the 90's/60's. Patient only has access at one IV site. Multiple attempts have been made to establish more access. RN is requesting a PICC line at this time. Patient had a CT scan yesterday will list results below. Patient is having a full body bone scan today at 10. Radioactive isotope already administered. Patient states he is having some increased anxiety, is requesting some medication to help with this. Patient was transfused 1 unit of RBCs yesterday, Hgb went from 7.0 to 8.7. Patient's heart rate still elevated in the 160's while I was in the room. custodial services manager has sent a referral for patient to go to [facility]. Patient asked if he could go home this weekend, let him know that placement takes time and that he would be here throughout the weekend. Dr. Reyna came in to see the patient and decided to call the team in for MOON + Cardioversion. Procedure was performed and patient was shocked into sinus rhythm, still having tachycardia. EXAMINATION: CT chest with intravenous contrast, CT abdomen and pelvis without and with intravenous contrast. IMPRESSION: 1. Increase in size of left lower lobe nodule. 2. There are two solid enhancing lesions in the left kidney in keeping with renal cell carcinoma. 3. Increasing conspicuity of L4 and L5 sclerotic lesions and new T2 sclerotic lesion Review of Systems General: No Chills, No Night Sweats HEENT: No Head Aches, No Visual Changes Pulmonary: Dyspnea (when he is having anxiety); No Cough Cardiovascular: No: Chest Pain, Palpitations Gastrointestinal: No: Nausea, Vomiting, Abdominal Pain, Diarrhea, Constipation Genitourinary: No Dysuria, No Frequency, No Hematuria Musculoskeletal: back pain Neurological: Confusion; No: Numbness All Other Systems Reviewed All Other Systems Reviewed: No Objective Exam Vital Signs Vital Signs Date Time Temp Pulse Resp B/P (MAP) Pulse Ox O2 Delivery O2 Flow Rate FiO2 10/02/21 09:00 112 121/79 (93) 98 Nasal Cannula 4.00 10/02/21 08:00 144 32 94/82 (86) 100 Nasal Cannula 4.00 10/02/21 08:00 37.3 10/02/21 07:58 99 Nasal Cannula 4.00 10/02/21 07:00 174 10/02/21 07:00 161 17 102/90 (94) 91 Nasal Cannula 4.00 10/02/21 06:35 99 Nasal Cannula 4.00 10/02/21 06:00 130 19 109/84 (92) 99 Nasal Cannula 4.00 10/02/21 05:45 158 22 99 Nasal Cannula 4.00 10/02/21 05:30 138 23 103/88 (93) 98 Nasal Cannula 4.00 10/02/21 05:15 36.6 164 22 100/86 (91) 98 Nasal Cannula 4.00 10/02/21 05:15 Nasal Cannula 4.00 10/02/21 03:27 37.1 138 22 146/99 (115) 99 Nasal Cannula 3.00 10/02/21 03:18 180 10/02/21 02:43 180 10/02/21 01:51 170 10/02/21 01:22 114 97/65 (76) 10/02/21 01:17 180 10/02/21 01:00 185 10/02/21 00:58 190 10/01/21 23:47 170 10/01/21 23:43 170 10/01/21 23:28 37.3 132 22 125/86 (99) 93 Nasal Cannula 3.00 10/01/21 22:42 171 10/01/21 22:34 167 10/01/21 22:15 176 10/01/21 21:35 171 10/01/21 21:17 185 10/01/21 21:03 173 10/01/21 19:45 Nasal Cannula 4.00 10/01/21 19:08 37.3 105 24 107/68 (81) 93 Nasal Cannula 3.00 10/01/21 19:00 160 10/01/21 16:15 98 Nasal Cannula 4.00 10/01/21 15:52 98 Nasal Cannula 4.00 10/01/21 13:00 109 10/01/21 12:00 105 28 100 High Flow N/C 4.00 10/01/21 12:00 98 Nasal Cannula 4.00 10/01/21 11:56 36.6 10/01/21 10:00 110 17 126/62 100 High Flow N/C 4.00 10/01/21 09:45 36.7 96 20 113/70 100 Nasal Cannula 4.00 10/01/21 09:24 36.7 98 20 109/70 100 Nasal Cannula 4.00 I & O 10/02/21 07:00 Intake Total 1645 ml Output Total 900 ml Balance 745 ml General Appearance: No Apparent Distress, Chronically ill Eyes: Bilateral Eye Normal Inspection, Bilateral Eye PERRL, Bilateral Eye EOMI HEENT: PERRL/EOMI Neck: Supple Respiratory: No Accessory Muscle Use, No Respiratory Distress, Decreased Breath Sounds (bilateral bases ) Cardiovascular: Systolic Murmur, Irregularly Irregular, Tachycardia Gastrointestinal: Normal Bowel Sounds, Non Tender, Soft Rectal: Deferred Extremity: Non Tender, No Calf Tenderness, No Pedal Edema Neurologic/Psychiatric: Alert, Other (oriented x3, but with undulating mental status ) Skin: Normal Color, Warm/Dry Results Lab Laboratory Tests 10/01/21 14:40: Hemoglobin 9.1#L, Hematocrit 28L 10/02/21 05:36: Hemoglobin 8.7L, Hematocrit 27L, White Blood Count 8.1, Red Blood Count 2.73L, Mean Corpuscular Volume 99, Mean Corpuscular Hemoglobin 32, Mean Corpuscular Hemoglobin Concent 32, Red Cell Distribution Width 15.4H, Platelet Count 225, Mean Platelet Volume 10.1, Immature Granulocyte % (Auto) 1, Neutrophils (%) (Auto) 74, Lymphocytes (%) (Auto) 13, Monocytes (%) (Auto) 12, Eosinophils (%) (Auto) 0, Basophils (%) (Auto) 0, Neutrophils # (Auto) 6.1, Lymphocytes # (Auto) 1.1, Monocytes # (Auto) 1.0, Eosinophils # (Auto) 0.0, Basophils # (Auto) 0.0, Immature Granulocyte # (Auto) 0.0, Sodium Level 138, Potassium Level 4.2, Chloride Level 104, Carbon Dioxide Level 25, Anion Gap 9, Blood Urea Nitrogen 7, Creatinine 0.61, Estimat Glomerular Filtration Rate 105, BUN/Creatinine Ratio 11, Glucose Level 101, Calcium Level 9.0, Corrected Calcium 9.6, Phosphorus Level 2.4, Magnesium Level 2.0, Total Bilirubin 0.6, Aspartate Amino Transf (AST/SGOT) 12, Alanine Aminotransferase (ALT/SGPT) 12, Alkaline Phosphatase 159H , Total Protein 6.0L, Albumin 3.3 Microbiology 09/30/21 C. difficile GDH Antigen & Toxins - Final, Complete 09/29/21 MRSA Screen - Final, Complete MRSA not isolated Radiology Date of Exam:10/01/21 CT CHEST-PELVIS W/ABDOMEN W WO EXAMINATION: CT chest with intravenous contrast, CT abdomen and pelvis without and with intravenous contrast. TECHNIQUE: Pre and post intravenous contrast axial imaging of the abdomen and pelvis and post contrast axial imaging of the chest were performed. All CT scans use one or more of the following dose optimizing techniques: automated exposure control, MA and/or KvP adjustment based on patient size and exam type or iterative reconstruction. HISTORY: Renal cell carcinoma. COMPARISON: 07/13/2021. FINDINGS: There is no edema or pneumonia. There are small bilateral pleural effusions. No pneumothorax. A 1.8 x 1.5 cm nodule in the left lower lobe previously measured 1.4 x 1.4 cm. There are a few tiny 2 to 3 mm right lower lobe pulmonary nodules which were not clearly present on the prior exam but may have been obscured by atelectasis. There is no axillary or supraclavicular lymphadenopathy. There is no mediastinal lymphadenopathy. Heart size is normal. There are moderate coronary artery calcifications. No pericardial effusion. Aorta is normal in caliber. The liver is normal without focal lesion. There is no biliary ductal dilation. Gallbladder is normal. Pancreas is normal. Spleen is normal. Adrenal glands are normal. There is a stable 7.0 x 6.7 cm solid enhancing mass in the left kidney with central low-attenuation. There are simple cysts in both kidneys. There is a second 1.5 cm enhancing lesion in the upper pole of the left kidney. There is no hydronephrosis. The bladder is decompressed by a Plasencia catheter. Bowel is normal in caliber without obstruction or inflammation. No free fluid or air. No abdominal or pelvic lymphadenopathy. There is a 3.7 x 4.0 cm abdominal aortic aneurysm. A fat-containing umbilical hernia is present. There are sclerotic lesions in L4 and L5 which have increased in conspicuity from the prior exam. A T2 sclerotic lesion is new from prior exam. IMPRESSION: 1. Increase in size of left lower lobe nodule. 2. There are two solid enhancing lesions in the left kidney in keeping with renal cell carcinoma. 3. Increasing conspicuity of L4 and L5 sclerotic lesions and new T2 sclerotic lesion. Assessment/Plan Assessment/Plan Admission Dx Assessment and Plan Type 2 NSTEMI Atrial Fibrillation Sinus Tachycardia * Patient underwent MOON with cardioversion today. Able to achieve sinus rhythm. Patient is still having tachycardia. * Managed by Cardiology team Metastatic Renal Cancer * Attempting to get records from [facility] * Initial head CT and MRI were of poor image quality due to motion artifact * Patient underwent CT Chest/Abdomen/Pelvis w/o and with contrast yesterday. Results can be found in radiology portion of this note. * Undergoing full body bone scan today * Dr. Sauceda, Oncology, has been updated and will receive imaging via the cloud * custodial services manager is working on placement upon discharge Acute Delirium Anxiety * Currently improved, but patient has undulating mental status consistent with sun-downing/ICU delirium * Patient had acute episode of delirium requiring geodon and valium yesterday * Patient states that when he knows he is having undulating mental status and that it is causing him increased anxiety when he is AxO, on top of the anxiety he is feeling from his uncertain prognosis. * Will start PO Lorazepam 0.25mg q8 PRN anxiety * Continue reorientation and reassurance Anemia, undetermined origin * TUCKER vs Anemia of chronic disease vs other source * Heme-occult negative, iron panel ordered to help determine source of anemia. * Will continue to monitor Pulmonary Hypertension * Continue oxygen * Patient on breathing treatments at home * If patient's vitals stabilize, will consider restarting breathing treatments * Continue to monitor O2 sats Hypertension * Patient taking rate-control anti-hypertensives due to A-fib. * Continue to monitor Hyperlipidemia * Holding currently Abdominal Aortic Aneurysm * 3.7 x 4.0cm AAA noted on imaging yesterday * No further management necessary at this time Admission Dx Clinical Quality Measures Admission Status Admission Dx Supervisory-Addendum Brief Verification & Attestation Participated in pt care: history, MDM, physical Personally performed: exam, history, MDM, supervision of care Care discussed with: Medical Student Procedures: n/a Results interpretation: Verified all documentation Agree with excellent student note. Pt was transferred to 4th floor late yesterday after stability all day, this commercial loan underwriter did not get a call about his elevated heart rate, during the early even ing, only a call in the mid-night hour about pt's anxiety and agitation, cardiology was called about his afib and the pt was transferred back up to the ICU for his amiodarone drip and digoxin treatment which did not budge his heart rate out of the consistently elevated afib rate in the 150 - 180 range. Pt was cardioverted by Dr. Reyna after MOON. I discussed the bone scan results with Minoo, his , by phone this afternoon, we will plan on Mikhail going to [facility] early next week if possible based on his insurance speed of approval since he has a Medicare Advantage plan and they generally take an excessively prolonged time to approve the patients for long term placement. Per Swing Bed coordinator, Deedee, the facility at [place] is wanting to see some more stability in Mikhail's behaviors prior to fully agreeing to accept him to their facility - [facility] declined to take Mikhail based on his ER report of behaviors. Mikhail is having some mild sundowning symptoms, which are related to being delirious from being in the ICU and his medical condition which is improving and should show more mental clearing. He has not been combative, just confused today. Bone scan results as follows: NAME: MIKHAIL VEGA : 1950 Date of Exam:10/02/21 BONE SCAN WHOLE BODY INDICATION: Renal cell carcinoma. FINDINGS: There is uptake of activity by the axial and appendicular skeleton. There is uptake into the kidneys with excretion into the urinary bladder. There are several foci of abnormal uptake. There is some uptake involving bilateral posterior ribs. There is uptake involving the midshaft of the left femur as well as the midshaft of the right femur as well as the right proximal femur in the intertrochanteric and subtrochanteric region. Findings are worrisome for osseous metastatic disease. There is some uptake involving a lower lumbar vertebral body which is indeterminate. IMPRESSION: Multiple abnormal foci of uptake involving bilateral ribs as well as bilateral femora, suggestive of osseous metastatic disease. L4 vertebral body uptake is also present. This corresponds to abnormal sclerosis noted on CT study earlier the same day. Dict: 10/02/21 1116 Trans: 10/02/21 1556 Interpreted by: DEIDRA PULLIAM MD Electronically signed by: DEIDRA PULLIAM MD 10/02/21 1556 MEGGAN LAZARO Oct 02, 2021 09:22 ANNALISA VALDIVIA MD Oct 02, 2021 19:01
--- NOTE | 2021-10-02 09:46 | Cardioversion ---
Cardioversion PROCEDURE PHYSICIAN: Laura Reyna DATE OF PROCEDURE: 10/02/21 DIRECT EXTERNAL ELECTRICAL CARDIOVERSION: Indications: Atrial Fibrillation with rapid ventricular rate Preoperative diagnoses: Atrial Fibrillation with rapid ventricular rate Postoperative diagnosis: Sinus rhythm, Successful Electrical Cardioversion Anesthesia: By Anesthesia services Complications: None Specimen: None Contrast: 0 Flouroscopy: none Procedure Details: The patient was brought the microbiology laboratory manager after informed consent was taken, all the risks and complications were explained including the risk of stroke. Electrical cardioversion was carried out with anesthesia support with propofol. 200 joules of synchronized shock was delivered through external patches which promptly restored sinus rhythm. The patient tolerated the procedure well. Conclusions: Successful electrical cardioversion and terminating atrial fibrillation LAURA REYNA MD Oct 02, 2021 09:46
--- NOTE | 2021-10-02 09:52 | Cardiology Progress Note ---
Subjective Date Seen by Provider: Oct 02, 2021 Time Seen by Provider: 09:50 Subjective/Events-last exam Patient was seen at bedside, more oriented today Transferred back to ICU after becoming tachycardic with atrial fibrillation Review of Systems General: No Chills, No Night Sweats; Fatigue, Malaise; No Appetite, No Other HEENT: No Head Aches, No Visual Changes, No Eye Pain, No Ear Pain, No Dysphasia, No Sinus Congestion, No Post Nasal Drip, No Sore Throat, No Other Pulmonary: No Dyspnea, No Cough, No Pleuritic Chest Pain, No Other Cardiovascular: No: Chest Pain, Palpitations, Orthopnea, Paroxysmal Noc. Dyspnea, Edema, Lt Headedness, Other Objective-Cardiology Exam Last Set of Vital Signs Vital Signs 10/02/21 10/02/21 10/02/21 08:00 09:00 09:21 Temp 37.3 Pulse 103 Resp 32 B/P (MAP) 128/79 Pulse Ox 98 O2 Delivery Nasal Cannula O2 Flow Rate 4.00 I&O Intake and Output 10/02/21 00:00 Intake Total 2645 ml Output Total 1175 ml Balance 1470 ml Intake Oral 570 ml IV Total 2000 ml Other 75 ml Output Urine Total 1175 ml # Bowel Movements 4 General: Other (Sleeping) HEENT: Atraumatic, PERRLA Neck: Supple, No JVD, No Thyromegaly Lungs: Clear to Auscultation, Normal Air Movement Heart: Normal S1, Normal S2, No Murmurs, Other (Atrial fibrillation with rapid ventricular response) Abdomen: Normal Bowel Sounds, Soft, No Tenderness, No Hepatosplenomegaly, No Masses Extremities: No Clubbing, No Cyanosis, No Edema, Normal Pulses, No Tenderness/Swelling Skin: No Rashes, No Breakdown, No Significant Lesion Neuro: Normal Gait, Normal Speech, Strength at 5/5 X4 Ext, Normal Tone, Sensation Intact Psych/Mental Status: Mental Status NL, Mood NL Results Lab Laboratory Tests 10/01/21 14:40 10/02/21 05:36 A/P-Cardiology Admission Diagnosis Acute change in mental status Atrial fibrillation Metastatic renal cell carcinoma Hyperlipidemia Assessment/Plan Acute change in mental status, unknown etiology Returned to baseline at this time. Feeling better. CT of the head was negative, MRI was nondiagnostic ABG showed good oxygenation. Electrolytes were corrected. Work-up has been negative. Managed by medical team Paroxysmal atrial fibrillation MOON was done in June 2021 showing echogenic density in the left atrial appendage suggestive of a thrombus Family reported that he underwent cardioversion while he was at . Apparently he is back in atrial fibrillation with rapid ventricular response Rate controlled was elected, maintained on beta-blockers and calcium channel blockers and oral anticoagulation. Started back on Xarelto on September 30, 2021 Patient was transferred back to ICU on October 02, 2021 for atrial fibrillation with ventricular response. I proceeded with MOON and electrical cardioversion Started on amiodarone bolus of the drip. Metastatic renal cell carcinoma, stage IV, managed at . Generalized fatigue, shortness of breath, loss of energy, oxygen dependent. Currently in atrial fibrillation. 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 2D echo done on July 08, 2021 showing dilated left ventricle with left ventricular hypertrophy and ejection fraction 20 to 25%, dilated right ventricle and biatrial enlargement, PA pressure 35 to 40 mmHg. During the MOON on July 09, 2021, his ejection fraction appeared to be better after his heart rate improved slightly. COPD, oxygen dependent, currently oxygenation is well. Hypertension, has been borderline hypotensive. Continue to monitor blood pressure Hyperlipidemia, maintained on Lipitor 20 mg daily, continue to monitor Mild bilateral carotid stenosis, ultrasound was done on July 07, 2021 Obesity, BMI is 26, concern about loss of appetite. Significant weight loss over the past 3 months LAURA MACE MD Oct 02, 2021 09:52
[2021-10-02] MEDS ORDERED: proPOfol 200 MG/20 ML (DIPRIVAN) VIAL IV ONE (10:19)
[2021-10-02] MEDS: DIGOXIN 0.25 MG (LANOXIN) TAB PO SCH (10:53)
[2021-10-02] MEDS: RIVAROXABAN 20 MG TABLET (XARELTO) PO SCH (10:53)
[2021-10-02] MEDS: NICOTINE 7 MG (NICODERM) PATCH TD SCH (10:53)
[2021-10-02] MEDS: meTOproloL SUCCINATE 50 MG (TOPROL XL) TAB PO SCH (10:53)
[2021-10-02] MEDS: LORazepam 0.5 MG (ATIVAN) TABLET PO PRN ×2 (11:27→19:37)
--- NOTE | 2021-10-02 11:39 | Diagnostic Imaging Report ---
INDICATION: Renal cell carcinoma. TECHNIQUE: Patient was administered 26.8 mCi technetium 99m MDP intravenously and whole body imaging was performed after three-hour delay. COMPARISON: No prior studies are available for comparison. FINDINGS: There is uptake of activity by the axial and appendicular skeleton. There is uptake into the kidneys with excretion into the urinary bladder. There are several foci of abnormal uptake. There is some uptake involving bilateral posterior ribs. There is uptake involving the midshaft of the left femur as well as the midshaft of the right femur as well as the right proximal femur in the intertrochanteric and subtrochanteric region. Findings are worrisome for osseous metastatic disease. There is some uptake involving a lower lumbar vertebral body which is indeterminate. IMPRESSION: Multiple abnormal foci of uptake involving bilateral ribs as well as bilateral femora, suggestive of osseous metastatic disease. L4 vertebral body uptake is also present. This corresponds to abnormal sclerosis noted on CT study earlier the same day. Dictated by: Dictated on workstation # [id number]
[2021-10-02] MEDS: D5 1/2 NS W/KCL 20 MEQ/L 1,000 ML IV SCH ×4 (11:45→20:01)
--- NOTE | 2021-10-02 15:40 | Anesthesia-General Post-Op ---
MAC Patient Condition Mental Status/LOC: Same as Preop Cardiovascular: Satisfactory Nausea/Vomiting: Absent Respiratory: Satisfactory Pain: Controlled Complications: Absent Post Op Complications Complications None Follow Up Care/Instructions Patient Instructions None needed. Anesthesiology Discharge Order Discharge Order Patient was doing well this morning after the procedure, no complaints, stable vital signs, no apparent adverse anesthesia problems. No complications reported per nursing. DEB STEPHENSON DO Oct 02, 2021 15:40
[2021-10-02] MEDS: diphenhydrAMINE 50 MG/ML INJ (BENADRYL) IV PRN (19:40)
[2021-10-02] MEDS: HALOPERIDOL 5 MG/ML (HALDOL) VIAL IM PRN (20:57)
[2021-10-03] VITALS (14 sets, daily range): BP systolic 76–137; BP diastolic 56–97
[2021-10-03] MEDS ORDERED: DexMEDEtomidine 250 ML DRIP 250 ML IV SCH (00:30)
[2021-10-03 03:42] LABS: BASOPHILS % (AUTO) 0 % (0-10); EOSINOPHILS % (AUTO) 0 % (0-10); HEMATOCRIT 24 % (40-54); HEMOGLOBIN 7.7 g/dL (13.3-17.7); LYMPHOCYTES # (AUTO) 0.5 10^3/uL (1.0-4.0); LYMPHOCYTES % (AUTO) 5 % (12-44); MEAN CORPUSCULAR HEMOGLOBIN 31 pg (25-34); MEAN CORPUSCULAR HGB CONC 32 g/dL (32-36); MEAN CORPUSCULAR VOLUME 99 fL (80-99); MEAN PLATELET VOLUME 9.6 fL (9.0-12.2); MONOCYTES % (AUTO) 10 % (0-12); NEUTROPHILS # (AUTO) 8.7 10^3/uL (1.8-7.8); NEUTROPHILS % (AUTO) 85 % (42-75); PLATELET COUNT 214 10^3/uL (130-400); WHITE BLOOD COUNT 10.2 10^3/uL (4.3-11.0)
[2021-10-03 03:46] LABS: ALBUMIN 2.9 GM/DL (3.2-4.5); POTASSIUM 4.6 MMOL/L (3.6-5.0)
[2021-10-03 03:47] LABS: CALCIUM 8.5 MG/DL (8.5-10.1)
[2021-10-03 03:48] LABS: TOTAL PROTEIN 5.2 GM/DL (6.4-8.2)
[2021-10-03 03:50] LABS: BILIRUBIN,TOTAL 0.5 MG/DL (0.1-1.0)
[2021-10-03 03:51] LABS: PHOSPHORUS 3.4 MG/DL (2.3-4.7)
[2021-10-03 03:52] LABS: CREATININE SERUM 0.57 MG/DL (0.60-1.30)
[2021-10-03 03:55] LABS: MAGNESIUM 1.8 MG/DL (1.6-2.4)
[2021-10-03 04:17] LABS: LYMPHOCYTES % (MANUAL) 6 %; MONOCYTES % (MANUAL) 3 %; NEUTROPHILS % (MANUAL) 91 %
[2021-10-03 04:18] LABS: HYPOCHROMASIA SLIGHT; MICROCYTOSIS MODERATE
--- NOTE | 2021-10-03 07:37 | Tele-ICU Progress Note ---
Subjective Date Seen by a Provider: Oct 03, 2021 Time Seen by a Provider: 07:35 Subjective/Events-last exam 70 yo M with COPD and metastatic renal cell Ca Fell out of bed last night. Now on IV Precedex recent CT shows enlarging pulmonary in LLL, known left kidney mass On Xarelto, Now off IV amiodarone, po metoprolol and dig for a fib. V rate 103, prior to cardioversion was 160-180, BP ok, on 4 lpm NC DNR Bone scan does show diffuse involvement Hb dropped from 8.7 to 7.7, if goes below 7 will transfuse Sepsis Event Evaluation Height, Weight, BMI Height: 5'11.00" Weight: 270lbs. 0.0oz. [id number]; 27.53 BMI Method: Exam Exam Patient acknowledged, consented, and participated in this virtual visit which was conducted using real time audio/video Vital Signs Date Time Temp Pulse Resp B/P (MAP) Pulse Ox O2 Delivery O2 Flow Rate FiO2 10/03/21 06:00 101 27 137/86 (103) 96 Nasal Cannula 4.00 10/03/21 05:00 104 31 99/67 (78) 95 Nasal Cannula 4.00 10/03/21 04:36 100 96/61 10/03/21 04:08 97 Nasal Cannula 4.00 10/03/21 04:00 101 25 120/90 (100) 99 Nasal Cannula 4.00 10/03/21 03:00 103 26 119/74 (89) 97 Nasal Cannula 4.00 10/03/21 02:00 116 19 137/97 (110) 94 Nasal Cannula 4.00 10/03/21 01:00 116 32 116/75 (89) 96 Nasal Cannula 4.00 10/03/21 01:00 118 10/03/21 00:36 124 118/80 10/03/21 00:00 120 29 126/87 (100) 96 Nasal Cannula 4.00 10/03/21 00:00 97 Nasal Cannula 4.00 10/02/21 23:00 125 36 139/99 (112) 100 Nasal Cannula 4.00 10/02/21 22:00 108 34 108/69 (82) 91 Nasal Cannula 4.00 10/02/21 21:00 115 33 117/74 (88) 95 Nasal Cannula 4.00 10/02/21 20:00 107 36 126/100 (109) 97 Nasal Cannula 4.00 10/02/21 20:00 97 Nasal Cannula 4.00 10/02/21 19:00 112 10/02/21 19:00 108 29 119/81 (94) 97 Nasal Cannula 4.00 10/02/21 18:00 108 132/88 (103) 95 Nasal Cannula 4.00 10/02/21 17:00 101 23 134/89 (104) 97 Nasal Cannula 4.00 10/02/21 16:00 93 139/88 (105) 95 Nasal Cannula 4.00 10/02/21 16:00 95 Nasal Cannula 4.00 10/02/21 15:00 105 128/81 (97) 96 Nasal Cannula 4.00 10/02/21 14:00 104 128/80 (96) 95 Nasal Cannula 4.00 10/02/21 13:00 135 19 114/69 (84) 99 Nasal Cannula 4.00 10/02/21 12:38 107 10/02/21 12:00 95 Nasal Cannula 4.00 10/02/21 12:00 101 133/80 (97) 95 Nasal Cannula 4.00 10/02/21 11:00 98 138/92 (107) 92 Nasal Cannula 4.00 10/02/21 10:00 102 23 135/81 (99) 100 Nasal Cannula 4.00 10/02/21 09:21 103 128/79 10/02/21 09:00 112 121/79 (93) 98 Nasal Cannula 4.00 10/02/21 08:00 144 32 94/82 (86) 100 Nasal Cannula 4.00 10/02/21 08:00 37.3 10/02/21 07:58 99 Nasal Cannula 4.00 I & O 10/03/21 07:00 Intake Total 1516 ml Output Total 1245 ml Balance 271 ml Height & Weight Height: 5'11.00" Weight: 270lbs. 0.0oz. [id number]; 27.53 BMI Method: General Appearance: No Apparent Distress, Chronically ill HEENT: PERRL/EOMI Neck: Supple Respiratory: Lungs Clear, No Accessory Muscle Use, No Respiratory Distress, Decreased Breath Sounds (bilateral bases ) Cardiovascular: Systolic Murmur, Irregularly Irregular, Tachycardia Capillary Refill: Less Than 3 Seconds Gastrointestinal: normal bowel sounds, non tender, soft Extremity: Non Tender, No Calf Tenderness, No Pedal Edema Neurologic/Psychiatric: Alert, Oriented x3, Other (confused at times) Skin: Normal Color, Warm/Dry Results Lab Laboratory Tests 10/01/21 14:40 10/02/21 05:36 10/03/21 03:30 Assessment/Plan Assessment/Plan Looks better, a fib under control Getting Rx for renal cell Ca at [facility] Once off IV Precedex probably can go to floor but will need sitter Critical Care: Critically Ill Patient Time spent with patient (mins): 30 MARIANA EAST MD Oct 03, 2021 07:37
--- NOTE | 2021-10-03 09:17 | Cardiology Progress Note ---
Progress Note-Cardiology Events since last exam Date Seen by Provider: Oct 03, 2021 Time Seen by Provider: 09:11 Events since last exam We are following him due to atrial fibrillation and chronic heart failure. He remains in the intensive care unit after he was transferred from the medical floor due to recurrent atrial fibrillation with a rapid ventricular rate. He remains in sinus rhythm on amiodarone following the cardioversion on 10/02. His breathing is improved but he still has his baseline chronic shortness of breath. He denies palpitations. He denies chest discomfort, syncope, or ankle edema. Certain portions of this document may have been dictated utilizing voice recognition technology. Inherent to this technology, typographical and grammatical errors may exist. As much as I am diligent to identify and correct these mistakes, some errors may remain in the document. Vitals Last set of Vitals Signs Vital Signs 10/03/21 10/03/21 07:48 08:00 Temp 36.4 Pulse 87 Resp 26 B/P (MAP) 76/56 (63) Pulse Ox 98 O2 Delivery Nasal Cannula O2 Flow Rate 4.00 Labs Labs Laboratory Tests 10/03/21 03:30 Exam Vital Signs Vital Signs Date Time Temp Pulse Resp B/P (MAP) Pulse Ox O2 Delivery O2 Flow Rate FiO2 10/03/21 08:00 98 Nasal Cannula 4.00 10/03/21 08:00 87 26 76/56 (63) 10/03/21 07:48 36.4 Physical Exam General: Alert. No acute distress. Eye: No xanthelasma. HENT: Normocephalic. Neck: Jugular venous pressure does not appear elevated. Respiratory: Lungs have diffuse coarse upper airway sounds bilaterally. Respirations are non-labored. Breath sounds are equal. Symmetrical chest wall expansion. Cardiovascular: Normal rate. Regular rhythm. No murmur. No gallop. Trace bilateral pretibial edema. Gastrointestinal: Soft. Normal bowel sounds. Skin: Warm. Dry. Neurologic: Alert and oriented to person, place, time. Cranial nerves 3-11 grossly intact. Psychiatric: Cooperative. Appropriate mood & affect. Labs Laboratory Tests Test 10/02/21 21:03 10/03/21 03:30 Range/Units Glucometer 111 H 70-110 MG/DL White Blood Count 10.2 4.3-11.0 10^3/uL Red Blood Count 2.45 L 4.30-5.52 10^6/uL Hemoglobin 7.7 L 13.3-17.7 g/dL Hematocrit 24 L 40-54 % Mean Corpuscular Volume 99 80-99 fL Mean Corpuscular Hemoglobin 31 25-34 pg Mean Corpuscular Hemoglobin Concent 32 32-36 g/dL Red Cell Distribution Width 14.8 H 10.0-14.5 % Platelet Count 214 130-400 10^3/uL Mean Platelet Volume 9.6 9.0-12.2 fL Immature Granulocyte % (Auto) 0 % Neutrophils (%) (Auto) 85 H 42-75 % Lymphocytes (%) (Auto) 5 L 12-44 % Monocytes (%) (Auto) 10 0-12 % Eosinophils (%) (Auto) 0 0-10 % Basophils (%) (Auto) 0 0-10 % Neutrophils # (Auto) 8.7 H 1.8-7.8 10^3/uL Lymphocytes # (Auto) 0.5 L 1.0-4.0 10^3/uL Monocytes # (Auto) 1.0 0.0-1.0 10^3/uL Eosinophils # (Auto) 0.0 0.0-0.3 10^3/uL Basophils # (Auto) 0.0 0.0-0.1 10^3/uL Immature Granulocyte # (Auto) 0.0 0.0-0.1 10^3/uL Neutrophils % (Manual) 91 % Lymphocytes % (Manual) 6 % Monocytes % (Manual) 3 % Hypochromasia SLIGHT Microcytosis MODERATE Macrocytosis SLIGHT Sodium Level 136 135-145 MMOL/L Potassium Level 4.6 3.6-5.0 MMOL/L Chloride Level 104 98-107 MMOL/L Carbon Dioxide Level 24 21-32 MMOL/L Anion Gap 8 5-14 MMOL/L Blood Urea Nitrogen 6 L 7-18 MG/DL Creatinine 0.57 L 0.60-1.30 MG/DL Estimat Glomerular Filtration Rate 107 BUN/Creatinine Ratio 11 Glucose Level 125 H 70-105 MG/DL Calcium Level 8.5 8.5-10.1 MG/DL Corrected Calcium 9.4 8.5-10.1 MG/DL Phosphorus Level 3.4 2.3-4.7 MG/DL Magnesium Level 1.8 1.6-2.4 MG/DL Total Bilirubin 0.5 0.1-1.0 MG/DL Aspartate Amino Transf (AST/SGOT) 13 5-34 U/L Alanine Aminotransferase (ALT/SGPT) 13 0-55 U/L Alkaline Phosphatase 128 40-136 U/L Total Protein 5.2 L 6.4-8.2 GM/DL Albumin 2.9 L 3.2-4.5 GM/DL Diagnosis/Problems Diagnosis/Problems (1) Persistent atrial fibrillation Assessment & Plan: He remains in sinus rhythm following cardioversion on 10/02. He had been on intravenous amiodarone. I will change this over to oral amiodarone. He is on rivaroxaban for stroke prophylaxis. We will need to watch his hemoglobin closely. I will discontinue the digoxin. He should not need this as long as he remains in sinus rhythm. (2) Acute HFrEF (heart failure with reduced ejection fraction) Assessment & Plan: He had an echocardiogram earlier in the year that showed severe left ventricular systolic dysfunction. He is on metoprolol succinate. He is not currently a candidate for MONICA inhibitor, ARB, aldosterone antagonist or Entresto due to low blood pressures. His ejection fraction did improve following his cardioversion. (3) Troponin level elevated Assessment & Plan: He probably suffered a small type II non-ST elevation myocardial infarction due to heart failure and possibly the atrial fibrillation with a rapid ventricular rate. There is no indication for an ischemic evaluation in light of his metastatic carcinoma. He is not on aspirin because he is on rivaroxaban for the stroke. Continue beta-wagner as blood pressure will allow. (4) Cardiomyopathy Assessment & Plan: As above, earlier in the year he had severe left ventricular systolic dysfunction but following his cardioversion his ejection fraction had returned to normal as noted in the report of the transesophageal echocardiogram done on 10/02. (5) Primary hypertension Assessment & Plan: He is on metoprolol succinate and his blood pressures are actually running low at times. We may need to lower the dose of metoprolol. (6) Mixed hyperlipidemia Assessment & Plan: By report he was taking atorvastatin at home although I do not see this in his home medication list. Nonetheless, he does have some abnormal liver function studies. I recommend we hold off on giving him statin medication due to the abnormal liver function tests. KARLOS GUERRERO JR, MD Oct 03, 2021 09:17
[2021-10-03] MEDS: meTOproloL SUCCINATE 50 MG (TOPROL XL) TAB PO SCH (09:49)
[2021-10-03] MEDS: RIVAROXABAN 20 MG TABLET (XARELTO) PO SCH (09:49)
[2021-10-03] MEDS: NICOTINE 7 MG (NICODERM) PATCH TD SCH (09:50)
[2021-10-03] MEDS: LORazepam 0.5 MG (ATIVAN) TABLET PO PRN ×3 (09:50→20:30)
[2021-10-03] MEDS: NICOTINE PATCH REMOVAL TP SCH (09:50)
[2021-10-03] MEDS: AMIODARONE 200 MG (CORDARONE) TAB PO SCH ×2 (09:50→20:29)
[2021-10-03 09:53] LABS: CHOLESTEROL 128 MG/DL (< 200); HDL CHOLESTEROL 28 MG/DL (40-60); TRIGLYCERIDES 144 MG/DL (<150); VLDL CHOLESTEROL 29 MG/DL (5-40)
--- NOTE | 2021-10-03 13:28 | Progress Note - Hospitalist ---
Subjective HPI/CC On Admission Date Seen by Provider: Oct 03, 2021 Time Seen by Provider: 10:45 Subjective/Events-last exam He is tired. He denies pain. He denies shortness of breath. He denies chest pain. Objective Exam Vital Signs Vital Signs Date Time Temp Pulse Resp B/P (MAP) Pulse Ox O2 Delivery O2 Flow Rate FiO2 10/03/21 13:10 105 10/03/21 12:00 36.2 30 108/69 (82) 99 Nasal Cannula 4.00 Capillary Refill : Less Than 3 Seconds General Appearance: No Apparent Distress, Chronically ill Respiratory: Lungs Clear, No Respiratory Distress Cardiovascular: Regular Rate, Rhythm, No Murmur Gastrointestinal: Normal Bowel Sounds, Soft Extremity: Normal Inspection, No Pedal Edema Neurologic/Psychiatric: Alert, Normal Mood/Affect Skin: Normal Color, Warm/Dry Results/Procedures Lab Laboratory Tests 10/03/21 03:30 Patient resulted labs reviewed. Assessment/Plan Assessment and Plan Assess & Plan/Chief Complaint NSTEMI AFib with RVR Cardiology following s/p MOON cardioversion Continue amiodarone, metoprolol, xarelto Metastatic renal cancer Follows at [facility] Social work assisting Delirium Anxiety Precedex Ativan Anemia Hgb 7.7 Monitor Pulmonary HTN HTN HLD AAA Diagnosis/Problems Diagnosis/Problems (1) NSTEMI (non-ST elevation myocardial infarction) Status: Acute (2) Atrial fibrillation with rapid ventricular response Status: Acute (3) Kidney cancer, primary, with metastasis from kidney to other site Status: Acute (4) Delirium Status: Acute (5) Anxiety Status: Acute (6) Anemia Status: Acute MAIK HILTON MD Oct 03, 2021 13:28
--- NOTE | 2021-10-03 17:25 | Diagnostic Imaging Report ---
INDICATION: Shortness of air. Altered mental status. Metastatic malignancy. COMPARISON: 09/28/2021. FINDINGS: Single frontal radiographic view of the chest was obtained and demonstrates interval development of mild to moderate right-sided pleural effusion; potentially loculated. There are associated patchy airspace opacities within the right mid and lower lung field as well. There is no large effusion on the left. No pneumothorax is seen on either side. Cardiac silhouette and pulmonary vasculature are within normal limits. Osseous structures are unchanged. IMPRESSION: 1. Interval development of [id number] right-sided pleural effusion; potentially loculated. 2. Patchy airspace opacities within the right mid and lower lung casarez. Suspect atelectasis and/or infiltrate. Dictated by: Dictated on workstation # [id number]
[2021-10-03] MEDS ORDERED: PIPERACILLIN SODIUM/TAZOBACTAM 4.5 GM in NS (IVPB) 100 ML IV ONE (20:15)
[2021-10-03] MEDS: PIPERACILLIN SODIUM/TAZOBACTAM 4.5 GM in NS (IVPB) 100 ML IV SCH (23:10)
--- NOTE | 2021-10-03 23:52 | CONSULTATION REPORT ---
DATE OF SERVICE: 10/03/2021 ATTENDING PRIMARY CARE PHYSICIAN: Francia Manning MD HISTORY OF PRESENT ILLNESS: The patient is a 70-year-old male with history of multiple medical problems. These include hypertension, hypercholesterolemia, pulmonary hypertension, COPD as well as atrial fibrillation. He also has a history of metastatic renal cancer arising from the left kidney. He presented to the Emergency Department with altered mental status as well as combative behavior. The patient was admitted to the ICU and started on Precedex for sedation. The patient was also found to be in atrial fibrillation with a rapid ventricular response. Cardiology was consulted and underwent cardioversion; however, he still goes in and out of atrial fibrillation. CT scan and MRI of the brain were performed, which did not show any abnormalities. There are 2 large lesions of the left kidney. There also appears to be potential metastatic lesions in the left lung, bilateral ribs as well as bilateral femoral bones. CT scan of the chest as well as multiple daily chest x-rays were performed, which did show a potential right-sided pleural effusion. Upon further examination of the CT scan, this appears to be relatively small and may have a loculated pattern as well. He does not appear to be short of breath. PAST MEDICAL HISTORY: Hypertension, hypercholesterolemia, COPD, history of pneumonia, atrial fibrillation, cardiomyopathy, gastroesophageal reflux disease, constipation, hiatal hernia, rheumatoid arthritis, metastatic left renal cell cancer. PAST SURGICAL HISTORY: Unknown. ALLERGIES: No known drug allergies. MEDICATIONS: Vitamin B12 1000 mcg daily, digoxin 250 mg daily, furosemide 20 mg daily, hydrocodone p.r.n., ipratropium/albuterol 0.5/3 mg nebulizer q.i.d., meloxicam 15 mg daily, metoprolol 50 mg daily, Protonix 40 mg daily, Xarelto 20 mg daily, atorvastatin 20 mg daily, diltiazem 240 mg daily. SOCIAL HISTORY: Positive smoke 50 pack years, rare alcohol. FAMILY HISTORY: Noncontributory. PHYSICAL EXAMINATION: VITAL SIGNS: Temperature 36.7, blood pressure 136/93, pulse 125, respirations 30, pulse ox 99% on 4 liters nasal cannula. REVIEW OF SYSTEMS: This is a well-nourished male who is somewhat confused; however, can answer some questions appropriately. It does not appear that he is short of breath or using accessory muscles to respiration. No new cough or sputum production. No hemoptysis. No chest pain, palpitations, diaphoresis. No nausea, vomiting, history of constipation, no red blood per rectum, no dark tarry stools. No known fever, chills, nor any recent inadvertent weight loss. PHYSICAL EXAMINATION: Will be assessed upon seeing the patient in the a.m. The patient's history was accrued through ICU nursing staff as well as through the patient's electronic medical records. LABORATORY DATA: WBC 10.2, hemoglobin 7.7, hematocrit 24, platelets 214. BUN 6, creatinine 0.57. ASSESSMENT AND PLAN: A 70-year-old male with a history of multiple medical problems including COPD, hypertension, hypercholesterolemia, cardiomyopathy as well as atrial fibrillation with rapid ventricular response. He also does have a history of metastatic left renal cell cancer. He is currently seeing oncology for this and as of yet no treatment has been started. We were consulted for a potential symptomatic pleural effusion; however, after looking at the CT scan as well as serial chest x-rays, this appears to be small and may also be loculated. We will look at the chest x-ray tomorrow; however, if this is small and he is asymptomatic, we will continue watchful waiting. If this does increase in size and he does become more symptomatic, we will get an ultrasound of the chest to look for the largest areas of accumulation of pleural effusion and proceed with either a thoracentesis versus a chest tube placement. Job ID: [id number] DocumentID: [id number] Dictated Date: 10/03/2021 21:25:39 [employer]vanizer [employer] Date: 10/03/2021 23:52:03 Dictated By: DAVID VERAS MD
[2021-10-04] VITALS (7 sets, daily range): BP systolic 101–128; BP diastolic 69–86
[2021-10-04] MEDS: LORazepam 0.5 MG (ATIVAN) TABLET PO PRN (00:58)
[2021-10-04 04:20] LABS: BASOPHILS % (AUTO) 0 % (0-10); EOSINOPHILS % (AUTO) 0 % (0-10); HEMATOCRIT 27 % (40-54); HEMOGLOBIN 8.5 g/dL (13.3-17.7); LYMPHOCYTES # (AUTO) 0.9 10^3/uL (1.0-4.0); LYMPHOCYTES % (AUTO) 7 % (12-44); MEAN CORPUSCULAR HEMOGLOBIN 31 pg (25-34); MEAN CORPUSCULAR HGB CONC 32 g/dL (32-36); MEAN CORPUSCULAR VOLUME 98 fL (80-99); MEAN PLATELET VOLUME 9.4 fL (9.0-12.2); MONOCYTES # (AUTO) 1.2 10^3/uL (0.0-1.0); MONOCYTES % (AUTO) 10 % (0-12); NEUTROPHILS # (AUTO) 9.7 10^3/uL (1.8-7.8); NEUTROPHILS % (AUTO) 82 % (42-75); PLATELET COUNT 273 10^3/uL (130-400); WHITE BLOOD COUNT 11.8 10^3/uL (4.3-11.0)
[2021-10-04 04:35] LABS: POTASSIUM 4.6 MMOL/L (3.6-5.0)
[2021-10-04 04:36] LABS: CALCIUM 8.9 MG/DL (8.5-10.1)
[2021-10-04 04:38] LABS: TOTAL PROTEIN 5.4 GM/DL (6.4-8.2)
[2021-10-04 04:39] LABS: BILIRUBIN,TOTAL 0.7 MG/DL (0.1-1.0)
[2021-10-04 04:41] LABS: CREATININE SERUM 0.62 MG/DL (0.60-1.30); PHOSPHORUS 3.9 MG/DL (2.3-4.7)
[2021-10-04 04:44] LABS: MAGNESIUM 1.7 MG/DL (1.6-2.4)
[2021-10-04] MEDS: meTOproloL SUCCINATE 50 MG (TOPROL XL) TAB PO SCH (08:00)
[2021-10-04] MEDS: RIVAROXABAN 20 MG TABLET (XARELTO) PO SCH (08:00)
[2021-10-04] MEDS: ACETAMINOPHEN 325 MG TABLET PO PRN (08:00)
[2021-10-04] MEDS: AMIODARONE 200 MG (CORDARONE) TAB PO SCH ×2 (08:00→19:45)
[2021-10-04] MEDS: PIPERACILLIN SODIUM/TAZOBACTAM 4.5 GM in NS (IVPB) 100 ML IV SCH ×2 (08:00→15:26)
[2021-10-04] MEDS: NICOTINE PATCH REMOVAL TP SCH (08:01)
[2021-10-04] MEDS: NICOTINE 7 MG (NICODERM) PATCH TD SCH (08:01)
--- NOTE | 2021-10-04 08:37 | Progress Note ---
Standard Progress Note Progress Notes/Assess & Plan Date Seen by a Provider: Oct 04, 2021 Time Seen by a Provider: 08:30 Progress/Assessment & Plan PE: chest-scattered wheezes and rhonchi bilat, decrease BS right heart-regular, no murmurs. heent-no scleral icterus, cervical lymphadenopathy. extr-no LE edema, neg homans abd-soft, NT/ND DAVID VERAS MD Oct 04, 2021 08:37
[2021-10-04] MEDS ORDERED: FUROSEMIDE 40 MG/4 ML INJ (LASIX) IVP ONE (11:15)
--- NOTE | 2021-10-04 11:19 | Cardiology Progress Note ---
Progress Note-Cardiology Events since last exam Date Seen by Provider: Oct 04, 2021 Time Seen by Provider: 11:14 Events since last exam We are following him due to atrial fibrillation and heart failure. He feels much better today. He was sitting up in a chair in the intensive care unit eating some breakfast. His breathing has improved but he might not be quite back to baseline. He denies chest pain, palpitations, or syncope. Has mild ankle edema. Certain portions of this document may have been dictated utilizing voice recognition technology. Inherent to this technology, typographical and grammatical errors may exist. As much as I am diligent to identify and correct these mistakes, some errors may remain in the document. Vitals Last set of Vitals Signs Vital Signs 10/04/21 10/04/21 07:20 08:48 Temp 37.4 Pulse 109 Resp 37 B/P (MAP) 108/73 (85) Pulse Ox 99 O2 Delivery Nasal Cannula O2 Flow Rate 4.00 Labs Labs Laboratory Tests 10/04/21 03:30 Exam Vital Signs Vital Signs Date Time Temp Pulse Resp B/P (MAP) Pulse Ox O2 Delivery O2 Flow Rate FiO2 10/04/21 08:48 99 Nasal Cannula 4.00 10/04/21 07:20 37.4 109 37 108/73 (85) Physical Exam General: Alert. No acute distress. Eye: No xanthelasma. HENT: Normocephalic. Neck: Jugular venous pressure does not appear elevated. Respiratory: Lungs are clear to auscultation. Respirations are non-labored. Breath sounds are equal. Symmetrical chest wall expansion. Cardiovascular: Normal rate. Regular rhythm. Distant S1/S2. No murmur. No gallop. 1+ bilateral pretibial edema. Gastrointestinal: Soft. Normal bowel sounds. Skin: Warm. Dry. Neurologic: Alert and oriented to person, place, time. Cranial nerves 3-11 grossly intact. Psychiatric: Cooperative. Appropriate mood & affect. Labs Laboratory Tests Test 10/04/21 03:30 Range/Units White Blood Count 11.8 H 4.3-11.0 10^3/uL Red Blood Count 2.71 L 4.30-5.52 10^6/uL Hemoglobin 8.5 L 13.3-17.7 g/dL Hematocrit 27 L 40-54 % Mean Corpuscular Volume 98 80-99 fL Mean Corpuscular Hemoglobin 31 25-34 pg Mean Corpuscular Hemoglobin Concent 32 32-36 g/dL Red Cell Distribution Width 14.8 H 10.0-14.5 % Platelet Count 273 130-400 10^3/uL Mean Platelet Volume 9.4 9.0-12.2 fL Immature Granulocyte % (Auto) 1 % Neutrophils (%) (Auto) 82 H 42-75 % Lymphocytes (%) (Auto) 7 L 12-44 % Monocytes (%) (Auto) 10 0-12 % Eosinophils (%) (Auto) 0 0-10 % Basophils (%) (Auto) 0 0-10 % Neutrophils # (Auto) 9.7 H 1.8-7.8 10^3/uL Lymphocytes # (Auto) 0.9 L 1.0-4.0 10^3/uL Monocytes # (Auto) 1.2 H 0.0-1.0 10^3/uL Eosinophils # (Auto) 0.0 0.0-0.3 10^3/uL Basophils # (Auto) 0.0 0.0-0.1 10^3/uL Immature Granulocyte # (Auto) 0.1 0.0-0.1 10^3/uL Sodium Level 138 135-145 MMOL/L Potassium Level 4.6 3.6-5.0 MMOL/L Chloride Level 102 98-107 MMOL/L Carbon Dioxide Level 25 21-32 MMOL/L Anion Gap 11 5-14 MMOL/L Blood Urea Nitrogen 8 7-18 MG/DL Creatinine 0.62 0.60-1.30 MG/DL Estimat Glomerular Filtration Rate 104 BUN/Creatinine Ratio 13 Glucose Level 84 70-105 MG/DL Calcium Level 8.9 8.5-10.1 MG/DL Corrected Calcium 9.7 8.5-10.1 MG/DL Phosphorus Level 3.9 2.3-4.7 MG/DL Magnesium Level 1.7 1.6-2.4 MG/DL Total Bilirubin 0.7 0.1-1.0 MG/DL Aspartate Amino Transf (AST/SGOT) 9 5-34 U/L Alanine Aminotransferase (ALT/SGPT) 12 0-55 U/L Alkaline Phosphatase 131 40-136 U/L Lactate Dehydrogenase 501 H 125-220 U/L Total Protein 5.4 L 6.4-8.2 GM/DL Albumin 3.0 L 3.2-4.5 GM/DL Diagnosis/Problems Diagnosis/Problems (1) Persistent atrial fibrillation Assessment & Plan: He remains in sinus rhythm following cardioversion on 10/02. We will continue oral amiodarone and plan to taper following discharge. He is on rivaroxaban for stroke prophylaxis. We will need to watch his hemoglobin closely. We had been giving him digoxin for rate control but now that he is in sinus rhythm, he should not need digoxin. I discontinued this. (2) Acute HFrEF (heart failure with reduced ejection fraction) Assessment & Plan: He had an echocardiogram earlier in the year that showed severe left ventricular systolic dysfunction. He was on metoprolol succinate but appears this was discontinued due to some low blood pressure. He is not currently a candidate for MONICA inhibitor, ARB, aldosterone antagonist or Entresto due to low blood pressures. His ejection fraction did improve following his cardioversion. I will give him 1 dose of IV furosemide today. (3) Troponin level elevated Assessment & Plan: He probably suffered a small type II non-ST elevation myocardial infarction due to heart failure and possibly the atrial fibrillation with a rapid ventricular rate. There is no indication for an ischemic evaluation in light of his metastatic carcinoma. He is not on aspirin because he is on rivaroxaban for stroke prophylaxis due to atrial fibrillation. Continue beta-wagner as blood pressure will allow. (4) Cardiomyopathy Assessment & Plan: As above, earlier in the year he had severe left ventricular systolic dysfunction but following his cardioversion his ejection fraction had returned to normal as noted in the report of the transesophageal echocardiogram done on 10/02. If his blood pressure remains normal, we could consider restarting a low-dose of metoprolol succinate. (5) Primary hypertension Assessment & Plan: He is on metoprolol succinate and his blood pressures are actually running low at times. We may need to lower the dose of metoprolol. (6) Mixed hyperlipidemia Assessment & Plan: By report he was taking atorvastatin at home although I do not see this in his home medication list. Nonetheless, he does have some abnormal liver function studies. I recommend we hold off on giving him statin medication due to the abnormal liver function tests. KARLOS GUERRERO JR, MD Oct 04, 2021 11:19
--- NOTE | 2021-10-04 11:40 | Diagnostic Imaging Report ---
INDICATION: Shortness of breath. COMPARISON is made with prior exam of 10/03/2021. FINDINGS: There is cardiomegaly. There is mild venous congestion. There are patchy bibasilar infiltrates. There is a small right pleural effusion. There is no pneumothorax. The mediastinum is unremarkable. The right upper extremity PICC line has its tip in the superior vena cava. IMPRESSION: Patchy bibasilar infiltrates with a right pleural effusion. Cardiomegaly and central pulmonary venous congestion. Dictated by: Dictated on workstation # [id number]
[2021-10-04] MEDS: FLUTICASONE NASAL SPRAY (FLONASE) 16 GM BTL NS SCH ×2 (16:12→19:45)
--- NOTE | 2021-10-04 17:53 | Progress Note - Hospitalist ---
Subjective HPI/CC On Admission Date Seen by Provider: Oct 04, 2021 Time Seen by Provider: 11:20 Subjective/Events-last exam He is feeling much better today. He denies shortness of breath. He has had a cough. He is sitting in his chair. He has some right sided rib/back pain. Objective Exam Vital Signs Vital Signs Date Time Temp Pulse Resp B/P (MAP) Pulse Ox O2 Delivery O2 Flow Rate FiO2 10/04/21 15:57 36.4 99 29 101/74 (83) 100 10/04/21 11:26 Nasal Cannula 4.00 Capillary Refill : Less Than 3 Seconds General Appearance: No Apparent Distress, WD/WN Respiratory: No Respiratory Distress, Decreased Breath Sounds, Other (right side rib/back tenderness to palpation) Cardiovascular: Regular Rate, Rhythm, No Murmur Gastrointestinal: Normal Bowel Sounds, Non Tender, Soft Extremity: Normal Inspection, Pedal Edema Neurologic/Psychiatric: Alert, Normal Mood/Affect Skin: Normal Color, Warm/Dry Results/Procedures Lab Laboratory Tests 10/04/21 03:30 Patient resulted labs reviewed. Assessment/Plan Assessment and Plan Assess & Plan/Chief Complaint NSTEMI AFib with RVR Cardiology following s/p MOON cardioversion Continue amiodarone, metoprolol, xarelto Metastatic renal cancer Follows at [facility] Social work assisting Pneumonia Pleural effusion Acute on chronic respiratory failure with hypoxia Chest xray with right sided effusion possibly loculated, infiltrates Zosyn Surgery consulted, no intervention at this time Lasix Supplemental oxygen as needed, stable at 4 L Delirium Anxiety Off Precedex Ativan Anemia Hgb stable, slightly improved Monitor Pulmonary HTN HTN HLD AAA Diagnosis/Problems Diagnosis/Problems (1) NSTEMI (non-ST elevation myocardial infarction) Status: Acute (2) Atrial fibrillation with rapid ventricular response Status: Acute (3) Kidney cancer, primary, with metastasis from kidney to other site Status: Acute (4) Delirium Status: Acute (5) Anxiety Status: Acute (6) Anemia Status: Acute (7) Acute on chronic respiratory failure with hypoxia Status: Acute (8) PNA (pneumonia) Status: Acute (9) Pleural effusion Status: Acute MAIK HILTON MD Oct 04, 2021 17:53
[2021-10-05] MEDS: PIPERACILLIN SODIUM/TAZOBACTAM 4.5 GM in NS (IVPB) 100 ML IV SCH ×3 (00:13→16:27)
[2021-10-05 03:52] LABS: BASOPHILS % (AUTO) 0 % (0-10); EOSINOPHILS # (AUTO) 0.1 10^3/uL (0.0-0.3); EOSINOPHILS % (AUTO) 1 % (0-10); HEMATOCRIT 26 % (40-54); HEMOGLOBIN 8.3 g/dL (13.3-17.7); LYMPHOCYTES # (AUTO) 0.9 10^3/uL (1.0-4.0); LYMPHOCYTES % (AUTO) 11 % (12-44); MEAN CORPUSCULAR HEMOGLOBIN 31 pg (25-34); MEAN CORPUSCULAR HGB CONC 32 g/dL (32-36); MEAN CORPUSCULAR VOLUME 98 fL (80-99); MEAN PLATELET VOLUME 9.5 fL (9.0-12.2); MONOCYTES # (AUTO) 0.9 10^3/uL (0.0-1.0); MONOCYTES % (AUTO) 11 % (0-12); NEUTROPHILS # (AUTO) 6.4 10^3/uL (1.8-7.8); NEUTROPHILS % (AUTO) 77 % (42-75); PLATELET COUNT 244 10^3/uL (130-400); WHITE BLOOD COUNT 8.3 10^3/uL (4.3-11.0)
[2021-10-05 04:00] VITALS: BP 133/79
[2021-10-05 04:08] LABS: ALBUMIN 2.7 GM/DL (3.2-4.5); POTASSIUM 3.5 MMOL/L (3.6-5.0)
[2021-10-05 04:09] LABS: CALCIUM 8.5 MG/DL (8.5-10.1)
[2021-10-05 04:11] LABS: TOTAL PROTEIN 5.1 GM/DL (6.4-8.2)
[2021-10-05 04:12] LABS: BILIRUBIN,TOTAL 0.6 MG/DL (0.1-1.0)
[2021-10-05 04:14] LABS: CREATININE SERUM 0.66 MG/DL (0.60-1.30); PHOSPHORUS 3.9 MG/DL (2.3-4.7)
[2021-10-05 04:17] LABS: MAGNESIUM 1.7 MG/DL (1.6-2.4)
[2021-10-05 07:00] VITALS: BP 142/91
--- NOTE | 2021-10-05 07:48 | Tele-ICU Progress Note ---
Subjective Date Seen by a Provider: Oct 05, 2021 Time Seen by a Provider: 07:44 Subjective/Events-last exam Has had MOON cardioversion, remains on -2-0-0- -m-g- -p-o- -k-a-o-i-s-f-r-o-n-e-,- -t-d-p-c-b-o-o-l-o-l-,- -I-h-f-e-l-t-o- -P-a-i-n- -q-x-l-t-r-o-l- -i-s- -a-z-v-t-e-r- -b-o--n-e- -s-c-a-n- -s-h-o-w- -s-n-w-f-u-s-e- -q-u-m-y-t-v-a-s-i-s- -C-B-C-,- -B-M-P- -o-k-,- -C-X-R- -f-r-o-m- -b-u-r-e-f-u-d-a-y- -n-o- -v-s-m-n-g-e- -P-t- -i-s- -D-N-R- Sepsis Event Evaluation Height, Weight, BMI Height: 5'11.00" Weight: 270lbs. 0.0oz. [id number]; 27.23 BMI Method: Exam Exam Patient acknowledged, consented, and participated in this virtual visit which was conducted using real time audio/video Vital Signs Date Time Temp Pulse Resp B/P (MAP) Pulse Ox O2 Delivery O2 Flow Rate FiO2 10/05/21 04:00 36.3 97 24 133/79 (97) 97 Nasal Cannula 4.00 10/04/21 23:33 36.4 104 24 127/84 (98) 97 Nasal Cannula 4.00 10/04/21 20:33 99 Nasal Cannula 4.00 10/04/21 20:00 36.0 97 26 113/69 (84) 97 10/04/21 15:57 36.4 99 29 101/74 (83) 100 10/04/21 12:40 105 8/7/22 12:00 37.0 10/04/21 11:26 37.0 103 32 128/86 (100) 99 Nasal Cannula 4.00 10/04/21 08:48 99 Nasal Cannula 4.00 10/04/21 08:12 99 Nasal Cannula 4.00 I & O 10/05/21 06:59 Intake Total 2220 ml Output Total 3125 ml Balance -905 ml Height & Weight Height: 5'11.00" Weight: 270lbs. 0.0oz. [id number]; 27.23 BMI Method: General Appearance: No Apparent Distress, WD/WN HEENT: PERRL/EOMI Neck: Supple Respiratory: No Respiratory Distress, Decreased Breath Sounds, Other (right side rib/back tenderness to palpation) Cardiovascular: Regular Rate, Rhythm, No Murmur Capillary Refill: Less Than 3 Seconds Gastrointestinal: normal bowel sounds, non tender, soft Extremity: Normal Inspection, Pedal Edema Neurologic/Psychiatric: Alert, Normal Mood/Affect Skin: Normal Color, Warm/Dry Results Lab Laboratory Tests 10/04/21 03:30 10/05/21 03:00 Assessment/Plan Assessment/Plan metastatic renal cell Ca, to continue care at [facility] A fib, rate is controlled, on 4 lpm NC with good SpO2 to go to medical floor Critical Care: Critically Ill Patient Time spent with patient (mins): 20 MARIANA EAST MD Oct 05, 2021 07:48
[2021-10-05] MEDS: RIVAROXABAN 20 MG TABLET (XARELTO) PO SCH (08:30)
[2021-10-05] MEDS: meTOproloL SUCCINATE 50 MG (TOPROL XL) TAB PO SCH (08:30)
[2021-10-05] MEDS: AMIODARONE 200 MG (CORDARONE) TAB PO SCH ×2 (08:31→19:45)
[2021-10-05] MEDS: NICOTINE 7 MG (NICODERM) PATCH TD SCH (08:31)
[2021-10-05] MEDS: NICOTINE PATCH REMOVAL TP SCH (08:32)
[2021-10-05] MEDS: FLUTICASONE NASAL SPRAY (FLONASE) 16 GM BTL NS SCH ×2 (08:33→19:45)
--- NOTE | 2021-10-05 08:33 | Progress Note ---
Subjective Subjective Date Seen by Provider: Oct 06, 2021 Time Seen by Provider: 09:20 Patient is being seen in follow up for AMS, atrial fibrillation, metastatic kidney disease Patient sitting upright in his bed resting comfortably this morning. Is going to be transferred to fourth floor soon. Patient feels he is doing good. A+Ox3. Feels that his shortness of breath is doing better. Has right lumbar paraspinal and hip pain that is really bothering him. Feels that his anxiety has improved. Patient would like to hear back from [facility] because he wants to start treatment as soon as possible, or at least have a talk with them about prognosis. Patient has been able to drink more ensure shakes. Minoo is present and state that patient has family here and they would all like to talk with Dr. Manning. Over the weekend, patient was found kneeling at bedside, believed to have fallen. Patient states he does not relate his hip/back pain to this episode, but that it started to hurt afterwards. Patient was started on Zosyn yesterday, 2/ suspicious CXR + Leukocytosis. Patient states his SOB was bad prior to starting tx, but now he feels quite a bit better. Review of Systems General: No Chills, No Night Sweats HEENT: No Head Aches, No Visual Changes Pulmonary: No Dyspnea, No Cough Cardiovascular: No: Chest Pain, Palpitations Gastrointestinal: No: Nausea, Vomiting, Abdominal Pain, Diarrhea, Constipation Genitourinary: No Dysuria, No Frequency Musculoskeletal: back pain (see text ) Neurological: No: Change in speech, Confusion All Other Systems Reviewed All Other Systems Reviewed: No Objective Exam Vital Signs Vital Signs Date Time Temp Pulse Resp B/P (MAP) Pulse Ox O2 Delivery O2 Flow Rate FiO2 10/05/21 07:00 101 142/91 (108) Nasal Cannula 4.00 10/05/21 04:00 36.3 97 24 133/79 (97) 97 Nasal Cannula 4.00 10/04/21 23:33 36.4 104 24 127/84 (98) 97 Nasal Cannula 4.00 10/04/21 20:33 99 Nasal Cannula 4.00 10/04/21 20:00 36.0 97 26 113/69 (84) 97 10/04/21 15:57 36.4 99 29 101/74 (83) 100 10/04/21 12:40 105 8/7/22 12:00 37.0 10/04/21 11:26 37.0 103 32 128/86 (100) 99 Nasal Cannula 4.00 10/04/21 08:48 99 Nasal Cannula 4.00 I & O 10/05/21 07:00 Intake Total 2220 ml Output Total 3125 ml Balance -905 ml General Appearance: No Apparent Distress, WD/WN, Chronically ill Eyes: Bilateral Eye Normal Inspection, Bilateral Eye PERRL, Bilateral Eye EOMI HEENT: PERRL/EOMI Neck: Supple Respiratory: Lungs Clear, No Accessory Muscle Use, No Respiratory Distress, Decreased Breath Sounds (Bilateral lower lobes), Other (right side rib/back tenderness to palpation) Cardiovascular: Regular Rate, Rhythm, No Murmur, Normal Peripheral Pulses Gastrointestinal: Normal Bowel Sounds, Non Tender, Soft Rectal: Deferred Extremity: Normal Inspection, Pedal Edema (mild pedal edema bilaterally; pt states improvement since yesterday ) Neurologic/Psychiatric: Alert, Oriented x3 (AOx3 at this time), Normal Mood/Affect Skin: Normal Color, Warm/Dry Results Lab Laboratory Tests 10/05/21 03:00: White Blood Count 8.3, Red Blood Count 2.66L, Hemoglobin 8.3L, Hematocrit 26L, Mean Corpuscular Volume 98, Mean Corpuscular Hemoglobin 31, Mean Corpuscular Hemoglobin Concent 32, Red Cell Distribution Width 15.0H, Platelet Count 244, Mean Platelet Volume 9.5, Immature Granulocyte % (Auto) 1, Neutrophils (%) (Auto) 77H, Lymphocytes (%) (Auto) 11L, Monocytes (%) (Auto) 11, Eosinophils (%) (Auto) 1, Basophils (%) (Auto) 0, Neutrophils # (Auto) 6.4, Lymphocytes # (Auto) 0.9L, Monocytes # (Auto) 0.9, Eosinophils # (Auto) 0.1, Basophils # (Auto) 0.0, Immature Granulocyte # (Auto) 0.0, Sodium Level 141, Potassium Level 3.5L, Chloride Level 100, Carbon Dioxide Level 28, Anion Gap 13, Blood Urea Nitrogen 14, Creatinine 0.66, Estimat Glomerular Filtration Rate 102, BUN/Creatinine Ratio 21, Glucose Level 92, Calcium Level 8.5, Corrected Calcium 9.5, Phosphorus Level 3.9, Magnesium Level 1.7, Total Bilirubin 0.6, Aspartate Amino Transf (AST/SGOT) 6, Alanine Aminotransferase (ALT/SGPT) 9, Alkaline Phosphatase 101, Total Protein 5.1L, Albumin 2.7L Microbiology 09/30/21 C. difficile GDH Antigen & Toxins - Final, Complete 09/29/21 MRSA Screen - Final, Complete MRSA not isolated Assessment/Plan Assessment/Plan Admission Dx Assessment and Plan Type 2 NSTEMI Atrial Fibrillation Sinus Tachycardia * Patient underwent MOON with cardioversion tuesday, has stayed in sinus rhythm since. * Managed by cardiology team Pneumonia Pulmonary Effusion Pulmonary Hypertension * Patient seems to have responded well to lasix * Zosyn TID, bag 4 of 14 * 4L O2 NC * Continue to monitor Metastatic Renal Cancer * [facility]ing [facility] * Imaging done last week consistent with bone mets * Spoke with family today, they would like to get Mikhail treated as soon as possible. Family requested a referral to Dr. Alcaraz to see if tx possible here. * Dr. Alcaraz called, accepts consult and is going to come see pt. * Dr. Sauceda, Oncology, has been updated and will receive imaging via the cloud * social services counselor is working on placement upon discharge, may consider swing bed if patient is able to do treatment here Acute Delirium Anxiety * Patient feels anxiety is improved. * Patient currently still having undulating mental status changes. * Will start PO Lorazepam 0.25mg q8 PRN anxiety * Continue reorientation and reassurance Anemia, undetermined origin * Heme-occult negative * Iron panel consistent with anemia of chronic disease * Hemoglobin has been stable s/p transfusion Hypertension * Patient taking rate-control anti-hypertensives due to A-fib. * Continue to monitor Hyperlipidemia * Holding currently Abdominal Aortic Aneurysm * 3.7 x 4.0cm AAA noted on imaging yesterday * No further management necessary at this time Admission Dx Clinical Quality Measures Admission Status Admission Dx Supervisory-Addendum Brief Verification & Attestation Participated in pt care: history, MDM, physical Personally performed: exam, history, MDM, supervision of care Care discussed with: Medical Student Procedures: n/a Results interpretation: Verified all documentation AGREE WITH STUDENT NOTE DOCUMENTED FAMILY MEETING WITH PT'S , SON, BROTHER AND [id number]. PTS SON STATES THAT THEY ARE READY FOR MIKHAIL TO RECEIVE CHEMO OR IMMUNOTHERAPY, MATTHEW. THEY ARE FRUSTRATED BY THE AMOUNT OF TIME THAT HAS LAPSED AND HE STILL HAS NOT HAD ANY SPECIFIC CANCER TREATMENTS RENDERED. THEY UNDERSTAND THAT HE HAS HAD MULTIPLE HEALTH ISSUES WHICH HAVE SLOWED THE PROCESS, BUT DON'T UNDERSTAND WHY LITTLE THINGS HAVE NOT BEEN DONE BETWEEN THE HEALTH CRISIS/PROBLEMS. THEY ARE AGREEABLE TO A CONSULTATION WITH DR. ZIMMERMAN IN THE HOSPITAL SO THAT WE CAN INITIATE THERAPY MATTHEW. WE WILL EXPLORE OUR OPTIONS WITH EITHER SWING BED OR [facility] FOR PT TO GO AND RECEIVE HIS STRENGTHENING EXERCISES AND CHEMO/IMMUNOTHERAPY OUTPATIENT. CASE WAS DISCUSSED WITH DR. ZIMMERMAN WHO WILL SEE PT IN THE HOSPITAL. FAMILY WAS HAPPY WITH THIS PLAN. MEGGAN LAZARO Oct 05, 2021 08:33 ANNALISA MANNING MD Oct 06, 2021 09:25
--- NOTE | 2021-10-05 09:12 | Cardiology Progress Note ---
Subjective Date Seen by Provider: Oct 05, 2021 Time Seen by Provider: 09:10 Subjective/Events-last exam Patient was seen at bedside, sitting comfortably Breathing better and feeling better. Review of Systems General: No Chills, No Night Sweats; Fatigue; No Malaise, No Appetite, No Other HEENT: No Head Aches, No Visual Changes, No Eye Pain, No Ear Pain, No Dysphasia, No Sinus Congestion, No Post Nasal Drip, No Sore Throat, No Other Pulmonary: No Dyspnea, No Cough, No Pleuritic Chest Pain, No Other Cardiovascular: No: Chest Pain, Palpitations, Orthopnea, Paroxysmal Noc. Dyspnea, Edema, Lt Headedness, Other Objective-Cardiology Exam Last Set of Vital Signs Vital Signs 10/05/21 10/05/21 04:00 07:00 Temp 36.3 Pulse 101 Resp 24 B/P (MAP) 142/91 (108) Pulse Ox 97 O2 Delivery Nasal Cannula O2 Flow Rate 4.00 I&O Intake and Output 10/04/21 23:59 Intake Total 2090 ml Output Total 3250 ml Balance -1160 ml Intake Oral 1990 ml IV Total 100 ml Output Urine Total 3250 ml General: Alert, Oriented X3, Cooperative HEENT: Atraumatic, PERRLA Neck: Supple, No JVD, No Thyromegaly Lungs: Clear to Auscultation, Normal Air Movement Heart: Regular Rate, Normal S1, Normal S2, No Murmurs Abdomen: Normal Bowel Sounds, Soft, No Tenderness, No Hepatosplenomegaly, No Masses Extremities: No Clubbing, No Cyanosis, No Edema, Normal Pulses, No Tenderness/Swelling Skin: No Rashes, No Breakdown, No Significant Lesion Neuro: Normal Gait, Normal Speech, Strength at 5/5 X4 Ext, Normal Tone, Sensation Intact Psych/Mental Status: Mental Status NL, Mood NL Results Lab Laboratory Tests 10/05/21 03:00 A/P-Cardiology Admission Diagnosis Acute change in mental status Atrial fibrillation Metastatic renal cell carcinoma Hyperlipidemia Assessment/Plan Status post acute change in mental status, Returned to baseline at this time. Feeling better. CT of the head was negative, MRI was nondiagnostic ABG showed good oxygenation. Electrolytes were corrected. Work-up has been negative. Managed by medical team Paroxysmal atrial fibrillation MOON was done in June 2021 showing echogenic density in the left atrial appendage suggestive of a thrombus Family reported that he underwent cardioversion while he was at . Apparently he is back in atrial fibrillation with rapid ventricular response Rate controlled was elected, maintained on beta-blockers and calcium channel blockers and oral anticoagulation. Started back on Xarelto on September 30, 2021 Patient was transferred back to ICU on October 02, 2021 for atrial fibrillation with ventricular response. MOON with electrical cardioversion was done on October 02, 2021, received amiodarone bolus and a drip Currently on oral amiodarone. Continue to monitor Metastatic renal cell carcinoma, stage IV, managed at . Generalized fatigue, shortness of breath, loss of energy, oxygen dependent. Currently in atrial fibrillation. 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 2D echo done on July 08, 2021 showing dilated left ventricle with left ventricular hypertrophy and ejection fraction 20 to 25%, dilated right ventricle and biatrial enlargement, PA pressure 35 to 40 mmHg. During the MOON on July 09, 2021, his ejection fraction appeared to be better after his heart rate improved slightly. COPD, oxygen dependent, currently oxygenation is well. Hypertension, has been borderline hypotensive. Continue to monitor blood pressure Hyperlipidemia, maintained on Lipitor 20 mg daily, continue to monitor Mild bilateral carotid stenosis, ultrasound was done on July 07, 2021 Obesity, BMI is 27, concern about loss of appetite. Significant weight loss over the past 3 months LAURA MACE MD Oct 05, 2021 09:12
[2021-10-05 09:15] VITALS: BP 133/75
[2021-10-05 11:51] VITALS: BP 126/71
[2021-10-05 15:26] VITALS: BP 134/78
--- NOTE | 2021-10-05 15:39 | Progress Note ---
Subjective Date Seen by a Provider: Oct 05, 2021 Time Seen by a Provider: 15:00 Subjective/Events-last exam doing better today. no SOB. able to eat and drink. does complain of back pain however likely due to tumor. Objective Exam Vital Signs Date Time Temp Pulse Resp B/P (MAP) Pulse Ox O2 Delivery O2 Flow Rate FiO2 10/05/21 15:26 36.4 86 20 134/78 (96) 99 Nasal Cannula 4.00 10/05/21 12:00 89 10/05/21 11:51 36.4 95 22 126/71 (89) 99 Nasal Cannula 4.00 10/05/21 09:21 92 10/05/21 09:15 99 Nasal Cannula 4.00 10/05/21 09:15 36.6 101 24 133/75 (94) 97 Nasal Cannula 4.00 10/05/21 07:00 101 142/91 (108) Nasal Cannula 4.00 10/05/21 04:00 36.3 97 24 133/79 (97) 97 Nasal Cannula 4.00 10/04/21 23:33 36.4 104 24 127/84 (98) 97 Nasal Cannula 4.00 10/04/21 20:33 99 Nasal Cannula 4.00 10/04/21 20:00 36.0 97 26 113/69 (84) 97 10/04/21 15:57 36.4 99 29 101/74 (83) 100 I & O 10/05/21 07:00 Intake Total 2220 ml Output Total 3125 ml Balance -905 ml Capillary Refill : Less Than 3 Seconds General Appearance: No Apparent Distress HEENT: PERRL/EOMI Neck: Full Range of Motion Respiratory: Chest Non Tender, Lungs Clear, Decreased Breath Sounds Cardiovascular: Regular Rate, Rhythm Gastrointestinal: normal bowel sounds, non tender, soft Extremity: Normal Capillary Refill Neurologic/Psychiatric: Alert Skin: Normal Color Lymphatic: No Adenopathy Results Lab Laboratory Tests 10/05/21 03:00: White Blood Count 8.3, Red Blood Count 2.66L, Hemoglobin 8.3L, Hematocrit 26L, Mean Corpuscular Volume 98, Mean Corpuscular Hemoglobin 31, Mean Corpuscular Hemoglobin Concent 32, Red Cell Distribution Width 15.0H, Platelet Count 244, Mean Platelet Volume 9.5, Immature Granulocyte % (Auto) 1, Neutrophils (%) (Auto) 77H, Lymphocytes (%) (Auto) 11L, Monocytes (%) (Auto) 11, Eosinophils (%) (Auto) 1, Basophils (%) (Auto) 0, Neutrophils # (Auto) 6.4, Lymphocytes # (Auto) 0.9L, Monocytes # (Auto) 0.9, Eosinophils # (Auto) 0.1, Basophils # (Auto) 0.0, Immature Granulocyte # (Auto) 0.0, Sodium Level 141, Potassium Level 3.5L, Chloride Level 100, Carbon Dioxide Level 28, Anion Gap 13, Blood Urea Nitrogen 14, Creatinine 0.66, Estimat Glomerular Filtration Rate 102, BUN/Creatinine Ratio 21, Glucose Level 92, Calcium Level 8.5, Corrected Calcium 9.5, Phosphorus Level 3.9, Magnesium Level 1.7, Total Bilirubin 0.6, Aspartate Amino Transf (AST/SGOT) 6, Alanine Aminotransferase (ALT/SGPT) 9, Alkaline Phosphatase 101, Total Protein 5.1L, Albumin 2.7L Microbiology 09/30/21 C. difficile GDH Antigen & Toxins - Final, Complete 09/29/21 MRSA Screen - Final, Complete MRSA not isolated Assessment/Plan Assessment/Plan Assess & Plan/Chief Complaint a-fib with rvr, COPD, metastatic left renal cell ca. cont pulm support. cont IS, sitting upright and ambulation. DAVID VERAS MD Oct 05, 2021 15:39
[2021-10-05 19:19] VITALS: BP 140/78
--- NOTE | 2021-10-05 19:37 | Progress Note-Pre Operative ---
Pre-Operative Progress Note Date of Available H&P: Oct 05, 2021 Date H&P Reviewed: Oct 05, 2021 Time H&P Reviewed: 19:45 History & Physical: No changes noted Pre-Operative Diagnosis: metastatic left renal cell cancer DAVID VERAS MD Oct 05, 2021 19:37
--- NOTE | 2021-10-05 20:54 | CONSULTATION REPORT ---
DATE OF SERVICE: The patient is admitted to room 411. PHYSICIAN REQUESTING CONSULTATION: Francia Manning MD IMPRESSION: 1. A 70-year-old male admitted to the hospital with mental status changes. 2. Metastatic left renal cell cancer to lungs and bone. 3. Atrial fibrillation, status post cardioversion and continue on anticoagulation. 4. Hypertension and hypertensive cardiomyopathy. 5. Chronic obstructive pulmonary disease with previous recurrent infections. 6. Pain related to metastatic cancer. RECOMMENDATIONS: 1. I reviewed the diagnosis of metastatic renal cell cancer with the patient and his and answered their questions. With regards to treatment options, the frontline treatment is immunotherapy using ipilimumab/nivolumab regimen. 2. The patient was seen by Dr. Braga at [facility] previously and completed the workup. I have discussed the case with Dr. Braga today and his recommendation was to proceed with immunotherapy locally. 3. The patient has poor venous access and will benefit from a port placement for administration of immunotherapy. 4. With regards to his atrial fibrillation, the patient has completed cardioversion x2 within the past two weeks and is currently in sinus rhythm. Continue followup with cardiology. 5. With numerous other comorbidities including cardiomyopathy and severe COPD, the patient is at high risk for complications from treatment. He and his understand this and want to proceed with treatment. 6. We will make arrangements to obtain prior authorization from his insurance for administration of immunotherapy as soon as possible. 7. Once stable from medical standpoint, discharge the patient to an assisted care facility as his is unable to care for him at home. 8. We will follow the patient with you. BRIEF HISTORY: The patient is a 70-year-old male with recent diagnosis of left kidney cancer with metastasis to lungs and bone. He was seen by Dr. Braga at [facility] in June after he was diagnosed with large left renal mass with bony metastasis and lung lesions. He completed biopsy of the lung lesion, which confirmed the diagnosis of metastatic renal cell cancer. With significant comorbidities, was undergoing workup as well as treatment for atrial fibrillation with possible left atrial thrombus. He was on anticoagulation and recently had a repeat echocardiogram followed by cardioversion. The patient is in sinus rhythm now. He was admitted to the hospital with mental status changes, probably related to pain medication use as well as benzodiazepines. He has improved now. Medical oncology consultation was requested locally for initiation of treatment. PAST MEDICAL HISTORY: Significant for COPD with history of recurrent infections and empyema requiring chest tube placement and VATS. He had infection with Strep viridans in 2010. He has history of hypertension and hypercholesterolemia. Recently diagnosed with atrial fibrillation with rapid ventricular response and probable left atrial thrombus. He was started on anticoagulation several weeks ago. He underwent repeat echocardiogram with no evidence of thrombus and completed cardioversion. He is in sinus rhythm now. He was found to have hypertensive cardiomyopathy with a significant reduction in ejection fraction. He is on medical management for this. He has pulmonary hypertension. He is oxygen dependent because of COPD. PAST SURGICAL HISTORY: VATS assisted drainage of empyema in 2010, bronchoscopy with biopsies of lung lesion. SOCIAL HISTORY: The patient is and lives in [place], [place] with his . He has four children, three sons and a daughter. His daughter lives in [place], [place]. One son lives in [facility], another son in [place], [place] and the last son in [place], [place]. 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 He has more than 100-pack year history of tobacco use, smoking two to two and a half packs a day for 50 plus years. He quit smoking two weeks ago prior to the admission to the hospital. FAMILY HISTORY: Only significant with his daughter who was diagnosed with a liver lesion in her 40s and had this resected. The patient is unsure of the pathology. His father may have had a malignancy, but he does not know the details. Rest of the family history is unremarkable. REVIEW OF SYSTEMS: Significant for dyspnea on exertion and fatigue. Complained of pain in his back and hip area and has been taking medications for this regularly. He has tendency for constipation due to pain medications and uses stool softeners and laxatives as needed. History of palpitation with atrial fibrillation and RVR. This has been under control for the past one to two weeks. He denied any hemoptysis. Appetite is fair and weight has been decreasing gradually. No obvious hematochezia or melena. He has history of osteoarthritis and had been evaluated by a outpatient surgery rn to rule out rheumatological issues. PHYSICAL EXAMINATION: GENERAL: Showed an elderly male, well developed, well nourished, awake and oriented and answering questions appropriately. His was present during the interview and the examination. VITAL SIGNS: He was afebrile and vital signs stable. HEENT: Normocephalic, extraocular muscles intact, conjunctivae slightly pale, oral mucosa moist without lesions. NECK: Supple, with no JVD. No cervical, supraclavicular or axillary lymphadenopathy palpable. CHEST: Symmetrical. LUNGS: With diminished breath sounds bilaterally without wheezes or rales. CARDIOVASCULAR: Regular in rate and rhythm with borderline tachycardia. No murmurs or gallops heard. ABDOMEN: Soft, nontender with no definite hepatosplenomegaly or other masses palpable. EXTREMITIES: Showed a PICC line in the right arm medially. No edema noted. NEUROLOGIC: Showed no focal motor deficits. LABORATORY DATA: I reviewed his lab work done earlier today. CBC showed white count of 8.3, hemoglobin 8.3, MCV 98, platelet count 244,000 with neutrophil count 6.4, lymphocyte count 0.9 and monocyte count 0.9. Chemistry panel showed normal electrolytes except potassium level of 3.5. BUN was 14 and creatinine 0.66 with GFR 102 mL per minute. Measured calcium was 8.5 and corrected calcium 9.5. Liver function studies were within normal limits except albumin level of 2.7. CT scan of the chest, abdomen and pelvis done on 10/01/2021 showed 7 x 6.7 cm solid enhancing mass in the left kidney with central low attenuation. A second 1.5 cm enhancing lesion in the upper pole of left kidney. Small bilateral pleural effusion with a 1.8 x 1.5 cm nodule in the left lower lobe, which previously measured 1.4 x 1.4 cm. Few tiny 2 to 3 mm right lower lobe pulmonary nodules, which are not clearly present on the previous exam. There is a 3.7 x 4.0 cm abdominal aortic aneurysm and a fat-containing umbilical hernia. Sclerotic lesions in L4 and L5, which have increased in conspicuity. A T2 sclerotic lesion is new from previous examination. Whole body bone scan done on 10/02/2021 showed multiple abnormal foci of uptake involving bilateral ribs as well as bilateral femurs suggestive of metastatic disease. L4 vertebral body uptake corresponding to an abnormal sclerosis noted on the CT scan. Pathology report from bronchoscopy and biopsy of a left lower lobe lung mass done on 08/17/2021 showed metastatic renal cell carcinoma. Thank you for allowing me to participate in this patient's care. I will follow the patient with you and make appropriate recommendations. Job ID: [id number] DocumentID: [id number] Dictated Date: 10/05/2021 17:47:45 Shoe Reconditioner Date: 10/05/2021 20:54:19 Dictated By: MEGAN ZIMMERMAN MD MTDD
[2021-10-06] VITALS (14 sets, daily range): BP systolic 108–181; BP diastolic 59–86
[2021-10-06] MEDS: PIPERACILLIN SODIUM/TAZOBACTAM 4.5 GM in NS (IVPB) 100 ML IV SCH ×4 (00:20→23:35)
[2021-10-06 06:33] LABS: BASOPHILS % (AUTO) 0 % (0-10); EOSINOPHILS # (AUTO) 0.1 10^3/uL (0.0-0.3); EOSINOPHILS % (AUTO) 2 % (0-10); HEMATOCRIT 28 % (40-54); HEMOGLOBIN 8.8 g/dL (13.3-17.7); LYMPHOCYTES # (AUTO) 0.8 10^3/uL (1.0-4.0); LYMPHOCYTES % (AUTO) 10 % (12-44); MEAN CORPUSCULAR HEMOGLOBIN 32 pg (25-34); MEAN CORPUSCULAR HGB CONC 32 g/dL (32-36); MEAN CORPUSCULAR VOLUME 99 fL (80-99); MEAN PLATELET VOLUME 9.3 fL (9.0-12.2); MONOCYTES # (AUTO) 0.8 10^3/uL (0.0-1.0); MONOCYTES % (AUTO) 9 % (0-12); NEUTROPHILS # (AUTO) 6.5 10^3/uL (1.8-7.8); NEUTROPHILS % (AUTO) 79 % (42-75); PLATELET COUNT 231 10^3/uL (130-400); WHITE BLOOD COUNT 8.3 10^3/uL (4.3-11.0)
[2021-10-06 06:51] LABS: ALBUMIN 2.8 GM/DL (3.2-4.5); BILIRUBIN,TOTAL 0.5 MG/DL (0.1-1.0); CALCIUM 8.9 MG/DL (8.5-10.1); CREATININE SERUM 0.65 MG/DL (0.60-1.30); MAGNESIUM 1.7 MG/DL (1.6-2.4); PHOSPHORUS 4.3 MG/DL (2.3-4.7); POTASSIUM 3.6 MMOL/L (3.6-5.0); TOTAL PROTEIN 5.2 GM/DL (6.4-8.2)
[2021-10-06] MEDS: meTOproloL SUCCINATE 50 MG (TOPROL XL) TAB PO SCH (07:54)
[2021-10-06] MEDS: AMIODARONE 200 MG (CORDARONE) TAB PO SCH ×2 (07:55→20:18)
[2021-10-06] MEDS: NICOTINE PATCH REMOVAL TP SCH (08:01)
--- NOTE | 2021-10-06 08:15 | Cardiology Progress Note ---
Subjective Date Seen by Provider: Oct 06, 2021 Time Seen by Provider: 08:12 Subjective/Events-last exam Patient sitting up in bed, no new complaints. Denies any chest pain or dyspnea. Planning for port placement today. Objective-Cardiology Exam Last Set of Vital Signs Vital Signs 10/06/21 10/06/21 07:57 08:14 Temp 36.8 Pulse 88 Resp 20 B/P (MAP) 143/75 (97) Pulse Ox 97 O2 Delivery Nasal Cannula O2 Flow Rate 4.00 I&O Intake and Output 10/06/21 00:00 Intake Total 1170 ml Output Total 1100 ml Balance 70 ml Intake Oral 1170 ml Output Urine Total 1100 ml General: Alert, Oriented X3, Cooperative HEENT: Atraumatic, PERRLA Neck: Supple, No JVD, No Thyromegaly Lungs: Clear to Auscultation, Normal Air Movement Heart: Regular Rate, Normal S1, Normal S2, No Murmurs Abdomen: Normal Bowel Sounds, Soft, No Tenderness, No Hepatosplenomegaly, No Masses Extremities: No Clubbing, No Cyanosis, No Edema, Normal Pulses, No Tenderness/Swelling Skin: No Rashes, No Breakdown, No Significant Lesion Neuro: Normal Gait, Normal Speech, Strength at 5/5 X4 Ext, Normal Tone, Sensat ion Intact Psych/Mental Status: Mental Status NL, Mood NL Results Lab Laboratory Tests 10/06/21 06:20 A/P-Cardiology Admission Diagnosis Acute change in mental status Atrial fibrillation Metastatic renal cell carcinoma Hyperlipidemia Assessment/Plan Status post acute change in mental status, Returned to baseline at this time. Feeling better. CT of the head was negative, MRI was nondiagnostic ABG showed good oxygenation. Electrolytes were corrected. Work-up has been negative. Managed by medical team Paroxysmal atrial fibrillation MOON was done in June 2021 showing echogenic density in the left atrial appendage suggestive of a thrombus Family reported that he underwent cardioversion while he was at . Started back on Xarelto on September 30, 2021 Patient was transferred back to ICU on October 02, 2021 for atrial fibrillation with ventricular response. MOON with electrical cardioversion was done on October 02, 2021, received amiodarone bolus and a drip Currently on oral amiodarone, Toprol XL and in SR. Xarelto on hold d/t port placement later today. Continue to monitor Metastatic renal cell carcinoma, stage IV, managed at oncology and Dr. Obregon. Planning to begin immunotherapy. Generalized fatigue, shortness of breath, loss of energy, oxygen dependent. Reporting improvement. 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 2D echo done on July 08, 2021 showing dilated left ventricle with left ventricular hypertrophy and ejection fraction 20 to 25%, dilated right ventricle and biatrial enlargement, PA pressure 35 to 40 mmHg. During the MOON on July 09, 2021, his ejection fraction appeared to be better after his heart rate improved slightly. COPD, oxygen dependent, currently oxygenation is well. Hypertension, has been borderline hypotensive. Continue to monitor blood pressure Hyperlipidemia, maintained on Lipitor 20 mg daily, continue to monitor Mild bilateral carotid stenosis, ultrasound was done on July 07, 2021 Obesity, BMI is 27, concern about loss of appetite. Significant weight loss over the past 3 months Supervisory-Addendum Brief Supervisory Addendum Participated in pt care: history, MDM, physical Personally performed: exam, history, MDM Care discussed with: PHYLLIS Results interpretation: Verified all documentation Notes: Patient was seen and evaluated with Jade, examination performed, management plan was discussed, agree with the current scribed note, I made few changes to the note using Italic font Discussed with Dr. Manning regarding the management plan, currently off Xarelto for 48 hours Patient is at a higher risk of stroke especially after the recent cardioversion on Planning for port placement as soon as possible JADE ANGUIANO Oct 06, 2021 08:15 LAURA MACE MD Oct 06, 2021 10:10
--- NOTE | 2021-10-06 09:24 | Progress Note ---
Subjective Subjective Date Seen by Provider: Oct 06, 2021 Time Seen by Provider: 08:40 Patient is being seen in follow up for AMS, atrial fibrillation, metastatic kidney disease Patient resting comfortably in bed today. Currently NPO. Xarelto being held for three days per Surgery recommendation. Is going for port placement today. Patient can start immunotherapy once he is placed in a SNF. office services assistant is currently working on getting placement at [facility]. Patient states that his pain is currently controlled with his current medication regimen. Review of Systems General: No Night Sweats, No Fatigue HEENT: No Head Aches, No Visual Changes Pulmonary: Dyspnea (episode of dyspnea earlier this morning; currently better); No Cough Cardiovascular: No: Chest Pain, Palpitations Gastrointestinal: No: Nausea, Vomiting, Abdominal Pain, Diarrhea, Constipation Genitourinary: No Dysuria, No Frequency Musculoskeletal: back pain (well controlled w/ current meds) Neurological: No: Change in speech, Confusion All Other Systems Reviewed All Other Systems Reviewed: No Objective Exam Vital Signs Vital Signs Date Time Temp Pulse Resp B/P (MAP) Pulse Ox O2 Delivery O2 Flow Rate FiO2 10/06/21 08:14 Nasal Cannula 4.00 10/06/21 07:57 36.8 88 20 143/75 (97) 97 Nasal Cannula 4.00 10/06/21 06:31 89 10/06/21 04:19 36.4 95 18 136/84 (101) 98 Nasal Cannula 4.00 10/06/21 01:00 95 10/06/21 00:21 36.1 93 20 134/76 (95) 99 Nasal Cannula 4.00 10/05/21 19:50 Nasal Cannula 4.00 10/05/21 19:19 36.1 92 18 140/78 (98) 99 Nasal Cannula 4.00 10/05/21 19:00 97 10/05/21 15:26 36.4 86 20 134/78 (96) 99 Nasal Cannula 4.00 10/05/21 12:00 89 10/05/21 11:51 36.4 95 22 126/71 (89) 99 Nasal Cannula 4.00 10/05/21 09:21 92 I & O 10/06/21 07:00 Intake Total 940 ml Output Total 1200 ml Balance -260 ml General Appearance: No Apparent Distress, Chronically ill Eyes: Bilateral Eye Normal Inspection, Bilateral Eye PERRL, Bilateral Eye EOMI HEENT: PERRL/EOMI Neck: Non Tender Respiratory: Chest Non Tender, Lungs Clear, No Accessory Muscle Use, No Respiratory Distress, Decreased Breath Sounds (bilateral lower lobes) Cardiovascular: Regular Rate, Rhythm, No Murmur, Normal Peripheral Pulses Gastrointestinal: Normal Bowel Sounds, Non Tender, Soft Rectal: Deferred Extremity: Non Tender, No Calf Tenderness, Pedal Edema (1+ bilaterally; stable ) Neurologic/Psychiatric: Alert, Oriented x3, Normal Mood/Affect Skin: Normal Color, Warm/Dry Results Lab Laboratory Tests 10/06/21 06:20: White Blood Count 8.3, Red Blood Count 2.79L, Hemoglobin 8.8L, Hematocrit 28L, Mean Corpuscular Volume 99, Mean Corpuscular Hemoglobin 32, Mean Corpuscular Hemoglobin Concent 32, Red Cell Distribution Width 14.7H, Platelet Count 231, Mean Platelet Volume 9.3, Immature Granulocyte % (Auto) 0, Neutrophils (%) (Auto) 79H, Lymphocytes (%) (Auto) 10L, Monocytes (%) (Auto) 9, Eosinophils (%) (Auto) 2, Basophils (%) (Auto) 0, Neutrophils # (Auto) 6.5, Lymphocytes # (Auto) 0.8L, Monocytes # (Auto) 0.8, Eosinophils # (Auto) 0.1, Basophils # (Auto) 0.0, Immature Granulocyte # (Auto) 0.0, Sodium Level 141, Potassium Level 3.6, Chloride Level 100, Carbon Dioxide Level 26, Anion Gap 15H, Blood Urea Nitrogen 8, Creatinine 0.65, Estimat Glomerular Filtration Rate 103, BUN/Creatinine Ratio 12, Glucose Level 82, Calcium Level 8.9, Corrected Calcium 9.9, Phosphorus Level 4.3, Magnesium Level 1.7, Total Bilirubin 0.5, Aspartate Amino Transf (AST/SGOT) 9, Alanine Aminotransferase (ALT/SGPT) 9, Alkaline Phosphatase 94, Total Protein 5.2L, Albumin 2.8L Microbiology 09/30/21 C. difficile GDH Antigen & Toxins - Final, Complete 09/29/21 MRSA Screen - Final, Complete MRSA not isolated Assessment/Plan Assessment/Plan Admission Dx Assessment and Plan Type 2 NSTEMI Atrial Fibrillation Sinus Tachycardia * Patient underwent MOON with cardioversion tuesday, has stayed in sinus rhythm since. * Xarelto currently being held for three days per surgery request * Managed by cardiology team Pneumonia Pulmonary Effusion Pulmonary Hypertension * Patient seems to have responded well to lasix * Zosyn TID, bag 8 of 14 * 4L O2 NC * Continue to monitor Metastatic Renal Cancer * Patient has been seen by Dr. Alcaraz, who spoke with Dr. Sauceda * Patient is able to begin treatment here it [place] once he has SNF placement * Patient is going for port placement today, 10/06 Acute Delirium Anxiety * Patient feels anxiety is improved. * Patient has had stable mental status for the past two days * Patient has Lorazepam PRN ordered for anxiety * Continue reorientation and reassurance frequently Anemia, undetermined origin * Heme-occult negative * Iron panel consistent with anemia of chronic disease * Hemoglobin has been stable s/p transfusion Hypertension * Patient taking rate-control anti-hypertensives due to A-fib. * Continue to monitor Hyperlipidemia * Holding currently Abdominal Aortic Aneurysm * 3.7 x 4.0cm AAA noted on imaging yesterday * No further management necessary at this time Admission Dx Clinical Quality Measures Admission Status Admission Dx Supervisory-Addendum Brief Verification & Attestation Participated in pt care: history, MDM, physical Personally performed: exam, history, MDM, supervision of care Care discussed with: Medical Student Procedures: n/a Results interpretation: Verified all documentation AGREE WITH STUDENT NOTE DOCUMENTED MI[facility]HA[facility] IS HAVING A PORT PLACEMENT TODAY - WILL HAVE XARELTO HELD UNTIL 10/08/21 PT IS FEELING STRONGER, MENTATION HAS IMPROVED SIGNIFICANTLY, HE IS TO RESTART THERAPY TODAY. PT'S FEELS LIKE OTHER THAN HIS POOR APPETITE HE IS DOING WELL. SHE FEELS LIKE SHE "HAS HIM BACK" FROM A MENTAL STANDPOINT. DR. ZIMMERMAN HAS INDICATED HE WILL INITIATE PRIOR APPROVAL FOR HIS PLANNED CANCER TREATMENTS, AND THAT WILL BE INITIATED ONCE MIKHAIL IS OUT OF THE HOSPITAL NEXT WEEK FOR NOW THE PLAN WILL BE SNF PLACEMENT PENDING HOW HE PARTICIPATES/TOLERATES THERAPY MEGGAN LAZARO Oct 06, 2021 09:24 ANNALISA VALDIVIA MD Oct 07, 2021 09:16
[2021-10-06] MEDS: NICOTINE 7 MG (NICODERM) PATCH TD SCH (10:06)
[2021-10-06] MEDS: FLUTICASONE NASAL SPRAY (FLONASE) 16 GM BTL NS SCH ×2 (10:07→20:19)
--- NOTE | 2021-10-06 11:34 | Physical Therapy Evaluation ---
PT Evaluation-General Medical Diagnosis Admission Date Sep 28, 2021 at 23:50 Medical Diagnosis: AMS, Metastic CA, Electrolyte imbalance Onset Date: Sep 28, 2021 Therapy Diagnosis Therapy Diagnosis: debility/weakness Height/Weight Height (Feet): 5 Height (Inches): 11.00 Weight (Pounds): 270 Weight (Ounces): 0.0 Precautions Precautions/Isolations: Fall Prevention, Standard Precautions Weight Bear Status Right Lower Extremity: Right Full Weight Bearing Left Lower Extremity: Left Full Weight Bearing Referral Physician: Kerri Reason for Referral: Evaluation/Treatment Medical History Current History transferred to ICU and [facility] Reviewed History: Yes Social History Home: Single Level Current Living Status: Spouse Entry Into Home: Ramp (in back) PT Steps Into Home: 0 Prior Prior Level of Function SCALE: Activities may be completed with or without assistive devices. 5-Aoccytltki-gbotkla completes the activity by him/herself with no assistance from a helper. 5-Set-up or Clean-up Assistance-helper sets up or cleans up; patient completes activity. [place] assists only prior to or following the activity. 4-Supervision or Touching Assistance-helper provides verbal cues and/or touching/steadying and/or contact guard assistance as patient completes activity. Assistance may be provided throughout the activity or intermittently. 3-Partial/Moderate Assistance-helper does LESS THAN HALF the effort. [place] lifts, holds or supports trunk or limbs, but provides less than half the effort. 2-Substantial/Maximal Assistance-helper does MORE THAN HALF the effort. [place] lifts or holds trunk or limbs and provides more than half the effort. 1-Vwtjrxqkn-uyroxf does ALL the effort. Patient does none of the effort to complete the activity. Or, the assistance of 2 or more helpers is required for the patient to complete the activity. If activity was not attempted, code reason: 7-Patient Refused. 9-Not Applicable-not attempted and the patient did not perform the activity before the current illness, exacerbation or injury. 10-Not Attempted due to Environmental Limitations-(lack of equipment, weather restraints, etc.). 88-Not Attempted due to Medical Conditions or Safety Concerns. Bed Mobility: 6 Transfers (B,C,W/C): 6 Gait: 6 Indoor Mobility (Ambulation): Independent Stairs: Independent Prior Devices Use: Walker PT Evaluation-Current Subjective Patient alert and agrees to PT. Objective Patient Orientation: Normal For Age Attachments: Oxygen, IV ROM/Strength ROM Lower Extremities bilateral LE WFL Strength Lower Extremities 4-/5 grossly bilateral LE all planes Integumentary/Posture Bowel Incontinence: No Bladder Incontinence: Yes Posture WFL Neuromuscular (Tone, Coordination, Reflexes) grossly intact Sensory Vision: Functional Hearing: Functional Sensation Right Lower Extremit: Intact Sensation Left Lower Extremity: Intact Transfers Lying to Sitting/Side of Bed(Q: 4 Sit to Stand (QC): 4 Chair/Ymp-lu-Wizlq Xfer(QC): 4 Gait Mode of Locomotion: Walk Anticipated Mode of Locomotion: Walk Walk 10 feet (QC): 4 Walk 50 ft with 2 Turns(QC): 4 Walk 150 ft (QC): 4 Distance: 250' Gait Assistive Device: FWW Comments/Gait Description slow, steady with no deviation with FWW use. Balance Sitting Static: Normal Sitting Dynamic: Normal Standing Static: Fair Standing Dynamic: Fair Assessment/Needs 70 y.o. male, will be seen by skilled PT to address functional strength and mobility to improve current LOF to safely return to home with spouse at maximum LOF. 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 Time Frame: Oct 17, 2021 Roll Left & Right (QC): 6 Sit to Lying (QC): 6 Lying-Sitting on Side/Bed(QC): 6 Sit to Stand (QC): 6 Chair/Aok-kg-Ejjrd Xfer(QC): 6 Toilet Transfer (QC): 6 Does the Patient Walk: Yes Walk 10 feet (QC): 6 Walk 50ft with 2 Turns (QC): 6 Walk 150 ft (QC): 6 PT Plan Problem List Problem List: Activity Tolerance, Functional Strength, Safety Treatment/Plan Treatment Plan: Continue Plan of Care Treatment Plan: Bed Mobility, Education, Functional Activity Ramakrishna, Functional Strength, Group Therapy, Gait, Safety, Therapeutic Exercise, Transfers Treatment Duration: Oct 17, 2021 Frequency: 6 times per week Estimated Hrs Per Day: .5 hour per day Patient and/or Family Agrees t: Yes Time/GCodes Time In: 1025 Time Out: 1035 Total Billed Treatment Time: 10 Total Billed Treatment 1 visit EVModC 10 min JUAN CHAVEZ PT Oct 06, 2021 11:34
--- NOTE | 2021-10-06 11:52 | Occupational Therapy Eval ---
OT Evaluation-General/PLF Medical Diagnosis Admission Date Sep 28, 2021 at 23:50 Medical Diagnosis: AMS, Metastic CA, Electrolyte imbalance Onset Date: Sep 28, 2021 Therapy Diagnosis Therapy Diagnosis: decreased ADL status and weakness Height/Weight Height (Feet): 5 Height (Inches): 11.00 Weight (Pounds): 270 Weight (Ounces): 0.0 Precautions Precautions/Isolations: Fall Prevention, Standard Precautions Referral Physician: Kerri Referral Reason: Evaluation/Treatment Medical History Additional Medical History Pulmonary HTN, metastic HTN, AFib, renal cancer with mets to distant sites including lungs, cardiomyopathy, GERD, and RA Current History ED admit on 09/28 with AMS/combatic behavior. 10/02 Cardioversion d/t Afib with RVR. Social History Home: Single Level Current Living Status: Spouse Entry Into Home: Ramp (in back) Steps Into Home: 0 ADL-Prior Level of Function SCALE: Activities may be completed with or without assistive devices. 8-Gimnrmsvmr-zhmkury completes the activity by him/herself with no assistance from a helper. 5-Set-up or Clean-up Assistance-helper sets up or cleans up; patient completes activity. [place] assists only prior to or following the activity. 4-Supervision or Touching Assistance-helper provides verbal cues and/or touching/steadying and/or contact guard assistance as patient completes activity. Assistance may be provided throughout the activity or intermittently. 3-Partial/Moderate Assistance-helper does LESS THAN HALF the effort. [place] lifts, holds or supports trunk or limbs, but provides less than half the effort. 2-Substantial/Maximal Assistance-helper does MORE THAN HALF the effort. [place] lifts or holds trunk or limbs and provides more than half the effort. 1-Qaayuixrs-jahnoz does ALL the effort. Patient does none of the effort to co mplete the activity. Or, the assistance of 2 or more helpers is required for the patient to complete the activity. If activity was not attempted, code reason: 7-Patient Refused. 9-Not Applicable-not attempted and the patient did not perform the activity before the current illness, exacerbation or injury. 10-Not Attempted due to Environmental Limitations-(lack of equipment, weather restraints, etc.). 88-Not Attempted due to Medical Conditions or Safety Concerns. ADL PLOF Comments Pt reports being IND with ADLs at PLOF, but showering, LBD, and footwear have become increasingly difficult d/t fear of falling and decreased flexibility. While he lives with his , she is not able to provide any physical assistance d/t her poor health. He has been using a SPC or FWW for functional ambulation for the past 3months (specific AD unclear d/t pt being poor historian). Pt says he has fallen several times within the past 3months but none have resulted in major injuries/trips to the hospital. However, he says he has not fallen within the past 4 weeks. Pt reports getting home health services, having "three therapists and two nurses come twice a week for one hour each visit". 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 New OT evaluation complete due to pt transferring from ICU to 4th floor, then back to ICU for higher level of care. Mental Status/Objective Patient Orientation: Person, Place, Situation Attachments: IV, Oxygen Current Upper Extremity ROM bilaterally WFL Upper Extremity Sensation Pt denies any BUE sensation deficits ADL-Treatment Upper Body Dressing (QC): 7 Lower Body Dressing (QC): 4 (CGA per clincial judgment) On/Off Footwear (QC): 6 Toileting Hygiene (QC): 4 (Per clincial judgment) Other Treatments Pt in recliner, agreeable to OT evaluation/tx, but declined ADLs at this time due to going for port placement soon. Pt demonstrated footwear while seated in recliner. He then participated in exercises to increase BUE strength and endurance needed to complete ADLs and functional transfers. He completed 2x10 of the following with body weight: shoulder flexion, chest presses, and bicep curls. Per PT report, pt requires SBA-CGA with functional mobility/transfers. At this time, pt would most likely require CGA with LBD and toileting. Post tx, pt in recliner, call light in reach and all needs met. Education OT Patient Education: Correct positioning, Energy conservation, Exercise program, Modified ADL techniques, Progress toward Goal/Update tx plan, Purpose of tx/functional activities, Rehab process Teaching Recipient: Patient Teaching Methods: Demonstration, Discussion Response to Teaching: Verbalize Understanding, Return Demonstration OT Information Specialist Goals Retirement Goals Time Frame: Oct 23, 2021 Eating (QC): 6 Toileting Hygiene (QC): 6 Lower Body Dressing (QC): 5 On/Off Footwear (QC): 5 Additional Goals: 1-Demonstrate ADL Tasks, 2-Verbalize Understanding, 3-ImproveStrength/Ramakrishna 1=Demonstrate adherence to instructed precautions during ADL tasks. 2=Patient will verbalize/demonstrate understanding of assistive devices/modifications for ADL. 3=Patient will improve strength/tolerance for activity to enable patient to per form ADL's. OT Education/Plan Problem List/Assessment Assessment: Decreased Activ Tolerance, Decreased UE Strength Pt would benefit from skilled OT services in order to increase BUE strength and activity tolerance, and safety and independence with ADLs and mobility to maximize LOF for safe discharge. Discharge Recommendations Plan/Recommendations: Continue POC Treatment Plan/Plan of Care Patient would benefit from OT for education, treatment and training to promote independence in ADL's, mobility, safety and/or upper extremity function for ADL's. Plan of Care: ADL Retraining, Cognitive Retraining, Functional Mobility, UE Funct Exercise/Act Treatment Duration: Oct 23, 2021 Frequency: 3 times per week (3-5x/wk) Estimated Hrs Per Day: .25 hour per day Rehab Potential: Guarded Time/GCodes Start Time: 11:28 Stop Time: 11:38 Total Time Billed (hr/min): 8 Billed Treatment Time 1, EZE KRAUS OT Oct 06, 2021 11:52
[2021-10-06] MEDS ORDERED: HEParin (CENTRAL IV FLUSH) 500 UNIT/5 ML SYR ONE (12:48)
[2021-10-06] MEDS ORDERED: 0.9% SODIUM CHLORIDE PF INJ 20 ML VIAL ONE (12:48)
[2021-10-06] MEDS ORDERED: LIDOCAINE/EPI 2% 1:200,00 (XYLOCAINE) 20 ML VIAL ONE (12:48)
[2021-10-06] MEDS ORDERED: proPOfol 200 MG/20 ML (DIPRIVAN) VIAL IV ONE (12:53)
[2021-10-06] MEDS ORDERED: KETAMINE 50 MG/5 ML SYRINGE ONE (12:53)
[2021-10-06] MEDS ORDERED: LIDOCAINE PF 2% 5 ML (XYLOCAINE) VIAL ONE (12:53)
[2021-10-06] MEDS ORDERED: MIDAZOLAM 2 MG/2 ML (VERSED) VIAL ONE (12:53)
[2021-10-06] MEDS ORDERED: ONDANSETRON 4 MG/2 ML (SDV) Z0FRAN IVP PRN (13:15)
[2021-10-06] MEDS ORDERED: morphine INJ 10 MG/ML 1ML (SYR OR VIAL) IVP ONE (13:15)
[2021-10-06] MEDS ORDERED: LACTATED RINGERS 1,000 ML IV PRN (13:15)
[2021-10-06] MEDS ORDERED: ceFAZolin INJECTION 2,000 MG ONE (13:28)
[2021-10-06] MEDS ORDERED: ceFAZolin INJECTION 1,000 MG VIAL IV ONE (13:30)
--- NOTE | 2021-10-06 14:08 | Progress Note-Post Operative ---
Post-Operative Progess Note Surgeon (s)/Rotor Balancer (s) Surgeon DAVID VERAS MD Rotor Balancer: none Pre-Operative Diagnosis metastatic left renal cell cancer Post-Operative Diagnosis same Procedure & Operative Findings Date of Procedure 10/06/21 Procedure Performed/Findings left subclavian groshong catheter placement under flouroscopy. Anesthesia Type mac with local Estimated Blood Loss Estimated blood loss (mL): minimal Specimens/Packing Specimens Removed none DAVID VERAS MD Oct 06, 2021 14:08
--- NOTE | 2021-10-06 14:10 | Diagnostic Imaging Report ---
INDICATION: Fluoroscopy for port placement. FINDINGS: Fluoroscopy was provided in the OR during port placement. 14 seconds of fluoroscopic time was utilized. A single image was obtained demonstrating a port with tip overlying the SVC. IMPRESSION: Fluoroscopy for port placement. Dictated by: Dictated on workstation # [id number]
--- NOTE | 2021-10-06 14:25 | Anesthesia-General Post-Op ---
MAC Patient Condition Mental Status/LOC: Same as Preop Cardiovascular: Satisfactory Nausea/Vomiting: Absent Respiratory: Satisfactory Pain: Controlled Complications: Absent Post Op Complications Complications None Follow Up Care/Instructions Patient Instructions None needed. Anesthesiology Discharge Order Discharge Order Patient is doing well in PACU, no complaints, stable vital signs, no apparent adverse anesthesia problems. No complications reported per nursing. DEB STEPHENSON DO Oct 06, 2021 14:25
--- NOTE | 2021-10-06 14:39 | Diagnostic Imaging Report ---
Indication: Corpak placement. Time of Exam: 2:34 PM Comparison is made with prior chest from 10/04/2021. Right upper extremity PICC line has tip overlying SVC. There is a left chest wall port with tip overlying SVC. No pneumothorax is identified. Lungs are clear. IMPRESSION: Port placement. No complicating features are detected. Dictated by: Dictated on workstation # [id number]
--- NOTE | 2021-10-06 22:14 | OPERATIVE REPORT ---
DATE OF SERVICE: 10/06/2021 ATTENDING PRIMARY CARE PHYSICIAN: Francia Manning MD PREOPERATIVE DIAGNOSIS: Metastatic left renal cell cancer. POSTOPERATIVE DIAGNOSIS: Metastatic left renal cell cancer. PROCEDURE: Placement of left subclavian Groshong implantable catheter under fluoroscopy. SURGEON: David Veras MD. ANESTHESIA: Monitored anesthesia care with local. ESTIMATED BLOOD LOSS: Minimal. FINDINGS: Catheter tip at superior vena caval -- right atrial junction. DISPOSITION: The patient tolerated the procedure well. INDICATIONS: The patient is a 70-year-old male with history of multiple medical problems including hypertension, hypercholesterolemia, pulmonary hypertension, COPD as well as atrial fibrillation. He also has a history of metastatic renal cell cancer arising from the left kidney. He presented to the Emergency Department with altered mental status, combative behavior as well as shortness of breath. He was admitted to the ICU and started on Precedex for sedation. He was found to be in atrial fibrillation with a rapid ventricular response and cardiology underwent cardioversion. CT scan did show 2 large lesions of the left kidney with potential metastatic lesions of the left lung, bilateral ribs as bilateral femoral bone. The patient status is declining and it was recommended to proceed with immunotherapy as soon as possible. DESCRIPTION OF PROCEDURE: The patient was brought to the operating room, laid supine on the table. After adequate IV pain and sedative medications and monitored anesthesia care, the chest and neck were prepped and draped in standard surgical fashion. A 0.5% Marcaine with epinephrine was used to anesthetize the left subclavian region. Left subclavian vein was then cannulated with drawing of venous blood and the guidewire was then inserted under fluoroscopy. A skin incision was then made using a 15 blade and venous dilator and sheath were then introduced over the guidewire. The dilator and guidewire were then removed and the Groshong catheter was placed through the sheath and the sheath removed. The catheter tip was at the superior vena caval -- right atrial junction. The inner wire within the catheter was then removed and the catheter cut down to size and port placed onto the catheter. The chest reservoir was then created by extending the skin incision laterally using a 15 blade and a plane created between the subcutaneous fat and the anterior pectoralis fascia using blunt dissection as well as electrocautery. Good hemostasis was observed. The port was then placed into the chest reservoir and sutured to the anterior pectoralis fascia using interrupted 3-0 Vicryl sutures. Subcutaneous tissue was then reapproximated using 3-0 Vicryl interrupted sutures. Skin was closed using 4-0 Monocryl in running subcuticular suture. Wounds were then cleaned and covered with Dermabond. The patient tolerated the procedure well. We will get a post-procedure chest x-ray and once confirmation of placement of the port may be accessed and used at any time. Job ID: [id number] DocumentID: [id number] Dictated Date: 10/06/2021 14:14:00 Block Cleaner Date: 10/06/2021 22:14:05 Dictated By: DAVID VERAS MD
[2021-10-07 03:17] VITALS: BP 131/74
[2021-10-07 07:24] VITALS: BP 125/72
--- NOTE | 2021-10-07 07:39 | Anesthesia-General Post-Op ---
MAC Patient Condition Mental Status/LOC: Same as Preop Cardiovascular: Satisfactory Nausea/Vomiting: Absent Respiratory: Satisfactory Pain: Controlled Complications: Absent Post Op Complications Complications None Follow Up Care/Instructions Patient Instructions None needed. Anesthesiology Discharge Order Discharge Order Patient is doing well, no complaints, stable vital signs, no apparent adverse anesthesia problems. No complications reported per nursing. RENE OH CRNA Oct 07, 2021 07:39
[2021-10-07 07:40] VITALS: BP 124/72
[2021-10-07] MEDS: AMIODARONE 200 MG (CORDARONE) TAB PO SCH ×2 (08:29→20:34)
[2021-10-07] MEDS: meTOproloL SUCCINATE 50 MG (TOPROL XL) TAB PO SCH (08:30)
[2021-10-07] MEDS: PIPERACILLIN SODIUM/TAZOBACTAM 4.5 GM in NS (IVPB) 100 ML IV SCH ×2 (08:31→16:15)
[2021-10-07] MEDS: NICOTINE 7 MG (NICODERM) PATCH TD SCH (08:32)
--- NOTE | 2021-10-07 09:02 | Progress Note ---
Subjective Subjective Date Seen by Provider: Oct 07, 2021 Time Seen by Provider: 09:00 Patient is being seen in follow up for AMS, atrial fibrillation, metastatic kidney disease Patient had port placement yesterday. Patient states that he tolerated the procedure okay and that everything went well. Patient had an episode of what looked like A Flutter on tele, but was in sinus rhythm on EKG. Patient has a rash on his bilateral medial hamstrings, glutes, and up to his right hip. Patient does state that it itches. Patient worked with PT/OT yesterday and did well. Discussed possibility of going home vs waiting for a SNF. Patient states he would rather go home. Patient's SO, Minoo, states that given patients current clinical condition, she thinks that she could help take care of him at home. Patient had [facility] in the past and would like to use them again. Planning for discharge on Tuesday if nothing acutely changes. Review of Systems General: No Night Sweats, No Fatigue HEENT: No Head Aches, No Visual Changes Pulmonary: No Dyspnea; Cough (states has been coughing in the morning) Cardiovascular: No: Chest Pain, Palpitations Gastrointestinal: No: Nausea, Vomiting, Abdominal Pain, Diarrhea, Constipation Genitourinary: No Dysuria, No Frequency Musculoskeletal: back pain (well controlled w/ current meds) Neurological: No: Change in speech, Confusion All Other Systems Reviewed All Other Systems Reviewed: No Objective Exam Vital Signs Vital Signs Date Time Temp Pulse Resp B/P (MAP) Pulse Ox O2 Delivery O2 Flow Rate FiO2 10/07/21 07:40 36.5 87 16 124/72 (89) 98 Nasal Cannula 3.00 10/07/21 07:26 91 10/07/21 07:24 36.6 85 18 125/72 (89) 97 Nasal Cannula 3.00 10/07/21 03:17 36.7 84 22 131/74 (93) 97 Nasal Cannula 4.00 10/07/21 01:00 88 10/06/21 23:28 36.9 86 20 138/77 (97) 97 Nasal Cannula 4.00 10/06/21 20:24 36.5 89 20 134/77 (96) 96 Nasal Cannula 4.00 10/06/21 20:22 Nasal Cannula 4.00 10/06/21 19:00 89 10/06/21 16:00 36.4 90 18 130/71 (90) 97 Nasal Cannula 4.00 10/06/21 15:03 92 10/06/21 15:02 36.6 82 18 181/83 (115) 100 Nasal Cannula 4.00 10/06/21 14:45 Nasal Cannula 3.00 10/06/21 14:45 36.5 20 125/86 (99) 98 Nasal Cannula 3.00 10/06/21 14:40 20 130/86 (101) 98 Nasal Cannula 3.00 10/06/21 14:30 Nasal Cannula 3.00 10/06/21 14:30 20 125/86 (99) 98 Nasal Cannula 3.00 10/06/21 14:20 20 125/86 (99) 98 OxyMask 3.00 10/06/21 14:15 OxyMask 3.00 10/06/21 14:10 20 122/76 (91) 100 OxyMask 3.00 10/06/21 14:08 OxyMask 3.00 10/06/21 14:08 36.5 20 108/59 (75) 100 OxyMask 3.00 10/06/21 13:57 99 Nasal Cannula 4.00 10/06/21 12:05 80 10/06/21 11:25 36.4 80 18 130/76 (94) 99 Nasal Cannula 4.00 I & O 10/07/21 07:00 Intake Total 4750 ml Output Total 850 ml Balance 3900 ml General Appearance: No Apparent Distress, Chronically ill Eyes: Bilateral Eye Normal Inspection, Bilateral Eye PERRL, Bilateral Eye EOMI HEENT: PERRL/EOMI Neck: Non Tender, Supple Respiratory: Chest Non Tender, Lungs Clear, No Accessory Muscle Use, No Respiratory Distress, Decreased Breath Sounds (right lower post) Cardiovascular: Regular Rate, Rhythm, Normal Peripheral Pulses Gastrointestinal: Normal Bowel Sounds, Non Tender, Soft Rectal: Deferred Extremity: Non Tender, No Calf Tenderness, Pedal Edema (1+) Neurologic/Psychiatric: Alert, Oriented x3, Normal Mood/Affect Skin: Normal Color, Warm/Dry, Rash (pruritic, errythematous, slightly raised macular rash w/ erosions along the edges of macules. Medial hamstrings to posterior hamstrings to glutes and slight involvemnt of right posterior hip) Results Lab Microbiology 10/05/21 MRSA Screen - Final, Complete MRSA not isolated 09/30/21 C. difficile GDH Antigen & Toxins - Final, Complete Assessment/Plan Assessment/Plan Admission Dx Assessment and Plan Type 2 NSTEMI Atrial Fibrillation Sinus Tachycardia * Patient underwent MOON with cardioversion tuesday * Had episode of what looked like A flutter on tele this morning, EKG showed sinus rhythm * Xarelto currently being held for three days per surgery request; day 2 * Managed by cardiology team Pneumonia Pulmonary Effusion Pulmonary Hypertension * Patient seems to have responded well to lasix * Zosyn TID, bag * 4L O2 NC * Continue to monitor Metastatic Renal Cancer * Patient has been seen by Dr. Duke, who spoke with Dr. Sauceda * Patient is able to begin treatment here it [place] with Dr. Duke upon discharge * Patient continues to improves, planning on discharge home with home health on Tuesday Acute Delirium Anxiety * Patient feels anxiety is improved. * Patient has had stable mental status for the past three days * Patient has Lorazepam PRN ordered for anxiety * Continue reorientation and reassurance frequently Anemia, undetermined origin * Heme-occult negative * Iron panel consistent with anemia of chronic disease * Hemoglobin has been stable s/p transfusion Hypertension * Patient taking rate-control anti-hypertensives due to A-fib. * Continue to monitor Hyperlipidemia * Holding currently Acute dermatitis * Ordered clotrimazole/betamethasone * Continue to monitor Abdominal Aortic Aneurysm * 3.7 x 4.0cm AAA noted on imaging yesterday * No further management necessary at this time Admission Dx Clinical Quality Measures Admission Status Admission Dx Supervisory-Addendum Brief Verification & Attestation Participated in pt care: history, MDM, physical Personally performed: exam, history, MDM, supervision of care Care discussed with: Medical Student Procedures: n/a Results interpretation: Verified all documentation Agree with student note as documented. Marco was admitted with delirium, likely due to medication over-use in an effort to control pain from metastatic disease, he was also in uncontrolled atrial fibrillation and sustained a small type 2 NSTEMI, with pulmonary effusion and pneumonia as subsequent diagnosis. Marco has improved significantly, surprisingly so and will plan for discharge to home instead of the assisted. Our plan will be dc to home with home health, monitor symptoms and finish iv antibiotics. Port placed, accessed, and working well. Plan for outpatient Oncologic treatments through Dr. Duke next week. DX as follows: Atrial Fibrillation Pneumonia Metastatic Renal Cancer Acute Delirium (now resolved) Anxiety Anemia, due to metastatic cancer Hypertension Acute dermatitis MEGGAN LAZARO Oct 07, 2021 09:02 ANNALISA VALDIVIA MD Oct 09, 2021 10:25
[2021-10-07] MEDS: NICOTINE PATCH REMOVAL TP SCH (09:33)
[2021-10-07] MEDS: FLUTICASONE NASAL SPRAY (FLONASE) 16 GM BTL NS SCH ×2 (09:58→20:34)
[2021-10-07] MEDS: BETAMETHASONE/CLOTRIM CREAM (LOTRISONE) 45 GM TP SCH ×2 (10:26→20:34)
--- NOTE | 2021-10-07 10:58 | Cardiology Progress Note ---
Subjective Date Seen by Provider: Oct 07, 2021 Time Seen by Provider: 09:55 Subjective/Events-last exam Patient in bed, denies any chest pain or dyspnea. Objective-Cardiology Exam Last Set of Vital Signs Vital Signs 10/07/21 15:42 Temp 36.0 Pulse 83 Resp 20 B/P (MAP) 115/68 (84) Pulse Ox 98 O2 Delivery Nasal Cannula O2 Flow Rate 3.00 I&O Intake and Output 10/07/21 00:00 Intake Total 4450 ml Output Total 1050 ml Balance 3400 ml Intake Oral 350 ml IV Total 4100 ml Output Urine Total 1050 ml # Bowel Movements 2 General: Alert, Oriented X3, Cooperative HEENT: Atraumatic, PERRLA Neck: Supple, No JVD, No Thyromegaly Lungs: Clear to Auscultation, Normal Air Movement Heart: Regular Rate, Normal S1, Normal S2, No Murmurs Abdomen: Normal Bowel Sounds, Soft, No Tenderness, No Hepatosplenomegaly, No Masses Extremities: No Clubbing, No Cyanosis, No Edema, Normal Pulses, No Tenderness/Swelling Skin: No Rashes, No Breakdown, No Significant Lesion Neuro: Normal Gait, Normal Speech, Strength at 5/5 X4 Ext, Normal Tone, Sensation Intact Psych/Mental Status: Mental Status NL, Mood NL A/P-Cardiology Admission Diagnosis Acute change in mental status Atrial fibrillation Metastatic renal cell carcinoma Hyperlipidemia Assessment/Plan Status post acute change in mental status, Returned to baseline at this time. Feeling better. CT of the head was negative, MRI was nondiagnostic ABG showed good oxygenation. Electrolytes were corrected. Work-up has been negative. Managed by medical team Paroxysmal atrial fibrillation MOON was done in June 2021 showing echogenic density in the left atrial appendage suggestive of a thrombus Family reported that he underwent cardioversion while he was at . Started back on Xarelto on September 30, 2021 Patient was transferred back to ICU on October 02, 2021 for atrial fibrillation with ventricular response. MOON with electrical cardioversion was done on October 02, 2021, received amiod arone bolus and a drip Currently on oral amiodarone, Toprol XL and in SR. I will restart Xarelto on October 07, 2021 No signs of bleeding was noted. Metastatic renal cell carcinoma, stage IV, managed at oncology and Dr. Obregon. Planning to begin immunotherapy. Generalized fatigue, shortness of breath, loss of energy, oxygen dependent. Reporting improvement. 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 2D echo done on July 08, 2021 showing dilated left ventricle with left ventricular hypertrophy and ejection fraction 20 to 25%, dilated right ventricle and biatrial enlargement, PA pressure 35 to 40 mmHg. During the MOON on July 09, 2021, his ejection fraction appeared to be better after his heart rate improved slightly. COPD, oxygen dependent, currently oxygenation is well. Hypertension, has been borderline hypotensive. Continue to monitor blood pressure Hyperlipidemia, maintained on Lipitor 20 mg daily, continue to monitor Mild bilateral carotid stenosis, ultrasound was done on July 07, 2021 Obesity, BMI is 27, concern about loss of appetite. Significant weight loss over the past 3 months Supervisory-Addendum Brief Supervisory Addendum Participated in pt care: history, MDM, physical Personally performed: exam, history, MDM Care discussed with: PHYLLIS Results interpretation: Verified all documentation Notes: Patient was seen and evaluated with Jade, examination performed, management plan was discussed, agree with the current scribed note, I made few changes to the note using Italic font Patient was seen at bedside, laying down comfortably, no new complaint Continue current medication I am restarting Xarelto. JADE ANGUIANO Oct 07, 2021 10:58 LAURA MACE MD Oct 07, 2021 16:19
[2021-10-07 11:24] VITALS: BP 120/67
--- NOTE | 2021-10-07 11:37 | Physical Therapy Daily Note ---
PT Daily Note-Current Subjective Patient in bed pre tx, agrees to PT, has no complaints of pain. Appearance Patient in recliner post tx with nurse call, phone,tray, all needs met. Mental Status Patient Orientation: Person, Place, Situation Attachments: Oxygen, Plasencia Catheter Transfers SCALE: Activities may be completed with or without assistive devices. 9-Urykjotujt-uutczus completes the activity by him/herself with no assistance from a helper. 5-Set-up or Clean-up Assistance-helper sets up or cleans up; patient completes activity. [place] assists only prior to or following the activity. 4-Supervision or Touching Assistance-helper provides verbal cues and/or touching/steadying and/or contact guard assistance as patient completes activi ty. Assistance may be provided throughout the activity or intermittently. 3-Partial/Moderate Assistance-helper does LESS THAN HALF the effort. [place] lifts, holds or supports trunk or limbs, but provides less than half the effort. 2-Substantial/Maximal Assistance-helper does MORE THAN HALF the effort. [place] lifts or holds trunk or limbs and provides more than half the effort. 6-Feollmanh-hudjyu does ALL the effort. Patient does none of the effort to complete the activity. Or, the assistance of 2 or more helpers is required for the patient to complete the activity. If activity was not attempted, code reason: 7-Patient Refused. 9-Not Applicable-not attempted and the patient did not perform the activity before the current illness, exacerbation or injury. 10-Not Attempted due to Environmental Limitations-(lack of equipment, weather restraints, etc.). 88-Not Attempted due to Medical Conditions or Safety Concerns. Roll Left & Right (QC): 6 Lying to Sitting/Side of Bed(Q: 6 Sit to Stand (QC): 4 Chair/Crs-ca-Pwexl Xfer(QC): 4 Weight Bearing Right Lower Extremity: Right Full Weight Bearing Left Lower Extremity: Left Full Weight Bearing Gait Training Does the Patient Walk?: Yes Distance: 300' Walk 10 feet (QC): 4 Walk 50 ft with 2 Turns(QC): 4 Walk 150 ft (QC): 4 Gait Persons Needed: 1 Gait Assistive Device: FWW CGA, patient had one instance of slight LOB but patient was able to recover without therapist assist Exercises Seated Therapy Exercises: Ankle pumps, Long arc quads Seated Reps: 20 Treatments bed mobility and transfers, ambulation, LE ROM Assessment Current Status: Fair Progress improving endurance but is a little unsteady during ambulation, needs assist PT Mcc Goals Manager Transfusion Goals PT Manager Transfusion Goals Time Frame: Oct 17, 2021 Roll Left & Right (QC): 6 Sit to Lying (QC): 6 Lying-Sitting on Side/Bed(QC): 6 Sit to Stand (QC): 6 Chair/Sac-do-Spivh Xfer(QC): 6 Toilet Transfer (QC): 6 Does the Patient Walk: Yes Walk 10 feet (QC): 6 Walk 50ft with 2 Turns (QC): 6 Walk 150 ft (QC): 6 PT Plan Problem List Problem List: Activity Tolerance, Functional Strength, Safety, Balance, Gait, Transfer, Bed Mobility, ROM Treatment/Plan Treatment Plan: Continue Plan of Care Treatment Plan: Bed Mobility, Education, Functional Activity Ramakrishna, Functional Strength, Group Therapy, Gait, Safety, Therapeutic Exercise, Transfers Treatment Duration: Oct 17, 2021 Frequency: 6 times per week Estimated Hrs Per Day: .5 hour per day Patient and/or Family Agrees t: Yes Safety Risks/Education Patient Education: Gait Training, Transfer Techniques, Correct Positioning, Safety Issues Teaching Recipient: Patient Teaching Methods: Demonstration, Discussion Response to Teaching: Reinforcement Needed Time/GCodes Time In: 1106 Time Out: 1116 Total Billed Treatment Time: 10 Total Billed Treatment 1 visit FA Yasir' NASIR DÍAZ PT Oct 07, 2021 11:37
[2021-10-07] MEDS: RIVAROXABAN 20 MG TABLET (XARELTO) PO SCH (14:13)
--- NOTE | 2021-10-07 14:58 | Occupational Ther Daily Note ---
OT Current Status-Daily Note Subjective Pt sitting EOB upon OT arrival, agreeable to tx. Mental Status/Objective Patient Orientation: Person, Confused Attachments: Oxygen, Telemetry ADL-Treatment Therapy Code Descriptions/Definitions Functional [place] Measure: 0=Not Assessed/NA 4=Minimal Assistance 1=Total Assistance 5=Supervision or Setup 2=Maximal Assistance 6=Modified [place] 3=Moderate Assistance 7=Complete IndependenceSCALE: Activities may be completed with or without assistive devices. 2-Pelgerdgbx-govdnuq completes the activity by him/herself with no assistance from a helper. 5-Set-up or Clean-up Assistance-helper sets up or cleans up; patient completes activity. [place] assists only prior to or following the activity. 4-Supervision or Touching Assistance-helper provides verbal cues and/or touching/steadying and/or contact guard assistance as patient completes activity. Assistance may be provided throughout the activity or intermittently. 3-Partial/Moderate Assistance-helper does LESS THAN HALF the effort. [place] lifts, holds or supports trunk or limbs, but provides less than half the effort. 2-Substantial/Maximal Assistance-helper does MORE THAN HALF the effort. [place] lifts or holds trunk or limbs and provides more than half the effort. 9-Lwivrvpwk-iknfcu does ALL the effort. Patient does none of the effort to complete the activity. Or, the assistance of 2 or more helpers is required for the patient to complete the activity. If activity was not attempted, code reason: 7-Patient Refused. 9-Not Applicable-not attempted and the patient did not perform the activity before the current illness, exacerbation or injury. 10-Not Attempted due to Environmental Limitations-(lack of equipment, weather restraints, etc.). 88-Not Attempted due to Medical Conditions or Safety Concerns. Oral Hygiene (QC): 4 (SBA for safety cues and managing lines) Shower/Bathe Self (QC): 4 (SBA for safety cues and managing lines; CGA-SBA for standing balance during periarea/buttocks hygiene) Lower Body Dressing (QC): 4 (CGA-SBA for standing balance during brief hike. V/c's for safety ) On/Off Footwear: 5 Toileting Hygiene (QC): 4 (SBA for seated and standing balance during hygiene, v/c's for safety) Toilet Transfer (QC): 3 (Min A to stand from toilet.) Other Treatment Pt initially declined ADLs, but later was agreeable to sponge bath and dressing. Pt demonstrated increased safety awareness during LBD and footwear as he used figure four to thread BLE through socks and brief. However, pt required a lot of v/c's to manage attachment lines throughout tx as he was impulsive during transfers and self-care tasks. Pt's brief and bed were found to be soiled upon standing for LBD, so pt walked to bathroom to complete toileting, CGA-SBA. Pt required verbal and tactile cues for safety during toileting as he was leaning towards the left too far and lost his balance, catching on FWW. Pt attempted to do this again, but was able to self correct and use the GBs on the right. Pt washed hands at the sink before returning to the recliner. Post tx, pt left in recliner with call light in hand and all needs met. Education OT Patient Education: Correct positioning, Energy conservation, Modified ADL techniques, Progress toward Goal/Update tx plan, Purpose of tx/functional activities, Rehab process, Safety issues, Transfer techniques Teaching Recipient: Patient Teaching Methods: Discussion Response to Teaching: Verbalize Understanding, Reinforcement Needed OT Alf Goals Alf Goals Time Frame: Oct 23, 2021 Eating (QC): 6 Toileting Hygiene (QC): 6 Lower Body Dressing (QC): 5 On/Off Footwear (QC): 5 Additional Goals: 1-Demonstrate ADL Tasks, 2-Verbalize Understanding, 3-ImproveStrength/Ramakrishna 1=Demonstrate adherence to instructed precautions during ADL tasks. 2=Patient will verbalize/demonstrate understanding of assistive devices/modifications for ADL. 3=Patient will improve strength/tolerance for activity to enable patient to perform ADL's. OT Education/Plan Problem List/Assessment Assessment: Decreased Activ Tolerance, Decreased Safety Aware, Decreased UE Strength, Impaired Funct Balance, Impaired I ADL's, Impaired Self-Care Skills Pt would benefit from skilled OT services in order to increase BUE strength and activity tolerance, and safety and independence with ADLs and mobility to maximize LOF for safe discharge. Discharge Recommendations Plan/Recommendations: Continue POC Treatment Plan/Plan of Care Patient would benefit from OT for education, treatment and training to promote independence in ADL's, mobility, safety and/or upper extremity function for ADL's. Plan of Care: ADL Retraining, Cognitive Retraining, Functional Mobility, UE Funct Exercise/Act Treatment Duration: Oct 23, 2021 Frequency: 3 times per week (3-5x/wk) Estimated Hrs Per Day: .25 hour per day Rehab Potential: Guarded Time/GCodes Start Time: 14:23 Stop Time: 14:46 Total Time Billed (hr/min): 23 Billed Treatment Time 1, ADL 2 (23') EZE MEDINA OT Oct 07, 2021 14:58
[2021-10-07 15:42] VITALS: BP 115/68
[2021-10-07 19:32] VITALS: BP 120/62
[2021-10-08] VITALS (7 sets, daily range): BP systolic 113–129; BP diastolic 66–72
[2021-10-08] MEDS: PIPERACILLIN SODIUM/TAZOBACTAM 4.5 GM in NS (IVPB) 100 ML IV SCH ×2 (00:13→09:52)
[2021-10-08] MEDS: LORazepam 0.5 MG (ATIVAN) TABLET PO PRN (00:18)
--- NOTE | 2021-10-08 08:35 | Cardiology Progress Note ---
Subjective Date Seen by Provider: Oct 08, 2021 Time Seen by Provider: 08:30 Subjective/Events-last exam Patient is sitting up in bed, feeling better, denies any chest pain Objective-Cardiology Exam Last Set of Vital Signs Vital Signs 10/08/21 11:20 Temp 36.0 Pulse 84 Resp 18 B/P (MAP) 125/70 (88) Pulse Ox 98 O2 Delivery Nasal Cannula O2 Flow Rate 3.00 I&O Intake and Output 10/08/21 00:00 Intake Total 1750 ml Output Total 1250 ml Balance 500 ml Intake Oral 1750 ml Output Urine Total 1250 ml General: Alert, Oriented X3, Cooperative HEENT: Atraumatic, PERRLA Neck: Supple, No JVD, No Thyromegaly Lungs: Clear to Auscultation, Normal Air Movement Heart: Regular Rate, Normal S1, Normal S2, No Murmurs Abdomen: Normal Bowel Sounds, Soft, No Tenderness, No Hepatosplenomegaly, No Masses Extremities: No Clubbing, No Cyanosis, No Edema, Normal Pulses, No Tenderness/Swelling Skin: No Rashes, No Breakdown, No Significant Lesion Neuro: Normal Gait, Normal Speech, Strength at 5/5 X4 Ext, Normal Tone, Sensation Intact Psych/Mental Status: Mental Status NL, Mood NL Results Lab Laboratory Tests 10/08/21 10:00 A/P-Cardiology Admission Diagnosis Acute change in mental status Atrial fibrillation Metastatic renal cell carcinoma Hyperlipidemia Assessment/Plan Status post acute change in mental status, Returned to baseline at this time. Feeling better. CT of the head was negative, MRI was nondiagnostic ABG showed good oxygenation. Electrolytes were corrected. Work-up has been negative. Managed by medical team Paroxysmal atrial fibrillation MOON was done in June 2021 showing echogenic density in the left atrial appendage suggestive of a thrombus Family reported that he underwent cardioversion while he was at . Started back on Xarelto on September 30, 2021 Patient was transferred back to ICU on October 02, 2021 for atrial fibrillation with ventricular response. MOON with electrical cardioversion was done on October 02, 2021, received amiodarone bolus and a drip Currently on oral amiodarone, Toprol XL and in SR. Xarelto restarted on 10/07/21 Metastatic renal cell carcinoma, stage IV, managed at oncology and Dr. Obregon. Planning to begin immunotherapy. Generalized fatigue, shortness of breath, loss of energy, oxygen dependent. Reporting improvement. 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 2D echo done on July 08, 2021 showing dilated left ventricle with left ventricular hypertrophy and ejection fraction 20 to 25%, dilated right ventricle and biatrial enlargement, PA pressure 35 to 40 mmHg. During the MOON on July 09, 2021, his ejection fraction appeared to be better after his heart rate improved slightly. COPD, oxygen dependent, currently oxygenation is well. Hypertension, has been borderline hypotensive. Continue to monitor blood pressure Hyperlipidemia, maintained on Lipitor 20 mg daily, continue to monitor Mild bilateral carotid stenosis, ultrasound was done on July 07, 2021 Obesity, BMI is 27, concern about loss of appetite. Significant weight loss over the past 3 months Supervisory-Addendum Brief Supervisory Addendum Participated in pt care: history, MDM, physical Personally performed: exam, history, MDM Care discussed with: PHYLLIS Results interpretation: Verified all documentation Notes: Patient was seen and evaluated with Jade, examination performed, management plan was discussed, agree with the current scribed note, I made few changes to the note using Italic font Patient was seen at bedside, laying down comfortably No new complaint Possible discharge to start immunotherapy. JADE ANGUIANO Oct 08, 2021 08:35 LAURA MACE MD Oct 08, 2021 13:11
--- NOTE | 2021-10-08 09:00 | Progress Note ---
Subjective Subjective Date Seen by Provider: Oct 08, 2021 Time Seen by Provider: 08:40 Patient is being seen in follow up for AMS, atrial fibrillation, metastatic kidney disease Patient resting comfortably in bed this morning. Patient is ready to go home. Planning on discharge tomorrow. Patient's rash looks improved today. Patient states it is less itchy today. Xarelto was restarted by cardiology yesterday. Will recheck CBC today and tomorrow before discharge. Review of Systems General: No Chills, No Night Sweats HEENT: No Head Aches, No Visual Changes Pulmonary: No Dyspnea, No Cough Cardiovascular: No: Chest Pain, Palpitations Gastrointestinal: No: Nausea, Vomiting, Abdominal Pain Genitourinary: No Dysuria, No Frequency Musculoskeletal: back pain (well controlled w/ current meds) Neurological: No: Change in speech, Confusion All Other Systems Reviewed All Other Systems Reviewed: No Objective Exam Vital Signs Vital Signs Date Time Temp Pulse Resp B/P (MAP) Pulse Ox O2 Delivery O2 Flow Rate FiO2 10/08/21 08:00 Nasal Cannula 3.00 10/08/21 07:52 36.5 81 18 129/66 (87) 97 Nasal Cannula 3.00 10/08/21 07:00 106 10/08/21 06:36 37.1 10/08/21 05:55 37.1 10/08/21 04:08 37.1 78 18 113/67 (82) 98 Nasal Cannula 3.00 10/08/21 01:25 36.7 10/08/21 01:00 85 10/08/21 00:55 36.7 10/08/21 00:06 36.7 86 18 122/67 (85) 98 Nasal Cannula 3.00 10/07/21 21:06 36.4 10/07/21 20:36 36.4 10/07/21 20:00 Nasal Cannula 4.00 10/07/21 19:32 36.4 83 20 120/62 (81) 97 Nasal Cannula 3.00 10/07/21 19:00 80 10/07/21 15:42 36.0 83 20 115/68 (84) 98 Nasal Cannula 3.00 10/07/21 12:44 84 10/07/21 11:24 36.8 82 18 120/67 (84) 98 Nasal Cannula 3.00 I & O 10/08/21 06:59 Intake Total 1450 ml Output Total 1100 ml Balance 350 ml General Appearance: No Apparent Distress, Chronically ill Eyes: Bilateral Eye Normal Inspection, Bilateral Eye PERRL, Bilateral Eye EOMI HEENT: PERRL/EOMI Neck: Non Tender, Supple Respiratory: Chest Non Tender, Lungs Clear, No Accessory Muscle Use, No Respiratory Distress, Decreased Breath Sounds (slightly in right base) Cardiovascular: Regular Rate, Rhythm, Normal Peripheral Pulses Gastrointestinal: Normal Bowel Sounds, Non Tender, Soft Rectal: Deferred Extremity: Non Tender, No Calf Tenderness, Pedal Edema (1+) Neurologic/Psychiatric: Alert, Oriented x3, Normal Mood/Affect Skin: Normal Color, Warm/Dry, Rash (pruritic, errythematous, slightly raised macular rash w/ erosions along the edges of macules. Medial hamstrings to poste rior hamstrings to glutes and slight involvemnt of right posterior hip) Results Lab Microbiology 10/05/21 MRSA Screen - Final, Complete MRSA not isolated 09/30/21 C. difficile GDH Antigen & Toxins - Final, Complete Assessment/Plan Assessment/Plan Admission Dx Assessment and Plan Type 2 NSTEMI Atrial Fibrillation Sinus Tachycardia * Patient underwent MOON with cardioversion on 10/02. * Patient still currently sinus * Xarelto currently being held for three days per surgery request; day 2/3 * Managed by cardiology team Pneumonia Pulmonary Effusion Pulmonary Hypertension * Patient seems to have responded well to lasix * Zosyn TID, will finish today * 3L O2 NC currently Metastatic Renal Cancer * Patient has been seen by Dr. Duke, who spoke with Dr. Sauceda * Patient is able to begin treatment here it [place] with Dr. Duke upon discharge * Patient continues to improves, planning on discharge home with home health on tomorrow Acute Delirium Anxiety * Patient feels anxiety is improved. * Patient has Lorazepam PRN ordered for anxiety * Mental status has been AOx3 and stable * Continue reorientation and reassurance frequently Anemia, undetermined origin * Heme-occult negative * Iron panel consistent with anemia of chronic disease * Hemoglobin has been stable s/p transfusion Hypertension * Patient taking rate-control anti-hypertensives due to A-fib. * Continue to monitor Hyperlipidemia * Holding currently Acute dermatitis * Ordered clotrimazole/betamethasone * Rash showing improvement today. Continue to monitor Abdominal Aortic Aneurysm * 3.7 x 4.0cm AAA noted on imaging yesterday * No further management necessary at this time Admission Dx Clinical Quality Measures Admission Status Admission Dx Supervisory-Addendum Brief Verification & Attestation Participated in pt care: history, MDM, physical Personally performed: exam, history, MDM, supervision of care Care discussed with: Medical Student Procedures: n/a Results interpretation: Verified all documentation Agree with student note as documented. Marco was admitted with delirium, likely due to medication over-use in an effort to control pain from metastatic disease, he was also in uncontrolled atrial fibrillation and sustained a small type 2 NSTEMI, with pulmonary effusion and pneumonia as subsequent diagnosis. Marco has improved significantly, surprisingly so and will plan for discharge to home instead of the [facility]. Our plan will be dc to home with home health, monitor symptoms and finish iv antibiotics (late ) Port placed, accessed, and working well. Plan for outpatient Oncologic treatments through Dr. Duke next week. DX as follows: Atrial Fibrillation Pneumonia Metastatic Renal Cancer Acute Delirium (now resolved) Anxiety Anemia, due to metastatic cancer Hypertension Acute dermatitis MEGGAN LAZARO Oct 08, 2021 09:00 ANNALISA VALDIVIA MD Oct 09, 2021 10:28
--- NOTE | 2021-10-08 10:07 | Physical Therapy Daily Note ---
PT Daily Note-Current Subjective Patient agrees to PT. Spouse present. Mental Status Patient Orientation: Normal For Age Attachments: Oxygen Transfers SCALE: Activities may be completed with or without assistive devices. 8-Toyfzaflnm-iinpvva completes the activity by him/herself with no assistance from a helper. 5-Set-up or Clean-up Assistance-helper sets up or cleans up; patient completes activity. [place] assists only prior to or following the activity. 4-Supervision or Touching Assistance-helper provides verbal cues and/or touching/steadying and/or contact guard assistance as patient completes activity. Assistance may be provided throughout the activity or intermittently. 3-Partial/Moderate Assistance-helper does LESS THAN HALF the effort. [place] lifts, holds or supports trunk or limbs, but provides less than half the effort. 2-Substantial/Maximal Assistance-helper does MORE THAN HALF the effort. [place] lifts or holds trunk or limbs and provides more than half the effort. 0-Nnwlgwsiy-ghumss does ALL the effort. Patient does none of the effort to complete the activity. Or, the assistance of 2 or more helpers is required for the patient to complete the activity. If activity was not attempted, code reason: 7-Patient Refused. 9-Not Applicable-not attempted and the patient did not perform the activity before the current illness, exacerbation or injury. 10-Not Attempted due to Environmental Limitations-(lack of equipment, weather restraints, etc.). 88-Not Attempted due to Medical Conditions or Safety Concerns. Sit to Stand (QC): 4 Weight Bearing Right Lower Extremity: Right Full Weight Bearing Left Lower Extremity: Left Full Weight Bearing Gait Training Distance: 250' Walk 10 feet (QC): 4 Walk 50 ft with 2 Turns(QC): 4 Walk 150 ft (QC): 4 Gait Assistive Device: FWW Patient is very safe and functional with FWW use and would safely be able to negotiate 4WW without difficulty. Assessment Patient mentation and functional mobility has improved and patient is safe to ambulate with 4WW when dismissed to home. 4WW would be utilized for energy conservation and allow patient to have recovery periods due to increase SOA episodes in home. Education with patient and spouse on use of AD. SW notified of recommendation. PT Senior Care Goals Senior Care Goals PT Data Analysis Manager Goals Time Frame: Oct 17, 2021 Roll Left & Right (QC): 6 Sit to Lying (QC): 6 Lying-Sitting on Side/Bed(QC): 6 Sit to Stand (QC): 6 Chair/Hgh-rl-Xeavg Xfer(QC): 6 Toilet Transfer (QC): 6 Does the Patient Walk: Yes Walk 10 feet (QC): 6 Walk 50ft with 2 Turns (QC): 6 Walk 150 ft (QC): 6 PT Plan Treatment/Plan Treatment Plan: Continue Plan of Care Treatment Plan: Bed Mobility, Education, Functional Activity Ramakrishna, Functional Strength, Group Therapy, Gait, Safety, Therapeutic Exercise, Transfers Treatment Duration: Oct 17, 2021 Frequency: 6 times per week Estimated Hrs Per Day: .5 hour per day Patient and/or Family Agrees t: Yes Time/GCodes Time In: 935 Time Out: 946 Total Billed Treatment Time: 11 Total Billed Treatment 1 visit FA 11 min JUAN CHAVEZ PT Oct 08, 2021 10:07
[2021-10-08] MEDS: meTOproloL SUCCINATE 50 MG (TOPROL XL) TAB PO SCH (10:10)
[2021-10-08] MEDS: LIDOCAINE 4% (SALONPAS) PATCH TOP SCH (10:10)
[2021-10-08] MEDS: FLUTICASONE NASAL SPRAY (FLONASE) 16 GM BTL NS SCH ×2 (10:10→20:01)
[2021-10-08] MEDS: NICOTINE PATCH REMOVAL TP SCH (10:10)
[2021-10-08] MEDS: AMIODARONE 200 MG (CORDARONE) TAB PO SCH ×2 (10:10→20:01)
[2021-10-08] MEDS: RIVAROXABAN 20 MG TABLET (XARELTO) PO SCH (10:10)
[2021-10-08] MEDS: NICOTINE 7 MG (NICODERM) PATCH TD SCH (10:10)
[2021-10-08] MEDS: BETAMETHASONE/CLOTRIM CREAM (LOTRISONE) 45 GM TP SCH ×2 (10:10→20:01)
[2021-10-08 10:21] LABS: HEMATOCRIT 28 % (40-54); HEMOGLOBIN 8.8 g/dL (13.3-17.7); MEAN CORPUSCULAR HEMOGLOBIN 31 pg (25-34); MEAN CORPUSCULAR HGB CONC 31 g/dL (32-36); MEAN CORPUSCULAR VOLUME 100 fL (80-99); MEAN PLATELET VOLUME 9.2 fL (9.0-12.2); PLATELET COUNT 239 10^3/uL (130-400); WHITE BLOOD COUNT 7.6 10^3/uL (4.3-11.0)
[2021-10-08 10:35] LABS: CREATININE SERUM 0.69 MG/DL (0.60-1.30); POTASSIUM 3.5 MMOL/L (3.6-5.0)
--- NOTE | 2021-10-08 11:09 | Occupational Ther Daily Note ---
OT Current Status-Daily Note Subjective Pt resting in bed upon OT arrival, agreeable to tx. Mental Status/Objective Patient Orientation: Person, Place, Situation Attachments: IV, Ventilator ADL-Treatment Therapy Code Descriptions/Definitions Functional Kaufman Measure: 0=Not Assessed/NA 4=Minimal Assistance 1=Total Assistance 5=Supervision or Setup 2=Maximal Assistance 6=Modified Kauf[place] 3=Moderate Assistance 7=Complete IndependenceSCALE: Activities may be completed with or without assistive devices. 5-Dqcmzunktu-prpjalu completes the activity by him/herself with no assistance from a helper. 5-Set-up or Clean-up Assistance-helper sets up or cleans up; patient completes activity. [place] assists only prior to or following the activity. 4-Supervision or Touching Assistance-helper provides verbal cues and/or touching/steadying and/or contact guard assistance as patient completes activity. Assistance may be provided throughout the activity or intermittently. 3-Partial/Moderate Assistance-helper does LESS THAN HALF the effort. [place] lifts, holds or supports trunk or limbs, but provides less than half the effort. 2-Substantial/Maximal Assistance-helper does MORE THAN HALF the effort. [place] lifts or holds trunk or limbs and provides more than half the effort. 1-Jhyqrqmox-wdggev does ALL the effort. Patient does none of the effort to complete the activity. Or, the assistance of 2 or more helpers is required for the patient to complete the activity. If activity was not attempted, code reason: 7-Patient Refused. 9-Not Applicable-not attempted and the patient did not perform the activity before the current illness, exacerbation or injury. 10-Not Attempted due to Environmental Limitations-(lack of equipment, weather restraints, etc.). 88-Not Attempted due to Medical Conditions or Safety Concerns. Other Treatment Pt remained in bed for duration of tx. He declined all ADLs at this time, but he was agreeable to participate in exercises to increase BUE strength and endurance needed for ADLs and functional transfers. He completed 2x10 of the following exercises with ~1lb weighted-objects found within his room: shoulder flexion, chest punches, and bicep curls. Pt tolerated exercises well with no c/o increasing pain/discomfort or SOB. Post tx, pt left in bed with call light left in hand and all needs met. Education OT Patient Education: Correct positioning, Energy conservation, Exercise program, Progress toward Goal/Update tx plan, Purpose of tx/functional activities, Rehab process Teaching Recipient: Patient Teaching Methods: Discussion Response to Teaching: Verbalize Understanding OT Electric Sealing Machine Operator Goals Fpc Goals Time Frame: Oct 23, 2021 Eating (QC): 6 Toileting Hygiene (QC): 6 Lower Body Dressing (QC): 5 On/Off Footwear (QC): 5 Additional Goals: 1-Demonstrate ADL Tasks, 2-Verbalize Understanding, 3- ImproveStrength/Ramakrishna 1=Demonstrate adherence to instructed precautions during ADL tasks. 2=Patient will verbalize/demonstrate understanding of assistive devices/modifications for ADL. 3=Patient will improve strength/tolerance for activity to enable patient to perform ADL's. OT Education/Plan Problem List/Assessment Assessment: Decreased Activ Tolerance, Decreased Safety Aware, Decreased UE Strength, Impaired I ADL's, Impaired Self-Care Skills Pt would benefit from skilled OT services in order to increase BUE strength and activity tolerance, and safety and independence with ADLs and mobility to maximize LOF for safe discharge. Discharge Recommendations Plan/Recommendations: Continue POC Treatment Plan/Plan of Care Patient would benefit from OT for education, treatment and training to promote independence in ADL's, mobility, safety and/or upper extremity function for ADL's. Plan of Care: ADL Retraining, Cognitive Retraining, Functional Mobility, UE Funct Exercise/Act Treatment Duration: Oct 23, 2021 Frequency: 3 times per week (3-5x/wk) Estimated Hrs Per Day: .25 hour per day Rehab Potential: Guarded Time/GCodes Start Time: 10:38 Stop Time: 14:48 Total Time Billed (hr/min): 10 Billed Treatment Time 1, Ex EZE MEDINA OT Oct 08, 2021 11:09
[2021-10-08] MEDS ORDERED: LIDOCAINE PATCH REMOVAL TP SCH (21:00)
[2021-10-09 03:02] VITALS: BP 162/95
[2021-10-09 05:18] LABS: HEMOGLOBIN 8.6 g/dL (13.3-17.7)
[2021-10-09 07:51] VITALS: BP 134/70
[2021-10-09] MEDS: AMIODARONE 200 MG (CORDARONE) TAB PO SCH (08:58)
[2021-10-09] MEDS: LIDOCAINE 4% (SALONPAS) PATCH TOP SCH (08:58)
[2021-10-09] MEDS: NICOTINE PATCH REMOVAL TP SCH (08:58)
[2021-10-09] MEDS: NICOTINE 7 MG (NICODERM) PATCH TD SCH (08:58)
[2021-10-09] MEDS: FLUTICASONE NASAL SPRAY (FLONASE) 16 GM BTL NS SCH (08:58)
[2021-10-09] MEDS: BETAMETHASONE/CLOTRIM CREAM (LOTRISONE) 45 GM TP SCH (08:58)
[2021-10-09] MEDS: meTOproloL SUCCINATE 50 MG (TOPROL XL) TAB PO SCH (08:58)
[2021-10-09] MEDS: RIVAROXABAN 20 MG TABLET (XARELTO) PO SCH (08:58)
[2021-10-09] MEDS ORDERED: morphine ER 15 MG (MS CONTIN) TAB PO ONE (09:15)
[2021-10-09] MEDS ORDERED: OXC5T PO (09:16)
[2021-10-09] MEDS ORDERED: MORP15TA69 PO (09:16)
[2021-10-09] MEDS ORDERED: AMIO200T65 PO (09:16)
[2021-10-09] MEDS ORDERED: CLOT15CR6 TP (09:16)
--- NOTE | 2021-10-09 09:21 | D/C HH Face to Face Order ---
D/C Face to Face Orders Reconcile Patient Problems Problems Reviewed?: Yes Instructions for Patient home health of pt choice Patient Instructions/FollowUp: 1 wk [facility] week with dr. abraham Physician to follow Patient: vanessa Discharge Diet for Home: other diet (high protein diet) Patient Problems: metastatic renal cell carcinoma atrial fibrillation hypertension weakness Goals for Patient: improved strength Patient Data-Allergies,Ht & Wt Patient Allergies: Coded Allergies: Penicillins (Unverified Allergy, Unknown, 10/06/21) Height (Feet): 5 Height (Inches): 11.00 Weight (Pounds): 270 Weight (Ounces): 0.0 Home Health Need/Face to Face Date of Face to Face: Oct 09, 2021 Clinical Findings: Generalized weakness and fatigue, Muscle weakness, Pain with ambulation I have seen Pt yeop-vv-tlmv: Yes Discharged To: Home Diagnosis/Conditions: metastatic renal cell carcinoma atrial fibrillation hypertension weakness Patient is Homebound due to: Muscle weakness, Shortness of breath/distress Homebound Status Due to the above stated illness, injury or surgical procedure (medical condition or diagnosis) and associated clinical findings, the patient is homebound because of his/her inability to leave home except with aid of a supportive device and/or person AND leaving the home requires a considerable and taxing effort or is medically contraindicated. Pt req the following assistanc: [facility] Nursing Orders Home Health Services Order: Nursing Services, Molder Fitting-Evaluate & Treat, Physical Therapy-Evaluate & Treat monitor rash on bilateral gluteus and right flank help spouse adjust or set up a medication box for em for medication safety port flush per protocol if not being done at [facility] with dr. abraham [facility] Therapy Line Start Date: Oct 02, 2021 Therapy Orders Therapy Specific Orders: Eval assistive deivces, Increase strength/endurance Certify Stmt I certify that this patient is under my care and that I, a nurse practitioner or a physician; a facilities maintenance assistant working with me, had a face to face encounter that - meets the physician face to face encounter requirements with this patient as edd ed. Medication List: Active Scripts Active Ms Contin (Morphine Sulfate) 15 Mg Tablet.er 15 Mg PO BID 30 Days Clotrimazole-Betamethasone Crm (Clotrimazole/Betamethasone Dip) 1 %-0.05 % Cream..g. 1 Gm TP BID Oxyir Tablet (Oxycodone HCl) 5 Mg Tab 5-10 Mg PO Q4HR PRN Amiodarone HCl 200 Mg Tablet 200 Mg PO BID Iprat-Albut 0.5-3(2.5) mg/3 ml (Ipratropium/Albuterol Sulfate) 0.5 Mg-3 Mg (2.5 Mg Base)/3 Ml Ampul.neb 3 Ml INH RTQID Reported Xarelto (Rivaroxaban) 20 Mg Tablet 20 Mg PO DAILY Vitamin B-12 (Cyanocobalamin (Vitamin B-12)) 1,000 Mcg Tablet 1,000 Mcg PO DAILY Vitamin C (Ascorbic Acid) 1,000 Mg Tablet 1,000 Mg PO DAILY Pantoprazole Sodium 40 Mg Tablet.dr 40 Mg PO DAILY Metoprolol Succinate 50 Mg Tab.er.24h 50 Mg PO DAILY Lab results: Laboratory Tests Test 10/08/21 10:00 10/09/21 05:09 Range/Units White Blood Count 7.6 4.3-11.0 10^3/uL Red Blood Count 2.82 L 4.30-5.52 10^6/uL Hemoglobin 8.8 L 8.6 L 13.3-17.7 g/dL Hematocrit 28 L 28 L 40-54 % Mean Corpuscular Volume 100 H 80-99 fL Mean Corpuscular Hemoglobin 31 25-34 pg Mean Corpuscular Hemoglobin Concent 31 L 32-36 g/dL Red Cell Distribution Width 14.8 H 10.0-14.5 % Platelet Count 239 130-400 10^3/uL Mean Platelet Volume 9.2 9.0-12.2 fL Sodium Level 141 135-145 MMOL/L Potassium Level 3.5 L 3.6-5.0 MMOL/L Chloride Level 100 98-107 MMOL/L Carbon Dioxide Level 29 21-32 MMOL/L Anion Gap 12 5-14 MMOL/L Blood Urea Nitrogen 6 L 7-18 MG/DL Creatinine 0.69 0.60-1.30 MG/DL Estimat Glomerular Filtration Rate 101 BUN/Creatinine Ratio 9 Glucose Level 104 70-105 MG/DL Calcium Level 9.0 8.5-10.1 MG/DL My orders: Orders - ANNALISA VALDIVIA MD Hemoglobin And Hematocrit (10/09/21 05:00) Heating Pad (10/08/21 09:32) Lidocaine 4% Patch (Salonpas 4% Patch) (10/08/21 09:45) Ambulate 08,12,20 (10/08/21 09:32) Nursing Communication (Order) (10/08/21 09:32) Patch Removal (Patch Removal) (10/08/21 21:00) Patient Visit (10/08/21 ) Functional Activities, Ea 15 (10/08/21 ) Attending Discharge Inpt/Inobs (10/09/21 09:09) Home Rick Services Dischage (10/09/21 09:09) Morphine Er Tablet (Ms Contin Tablet) (10/09/21 09:15) ANNALISA VALDIVIA MD Oct 09, 2021 09:21
--- NOTE | 2021-10-09 10:08 | Discharge Summary ---
Diagnosis/Chief Complaint Date of Admission Sep 28, 2021 at 23:50 Date of Discharge 10/09/2021 Discharge Date: Oct 09, 2021 Discharge Time: 1000 Admission Diagnosis Admission Diagnosis AMS Metastatic renal cancer Discharge Diagnosis Metastatic Renal Cancer A Fib Pulmonary HTN Anemia Reason Hospital Visit Discharge Summary Hospital Course Was the Problem List Reviewed?: Yes Hospital Course 70 year old male presented to [facility] ER via EMS on 09/29 with AMS. Patient had recently been diagnosed with metastatic renal cancer at and was following with Dr. Sauceda. In the ER patient was found to have elevated troponins, suspicious for T2MI due to decreased perfusion. Patient was also found to have atrial fibrillation, which was known and controlled by beta blockers, CCB, Digoxin and oral anticoagulation at home. Patient was combative and admitted to the ICU to be sedated. Patient continued to have undulating mental status. On 10/01, patient was found to have a Hgb of 7.0 and was transfused a unit of blood. Patient also underwent a CT Chest, abdomen, and pelvis with findings of two solid enhancing lesions in the kidney, an enhancing left lower lobe nodule, and T2, L4, and L5 sclerotic lesions suspicious for mets. Patient's mental status had been stable throughout 10/01 and he was moved to the floor. Once on the floor patient had another acute episode of delirium. Overnight, patient's heart rate became elevated into the 160's. Patient was moved back to the ICU. Patient's HR remained elevated into the morning of 10/02. The decision was made to do a MOON with cardioversion, which was successful in shocking the patient back into sinus rhythm. Patient was started on an amiodarone drip and transitioned to oral amiodarone. Patient also underwent a full body scan on 10/02 which showed abnormal uptake in the ribs, femora, and L4 suggestive of osseous metastatic disease. Over the weekend, the patient was moved back down to the floor. On 10/04 patient was having dyspnea with abnormal lung sounds. Patient underwent CXR which showed right sided effusion and possible loculated infiltrates. Patient was started on zosyn x 3 days and lasix. Surgery was consulted with no intervention given at this time. By 10/05, patient's dyspnea had markedly improved and patient felt much better. Discussion was had with the patients family who stated they wanted patient to be treated locally and start as soon as possible. A consult was made with Dr. Duke. Dr. Duke thought that he could treat the patient here, and spoke with Dr. Sauceda, who agreed. On 10/06 patient underwent port placement, so that he may start therapy upon discharge. Over the next few days patient's clinical status continued to improve and the decision was made to discharge patient home with home health. Patient will be discharged with four wheeled walker and follow up appointments with Dr. Manning and Dr. Duke. Labs Laboratory Tests 10/08/21 10:00: Red Blood Count 2.82L, Hemoglobin 8.8L, Hematocrit 28L, Mean Corpuscular Volume 100H, Mean Corpuscular Hemoglobin Concent 31L, Red Cell Distribution Width 14.8H , Potassium Level 3.5L, Blood Urea Nitrogen 6L 10/09/21 05:09: Hemoglobin 8.6L, Hematocrit 28L Procedures None. Discharge Physical Examination Allergies: Coded Allergies: Penicillins (Unverified Allergy, Unknown, 10/06/21) Vitals & I&Os Vital Signs Date Time Temp Pulse Resp B/P (MAP) Pulse Ox O2 Delivery O2 Flow Rate FiO2 10/09/21 08:00 Nasal Cannula 4.00 10/09/21 07:51 36.4 96 20 134/70 (91) 94 General Appearance: Alert, Oriented X3, Cooperative HEENT: PERRLA Respiratory: Clear to Auscultation Cardiovascular: Regular Rate, No Murmurs Abdominal: Normal Bowel Sounds, Soft Skin: Other (Rash on right hip, bilateral glutes, and medial thighs improving) Psych/Mental Status: Mental Status NL Discharge Home Medications Reviewed and agree with Discharge Medication list on patient's Discharge Ins truction sheet Instructions to Patient/Family Please see electronic discharge instructions given to patient. MEGGAN LAZARO Oct 09, 2021 10:08
[2021-10-09 10:33] VITALS: BP 134/70
--- NOTE | 2021-10-09 10:46 | Cardiology Progress Note ---
Subjective Date Seen by Provider: Oct 09, 2021 Time Seen by Provider: 10:00 Subjective/Events-last exam Patient was seen at bedside, laying down comfortably. Ready to go home Review of Systems General: No Chills, No Night Sweats; Fatigue, Malaise; No Appetite, No Other HEENT: No Head Aches, No Visual Changes, No Eye Pain, No Ear Pain, No Dysphasia, No Sinus Congestion, No Post Nasal Drip, No Sore Throat, No Other Pulmonary: No Dyspnea, No Cough, No Pleuritic Chest Pain, No Other Cardiovascular: No: Chest Pain, Palpitations, Orthopnea, Paroxysmal Noc. Dyspnea, Edema, Lt Headedness, Other Objective-Cardiology Exam Last Set of Vital Signs Vital Signs 10/09/21 10:33 Temp 36.4 Pulse 96 Resp 20 B/P (MAP) 134/70 Pulse Ox 94 O2 Delivery Nasal Cannula O2 Flow Rate 4.00 I&O Intake and Output 10/09/21 00:00 Intake Total 1670 ml Output Total 500 ml Balance 1170 ml Intake Oral 1670 ml Output Urine Total 500 ml # Voids 4 # Bowel Movements 1 General: Alert, Oriented X3, Cooperative HEENT: Atraumatic, PERRLA Neck: Supple, No JVD, No Thyromegaly Lungs: Clear to Auscultation, Normal Air Movement Heart: Regular Rate, Normal S1, Normal S2, No Murmurs Abdomen: Normal Bowel Sounds, Soft, No Tenderness, No Hepatosplenomegaly, No Masses Extremities: No Clubbing, No Cyanosis, No Edema, Normal Pulses, No Tendernes s/Swelling Skin: No Rashes, No Breakdown, No Significant Lesion Neuro: Normal Gait, Normal Speech, Strength at 5/5 X4 Ext, Normal Tone, Sensation Intact Psych/Mental Status: Mental Status NL, Mood NL Results Lab Laboratory Tests 10/09/21 05:09 A/P-Cardiology Admission Diagnosis Acute change in mental status Atrial fibrillation Metastatic renal cell carcinoma Hyperlipidemia Assessment/Plan Status post acute change in mental status, Returned to baseline at this time. Feeling better. CT of the head was negative, MRI was nondiagnostic ABG showed good oxygenation. Electrolytes were corrected. Work-up has been negative. Managed by medical team Paroxysmal atrial fibrillation MOON was done in June 2021 showing echogenic density in the left atrial appendage suggestive of a thrombus Family reported that he underwent cardioversion while he was at . Started back on Xarelto on September 30, 2021 Patient was transferred back to ICU on October 02, 2021 for atrial fibrillation with ventricular response. MOON with electrical cardioversion was done on October 02, 2021, received amiodarone bolus and a drip Currently on oral amiodarone, Toprol XL and in SR. Xarelto restarted on 10/07/21 Metastatic renal cell carcinoma, stage IV, managed at oncology and Dr. Obregon. Planning to begin immunotherapy. Generalized fatigue, shortness of breath, loss of energy, oxygen dependent. Reporting improvement. 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 2D echo done on July 08, 2021 showing dilated left ventricle with left ventricular hypertrophy and ejection fraction 20 to 25%, dilated right ventricle and biatrial enlargement, PA pressure 35 to 40 mmHg. During the MOON on July 09, 2021, his ejection fraction appeared to be better afte r his heart rate improved slightly. COPD, oxygen dependent, currently oxygenation is well. Hypertension, has been borderline hypotensive. Continue to monitor blood pressure Hyperlipidemia, maintained on Lipitor 20 mg daily, continue to monitor Mild bilateral carotid stenosis, ultrasound was done on July 07, 2021 Obesity, BMI is 27, concern about loss of appetite. Significant weight loss over the past 3 months LAURA MACE MD Oct 09, 2021 10:46
== END 2021-10-09 10:42 | disposition home health service (06) | DRG 981 ==
LOC: EDUNIT# 19:43 → ER 19:45 → ICU 23:50 → 4TH 10-01 16:15 → ICU 10-02 05:23 → 4TH 10-05 09:26 → UNDODISIN 10-06 15:55 → 4TH 10-08 13:00
PROVIDERS: ADMIT Family Medicine; ATTEND Family Medicine
PROC: 5A0945A Assistance with Respiratory Ventilation, 24-96 Consecutive Hours, High Flow/Velocity Cannula (ICD-10-PCS; 2021-09-30)
PROC: 5A2204Z Restoration of Cardiac Rhythm, Single (ICD-10-PCS; principal; 2021-10-02)
PROC: 0JH60WZ Insertion of Totally Implantable Vascular Access Device into Chest Subcutaneous Tissue and Fascia, Open Approach (ICD-10-PCS; 2021-10-06)
PROC: 02HV33Z Insertion of Infusion Device into Superior Vena Cava, Percutaneous Approach (ICD-10-PCS; 2021-10-06)
DX: I48.0 Paroxysmal atrial fibrillation (principal); I21.A1 Myocardial infarction type 2; J18.9 Pneumonia, unspecified organism; J96.21 Acute and chronic respiratory failure with hypoxia; I50.21 Acute systolic (congestive) heart failure; C64.2 Malignant neoplasm of left kidney, except renal pelvis; J90 Pleural effusion, not elsewhere classified; F19.921 Other psychoactive substance use, unspecified with intoxication with delirium; C79.51 Secondary malignant neoplasm of bone; C78.00 Secondary malignant neoplasm of unspecified lung; J44.0 Chronic obstructive pulmonary disease with (acute) lower respiratory infection; Z66 Do not resuscitate; I42.8 Other cardiomyopathies; Z79.01 Long term (current) use of anticoagulants; Z79.899 Other long term (current) drug therapy; F17.210 Nicotine dependence, cigarettes, uncomplicated; Z99.81 Dependence on supplemental oxygen; E78.00 Pure hypercholesterolemia, unspecified; K21.9 Gastro-esophageal reflux disease without esophagitis; M06.9 Rheumatoid arthritis, unspecified; I27.20 Pulmonary hypertension, unspecified; E87.6 Hypokalemia; D50.9 Iron deficiency anemia, unspecified; E86.0 Dehydration; F41.9 Anxiety disorder, unspecified; I71.4 Abdominal aortic aneurysm, without rupture; R59.1 Generalized enlarged lymph nodes; L30.9 Dermatitis, unspecified; D63.8 Anemia in other chronic diseases classified elsewhere; E66.9 Obesity, unspecified; Z68.27 Body mass index [BMI] 27.0-27.9, adult; I65.23 Occlusion and stenosis of bilateral carotid arteries; I11.0 Hypertensive heart disease with heart failure; I25.5 Ischemic cardiomyopathy
CPT/HCPCS: 36415; 36569; 51701; 70450; 70551; 71045; 71260; 74178; 76000; 76937; 78306; 80048; 80053; 80061; 80162; 80306; 80320; 80329; 81000; 82140; 82150; 82274; 82550; 82728; 82805; 82947; 83540; 83550; 83605; 83615; 83690; 83735; 84100; 84132; 84443; 84484; 85007; 85014; 85018; 85025; 85027; 85610; 85730; 86850; 86900; 86901; 86920; 87081; 87324; 87449; 93005; 93041; 96372; 96374

== ENCOUNTER 2021-12-16 12:12 | Emergency (ER) | payer MEDICARE ==
[~2021-12-16] VITALS: Ht 175.3 cm; Wt 80.7 kg
[~2021-12-16 12:12] MED LIST changes: +AMIO200T65 PO; +ASCO100024 PO; +CLOT15CR6 TP; +DIGO250T3 PO; +FURO20TA4 PO; +LEVO-55 PO; -LEVO500T81 PO; +MORP15TA69 PO; +OXC5T PO
[2021-12-16] MEDS ORDERED: NS IV 500 ML 500 ML IV STA (13:09)
[2021-12-16] MEDS ORDERED: oxyCODONE/APAP 10/325MG (PERCOCET 10) TABLET PO ONE (13:15)
--- NOTE | 2021-12-16 13:17 | ED General ---
General Chief Complaint: Neurological Problems Stated Complaint: FALLS/WEAKNESS Nursing Triage Note: PT TO RM 9 BY WITH COMPLAINT OF PROGRESSIVE WEAKNESS OVER THE LAST 3 DAYS. PT STATES HE FEELS LIKE HE IS BECOMING PARALYZED FROM THE WAIST DOWN. STATES HE HAS STAGE 4 METASTATIC KIDNEY CANCER THAT HAS SPREAD TO HIS FEMURS, LUNGS, AND SPINE. Source of Information: Patient, Family Exam Limitations: No Limitations History of Present Illness Date Seen by Provider: Dec 16, 2021 Time Seen by Provider: 13:05 Initial Comments Patient is a 71-year-old male with a history of metastatic renal cell carcinoma, A. fib, chronic anticoagulation who presents to the emergency department with his with a complaint of generalized weakness worsening over the last 3 days. Patient states that he was diagnosed with metastatic kidney cancer back in June of this year. He is currently undergoing immunotherapy with Dr. Obregon through . He is due for his next infusion next Tuesday. He gets them every 3 weeks. He has completed 3. He states that he has had gradual decline in func tion to the point in the last 3 days he has been unable to get himself out of his recliner chair, get himself up into the bathroom, hardly walk at all. He has a slight cough productive of "foamy" sputum. No hemoptysis. No blood in his stool or blood in his urine. He states he has been constipated for the last several days. He denies abdominal pain. He does have chronic back pain for which he is on twice daily morphine and oxycodone every 4-6 hours. He has multiple "sores" where he has had falls. Abrasions to both knees, shallow ulcers to the left arm where he lays in his recliner. Skin breakdown at his gluteal cleft. He states he received 1 Moderna vaccination, no boosters. No known sick contacts. All other review of systems reviewed and negative except as stated. Timing/Duration: Constant, Getting Worse Severity: Severe Associated Systoms: Loss of Appetite, Malaise, Weakness Allergies and Home Medications Allergies Coded Allergies: Penicillins (Unverified Allergy, Unknown, 10/06/21) Patient Home Medication List Home Medication List Reviewed: Yes Amiodarone HCl (Amiodarone HCl) 200 Mg Tablet, 200 MG PO BID Prescribed by: ANNALISA MANNING on 10/09/21 0916 Ascorbic Acid (Vitamin C) 1,000 Mg Tablet, 1,000 MG PO DAILY, (Reported) Entered as Reported by: KEVAN HARTLEY on 09/29/21 155 Clotrimazole/Betamethasone Dip (Clotrimazole-Betamethasone Crm) 1 %-0.05 % Cream..g., 1 GM TP BID Prescribed by: ANNALISA MANNING on 10/09/21 0916 Cyanocobalamin (Vitamin B-12) (Vitamin B-12) 1,000 Mcg Tablet, 1,000 MCG PO DAILY, (Reported) Entered as Reported by: KEVAN HARTLEY on 09/29/21 155 Ipratropium/Albuterol Sulfate (Iprat-Albut 0.5-3(2.5) mg/3 ml) 0.5 Mg-3 Mg (2.5 Mg Base)/3 Ml Ampul.neb, 3 ML INH RTQID Prescribed by: ANNALISA MANNING on 07/15/21 1109 Metoprolol Succinate (Metoprolol Succinate) 50 Mg Tab.er.24h, 50 MG PO DAILY, (Reported) Entered as Reported by: KEVAN HARTLEY on 07/08/21 154 Morphine Sulfate (Ms Contin) 15 Mg Tablet.er, 15 MG PO BID Prescribed by: ANNALISA MANNING on 10/09/21 09 Oxycodone Hcl (Oxyir Tablet) 5 Mg Tab, 5-10 MG PO Q4HR PRN for moderate to severe pain Prescribed by: ANNALISA MANNING on 10/09/21916 Pantoprazole Sodium (Pantoprazole Sodium) 40 Mg Tablet.dr, 40 MG PO DAILY, (Reported) Entered as Reported by: KEVAN HARTLEY on 09/29/211557 Rivaroxaban (Xarelto) 20 Mg Tablet, 20 MG PO DAILY, (Reported) Entered as Reported by: KEVAN HARTLEY on 09/29/21 155 Review of Systems Review of Systems Constitutional: see HPI, malaise, weakness EENTM: throat pain (mouth discomfort/hoarse voice) Respiratory: no symptoms reported Cardiovascular: no symptoms reported Gastrointestinal: constipation, loss of appetite Genitourinary: other ("yellow" urine) Musculoskeletal: back pain Skin: other (wounds slow healing) Psychiatric/Neurological: Weakness All Other Systems Reviewed Negative Unless Noted: Yes Past Jremblv-Sgwvry-Kifxwp Hx Patient Social History Tobacco Use?: Yes Tobacco type used: Cigarettes Smoking Status: Current Everyday Smoker Use of E-Cig and/or Vaping dev: No Substance use?: No Alcohol Use?: Yes Alcohol Frequency: Once in a while Pt feels they are or have been: No Immunizations Up To Date First/Initial COVID19 Vaccinat: Second COVID19 Vaccination Julius: Third COVID19 Vaccination Date: Seasonal Allergies Seasonal Allergies: No Past Medical History Surgeries: Yes (HERNIA, LUNG BIOPSY) Abdominal Respiratory: Yes (HOME O2; LUNG NODULES DX 06/2021;PULMONARY HTN) Pneumonia, COPD Currently Using CPAP: No Currently Using BIPAP: No Cardiac: Yes (PULMONARY HTN;HYPERTENSIVE HEART DZ) Atrial Fibrillation, Coronary Artery Disease, High Cholesterol, Hypertension Neurological: Yes Dementia Sexually Transmitted Disease: No HIV/AIDS: No Genitourinary: Yes (RENAL MASS DX 06/2021 ) Gastrointestinal: Yes Gastroesophageal Reflux, Chronic Constipation, Hiatal Hernia Musculoskeletal: Yes (METASTATIC SPINE LESIONS DX 06/2021) Arthritis Endocrine: No HEENT: No Loss of Vision: Denies Hearing Impairment: Hard of Hearing Cancer: Yes Kidney Did You Recieve Any Treatments: No Psychosocial: No Anxiety Integumentary: No Blood Disorders: No Family Medical History Cancer SOCIAL HISTORY: -SMOKES 2-3 PPD -ETOH--ABUSE/HEAVY USE IN PAST, NOW OCCASIONAL USE -DRUGS--+IV COCAINE IN PAST, THC USE IN PAST Physical Exam Vital Signs Vital Signs - First Documented 12/16/21 12:32 Pulse 71 Resp 16 B/P (MAP) 104/64 (77) Pulse Ox 96 O2 Delivery Room Air Capillary Refill : Less Than 3 Seconds Height, Weight, BMI Height: 5'11.00" Weight: 270lbs. 0.0oz. 122.836197as; 26.00 BMI Method: General Appearance: No Apparent Distress, WD/WN Eyes: Bilateral Eye Normal Inspection, Bilateral Eye PERRL, Bilateral Eye EOMI HEENT: TM Abnormal (R) (occluded by cerumen), Other (bright red oral mucosa; shallow ulcer right buccal mucosa; dry appearing; dentures in place) Neck: Full Range of Motion, Normal Inspection, Non Tender, Supple Respiratory: Lungs Clear, Normal Breath Sounds, No Accessory Muscle Use, No Respiratory Distress Cardiovascular: Regular Rate, Rhythm, Normal Peripheral Pulses Gastrointestinal: Non Tender, Soft Extremity: Normal Capillary Refill, Normal Range of Motion, Pedal Edema (2-3+ bilateral LE edema; hands are edematous) Neurologic/Psychiatric: Alert, Oriented x3, No Motor/Sensory Deficits, Normal Mood/Affect, automatic glove turner and former II-XII Norm as Tested Skin: Normal Color, Warm/Dry, Other (scattered lesions LUE and right elbow; shallow ulcer/skin breakdown at gluteal cleft with surrounding erythema) Focused Exam Lactate Level 12/16/21 13:20: Lactic Acid Level 1.71 Lactic Acid Level Laboratory Tests Test 12/16/21 13:20 Lactic Acid Level 1.71 MMOL/L (0.50-2.00) Progress/Results/Core Measures Suspected Sepsis SIRS Temperature: Pulse: 71 Respiratory Rate: 16 Laboratory Tests 12/16/21 13:20: White Blood Count 6.0 Blood Pressure 104 /64 Mean: 77 12/16/21 13:20: Lactic Acid Level 1.71 Laboratory Tests 12/16/21 13:20: Creatinine 0.96, INR Comment 1.3, Platelet Count 159, Total Bilirubin 1.1H Results/Orders Lab Results Laboratory Tests Test 12/16/21 13:20 12/16/21 14:15 12/16/21 14:31 Range/Units White Blood Count 6.0 4.3-11.0 10^3/uL Red Blood Count 3.51 L 4.30-5.52 10^6/uL Hemoglobin 11.2 L 13.3-17.7 g/dL Hematocrit 35 L 40-54 % Mean Corpuscular Volume 99 80-99 fL Mean Corpuscular Hemoglobin 32 25-34 pg Mean Corpuscular Hemoglobin Concent 32 32-36 g/dL Red Cell Distribution Width 17.6 H 10.0-14.5 % Platelet Count 159 130-400 10^3/uL Mean Platelet Volume 10.1 9.0-12.2 fL Immature Granulocyte % (Auto) 0 % Neutrophils (%) (Auto) 78 H 42-75 % Lymphocytes (%) (Auto) 12 12-44 % Monocytes (%) (Auto) 8 0-12 % Eosinophils (%) (Auto) 1 0-10 % Basophils (%) (Auto) 0 0-10 % Neutrophils # (Auto) 4.7 1.8-7.8 10^3/uL Lymphocytes # (Auto) 0.7 L 1.0-4.0 10^3/uL Monocytes # (Auto) 0.5 0.0-1.0 10^3/uL Eosinophils # (Auto) 0.1 0.0-0.3 10^3/uL Basophils # (Auto) 0.0 0.0-0.1 10^3/uL Immature Granulocyte # (Auto) 0.0 0.0-0.1 10^3/uL Prothrombin Time 16.3 H 12.2-14.7 SEC INR Comment 1.3 0.8-1.4 Activated Partial Thromboplast Time 31 24-35 SEC Sodium Level 139 135-145 MMOL/L Potassium Level 3.2 L 3.6-5.0 MMOL/L Chloride Level 101 98-107 MMOL/L Carbon Dioxide Level 28 21-32 MMOL/L Anion Gap 10 5-14 MMOL/L Blood Urea Nitrogen 26 H 7-18 MG/DL Creatinine 0.96 0.60-1.30 MG/DL Estimat Glomerular Filtration Rate 86 BUN/Creatinine Ratio 27 Glucose Level 90 70-105 MG/DL Lactic Acid Level 1.71 0.50-2.00 MMOL/L Calcium Level 7.4 L 8.5-10.1 MG/DL Corrected Calcium 8.9 8.5-10.1 MG/DL Total Bilirubin 1.1 H 0.1-1.0 MG/DL Aspartate Amino Transf (AST/SGOT) 61 H 5-34 U/L Alanine Aminotransferase (ALT/SGPT) 44 0-55 U/L Alkaline Phosphatase 244 H 40-136 U/L C-Reactive Protein High Sensitivity 5.06 H 0.00-0.50 MG/DL Total Protein 4.2 L 6.4-8.2 GM/DL Albumin 2.1 L 3.2-4.5 GM/DL Urine Color ORANGE Urine Clarity CLEAR Urine pH 6.0 5-9 Urine Specific [place] 1.025 H 1.016-1.022 Urine Protein NEGATIVE NEGATIVE Urine Glucose (UA) NEGATIVE NEGATIVE Urine Ketones TRACE H NEGATIVE Urine Nitrite NEGATIVE NEGATIVE Urine Bilirubin NEGATIVE NEGATIVE Urine Urobilinogen 1.0 < = 1.0 MG/DL Urine Leukocyte Esterase NEGATIVE NEGATIVE Urine RBC (Auto) NEGATIVE NEGATIVE Urine RBC NONE /HPF Urine WBC NONE /HPF Urine Squamous Epithelial Cells RARE /HPF Urine Crystals NONE /LPF Urine Bacteria NEGATIVE /HPF Urine Casts PRESENT /LPF Urine Hyaline Casts 2-5 H /LPF Urine Mucus NEGATIVE /LPF Urine Culture Indicated NO SARS-CoV-2 RNA (RT-PCR) Not Detected Not Detecte My Orders Orders - LUCI DOMÍNGUEZ MD Cbc With Automated Diff (12/16/21 13:09) Comprehensive Metabolic Panel (12/16/21 13:09) Blood Culture (12/16/21 13:09) Sputum Culture (12/16/21 13:09) Protime With Inr (12/16/21 13:09) Partial Thromboplastin Time (12/16/21 13:09) Chest 1 View, Ap/Pa Only (12/16/21 13:09) Ed Iv/Invasive Line Start (12/16/21 13:09) Ed Iv/Invasive Line Start (12/16/21 13:09) Vital Signs Adult Sepsis Patie Q15M (12/16/21 13:09) O2 (12/16/21 13:09) Remove Rings In Anticipation O (12/16/21 13:09) Lactic Acid Analyzer (12/16/21 13:09) Hs C Reactive Protein (12/16/21 13:09) Covid 19 Inhouse Test (12/16/21 13:09) Isolation Central Supply Req (12/16/21 13:09) Oxycodone/Acet 10/325mg Tablet (Percocet (12/16/21 13:15) Ns Iv 500 Ml (Sodium Chloride 0.9%) (12/16/21 13:09) Albumin 25% 25 Gm/100 Ml (Albumin 25% 25 (12/16/21 15:30) Medications Given in ED Current Medications Medications Dose Ordered Sig/Margarita Route Start Time Stop Time Status Last Admin Dose Admin Albumin Human 100 ml @ 50 mls/hr ONCE ONCE IV 12/16/21 15:30 12/16/21 17:29 12/16/21 15:48 50 MLS/HR Oxycodone/ Acetaminophen 2 tab ONCE ONCE PO 12/16/21 13:15 12/16/21 13:16 DC 12/16/21 13:53 2 TAB Vital Signs/I&O 12/16/21 12:32 Pulse 71 Resp 16 B/P (MAP) 104/64 (77) Pulse Ox 96 O2 Delivery Room Air Capillary Refill : Less Than 3 Seconds Blood Pressure Mean: 77 Progress Note : Time: 15:19 Progress Note Discussed with Dr Manning - she states that she really believe hospitalization is in his best interest due to financial reasons for the patient and - he does not meet inpatient criteria and an observation stay would be out of pocket for them... She recommended 25gm of albumin to possibly help draw the fluid from 3rd space, and maybe this would also help blood pressure. She stated she would do whatever the patient and his would like to do. I have ordered the albumin. She has had a 500ml NS bolus. Labs look really very reassuring. (his urine did look like tea - however no blood, no bilirubin and sp g onlu 1.025) Zinc paste and allevyn dressing to sacral area. Keflex prescribed.. Diagnostic Imaging Diagonstic Imaging: Xray Plain Films/CT/US/NM/MRI: chest Comments [facility]. [place], [place] NAME: [facility]HAIL [facility] REC#: [id number] PT STATUS: REG ER : 1950 PHYSICIAN: LUCI DOMÍNGUEZ MD ADMIT DATE: 12/16/21/ER Draft Date of Exam:12/16/21 CHEST 1 VIEW, AP/PA ONLY HISTORY: Weakness. History of metastatic kidney cancer. TECHNIQUE: Frontal view of the chest. COMPARISON: 10/06/2021. FINDINGS: Lung volumes are large. No consolidation is seen. There is no pleural effusion or pneumothorax. The cardiac silhouette is normal in size. The left Port-A-Cath appears stable in position. There are old right-sided rib fractures. IMPRESSION: 1. No acute pulmonary abnormality. Dictated on workstation # [id number] Dict: 12/16/21 1426 Trans: 12/16/21 1430 [id number] Interpreted by: GEOVANNA PEARSON MD Electronically signed by: Departure Impression Primary Impression: Generalized weakness Additional Impressions: Metastatic cancer Qualified Codes: C79.51 - Secondary malignant neoplasm of bone Renal anasarca Disposition: HOME, SELF-CARE Condition: Stable Departure-Patient Inst. Decision time for Depature: 16:52 Referrals: ANNALISA MANNING MD (PCP/Family) Primary Care Physician Patient Instructions: Generalized Weakness Add. Discharge Instructions: Please try and drink plenty of fluids to stay well-hydrated. Try and eat multiple small meals a day. Increase your protein. Continue your daily medications as prescribed. Keep your follow-up appointment with Dr. Duke on Tuesday. Keflex antibiotic 3 times a day for the next week for the redness to your low back/butt. Return to the emergency department for any fever greater than 100.4, increasing weakness, shortness of breath, vomiting or other emergent, concerning symptoms. Use a good barrier cream (such as a zinc paste) and a dressing over the wound on your butt daily. I have given you some samples of this. Scripts Cephalexin (Cephalexin) 500 Mg Tablet 500 MG PO TID for 7 Days, #21 TAB Prov: LUCI DOMÍNGUEZ MD 12/16/21 Copy Copies To 1: ANNALISA MANNING MD, KATHRYN M MD Dec 16, 2021 13:17
[2021-12-16 13:40] LABS: BASOPHILS % (AUTO) 0 % (0-10); EOSINOPHILS # (AUTO) 0.1 10^3/uL (0.0-0.3); EOSINOPHILS % (AUTO) 1 % (0-10); HEMATOCRIT 35 % (40-54); HEMOGLOBIN 11.2 g/dL (13.3-17.7); LYMPHOCYTES # (AUTO) 0.7 10^3/uL (1.0-4.0); LYMPHOCYTES % (AUTO) 12 % (12-44); MEAN CORPUSCULAR HEMOGLOBIN 32 pg (25-34); MEAN CORPUSCULAR HGB CONC 32 g/dL (32-36); MEAN CORPUSCULAR VOLUME 99 fL (80-99); MEAN PLATELET VOLUME 10.1 fL (9.0-12.2); MONOCYTES # (AUTO) 0.5 10^3/uL (0.0-1.0); MONOCYTES % (AUTO) 8 % (0-12); NEUTROPHILS # (AUTO) 4.7 10^3/uL (1.8-7.8); NEUTROPHILS % (AUTO) 78 % (42-75); PLATELET COUNT 159 10^3/uL (130-400)
[2021-12-16 13:48] LABS: ALBUMIN 2.1 GM/DL (3.2-4.5); POTASSIUM 3.2 MMOL/L (3.6-5.0)
[2021-12-16 13:49] LABS: CALCIUM 7.4 MG/DL (8.5-10.1)
[2021-12-16 13:50] LABS: TOTAL PROTEIN 4.2 GM/DL (6.4-8.2)
[2021-12-16 13:52] LABS: BILIRUBIN,TOTAL 1.1 MG/DL (0.1-1.0)
[2021-12-16 13:54] LABS: CREATININE SERUM 0.96 MG/DL (0.60-1.30)
[2021-12-16 13:56] LABS: INR 1.3 (0.8-1.4); PROTHROMBIN TIME PATIENT 16.3 SEC (12.2-14.7)
[2021-12-16 14:24] LABS: BILIRUBIN,URINE NEGATIVE (NEGATIVE); CLARITY,URINE CLEAR; COLOR,URINE ORANGE; GLUCOSE, URINE (UA) NEGATIVE (NEGATIVE); KETONES,URINE TRACE (NEGATIVE); LEUKOCYTE ESTERASE ,URINE NEGATIVE (NEGATIVE); NITRITE,URINE NEGATIVE (NEGATIVE); PROTEIN,URINE NEGATIVE (NEGATIVE)
--- NOTE | 2021-12-16 14:31 | Diagnostic Imaging Report ---
HISTORY: Weakness. History of metastatic kidney cancer. TECHNIQUE: Frontal view of the chest. COMPARISON: 10/06/2021. FINDINGS: Lung volumes are large. No consolidation is seen. There is no pleural effusion or pneumothorax. The cardiac silhouette is normal in size. The left Port-A-Cath appears stable in position. There are old right-sided rib fractures. IMPRESSION: 1. No acute pulmonary abnormality. Dictated by: Dictated on workstation # [id number]
[2021-12-16 14:37] LABS: BACTERIA,URINE NEGATIVE /HPF; SQUAMOUS EPITHELIAL CELL,UR RARE /HPF
[2021-12-16] MEDS ORDERED: ALBUMIN 25% 25 GM/100 ML 100 ML IV ONE (15:30)
[2021-12-16] MEDS ORDERED: CEPH500T PO (17:00)
[2021-12-16 17:49] VITALS: BP 110/66
== END 2021-12-16 17:49 | disposition home or self-care (01) ==
LOC: EDUNIT# 12:12 → ER 12:14
DX: C79.00 Secondary malignant neoplasm of unspecified kidney and renal pelvis (principal); N04.9 Nephrotic syndrome with unspecified morphologic changes; I48.91 Unspecified atrial fibrillation; F17.210 Nicotine dependence, cigarettes, uncomplicated; Z20.822 Contact with and (suspected) exposure to COVID-19; Z79.01 Long term (current) use of anticoagulants
CPT/HCPCS: 36415; 71045; 80053; 81000; 83605; 85025; 85610; 85730; 86141; 87040; 87636

== ENCOUNTER 2022-01-03 14:59 | Inpatient (IN) | payer MEDICARE, MEDICAID ==
[~2022-01-03] VITALS: Ht 175 cm; Wt 78.5 kg
[~2022-01-03 14:59] MED LIST changes: +CEPH500T PO
--- NOTE | 2022-01-03 16:10 | ED General ---
General Chief Complaint: General Problems/Pain Stated Complaint: AMS Nursing Triage Note: PT TO RM 9 [facility]IA [facility] FROM HOME. EMS REPORTS THEY WERE CALLED FOR DECREASED LOC AND HALLUCINATIONS. UPON ARRIVAL PT HYPOXIC AT 80% SPO2 ON RA, PT REFUSED O2 AND TX FROM EMS EN ROUTE. PT UNSURE WHY HE'S HERE, STATES "I HAVE CANCER ALL OVER AND I'VE BEEN LOSING WEIGHT." PT ALERT AND DISORIENTED DRING TRIAGE, DENIES PAIN. Source of Information: Patient, Family (kids) History of Present Illness Date Seen by Provider: Jan 03, 2022 Time Seen by Provider: 15:55 Initial Comments Marco is a 71-year-old male with a history of widespread metastatic renal cell cancer who presents to the emergency department from home 2 adult children who states that he has had increasing confusion, poor mobility, poor oral intake. They are concerned about their dad living at home with her stepmom and his pain management. They think at times he is overmedicated. He does have physical therapy at home but now cannot stand to get to the bathroom, does not ambulate at all. I saw him in the emergency department about a month ago with similar complaints however due to cost/financial reasons the family elected not to have him admitted for IV fluid hydration. He was given albumin at that visit and discharged home to follow-up with his primary care physician. He denies fevers. He is chronically short of breath. He is on immunotherapy for his renal cell cancer. Children report that they have a hospice consultation tomorrow. He denies nausea, vomiting currently. No urinary complaints. No black or bloody stools. He does know that he is at times a little confused. No reported falls or head injuries. Timing/Duration: 1 Week Severity: Severe Associated Systoms: Loss of Appetite, Malaise, Shortness of Air (Chronic), Weakness (Generalized) Allergies and Home Medications Allergies Coded Allergies: Penicillins (Unverified Allergy, Unknown, 10/06/21) Patient Home Medication List Home Medication List Reviewed: Yes ALPRAZolam (ALPRAZolam) 0.25 Mg Tablet, 0.25 MG PO DAILY PRN for ANXIETY, (Reported) Entered as Reported by: IVAN MARIE on 01/04/22 1352 Last Action: Reviewed Ascorbic Acid (Vitamin C) 1,000 Mg Tablet, 1,000 MG PO DAILY, (Reported) Entered as Reported by: KEVAN HARTLEY on 09/29/211557 Last Action: Reviewed Cyanocobalamin (Vitamin B-12) (Vitamin B-12) 1,000 Mcg Tablet, 1,000 MCG PO DAILY, (Reported) Entered as Reported by: KEVAN HARTLEY on 09/29/211557 Last Action: Reviewed Ipratropium/Albuterol Sulfate (Iprat-Albut 0.5-3(2.5) mg/3 ml) 0.5 Mg-3 Mg (2.5 Mg Base)/3 Ml Ampul.neb, 1 VIAL PO Q6H PRN for SHORTNESS OF BREATH, (Reported) Entered as Reported by: IVAN MARIE on 01/04/221343 Last Action: Reviewed Levothyroxine Sodium (Levothyroxine Sodium) 25 Mcg Tablet, 25 MCG PO DAILY, (Reported) Entered as Reported by: IVAN MARIE on 01/04/22 133 Last Action: Reviewed Magnesium Oxide (Magnesium Oxide) 400 Mg Tablet, 400 MG PO DAILY, (Reported) Entered as Reported by: IVAN MARIE on 01/04/221347 Last Action: Reviewed Morphine Sulfate (Morphine Sulfate ER) 30 Mg Tablet.er, 30 MG PO Q12H PRN for PA IN-SEVERE (8-10), (Reported) Entered as Reported by: IVAN MARIE on 01/04/22 134 Last Action: Reviewed Ondansetron HCl (Ondansetron HCl) 8 Mg Tablet, 8 MG PO Q8H PRN for NAUSEA/VOMITING, (Reported) Entered as Reported by: IVAN MARIE on 01/04/22 134 Last Action: Reviewed Oxycodone HCl (Oxycodone HCl) 10 Mg Tablet, 20 MG PO Q6H PRN for PAIN-SEVERE (8- 10), (Reported) Entered as Reported by: IVAN MARIE on 01/04/22 134 Last Action: Reviewed Pantoprazole Sodium (Pantoprazole Sodium) 40 Mg Tablet.dr, 40 MG PO DAILY, (Reported) Entered as Reported by: KEVAN HARTLEY on 09/29/211557 Last Action: Reviewed Potassium Chloride (Potassium Chloride) 10 Meq Capsule.er, 10 MEQ PO DAILY, (Reported) Entered as Reported by: IVAN MARIE on 11/7/22 1340 Last Action: Reviewed Review of Systems Review of Systems Constitutional: see HPI EENTM: no symptoms reported, other (dry moth) Respiratory: short of breath (Chronic) Cardiovascular: no symptoms reported Gastrointestinal: loss of appetite Genitourinary: no symptoms reported Musculoskeletal: no symptoms reported, other (chronic pain) Skin: no symptoms reported Psychiatric/Neurological: Other (confusion) Past Jbrkuzq-Grsksk-Ycnyjg Hx Patient Social History Tobacco Use?: Yes Tobacco type used: Cigarettes Smoking Status: Current Everyday Smoker Use of E-Cig and/or Vaping dev: No Substance use?: Yes Substance type: Marijuana Additional substance use comme: PT REPORTS HE'S BEEN SMOKING MARIJUANA FOR 2 WEEKS Substance frequency: Daily Alcohol Use?: No Immunizations Up To Date First/Initial COVID19 Vaccinat: 2020 Second COVID19 Vaccination Julius: NONE Third COVID19 Vaccination Date: NONE COVID19 Vaccine Healthcare Advisory Services Manager: Performance Indicator Seasonal Allergies Seasonal Allergies: No Past Medical History Surgeries: Yes (HERNIA, LUNG BIOPSY) Abdominal Respiratory: Yes (HOME O2; LUNG NODULES DX 06/2021;PULMONARY HTN) Pneumonia, COPD Currently Using CPAP: No Currently Using BIPAP: No Cardiac: Yes (PULMONARY HTN;HYPERTENSIVE HEART DZ) Atrial Fibrillation, Coronary Artery Disease, High Cholesterol, Hypertension Neurological: Yes Dementia Sexually Transmitted Disease: No HIV/AIDS: No Genitourinary: Yes (RENAL MASS DX 06/2021 ) Gastrointestinal: Yes Gastroesophageal Reflux, Chronic Constipation, Hiatal Hernia Musculoskeletal: Yes (METASTATIC SPINE LESIONS DX 06/2021) Arthritis Endocrine: No HEENT: No Loss of Vision: Denies Hearing Impairment: Hard of Hearing Cancer: Yes Kidney Did You Recieve Any Treatments: No Psychosocial: No Anxiety Integumentary: No Blood Disorders: No Family Medical History Cancer SOCIAL HISTORY: -SMOKES 2-3 PPD -ETOH--ABUSE/HEAVY USE IN PAST, NOW OCCASIONAL USE -DRUGS--+IV COCAINE IN PAST, THC USE IN PAST Physical Exam Vital Signs Vital Signs - First Documented 01/03/22 15:00 Temp 36.2 Pulse 85 Resp 20 B/P (MAP) 100/76 (84) Pulse Ox 97 O2 Delivery Nasal Cannula O2 Flow Rate 2.00 Capillary Refill : Less Than 3 Seconds Height, Weight, BMI Height: 5'11.00" Weight: 270lbs. 0.0oz. 122.091499fc; 25.00 BMI Method: General Appearance: No Apparent Distress, Chronically ill Eyes: Bilateral Eye Normal Inspection, Bilateral Eye PERRL, Bilateral Eye EOMI HEENT: Other (very dry mucouc membranes) Neck: Normal Inspection Respiratory: No Accessory Muscle Use, No Respiratory Distress Cardiovascular: Regular Rate, Rhythm, Normal Peripheral Pulses Gastrointestinal: Normal Bowel Sounds, Non Tender, Soft Extremity: Normal Range of Motion Neurologic/Psychiatric: Alert, Oriented x3, No Motor/Sensory Deficits, Normal Mood/Affect, Other (At times during the conversation will appear confused and talk about other topics not currently being discussed. No focal neurologic deficits appreciated) Skin: Warm/Dry, Pallor Progress/Results/Core Measures Suspected Sepsis SIRS Temperature: Pulse: 85 Respiratory Rate: 20 Laboratory Tests 01/03/22 16:20: White Blood Count 4.8 Blood Pressure 100 /76 Mean: 84 Laboratory Tests 01/03/22 16:20: Creatinine 0.80, Platelet Count 120L, Total Bilirubin 1.1H Results/Orders Lab Results Laboratory Tests Test 01/03/22 16:20 Range/Units White Blood Count 4.8 4.3-11.0 10^3/uL Red Blood Count 2.49 L 4.30-5.52 10^6/uL Hemoglobin 8.1 L 13.3-17.7 g/dL Hematocrit 25 L 40-54 % Mean Corpuscular Volume 102 H 80-99 fL Mean Corpuscular Hemoglobin 33 25-34 pg Mean Corpuscular Hemoglobin Concent 32 32-36 g/dL Red Cell Distribution Width 17.2 H 10.0-14.5 % Platelet Count 120 L 130-400 10^3/uL Mean Platelet Volume 9.3 9.0-12.2 fL Immature Granulocyte % (Auto) 0 % Neutrophils (%) (Auto) 76 H 42-75 % Lymphocytes (%) (Auto) 15 12-44 % Monocytes (%) (Auto) 9 0-12 % Eosinophils (%) (Auto) 0 0-10 % Basophils (%) (Auto) 0 0-10 % Neutrophils # (Auto) 3.6 1.8-7.8 10^3/uL Lymphocytes # (Auto) 0.7 L 1.0-4.0 10^3/uL Monocytes # (Auto) 0.4 0.0-1.0 10^3/uL Eosinophils # (Auto) 0.0 0.0-0.3 10^3/uL Basophils # (Auto) 0.0 0.0-0.1 10^3/uL Immature Granulocyte # (Auto) 0.0 0.0-0.1 10^3/uL Sodium Level 142 135-145 MMOL/L Potassium Level 3.7 3.6-5.0 MMOL/L Chloride Level 104 98-107 MMOL/L Carbon Dioxide Level 29 21-32 MMOL/L Anion Gap 9 5-14 MMOL/L Blood Urea Nitrogen 17 7-18 MG/DL Creatinine 0.80 0.60-1.30 MG/DL Estimat Glomerular Filtration Rate 96 BUN/Creatinine Ratio 21 Glucose Level 74 70-105 MG/DL Calcium Level 7.8 L 8.5-10.1 MG/DL Corrected Calcium 9.2 8.5-10.1 MG/DL Total Bilirubin 1.1 H 0.1-1.0 MG/DL Aspartate Amino Transf (AST/SGOT) 49 H 5-34 U/L Alanine Aminotransferase (ALT/SGPT) 37 0-55 U/L Alkaline Phosphatase 164 H 40-136 U/L Total Protein 4.4 L 6.4-8.2 GM/DL Albumin 2.2 L 3.2-4.5 GM/DL My Orders Orders - LUCI DOMÍNGUEZ MD Ed Iv/Invasive Line Start (01/03/22 16:05) Cbc With Automated Diff (01/03/22 16:05) Comprehensive Metabolic Panel (01/03/22 16:05) Ns Iv 1000 Ml (Sodium Chloride 0.9%) (01/03/22 16:15) Vital Signs/I&O 01/03/22 15:00 Temp 36.2 Pulse 85 Resp 20 B/P (MAP) 100/76 (84) Pulse Ox 97 O2 Delivery Nasal Cannula O2 Flow Rate 2.00 Capillary Refill : Less Than 3 Seconds Blood Pressure Mean: 84 Progress Note : Time: 17:28 Progress Note Patient seen and evaluated 71-year-old with metastatic renal cell cancer to bone. Very dehydrated clinically. Generally weak. Evaluation today includes basic laboratory studies. Vital signs are stable. Majority of the history obtained from the children who are at the bedside. Concern for safety and care at home by the patient's spouse. Patient is treated with 1 L of normal saline here in the emergency department. I discussed the case with Dr. Rizzo on-call for Dr. VALDIVIA. She is agreeable to observation admission for dehydration, anemia and generalized debility. We will do consult for inpatient rehab tomorrow. Family is comfortable with this plan of care. No clinical or objective findings to warrant further treatment on an inpatient status. No clinical signs of sepsis, pneumonia, renal failure. Will continue home meds. Departure Communication (Admissions) Time/Spoke to Admitting Phy: 17:[address] Rizzo who accepts the patient for admission Impression Primary Impression: Dehydration Additional Impressions: Renal cell cancer Qualified Codes: C64.9 - Malignant neoplasm of unspecified kidney, except renal pelvis Anemia Qualified Codes: D64.9 - Anemia, unspecified Generalized weakness Disposition: ADMITTED INPATIENT Condition: Stable Admissions Decision to Admit Reason: Admit from ER (General) Decision to Admit/Date: Jan 03, 2022 Time/Decision to Admit Time: 17:31 Departure-Patient Inst. Referrals: ANNALISA VALDIVIA MD (PCP/Family) Primary Care Physician LUCI DOMÍNGUEZ MD Jan 03, 2022 16:10
[2022-01-03] MEDS ORDERED: NS IV 1000 ML 1,000 ML IV SCH (16:15)
[2022-01-03 16:27] LABS: BASOPHILS % (AUTO) 0 % (0-10); EOSINOPHILS % (AUTO) 0 % (0-10); HEMATOCRIT 25 % (40-54); HEMOGLOBIN 8.1 g/dL (13.3-17.7); LYMPHOCYTES # (AUTO) 0.7 10^3/uL (1.0-4.0); LYMPHOCYTES % (AUTO) 15 % (12-44); MEAN CORPUSCULAR HEMOGLOBIN 33 pg (25-34); MEAN CORPUSCULAR HGB CONC 32 g/dL (32-36); MEAN CORPUSCULAR VOLUME 102 fL (80-99); MEAN PLATELET VOLUME 9.3 fL (9.0-12.2); MONOCYTES # (AUTO) 0.4 10^3/uL (0.0-1.0); MONOCYTES % (AUTO) 9 % (0-12); NEUTROPHILS # (AUTO) 3.6 10^3/uL (1.8-7.8); NEUTROPHILS % (AUTO) 76 % (42-75); PLATELET COUNT 120 10^3/uL (130-400); WHITE BLOOD COUNT 4.8 10^3/uL (4.3-11.0)
[2022-01-03 16:35] LABS: ALBUMIN 2.2 GM/DL (3.2-4.5); POTASSIUM 3.7 MMOL/L (3.6-5.0)
[2022-01-03 16:36] LABS: CALCIUM 7.8 MG/DL (8.5-10.1)
[2022-01-03 16:38] LABS: TOTAL PROTEIN 4.4 GM/DL (6.4-8.2)
[2022-01-03 16:39] LABS: BILIRUBIN,TOTAL 1.1 MG/DL (0.1-1.0)
[2022-01-03 16:41] LABS: CREATININE SERUM 0.8 MG/DL (0.60-1.30)
[2022-01-03] MEDS ORDERED: NICOTINE 21 MG (NICODERM) PATCH TD ONE (17:45)
[2022-01-03 20:26] VITALS: BP 122/71
[2022-01-03] MEDS ORDERED: morphine ER 15 MG (MS CONTIN) TAB PO ONE (20:29)
[2022-01-03] MEDS ORDERED: NS IV 1000 ML 1,000 ML ONE (20:30)
[2022-01-03] MEDS: NS IV 1000 ML 1,000 ML IV SCH (21:31)
[2022-01-03 23:30] VITALS: BP 114/61
[2022-01-04 04:00] VITALS: BP 119/69
[2022-01-04] MEDS: NS IV 1000 ML 1,000 ML IV SCH ×4 (04:29→22:39)
[2022-01-04] MEDS: PANTOPRAZOLE 40 MG (PROTONIX) TAB PO SCH ×3 (05:42→10:23)
[2022-01-04] MEDS ORDERED: FLU QUAD HIGH DOSE 240 MCG/0.7 ML 2022-23 (FLUZONE) IM ONE (07:00)
[2022-01-04] MEDS: RT-ALBUTEROL/IPRATROPIUM 3 ML (DUONEB) VIAL INH SCH ×4 (07:20→19:25)
[2022-01-04 08:00] VITALS: BP 122/61
--- NOTE | 2022-01-04 08:19 | History & Physical ---
History of Present Illness History of Present Illness Reason for visit/HPI Pt is a 71 y/o male who has dx of metastatic renal cell CA. He reports that he is going to go home and sit on his couch and say his goodbye's. His family reports that he is smoking marijuana at home, and has been drinking fairly heavily. The family reports he is not eating or drinking other food or fluids very well. Date of Admission Jan 03, 2022 at 17:27 Date Seen by a Provider: Jan 05, 2022 Time Seen by a Provider: 08:20 I consulted on this patient on 01/04/22 08:19 Attending Physician Annalisa Manning MD Admitting Physician Admitting Physician: Chiqui Rizzo DO Attending Physician: ANNALISA MANNING MD Consult Allergies and Home Medications Allergies Coded Allergies: Penicillins (Unverified Allergy, Unknown, 10/06/21) Patient Home Medication List Home Medication List Reviewed: Yes ALPRAZolam (ALPRAZolam) 0.25 Mg Tablet, 0.25 MG PO DAILY PRN for ANXIETY, (Reported) Entered as Reported by: IVAN MARIE on 01/04/22 1352 Last Action: Reviewed Ascorbic Acid (Vitamin C) 1,000 Mg Tablet, 1,000 MG PO DAILY, (Reported) Entered as Reported by: KEVAN HARTLEY on 09/29/21 2418 Last Action: Reviewed Cyanocobalamin (Vitamin B-12) (Vitamin B-12) 1,000 Mcg Tablet, 1,000 MCG PO DAILY, (Reported) Entered as Reported by: KEVAN HARTLEY on 09/29/21 2708 Last Action: Reviewed Ipratropium/Albuterol Sulfate (Iprat-Albut 0.5-3(2.5) mg/3 ml) 0.5 Mg-3 Mg (2.5 Mg Base)/3 Ml Ampul.neb, 1 VIAL PO Q6H PRN for SHORTNESS OF BREATH, (Reported) Entered as Reported by: IVAN MARIE on 01/04/22 1344 Last Action: Reviewed Levothyroxine Sodium (Levothyroxine Sodium) 25 Mcg Tablet, 25 MCG PO DAILY, (Reported) Entered as Reported by: IVAN MARIE on 01/04/22 1339 Last Action: Reviewed Magnesium Oxide (Magnesium Oxide) 400 Mg Tablet, 400 MG PO DAILY, (Reported) Entered as Reported by: IVAN MARIE on 01/04/22 134 Last Action: Reviewed Morphine Sulfate (Morphine Sulfate ER) 30 Mg Tablet.er, 30 MG PO Q12H PRN for PAIN-SEVERE (8-10), (Reported) Entered as Reported by: IVAN MARIE on 01/04/22 1345 Last Action: Reviewed Ondansetron HCl (Ondansetron HCl) 8 Mg Tablet, 8 MG PO Q8H PRN for NAUSEA/VOMITING, (Reported) Entered as Reported by: IVAN MARIE on 01/04/22 134 Last Action: Reviewed Oxycodone HCl (Oxycodone HCl) 10 Mg Tablet, 20 MG PO Q6H PRN for PAIN-SEVERE (8- 10), (Reported) Entered as Reported by: IVAN MARIE on 01/04/22 134 Last Action: Reviewed Pantoprazole Sodium (Pantoprazole Sodium) 40 Mg Tablet.dr, 40 MG PO DAILY, (Reported) Entered as Reported by: KEVAN HARTLEY on 09/29/21 7428 Last Action: Reviewed Potassium Chloride (Potassium Chloride) 10 Meq Capsule.er, 10 MEQ PO DAILY, (Reported) Entered as Reported by: IVAN MARIE on 01/04/221339 Last Action: Reviewed Past Tqnvnds-Fzqtnj-Mmjvca Hx Patient Social History Marrital Status: Living Status: lives at home with his spouse Employed/Student: retired Tobacco Use?: Yes Tobacco type used: Cigarettes Smoking Status: Current Everyday Smoker Use of E-Cig and/or Vaping dev: No Substance use?: Yes Substance type: Marijuana Additional substance use comme: PT REPORTS HE'S BEEN SMOKING MARIJUANA FOR 2 WEEKS Substance frequency: Daily Alcohol Use?: No Alcohol type: Hard Liquor Alcohol Frequency: Couple times a week Pt feels they are or have been: No Immunizations Up To Date First/Initial COVID19 Vaccinat: 2020 Second COVID19 Vaccination Julius: NONE Tetanus Booster (TDap): Unknown Date of Pneumonia Vaccine: Feb 28, 2007 Seasonal Allergies Seasonal Allergies: No Current Status Advance Directives: No Communicates: Verbally Primary Language: Kittitian Preferred Spoken Language: Kittitian Is interpretation needed?: No Sensory deficits: Vision impairment Implanted or Applied Medical D: CPAP Past Medical History Surgeries: Abdominal Pneumonia, COPD Currently Using CPAP: No Currently Using BIPAP: No Atrial Fibrillation, Coronary Artery Disease, High Cholesterol, Hypertension Dementia Sexually Transmitted Disease: No HIV/AIDS: No Gastroesophageal Reflux, Chronic Constipation, Hiatal Hernia Arthritis Loss of Vision: Denies Hearing Impairment: Hard of Hearing Kidney Did You Recieve Any Treatments: No Anxiety Blood Disorders: No HERNIA REPAIR, 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 (NONCANCEROUS), LEFT RENAL MASS Family Medical History Reviewed Nursing Family Hx Cancer SOCIAL HISTORY: -SMOKES 2-3 PPD -ETOH--ABUSE/HEAVY USE IN PAST, NOW OCCASIONAL USE -DRUGS--+IV COCAINE IN PAST, THC USE IN PAST Review of Systems Constitutional: No chills, No fever, No malaise, No weakness EENTM: No throat pain Respiratory: No cough, No dyspnea on exertion; short of breath Cardiovascular: No chest pain, No palpitations Gastrointestinal: No abdominal pain, No constipation, No diarrhea, No nausea, No vomiting Genitourinary: no symptoms reported Musculoskeletal: muscle weakness Skin: other (multiple bruises and abrasions) Psychiatric/Neurological: Denies Anxiety, Denies Depressed All Other Systems Reviewed Negative Unless Noted: Yes Physical Exam Vital Signs Vital Signs - First Documented 01/03/22 01/03/22 15:00 21:41 Temp 36.2 Pulse 85 Resp 20 B/P (MAP) 100/76 (84) Pulse Ox 97 O2 Delivery Nasal Cannula O2 Flow Rate 2.00 FiO2 28 Capillary Refill : Less Than 3 Seconds Height, Weight, BMI Height: 5'11.00" Weight: 270lbs. 0.0oz. 122.334454ym; 25.63 BMI Method: General Appearance: WD/WN, Anxious, Mild Distress (due to confusion) HEENT: PERRL/EOMI, Pharynx Normal Neck: Full Range of Motion, Normal Inspection, Non Tender, Supple Respiratory: Chest Non Tender, Lungs Clear, Normal Breath Sounds, No Accessory Muscle Use Cardiovascular: Regular Rate, Rhythm, Systolic Murmur Gastrointestinal: Normal Bowel Sounds, Non Tender, Soft Rectal: Deferred Back: Normal Inspection Extremity: Normal Capillary Refill, Non Tender, No Calf Tenderness, No Pedal Edema Neurologic/Psychiatric: Alert, Disoriented Skin: Normal Color, Warm/Dry Lymphatic: No Adenopathy Assessment/Plan Assessment and Plan Acute mental status changes/Delirium Atrial fibrillation Renal Cell Carcinoma, metastatic Chronic CAD Chronic Hypertension Chronic Hyperlipdemia Acute Anemia Metastatic renal cell CA - discussed with pt's dtr, son and - I have talked to Dr. Duke - [place] and he is not available to see pt. - discussed case with Monse Hicks NP - for Dr. Duke - she wants scans at hospital. Acute Mental status Changes with delirium - supportive care, pt withdrawing from medications, continue with treatment with medication for his pain, but avoid excessive dosing. - pts reports he is smoking marijuana at home recently. Acute on chronic anemia - monitor labs Rest of chronic issues will be managed with resumption of some of his home medications. Admission Diagnosis Acute mental status changes/Delirium Atrial fibrillation Renal Cell Carcinoma, metastatic Chronic CAD Chronic Hypertension Chronic Hyperlipdemia Acute Anemia Admission Status: Observation ANNALISA MANNING MD Jan 04, 2022 08:19
[2022-01-04 09:33] LABS: HEMATOCRIT 26 % (40-54); HEMOGLOBIN 8.2 g/dL (13.3-17.7); MEAN CORPUSCULAR HEMOGLOBIN 32 pg (25-34); MEAN CORPUSCULAR HGB CONC 32 g/dL (32-36); MEAN CORPUSCULAR VOLUME 101 fL (80-99); MEAN PLATELET VOLUME 9.5 fL (9.0-12.2); PLATELET COUNT 132 10^3/uL (130-400); WHITE BLOOD COUNT 5.8 10^3/uL (4.3-11.0)
[2022-01-04 10:02] LABS: ALBUMIN 2.1 GM/DL (3.2-4.5); BILIRUBIN,TOTAL 0.9 MG/DL (0.1-1.0); CALCIUM 7.4 MG/DL (8.5-10.1); CREATININE SERUM 0.76 MG/DL (0.60-1.30); MAGNESIUM 1.2 MG/DL (1.6-2.4); POTASSIUM 3.3 MMOL/L (3.6-5.0); TOTAL PROTEIN 4.3 GM/DL (6.4-8.2)
[2022-01-04] MEDS: morphine ER 15 MG (MS CONTIN) TAB PO SCH ×2 (10:03→10:22)
[2022-01-04] MEDS: NICOTINE 21 MG (NICODERM) PATCH TD SCH (10:04)
[2022-01-04 11:19] VITALS: BP 131/62
[2022-01-04] MEDS ORDERED: LEVO25TA5 PO (13:39)
[2022-01-04] MEDS ORDERED: POTA10CA43 PO (13:40)
[2022-01-04] MEDS ORDERED: ONDA-106 PO (13:40)
[2022-01-04] MEDS ORDERED: OXYC10TA7 PO (13:41)
[2022-01-04] MEDS ORDERED: IPRA3AMP31 PO (13:44)
[2022-01-04] MEDS ORDERED: MORP-69 PO (13:45)
[2022-01-04] MEDS ORDERED: MAGN400T7 PO (13:48)
[2022-01-04] MEDS ORDERED: ALPR0.254 PO (13:52)
[2022-01-04] MEDS ORDERED: NS 100 ML (IVPB) BAG IV ONE (14:30)
[2022-01-04] MEDS ORDERED: IOHEXOL 350 MG/ML 100 ML (OMNIPAQUE 350) VIAL IV ONE (14:30)
[2022-01-04] MEDS ORDERED: CATHETER FLUSH 10 ML SYR IV PRN (14:30)
[2022-01-04] MEDS ORDERED: HOLD METFORMIN - RECEIVED CONTRAST 20 ML VIAL IV SCH (14:30)
--- NOTE | 2022-01-04 15:22 | Physical Therapy Progress Note ---
Therapy Progress Note Attempted to see patient for PT initial evaluation. Approached nurse regarding evaluation and she reports patient was being wheeled past me as I got off the stairs. Will attempt evaluation again tomorrow and progress per patient tolerance. MEGAN GREGORY PT Jan 04, 2022 15:22
[2022-01-04 16:00] VITALS: BP 117/67
--- NOTE | 2022-01-04 17:09 | Diagnostic Imaging Report ---
PROCEDURE: CT chest, abdomen, and pelvis with contrast. TECHNIQUE: Multiple contiguous axial images were obtained through the chest, abdomen, and pelvis after the administration of intravenous contrast. Auto Exposure Controls were utilized during the CT exam to meet ALARA standards for radiation dose reduction. INDICATION: Left renal cell carcinoma. COMPARISON: CT chest, abdomen, and pelvis of 10/01/2021. FINDINGS: CT CHEST: No abnormality in the trachea. There is a small amount of enhancing relaxation atelectasis in both lung bases due to small bilateral nonloculated pleural effusions. The bilateral pleural effusions have increased in size since the prior exam. No suspicious pulmonary nodules have developed. No supraclavicular or axillary lymphadenopathy. No mediastinal or hilar lymphadenopathy. The heart is normal in size without pericardial effusion. Normal-caliber thoracic aorta with moderate atherosclerotic plaquing. Calcifications of the aortic valve leaflets can be seen with aortic stenosis. Multiple new blastic lesions throughout the thoracic vertebrae have developed. CT ABDOMEN AND PELVIS: Small volume of ascites has developed. Low-attenuation liver is likely due to hepatic steatosis. Focal fatty infiltration along the falciform ligament is present. Cholelithiasis. Spleen is normal. No peripancreatic inflammatory change or mass. No adrenal mass. The central necrotic mass in the lower pole of the left kidney measures 4.6 x 5.2 cm (previously 7.2 x 5.1 cm where measured similarly). Urinary bladder is normal. No obstructive uropathy. Large exophytic cyst off the anterior aspect of the lower pole of the left kidney is stable. No bowel obstruction. Infrarenal abdominal aortic aneurysm is stable in size measuring 3.6 cm. No abdominal or pelvic lymphadenopathy. There is a mottled appearance of the proximal right femoral subtrochanteric region highly concerning for metastatic lesion. Infiltrative metastasis involving the left acetabulum is now noted. Multiple sclerotic foci have developed within the lumbar spine. IMPRESSION: 1. Multifocal skeletal metastases are present. There is infiltrative metastasis involving the right proximal femur in the intertrochanteric region. This is at risk for pathologic fracture. MRI of the pelvis without and with IV contrast is recommended for further assessment. 2. No soft tissue metastases within the chest, abdomen, or pelvis. 3. Small volume of ascites has developed. 4. Small bilateral pleural effusions. Dictated by: Dictated on workstation # [id number]
[2022-01-04] MEDS: RIVAROXABAN 20 MG TABLET (XARELTO) PO SCH (17:31)
[2022-01-04 19:30] VITALS: BP 122/57
[2022-01-04 23:33] VITALS: BP 123/60
[2022-01-05 03:44] VITALS: BP 141/70
[2022-01-05] MEDS: PANTOPRAZOLE 40 MG (PROTONIX) TAB PO SCH (05:51)
[2022-01-05] MEDS ORDERED: LORazepam 0.5 MG (ATIVAN) TABLET PO NR (07:00)
[2022-01-05] MEDS: RT-ALBUTEROL/IPRATROPIUM 3 ML (DUONEB) VIAL INH SCH ×4 (07:12→19:08)
[2022-01-05 07:15] VITALS: BP 118/71
[2022-01-05] MEDS ORDERED: LORazepam INJ 2 MG/ML (ATIVAN) VIAL IVP NR (08:00)
[2022-01-05] MEDS: NICOTINE 21 MG (NICODERM) PATCH TD SCH (08:00)
--- NOTE | 2022-01-05 08:22 | Progress Note ---
Subjective Subjective Date Seen by Provider: Jan 05, 2022 Time Seen by Provider: 08:10 Pt reports that he is "okay" - his dtr reports that he has been drinking a lot at home, but his spouse reports "he already went through withdrawals" from alcohol. He denies drinking much at home, but is not clear cognitively. His family is wanting the report on his ct scan and the pending bone scan today to make decisions about further treatment, etc. Review of Systems General: No Chills; Fatigue, Malaise HEENT: No Head Aches, No Sinus Congestion Pulmonary: Dyspnea, Cough Cardiovascular: No: Chest Pain, Palpitations Gastrointestinal: No: Nausea, Abdominal Pain Genitourinary: Frequency Musculoskeletal: leg pain (hip pain right and left) Neurological: Weakness, Confusion Objective Exam Vital Signs Vital Signs Date Time Temp Pulse Resp B/P (MAP) Pulse Ox O2 Delivery O2 Flow Rate FiO2 01/05/22 07:15 37.2 98 22 118/71 (87) 95 Nasal Cannula 5.00 01/05/22 03:44 36.6 88 20 141/70 (93) 91 Nasal Cannula 4.00 4.00 01/04/22 23:33 37.6 91 20 123/60 (81) 90 Nasal Cannula 4.00 01/04/22 20:00 Nasal Cannula 3.00 01/04/22 19:30 36.2 97 20 122/57 (78) Nasal Cannula 3.00 01/04/22 19:25 90 Nasal Cannula 3.00 01/04/22 16:00 36.5 97 18 117/67 (84) 95 Nasal Cannula 3.00 01/04/22 14:44 93 Nasal Cannula 3.00 01/04/22 11:32 93 Nasal Cannula 3.00 01/04/22 11:19 37.1 89 20 131/62 (85) 94 Nasal Cannula 3.00 I & O 01/05/22 07:00 Intake Total 910 ml Output Total 900 ml Balance 10 ml General Appearance: Chronically ill, Mild Distress (confused) HEENT: PERRL/EOMI, Other (thrush of mouth) Neck: Supple Respiratory: Chest Non Tender, Lungs Clear, Normal Breath Sounds, No Respiratory Distress Cardiovascular: Regular Rate, Rhythm Gastrointestinal: Normal Bowel Sounds, Non Tender, Soft Rectal: Deferred Extremity: Non Tender, No Calf Tenderness, No Pedal Edema Neurologic/Psychiatric: Alert, Other (oriented to person, intermittently to place, but not oriented to time, and pt irritable and anxious) Skin: Normal Color, Warm/Dry Lymphatic: No Adenopathy Results Lab Laboratory Tests 01/04/22 09:25: White Blood Count 5.8, Red Blood Count 2.56L, Hemoglobin 8.2L, Hematocrit 26L, Mean Corpuscular Volume 101H, Mean Corpuscular Hemoglobin 32, Mean Corpuscular Hemoglobin Concent 32, Red Cell Distribution Width 17.1H, Platelet Count 132, Mean Platelet Volume 9.5, Sodium Level 142, Potassium Level 3.3L, Chloride Level 106, Carbon Dioxide Level 28, Anion Gap 8, Blood Urea Nitrogen 15, Creatinine 0.76, Estimat Glomerular Filtration Rate 97, BUN/Creatinine Ratio 20, Glucose Level 127H, Calcium Level 7.4L, Corrected Calcium 8.9, Magnesium Level 1.2L, Total Bilirubin 0.9, Aspartate Amino Transf (AST/SGOT) 47H, Alanine Aminotransferase (ALT/SGPT) 34, Alkaline Phosphatase 162H, Total Protein 4.3L, Albumin 2.1L Assessment/Plan Assessment/Plan Assessment and Plan Acute mental status changes/Delirium Atrial fibrillation Renal Cell Carcinoma, metastatic Chronic CAD Chronic Hypertension Chronic Hyperlipdemia Acute Anemia Alcohol withdrawal Thrush Metastatic renal cell CA - discussed with pt's dtr, son and - I have talked to Dr. Duke - [place] is [place] the [place] and he is not available to see pt. - discussed case with Monse Hicks NP - for Dr. Duke - she wants scans at hospital. - see scan report below 1. Multifocal skeletal metastases are present. There is infiltrative metastasis involving the right proximal femur in the intertrochanteric region. This is at risk for pathologic fracture. MRI of the pelvis without and with IV contrast is recommended for further assessment. 2. No soft tissue metastases within the chest, abdomen, or pelvis. 3. Small volume of ascites has developed. 4. Small bilateral pleural effusions. Acute Mental status Changes with delirium - supportive care, pt withdrawing from medications, continue with treatment with medication for his pain, but avoid excessive dosing. - pts reports he is smoking marijuana at home recently. Acute on chronic anemia - monitor labs Thrush - rx for nystatin swish and swallow limited code status Alcohol withdrawal - [facility]wa protocol Rest of chronic issues will be managed with resumption of some of his home medications. ANNALISA VALDIVIA MD Jan 05, 2022 08:22
[2022-01-05] MEDS: morphine ER 15 MG (MS CONTIN) TAB PO SCH (08:28)
--- NOTE | 2022-01-05 08:37 | Physical Therapy Evaluation ---
PT Evaluation-General Medical Diagnosis Admission Date Jan 03, 2022 at 17:27 Medical Diagnosis: AMS, weakness Onset Date: Jan 03, 2022 Therapy Diagnosis Therapy Diagnosis: impaired mobility, weakness Height/Weight Height (Feet): 5 Height (Inches): 11.00 Weight (Pounds): 270 Weight (Ounces): 0.0 Precautions Precautions/Isolations: Fall Prevention, Standard Precautions Referral Physician: Kerri Reason for Referral: Evaluation/Treatment Medical History Additional Medical History Past Medical History Surgeries: Yes (HERNIA, LUNG BIOPSY) Abdominal Respiratory: Yes (HOME O2; LUNG NODULES DX 06/2021;PULMONARY HTN) Pneumonia, COPD Currently Using CPAP: No Currently Using BIPAP: No Cardiac: Yes (PULMONARY HTN;HYPERTENSIVE HEART DZ) Atrial Fibrillation, Coronary Artery Disease, High Cholesterol, Hypertension Neurological: Yes Dementia Sexually Transmitted Disease: No HIV/AIDS: No Genitourinary: Yes (RENAL MASS DX 06/2021 ) Gastrointestinal: Yes Gastroesophageal Reflux, Chronic Constipation, Hiatal Hernia Musculoskeletal: Yes (METASTATIC SPINE LESIONS DX 06/2021) Arthritis Endocrine: No HEENT: No Loss of Vision: Denies Hearing Impairment: Hard of Hearing Cancer: Yes Kidney Did You Recieve Any Treatments: No Psychosocial: No Anxiety Integumentary: No Blood Disorders: No Reviewed History: Yes Social History Current Living Status: Spouse Entry Into Home: Ramp ( states ramp is in poor condition) Prior Prior Level of Function SCALE: Activities may be completed with or without assistive devices. 9-Gdgqxjdwsv-abipzjr completes the activity by him/herself with no assistance from a helper. 5-Set-up or Clean-up Assistance-helper sets up or cleans up; patient completes activity. [place] assists only prior to or following the activity. 4-Supervision or Touching Assistance-helper provides verbal cues and/or touching/steadying and/or contact guard assistance as patient completes activity. Assistance may be provided throughout the activity or intermittently. 3-Partial/Moderate Assistance-helper does LESS THAN HALF the effort. [place] lifts, holds or supports trunk or limbs, but provides less than half the effort. 2-Substantial/Maximal Assistance-helper does MORE THAN HALF the effort. [place] lifts or holds trunk or limbs and provides more than half the effort. 1-Hycnkdrtl-hbdusl does ALL the effort. Patient does none of the effort to complete the activity. Or, the assistance of 2 or more helpers is required for the patient to complete the activity. If activity was not attempted, code reason: 7-Patient Refused. 9-Not Applicable-not attempted and the patient did not perform the activity before the current illness, exacerbation or injury. 10-Not Attempted due to Environmental Limitations-(lack of equipment, weather restraints, etc.). 88-Not Attempted due to Medical Conditions or Safety Concerns. Bed Mobility: 3 Transfers (B,C,W/C): 3 Prior Devices Use: Walker PT Evaluation-Current Subjective Patient in bed pre tx, agrees to PT, has 8/10 pain in back. Pt/Family Goals none stated Objective Patient Orientation: Person, Confused Attachments: Oxygen ROM/Strength ROM Lower Extremities WNL Strength Lower Extremities hip flexion 3-/5 bilaterally, patient would not participate with any further strength testing Sensory Hearing: Functional Sensation Lower Extremities unable to assess Transfers Roll Left to Right (QC): 3 Lying to Sitting/Side of Bed(Q: 3 Sit to Stand (QC): 1 Chair/Fej-km-Vlggv Xfer(QC): 3 mod assist for supine to sit, dependent for sit to stand, once standing min assist to transfer to recliner Balance Sitting Static: Poor Sitting Dynamic: Poor Standing Static: Poor Standing Dynamic: Poor Assessment/Needs Patient in recliner post tx with nurse call, phone, tray, all needs met. and nursing in room. Patient was pretty agitated by the time he got to his recl iner so stopped tx at this time. Patient has poor safety awareness, initially demanded that everyone stand away from him so he could stand, it was apparent he could not stand and was actually going to slide forward off the bed so assistance was given. Patient is very confused, states initially after introduction that he was here because he was being investigated for a crime. Rehab Potential: Poor PT Bag Bundler Goals Longterm Goals PT Longterm Goals Time Frame: Jan 12, 2022 Roll Left & Right (QC): 3 (Cheri) Sit to Lying (QC): 3 (Cheri) Lying-Sitting on Side/Bed(QC): 3 (Cheri) Sit to Stand (QC): 3 (Cheri) Chair/Zji-uh-Melak Xfer(QC): 4 (CGA) PT Plan Problem List Problem List: Activity Tolerance, Functional Strength, Safety, Balance, Gait, Transfer, Bed Mobility, ROM Treatment/Plan Treatment Plan: Continue Plan of Care Treatment Plan: Bed Mobility, Education, Functional Activity Ramakrishna, Functional Strength, Gait, Safety, Therapeutic Exercise, Transfers Treatment Duration: Jan 12, 2022 Frequency: 6 times per week Estimated Hrs Per Day: .25 hour per day Patient and/or Family Agrees t: Yes Safety Risks/Education Patient Education: Transfer Techniques, Correct Positioning, Safety Issues Teaching Recipient: Patient Teaching Methods: Demonstration, Discussion Response to Teaching: Reinforcement Needed Discharge Recommendations Plan Patient will perform bed mobility and transfer training, balance and endurance training, functional strengthening, gait training, and education, to improve functional mobility and independence at home. Therapy Discharge Recommendati: Other, See Comments ([facility] or home with hospice) Time Time In: 817 Time Out: 827 DATE: Jan 05, 2022 Total Billed Treatment Time: 10 Total Billed Treatment 1 visit [facility] NASIR SINGH PT Jan 05, 2022 08:37
--- NOTE | 2022-01-05 08:57 | Occupational Therapy Eval ---
OT Evaluation-General/PLF Medical Diagnosis Admission Date Jan 03, 2022 at 17:27 Medical Diagnosis: AMS, weakness Onset Date: Jan 03, 2022 Therapy Diagnosis Therapy Diagnosis: weakness Height/Weight Height (Feet): 5 Height (Inches): 11.00 Weight (Pounds): 270 Weight (Ounces): 0.0 Precautions Precautions/Isolations: Fall Prevention, Standard Precautions Referral Physician: Kerri Referral Reason: Evaluation/Treatment Medical History Additional Medical History Surgeries: Yes (HERNIA, LUNG BIOPSY) Abdominal Respiratory: Yes (HOME O2; LUNG NODULES DX 06/2021;PULMONARY HTN) Pneumonia, COPD Currently Using CPAP: No Currently Using BIPAP: No Cardiac: Yes (PULMONARY HTN;HYPERTENSIVE HEART DZ) Atrial Fibrillation, Coronary Artery Disease, High Cholesterol, Hypertension Neurological: Yes Dementia Sexually Transmitted Disease: No HIV/AIDS: No Genitourinary: Yes (RENAL MASS DX 06/2021 ) Gastrointestinal: Yes Gastroesophageal Reflux, Chronic Constipation, Hiatal Hernia Musculoskeletal: Yes (METASTATIC SPINE LESIONS DX 06/2021) Arthritis Endocrine: No HEENT: No Loss of Vision: Denies Hearing Impairment: Hard of Hearing Cancer: Yes Kidney Did You Recieve Any Treatments: No Psychosocial: No Anxiety Integumentary: No Blood Disorders: No Reviewed History: Yes Current History EMS from home due to decreased LOC and hallucinations. Pt hypoxic upon EMS arrival. Social History Current Living Status: Spouse Entry Into Home: Ramp ( states ramp is in poor condition) ADL-Prior Level of Function SCALE: Activities may be completed with or without assistive devices. 9-Yijrrzvgoi-ndnwifj completes the activity by him/herself with no assistance from a helper. 5-Set-up or Clean-up Assistance-helper sets up or cleans up; patient completes activity. [place] assists only prior to or following the activity. 4-Supervision or Touching Assistance-helper provides verbal cues and/or touching/steadying and/or contact guard assistance as patient completes activity. Assistance may be provided throughout the activity or intermittently. 3-Partial/Moderate Assistance-helper does LESS THAN HALF the effort. [place] lifts, holds or supports trunk or limbs, but provides less than half the effort. 2-Substantial/Maximal Assistance-helper does MORE THAN HALF the effort. [place] lifts or holds trunk or limbs and provides more than half the effort. 6-Ndvfynehu-ultiov does ALL the effort. Patient does none of the effort to complete the activity. Or, the assistance of 2 or more helpers is required for the patient to complete the activity. If activity was not attempted, code reason: 7-Patient Refused. 9-Not Applicable-not attempted and the patient did not perform the activity be fore the current illness, exacerbation or injury. 10-Not Attempted due to Environmental Limitations-(lack of equipment, weather restraints, etc.). 88-Not Attempted due to Medical Conditions or Safety Concerns. ADL PLOF Comments Pt's reports pt requires total assist with ADLs at PLOF. He does not assist in any parts of bathing/dressing, but is typically able to feed himself. She reports he is typically able to get up to a chair, but doesn't move around much at home. Self Care: Needed Some Help Functional Cognition: Needed Some Help OT Current Status Subjective Pt in bed, confused. Pt states he is in bed due to being accused of child molestation. rates 8/10 pain in back. Mental Status/Objective Patient Orientation: Person, Confused Attachments: Oxygen (5L) Current Hand Dominance: Right Upper Extremity ROM WFL, BUE shoulder flexion to approx 130 degrees during tx. Upper Extremity Strength grossly 3/5 ADL-Treatment Eating (QC): 5 (set up with breakfast.) On/Off Footwear (QC): 1 Other Treatments Pt in bed, at bedside. Pt's provides information about pt's PLOF, states he has had some confusion. Pt agreeable to getting up in chair, mod A supine to sit EOB, dependent sit to stand, then min A to transfer to recliner once standing. Pt agitated once at recliner so treatment terminated at this time. Pt has poor safety awareness, demanding everyone stand away from him to give him space to stand up, but pt unable to stand on his own, then demanded assistance from staff. Post tx, pt in recliner, call light in reach and all needs met, family present and legs elevated. Education OT Patient Education: Correct positioning, Energy conservation, Modified ADL techniques, Progress toward Goal/Update tx plan, Purpose of tx/functional activities, Rehab process Teaching Recipient: Patient Teaching Methods: Discussion Response to Teaching: Verbalize Understanding OT Communication Signals Intelligence Goals Assisted Goals 1=Demonstrate adherence to instructed precautions during ADL tasks. 2=Patient will verbalize/demonstrate understanding of assistive devices/modifications for ADL. 3=Patient will improve strength/tolerance for activity to enable patient to perform ADL's. OT Education/Plan Problem List/Assessment Assessment: No Skilled OT Needs ID'd No skilled OT services indicated at this time. Pt is currently at his PLOF, requiring total assist with ADLs. Discharge from OT at this time. Discharge Recommendations Plan/Recommendations: Discharge/Goals Met Treatment Plan/Plan of Care Patient would benefit from OT for education, treatment and training to promote independence in ADL's, mobility, safety and/or upper extremity function for ADL's. Plan of Care: ADL Retraining, Functional Mobility Treatment Duration: Jan 05, 2022 Frequency: 1 time per week (eval only) Estimated Hrs Per Day: .25 hour per day Rehab Potential: Poor Time Start Time: 08:18 Stop Time: 08:28 DATE: Jan 05, 2022 Total Time Billed (hr/min): 10 Billed Treatment Time 1, EZE KRAUS OT Jan 05, 2022 08:57
[2022-01-05] MEDS ORDERED: ONDANSETRON 4 MG/2 ML (SDV) Z0FRAN IV PRN (09:15)
[2022-01-05] MEDS ORDERED: D5 1/2 NS 1000 ML IV SOLUTION 1,000 ML IV PRN (09:15)
[2022-01-05] MEDS ORDERED: ANTACID SUSP 30 ML UDC (MYLANTA) PO PRN (09:15)
[2022-01-05] MEDS ORDERED: LORazepam 1 MG (ATIVAN) TAB PO PRN (09:15)
[2022-01-05] MEDS ORDERED: SENNA W/DOCUSATE (SENOKOT S) TABLET PO PRN (09:15)
[2022-01-05] MEDS ORDERED: 1/2 NS IV SOLUTION 1,000 ML IV PRN (09:15)
[2022-01-05] MEDS: LORazepam INJ 2 MG/ML (ATIVAN) VIAL IV PRN ×3 (10:13→19:31)
[2022-01-05 11:15] VITALS: BP 130/71
[2022-01-05] MEDS: NYSTATIN ORAL SUSP 5 ML UDC PO SCH ×3 (13:11→23:09)
[2022-01-05] MEDS: NS IV 1000 ML 1,000 ML IV SCH ×2 (14:26→21:40)
[2022-01-05 15:37] VITALS: BP 108/58
--- NOTE | 2022-01-05 16:42 | Diagnostic Imaging Report ---
Indication: History of metastatic renal cell carcinoma. The frontal projection acquisitions could only be performed as the patient could not get out of bed. Compared with a previous whole-body departmental bone scan dated 10/02/2021. Findings: Abnormal uptake in the proximal right femur and mid to distal left femur, not substantially changed. Multiple rib lesions are less well seen however its likely owing to diminished sensitivity on a technical basis at today's exam. Uptake in the lower lumbar spine is no longer clearly visualized but this may also be technical. Impression: Rib and spinal bony metastases less well visualized, probably on a technical basis. Abnormalities in the femurs and proximal humeri not clearly changed. No convincing evidence for disease progression at this limited study. Dictated by: Dictated on workstation # [id number]
[2022-01-05] MEDS: RIVAROXABAN 20 MG TABLET (XARELTO) PO SCH (17:00)
[2022-01-05] MEDS ORDERED: LIDOCAINE UROJET 2% GEL 10 ML PKG TOP ONE (18:30)
[2022-01-05 19:17] VITALS: BP 124/66
[2022-01-06] VITALS (13 sets, daily range): BP systolic 107–128; BP diastolic 58–74
[2022-01-06] MEDS: LORazepam INJ 2 MG/ML (ATIVAN) VIAL IV PRN (03:31)
[2022-01-06] MEDS: NS IV 1000 ML 1,000 ML IV SCH (05:28)
[2022-01-06 05:53] LABS: MEAN PLATELET VOLUME 9.8 fL (9.0-12.2); WHITE BLOOD COUNT 4.9 10^3/uL (4.3-11.0)
[2022-01-06 06:01] LABS: ALBUMIN 1.8 GM/DL (3.2-4.5)
[2022-01-06 06:02] LABS: HEMOGLOBIN 6.9 g/dL (13.3-17.7); POTASSIUM 3.4 MMOL/L (3.6-5.0)
[2022-01-06 06:03] LABS: CALCIUM 7.1 MG/DL (8.5-10.1)
[2022-01-06 06:04] LABS: TOTAL PROTEIN 3.8 GM/DL (6.4-8.2)
[2022-01-06 06:08] LABS: CREATININE SERUM 0.68 MG/DL (0.60-1.30)
[2022-01-06] MEDS: THIAMINE 100 MG (VITAMIN B-1) TAB PO SCH (06:50)
[2022-01-06] MEDS: NYSTATIN ORAL SUSP 5 ML UDC PO SCH ×4 (06:50→22:50)
[2022-01-06] MEDS: PANTOPRAZOLE 40 MG (PROTONIX) TAB PO SCH (06:50)
[2022-01-06] MEDS: RT-ALBUTEROL/IPRATROPIUM 3 ML (DUONEB) VIAL INH SCH ×4 (07:50→19:23)
--- NOTE | 2022-01-06 08:46 | Progress Note ---
Subjective Subjective Date Seen by Provider: Jan 06, 2022 Time Seen by Provider: 08:30 PT CONFUSED, PICKING AT ITEMS IN THE AIR, ON HIS BED. HE IS NOT COMBATIVE, JUST CONFUSED. HIS IS AT BEDSIDE, STATES THAT HE SEEMS CALMER TODAY. Review of Systems General: No Chills; Fatigue, Malaise HEENT: No Head Aches, No Sinus Congestion Pulmonary: Dyspnea, Cough Cardiovascular: No: Chest Pain, Palpitations Gastrointestinal: No: Nausea, Abdominal Pain Genitourinary: Frequency Musculoskeletal: leg pain (hip pain right and left) Neurological: Weakness, Confusion All Other Systems Reviewed All Other Systems Reviewed: Yes Objective Exam Vital Signs Vital Signs Date Time Temp Pulse Resp B/P (MAP) Pulse Ox O2 Delivery O2 Flow Rate FiO2 01/06/22 08:27 36.6 97 20 125/59 (81) 95 Nasal Cannula 4.00 4.00 01/06/22 08:26 36.6 97 20 125/59 (81) 95 Nasal Cannula 4.00 4.00 01/06/22 07:58 36.6 97 95 125/59 (81) 95 Nasal Cannula 4.00 01/06/22 07:57 95 High Flow N/C 4.00 01/06/22 03:50 36.6 91 20 127/66 (86) 95 High Flow N/C 4.00 01/06/22 00:00 36.9 89 20 128/71 (90) 97 High Flow N/C 4.00 01/05/22 22:28 95 High Flow N/C 4.00 01/05/22 20:33 Nasal Cannula 4.00 01/05/22 19:17 36.7 94 20 124/66 (85) 95 High Flow N/C 4.00 01/05/22 19:09 96 Nasal Cannula 4.00 01/05/22 16:06 100 High Flow N/C 5.00 01/05/22 15:37 37.5 95 19 108/58 (75) 92 High Flow N/C 5.00 01/05/22 11:26 95 4.00 01/05/22 11:15 37.8 105 20 130/71 (90) 97 Nasal Cannula 5.00 I & O 01/06/22 07:00 Intake Total 2260 ml Output Total 1100 ml Balance 1160 ml General Appearance: Chronically ill, Mild Distress (confused) HEENT: PERRL/EOMI, Other (thrush of mouth) Neck: Supple Respiratory: Chest Non Tender, Lungs Clear, Normal Breath Sounds, No Respiratory Distress Cardiovascular: Regular Rate, Rhythm Gastrointestinal: Normal Bowel Sounds, Non Tender, Soft Rectal: Deferred Back: Normal Inspection Extremity: Non Tender, No Calf Tenderness, No Pedal Edema Neurologic/Psychiatric: Alert, Other (oriented to person, intermittently to place, but not oriented to time, and pt irritable and anxious) Skin: Normal Color, Warm/Dry Lymphatic: No Adenopathy Results Lab Laboratory Tests 01/05/22 09:55: Serum Alcohol < 10 01/06/22 05:40: White Blood Count 4.9, Red Blood Count 2.11L, Hemoglobin 6.9*L, Hematocrit 22L, Mean Corpuscular Volume 103H, Mean Corpuscular Hemoglobin 33, Mean Corpuscular Hemoglobin Concent 32, Red Cell Distribution Width 17.2H, Platelet Count 129L, Mean Platelet Volume 9.8, Percent Immature Platelet Fraction 1.9, Sodium Level 146H, Potassium Level 3.4L, Chloride Level 112H, Carbon Dioxide Level 27, Anion Gap 7, Blood Urea Nitrogen 10, Creatinine 0.68, Estimat Glomerular Filtration Rate 101, BUN/Creatinine Ratio 15, Glucose Level 66L, Calcium Level 7.1L, Corrected Calcium 8.9, Total Bilirubin 1.0, Aspartate Amino Transf (AST/SGOT) 39H, Alanine Aminotransferase (ALT/SGPT) 31, Alkaline Phosphatase 139H, Total Protein 3.8L, Albumin 1.8L Assessment/Plan Assessment/Plan Admission Dx Acute mental status changes/Delirium Atrial fibrillation Renal Cell Carcinoma, metastatic Chronic CAD Chronic Hypertension Chronic Hyperlipdemia Acute Anemia Assessment and Plan Acute mental status changes/Delirium Atrial fibrillation Renal Cell Carcinoma, metastatic Chronic CAD Chronic Hypertension Chronic Hyperlipdemia Acute Anemia Alcohol withdrawal Thrush Metastatic renal cell CA - discussed with pt's dtr, son and - I have talked to Dr. Duke - [place] and he is not available to see pt. - discussed case with Monse Hicks NP - for Dr. Duke - she wants scans at hospital. - see scan report below 1. Multifocal skeletal metastases are present. There is infiltrative metastasis involving the right proximal femur in the intertrochanteric region. This is at risk for pathologic fracture. MRI of the pelvis without and with IV contrast is recommended for further assessment. 2. No soft tissue metastases within the chest, abdomen, or pelvis. 3. Small volume of ascites has developed. 4. Small bilateral pleural effusions. BONE SCAN WAS TAKEN LATER THAN EXPECTED, NOT SURE TO THE QUALITY OF THE IMAGING Acute Mental status Changes with delirium - supportive care, pt withdrawing from medications, continue with treatment with medication for his pain, but avoid excessive dosing. - pts reports he is smoking marijuana at home recently. Acute on chronic anemia - - BLOOD TODAY DUE TO HGB DOWN TO 6.9 Thrush - rx for nystatin swish and swallow limited code status Alcohol withdrawal - [facility] protocol Rest of chronic issues will be managed with resumption of some of his home medications. Admission Dx Acute mental status changes/Delirium Atrial fibrillation Renal Cell Carcinoma, metastatic Chronic CAD Chronic Hypertension Chronic Hyperlipdemia Acute Anemia Clinical Quality Measures Admission Status Admission Dx Acute mental status changes/Delirium Atrial fibrillation Renal Cell Carcinoma, metastatic Chronic CAD Chronic Hypertension Chronic Hyperlipdemia Acute Anemia ANNALISA VALDIVIA MD Jan 06, 2022 08:46
[2022-01-06] MEDS: morphine ER 15 MG (MS CONTIN) TAB PO SCH (08:59)
[2022-01-06] MEDS: NICOTINE 21 MG (NICODERM) PATCH TD SCH (08:59)
[2022-01-06] MEDS ORDERED: ONDANSETRON 4 MG (ZOFRAN) ORAL DISSOLVE TAB PO PRN (09:00)
[2022-01-06] MEDS: ONDANSETRON 4 MG (ZOFRAN) ORAL DISSOLVE TAB SL PRN (09:55)
[2022-01-06] MEDS: LEVOTHYROXINE 25 MCG (LEVOTHROID) TAB PO SCH (09:56)
[2022-01-06] MEDS: 1/2 NS W/KCL 20 MEQ/L 1,000 ML IV SCH ×2 (09:56→22:55)
--- NOTE | 2022-01-06 10:23 | Physical Therapy Daily Note ---
PT Daily Note-Current Subjective Patient in bed pre-tx, unable to report pain, agrees to PT with encouragement. Pain Section J - Health Conditions 1. Rarely or not at all 2. Occasionally 3. Frequently 4. Almost constantly 8. Unable to answer Pain Effect on Sleep: 8 Pain Interference with Therapy: 8 Pain Interference w/Day-to-Day: 8 Appearance Patient in bed post-tx with nurse call, phone, tray, family in room, all needs met. Mental Status Patient Orientation: Person, Confused, Mumbles Attachments: Plasencia Catheter, IV blood transfusion Transfers SCALE: Activities may be completed with or without assistive devices. 2-Vsihydiejq-otporeg completes the activity by him/herself with no assistance from a helper. 5-Set-up or Clean-up Assistance-helper sets up or cleans up; patient completes activity. [place] assists only prior to or following the activity. 4-Supervision or Touching Assistance-helper provides verbal cues and/or touching/steadying and/or contact guard assistance as patient completes activity. Assistance may be provided throughout the activity or intermittently. 3-Partial/Moderate Assistance-helper does LESS THAN HALF the effort. [place] lift s, holds or supports trunk or limbs, but provides less than half the effort. 2-Substantial/Maximal Assistance-helper does MORE THAN HALF the effort. [place] lifts or holds trunk or limbs and provides more than half the effort. 8-Xvhaicvqx-vliyiw does ALL the effort. Patient does none of the effort to complete the activity. Or, the assistance of 2 or more helpers is required for the patient to complete the activity. If activity was not attempted, code reason: 7-Patient Refused. 9-Not Applicable-not attempted and the patient did not perform the activity before the current illness, exacerbation or injury. 10-Not Attempted due to Environmental Limitations-(lack of equipment, weather restraints, etc.). 88-Not Attempted due to Medical Conditions or Safety Concerns. Exercises Supine Ex: Ankle pumps (20), Heel Slides (Min A), Short Arc Quads (Mod A) Supine Reps: 20 Ankle DF/PF Stretching 20 reps Treatments LE Strengthening and Stretching Assessment Current Status: Regressing Patient slowly regressing with strength and activity from decline in health. Patient unable to understand verbal cueing without in combination with tactile cueing. Patient keeps eyes closed most of the time and mumbles hallucinations. Patient sometimes resistant with AROM. Patient now has mets to his proximal femur and is at risk for a fracture. PT Sleeve Tailor Goals Sleeve Tailor Goals PT Group Home Goals Time Frame: Jan 12, 2022 Roll Left & Right (QC): 3 (Cheri) Sit to Lying (QC): 3 (Cheri) Lying-Sitting on Side/Bed(QC): 3 (Cheri) Sit to Stand (QC): 3 (Cheri) Chair/Vmi-rc-Omvtb Xfer(QC): 4 (CGA) PT Plan Problem List Problem List: Activity Tolerance, Functional Strength, Safety, Balance, Gait, Transfer, Bed Mobility, ROM Treatment/Plan Treatment Plan: Continue Plan of Care Treatment Plan: Bed Mobility, Education, Functional Activity Ramakrishna, Functional Strength, Safety, Therapeutic Exercise, Transfers Treatment Duration: Jan 12, 2022 Frequency: 6 times per week Estimated Hrs Per Day: .25 hour per day Patient and/or Family Agrees t: Yes Safety Risks/Education Patient Education: Correct Positioning, Safety Issues Teaching Recipient: Patient, Family Response to Teaching: Unable to Comprehend, Reinforcement Needed Unable to comprehend verbal instructions, but sometimes can return demonstration with tactile cueing. Time Time In: 1006 Time Out: 1014 DATE: Jan 06, 2022 Total Billed Treatment Time: 8 Total Billed Treatment 1 visit EX 8min NASIR DÍAZ PT Jan 06, 2022 10:23
[2022-01-06 14:56] LABS: HEMOGLOBIN 7.4 g/dL (13.3-17.7)
[2022-01-06] MEDS: RIVAROXABAN 20 MG TABLET (XARELTO) PO SCH (17:45)
[2022-01-06] MEDS: ALPRAZolam 0.25 MG (XANAX) TAB PO PRN (22:50)
[2022-01-07] MEDS: RT-ALBUTEROL/IPRATROPIUM 3 ML (DUONEB) VIAL INH PRN (00:04)
[2022-01-07 03:14] VITALS: BP 114/68
[2022-01-07] MEDS: NYSTATIN ORAL SUSP 5 ML UDC PO SCH ×3 (06:20→16:18)
[2022-01-07] MEDS: THIAMINE 100 MG (VITAMIN B-1) TAB PO SCH (06:20)
[2022-01-07] MEDS: PANTOPRAZOLE 40 MG (PROTONIX) TAB PO SCH (06:20)
[2022-01-07 06:46] LABS: HEMOGLOBIN 8.5 g/dL (13.3-17.7); MEAN PLATELET VOLUME 9.5 fL (9.0-12.2); WHITE BLOOD COUNT 6.5 10^3/uL (4.3-11.0)
[2022-01-07 07:01] LABS: POTASSIUM 3.4 MMOL/L (3.6-5.0)
[2022-01-07 07:02] LABS: CALCIUM 7.1 MG/DL (8.5-10.1)
[2022-01-07 07:06] LABS: CREATININE SERUM 0.67 MG/DL (0.60-1.30)
[2022-01-07 07:45] VITALS: BP 134/75
[2022-01-07] MEDS: RT-ALBUTEROL/IPRATROPIUM 3 ML (DUONEB) VIAL INH SCH ×4 (08:04→19:05)
--- NOTE | 2022-01-07 08:36 | Progress Note ---
Subjective Subjective Date Seen by Provider: Jan 07, 2022 Time Seen by Provider: 08:20 Pt is less confused today - his son notes that he ate well, has been drinking well, and seems to be more calm today than yesterday. Marco notes that he thinks he would like to go home, but his son and his do not think he is safe to go home. Jessica denies pain, or other concerns this morning. Review of Systems General: No Chills; Fatigue, Malaise HEENT: No Head Aches, No Sinus Congestion Pulmonary: Dyspnea, Cough Cardiovascular: No: Chest Pain, Palpitations Gastrointestinal: No: Nausea, Abdominal Pain Genitourinary: Frequency Musculoskeletal: leg pain (hip pain right and left) Neurological: Weakness, Confusion (IMPROVED) All Other Systems Reviewed All Other Systems Reviewed: Yes Objective Exam Vital Signs Vital Signs Date Time Temp Pulse Resp B/P (MAP) Pulse Ox O2 Delivery O2 Flow Rate FiO2 01/07/22 08:04 92 High Flow N/C 5.00 01/07/22 07:45 37.2 93 19 134/75 (94) 88 High Flow N/C 4.00 01/07/22 03:14 36.2 82 16 114/68 (83) 99 Nasal Cannula 4.50 01/06/22 23:20 37.0 88 20 116/70 (85) 99 Nasal Cannula 3.00 01/06/22 20:00 36.4 85 20 115/62 (79) 97 High Flow N/C 2.00 01/06/22 19:56 Nasal Cannula 3.00 01/06/22 19:23 98 High Flow N/C 4.00 01/06/22 15:51 36.3 87 18 115/60 (78) 98 High Flow N/C 2.00 01/06/22 13:17 37.8 90 95 01/06/22 12:28 37.8 92 18 113/58 100 High Flow N/C 2.00 01/06/22 12:00 36.5 92 18 107/66 (80) 100 High Flow N/C 2.00 01/06/22 12:00 36.5 92 18 107/66 (80) 93 Nasal Cannula 4.00 4.00 01/06/22 11:07 99 High Flow N/C 4.00 01/06/22 10:04 36.1 94 20 120/70 100 High Flow N/C 3.00 01/06/22 09:47 36.5 90 20 118/74 98 High Flow N/C 3.00 I & O 01/07/22 07:00 Intake Total 1574 ml Output Total 600 ml Balance 974 ml General Appearance: No Apparent Distress, Chronically ill Eyes: Bilateral Eye Normal Inspection, Bilateral Eye PERRL, Bilateral Eye EOMI HEENT: PERRL/EOMI, Other (faint thrush on roof of mouth) Neck: Normal Inspection Respiratory: Chest Non Tender, No Accessory Muscle Use, No Respiratory Distress, Decreased Breath Sounds (in bases) Cardiovascular: Regular Rate, Rhythm, Normal Peripheral Pulses Gastrointestinal: Normal Bowel Sounds, Non Tender, Soft Rectal: Deferred Back: Normal Inspection Extremity: Normal Range of Motion Neurologic/Psychiatric: Alert, Oriented x3, No Motor/Sensory Deficits, Normal Mood/Affect, Other (At times during the conversation will appear confused and talk about other topics not currently being discussed. No focal neurologic deficits appreciated) Skin: Warm/Dry, Pallor Lymphatic: No Adenopathy Results Lab Laboratory Tests 01/06/22 14:50: Hemoglobin 7.4L, Hematocrit 23L 01/07/22 06:35: Hemoglobin 8.5L, Hematocrit 26L, White Blood Count 6.5, Red Blood Count 2.67L, Mean Corpuscular Volume 99, Mean Corpuscular Hemoglobin 32, Mean Corpuscular Hemoglobin Concent 32, Red Cell Distribution Width 18.6H, Platelet Count 134, Mean Platelet Volume 9.5, Percent Immature Platelet Fraction 2.1, Sodium Level 142, Potassium Level 3.4L, Chloride Level 109H, Carbon Dioxide Level 25, Anion Gap 8, Blood Urea Nitrogen 10, Creatinine 0.67, Estimat Glomerular Filtration Rate 101, BUN/Creatinine Ratio 15, Glucose Level 75, Calcium Level 7.1L Assessment/Plan Assessment/Plan Admission Dx Acute mental status changes/Delirium Atrial fibrillation Renal Cell Carcinoma, metastatic Chronic CAD Chronic Hypertension Chronic Hyperlipdemia Acute Anemia Assessment and Plan Acute mental status changes/Delirium Atrial fibrillation Renal Cell Carcinoma, metastatic Chronic CAD Chronic Hypertension Chronic Hyperlipdemia Acute Anemia Alcohol withdrawal Thrush Metastatic renal cell CA - discussed with pt's dtr, son and - I have talked to Dr. Duke - [place] is [place] and he is not available to see pt. - discussed case with Monse Hicks NP - for Dr. Duke - she wants scans at hospital. - see scan report below 1. Multifocal skeletal metastases are present. There is infiltrative metastasis involving the right proximal femur in the intertrochanteric region. This is at risk for pathologic fracture. MRI of the pelvis without and with IV contrast is recommended for further assessment. 2. No soft tissue metastases within the chest, abdomen, or pelvis. 3. Small volume of ascites has developed. 4. Small bilateral pleural effusions. Acute Mental status Changes with delirium - supportive care, pt withdrawing from medications, continue with treatment with medication for his pain, but avoid excessive dosing. - pts reports he is smoking marijuana at home recently. Acute on chronic anemia - monitor labs Thrush - rx for nystatin swish and swallow limited code status Alcohol withdrawal - [facility] protocol working on half-way placement, restart physical therapy today due to pt's clearing mentation Rest of chronic issues will be managed with resumption of some of his home medications. Admission Dx Acute mental status changes/Delirium Atrial fibrillation Renal Cell Carcinoma, metastatic Chronic CAD Chronic Hypertension Chronic Hyperlipdemia Acute Anemia Clinical Quality Measures Admission Status Admission Dx Acute mental status changes/Delirium Atrial fibrillation Renal Cell Carcinoma, metastatic Chronic CAD Chronic Hypertension Chronic Hyperlipdemia Acute Anemia ANNALISA VALDIVIA MD Jan 07, 2022 08:36
[2022-01-07] MEDS: NICOTINE 21 MG (NICODERM) PATCH TD SCH (09:25)
[2022-01-07] MEDS: morphine ER 15 MG (MS CONTIN) TAB PO SCH (09:25)
[2022-01-07] MEDS: LEVOTHYROXINE 25 MCG (LEVOTHROID) TAB PO SCH (09:27)
--- NOTE | 2022-01-07 10:02 | Physical Therapy Daily Note ---
PT Daily Note-Current Subjective Patient in bed pre-tx with in room, did not report any pain, agrees to PT. Pain Section J - Health Conditions 1. Rarely or not at all 2. Occasionally 3. Frequently 4. Almost constantly 8. Unable to answer Pain Effect on Sleep: 8 Pain Interference with Therapy: 8 Pain Interference w/Day-to-Day: 8 Appearance Patient in recliner post-tx with nurse call, phone, tray, all needs met. Mental Status Patient Orientation: Person, Place, Situation Attachments: Plasencia Catheter, IV Transfers SCALE: Activities may be completed with or without assistive devices. 3-Wvlcslkjfm-rkcxojd completes the activity by him/herself with no assistance from a helper. 5-Set-up or Clean-up Assistance-helper sets up or cleans up; patient completes activity. [place] assists only prior to or following the activity. 4-Supervision or Touching Assistance-helper provides verbal cues and/or touching/steadying and/or contact guard assistance as patient completes activity. Assistance may be provided throughout the activity or intermittently. 3-Partial/Moderate Assistance-helper does LESS THAN HALF the effort. [place] lifts, holds or supports trunk or limbs, but provides less than half the effort. 2-Substantial/Maximal Assistance-helper does MORE THAN HALF the effort. [place] l ifts or holds trunk or limbs and provides more than half the effort. 2-Pfbifihjn-dnqhvo does ALL the effort. Patient does none of the effort to complete the activity. Or, the assistance of 2 or more helpers is required for the patient to complete the activity. If activity was not attempted, code reason: 7-Patient Refused. 9-Not Applicable-not attempted and the patient did not perform the activity before the current illness, exacerbation or injury. 10-Not Attempted due to Environmental Limitations-(lack of equipment, weather restraints, etc.). 88-Not Attempted due to Medical Conditions or Safety Concerns. Roll Left & Right (QC): 3 (Mod A) Lying to Sitting/Side of Bed(Q: 3 (Mod) Sit to Stand (QC): 2 (Max A for blocking knees) Weight Bearing Right Lower Extremity: Right Full Weight Bearing Left Lower Extremity: Left Full Weight Bearing Gait Training Distance: 5' Gait Persons Needed: 1 Requires Max A of 1 person to yyw-gm-liwrl and moving to the recliner. Exercises Seated Therapy Exercises: Ankle pumps, Long arc quads, Hip flexion Seated Reps: 20 Treatments LE Strengthening, Transfer Assessment Current Status: Fair Progress Patient more aware today and able to answer questions. Patient required Mod A for bed mobility and Max A for transfers to block knees. Patient attempted jim-jm-yjhzs with walker but unable to control knee flexion/ext, however,was able to attain stand with therapist with blocking knees and to transfer to recliner minimal to moderate assist. PT Abrasives Sales Representative Goals Abrasives Sales Representative Goals PT Alf Goals Time Frame: Jan 12, 2022 Roll Left & Right (QC): 3 (Cheri) Sit to Lying (QC): 3 (Cheri) Lying-Sitting on Side/Bed(QC): 3 (Cheri) Sit to Stand (QC): 3 (Cheri) Chair/Fyi-jo-Eghuc Xfer(QC): 4 (CGA) PT Plan Problem List Problem List: Activity Tolerance, Functional Strength, Safety, Balance, Gait, Transfer, Bed Mobility, ROM Treatment/Plan Treatment Plan: Continue Plan of Care Treatment Plan: Bed Mobility, Education, Functional Activity Ramakrishna, Functional Strength, Safety, Therapeutic Exercise, Transfers Treatment Duration: Jan 12, 2022 Frequency: 6 times per week Estimated Hrs Per Day: .25 hour per day Patient and/or Family Agrees t: Yes Safety Risks/Education Patient Education: Transfer Techniques, Correct Positioning, Safety Issues Teaching Recipient: Patient Teaching Methods: Demonstration Response to Teaching: Reinforcement Needed Time Time In: 918 Time Out: 940 DATE: Jan 07, 2022 Total Billed Treatment Time: 22 Total Billed Treatment 1 visit FA 22min JUAN CHAVEZ PT Jan 07, 2022 10:02
[2022-01-07 11:12] VITALS: BP 103/54
[2022-01-07] MEDS: 1/2 NS W/KCL 20 MEQ/L 1,000 ML IV SCH ×2 (11:30→16:18)
--- NOTE | 2022-01-07 15:10 | Physician Query Clarification ---
Physician Query-General Query to Physician: The medical record reflects the following clinical evidence: Clinical Indicators: 02 sat 80% on RA per EMS, RR on admission 20 has been 18- 20 consistently , Shortness of air with exertion, has been on 2 to 5L 02 for 3 days, unable to titrate off. 02 sats 90% on 4L (P/F= 167) Risk Factor(s): Renal Cell Cancer with Mets, COPD, Smoker, Drug and alcohol heavy use, no documentation of home 02 use Treatment: Supplemental 02, Respiratory monitoring, Jesusonebs, 1. Acute respiratory failure, with hypoxia, present on admission 2. Other explanation of clinical findings 3. Unable to determine (no explanation for clinical findings) Please clarify and document your clinical opinion in the progress notes and discharge summary including the definitive and/or presumptive diagnosis, (suspected or probable), related to the above clinical findings. Please include clinical findings supporting your diagnosis. Yareli Frost RN, MSN Clinical Banquet Set Up Person [phone] [email or web address] PHYSICIAN RESPONSE: Based on the clinical findings in the record, please respond to the query above on this document as an addendum. Physician Response: If you have questions please contact: County Treasurer: Ext: Thank you for your time and cooperation. Clinical Banquet Set Up Person/County Treasurer This is a permanent part of the medical record YARELI FROST Jan 07, 2022 15:10
[2022-01-07 16:00] VITALS: BP 116/61
[2022-01-07] MEDS: RIVAROXABAN 20 MG TABLET (XARELTO) PO SCH (16:19)
[2022-01-07 19:34] VITALS: BP 112/63
[2022-01-07 23:19] VITALS: BP 98/55
[2022-01-08] MEDS: NYSTATIN ORAL SUSP 5 ML UDC PO SCH ×4 (00:29→17:18)
[2022-01-08 03:12] VITALS: BP 114/55
[2022-01-08] MEDS: 1/2 NS W/KCL 20 MEQ/L 1,000 ML IV SCH ×2 (05:28→17:19)
[2022-01-08] MEDS: RT-ALBUTEROL/IPRATROPIUM 3 ML (DUONEB) VIAL INH SCH ×4 (07:01→22:30)
[2022-01-08 08:00] VITALS: BP 136/72
--- NOTE | 2022-01-08 08:02 | Progress Note ---
Subjective Subjective Date Seen by Provider: Jan 08, 2022 Time Seen by Provider: 07:45 Pt reports that he is feeling much better, is embarrassed about his confusion upon admission. He reports that he is still pretty tired, and he is feeling weak but willing to participate in therapy. He currently denies pain Review of Systems General: No Chills; Fatigue, Malaise HEENT: No Head Aches, No Sinus Congestion Pulmonary: Dyspnea, Cough Cardiovascular: No: Chest Pain, Palpitations Gastrointestinal: No: Nausea, Abdominal Pain, Diarrhea, Constipation Genitourinary: Frequency Musculoskeletal: leg pain (hip pain right and left) Neurological: Weakness, Confusion (significantly improved) All Other Systems Reviewed All Other Systems Reviewed: Yes Objective Exam Vital Signs Vital Signs Date Time Temp Pulse Resp B/P (MAP) Pulse Ox O2 Delivery O2 Flow Rate FiO2 01/08/22 07:01 83 High Flow N/C 5.00 01/08/22 03:12 37.5 87 20 114/55 (74) 93 High Flow N/C 5.00 01/07/22 23:19 37.0 86 20 98/55 (69) 94 High Flow N/C 5.00 01/07/22 19:34 37.0 92 112/63 (79) 92 High Flow N/C 4.50 01/07/22 19:34 Nasal Cannula 3.00 01/07/22 19:05 90 High Flow N/C 4.00 01/07/22 16:00 37.4 90 24 116/61 (79) 89 Nasal Cannula 3.00 01/07/22 15:02 98 High Flow N/C 4.00 01/07/22 11:15 92 High Flow N/C 5.00 01/07/22 11:12 37.0 86 18 103/54 (70) 90 High Flow N/C 3.00 01/07/22 08:04 92 High Flow N/C 5.00 I & O 01/08/22 07:00 Intake Total 1660 ml Output Total 745 ml Balance 915 ml General Appearance: No Apparent Distress, Chronically ill Eyes: Bilateral Eye Normal Inspection, Bilateral Eye PERRL, Bilateral Eye EOMI HEENT: PERRL/EOMI, Other (very dry mucouc membranes) Neck: Normal Inspection Respiratory: Chest Non Tender, No Accessory Muscle Use, No Respiratory Distress, Decreased Breath Sounds (in bases) Cardiovascular: Regular Rate, Rhythm, Normal Peripheral Pulses Gastrointestinal: Normal Bowel Sounds, Non Tender, Soft Rectal: Deferred Back: Normal Inspection Extremity: No Pedal Edema Neurologic/Psychiatric: Alert, Oriented x3, No Motor/Sensory Deficits, Normal Mood/Affect Skin: Warm/Dry, Pallor Lymphatic: No Adenopathy Assessment/Plan Assessment/Plan Admission Dx Acute mental status changes/Delirium Atrial fibrillation Renal Cell Carcinoma, metastatic Chronic CAD Chronic Hypertension Chronic Hyperlipdemia Acute Anemia Assessment and Plan Acute mental status changes/Delirium Atrial fibrillation Renal Cell Carcinoma, metastatic Chronic CAD Chronic Hypertension Chronic Hyperlipdemia Acute Anemia Alcohol withdrawal Thrush Metastatic renal cell CA - discussed with pt's dtr, son and - I have talked to Dr. Duke - he is out of the [place] and he is not available to see pt. - discussed case with Monse Hicks NP - for Dr. Duke - she wants scans at hospital. - see CT scan report below 1. Multifocal skeletal metastases are present. There is infiltrative metastasis involving the right proximal femur in the intertrochanteric region. This is at risk for pathologic fracture. MRI of the pelvis without and with IV contrast is recommended for further assessment. 2. No soft tissue metastases within the chest, abdomen, or pelvis. 3. Small volume of ascites has developed. 4. Small bilateral pleural effusions. - SEE nuclear medicine scan below: Findings: Abnormal uptake in the proximal right femur and mid to distal left femur, not substantially changed. Multiple rib lesions are less well seen however its likely owing to diminished sensitivity on a technical basis at today's exam. Uptake in the lower lumbar spine is no longer clearly visualized but this may also be technical. Impression: Rib and spinal bony metastases less well visualized, probably on a technical basis. Abnormalities in the femurs and proximal humeri not clearly changed. No convincing evidence for disease progression at this limited study. Acute Mental status Changes with delirium - supportive care, pt withdrawing from medications, continue with treatment with medication for his pain, but avoid excessive dosing. - pts reports he is smoking marijuana at home recently. Acute on chronic anemia - monitor labs Thrush - rx for nystatin swish and swallow limited code status Alcohol withdrawal - [facility] protocol was initiated - no pt past need for protocol Rest of chronic issues will be managed with resumption of some of his home medications. pt will need detention placement - he is clear enough to continue with physical therapy and i believe he will continue to improve with need for therapy for strengthening with further plans to be made once we see how much improvement he can make with therapy. Pt may have to stay at the detention for the rest of his life, versus being able to go home for a time before he declines again with need for hospice. Admission Dx Acute mental status changes/Delirium Atrial fibrillation Renal Cell Carcinoma, metastatic Chronic CAD Chronic Hypertension Chronic Hyperlipdemia Acute Anemia Clinical Quality Measures Admission Status Admission Dx Acute mental status changes/Delirium Atrial fibrillation Renal Cell Carcinoma, metastatic Chronic CAD Chronic Hypertension Chronic Hyperlipdemia Acute Anemia ANNALISA VALDIVIA MD Jan 08, 2022 08:02
[2022-01-08] MEDS: LEVOTHYROXINE 25 MCG (LEVOTHROID) TAB PO SCH (08:16)
[2022-01-08] MEDS: THIAMINE 100 MG (VITAMIN B-1) TAB PO SCH (08:16)
[2022-01-08] MEDS: morphine ER 15 MG (MS CONTIN) TAB PO SCH (08:16)
[2022-01-08] MEDS: PANTOPRAZOLE 40 MG (PROTONIX) TAB PO SCH (08:17)
[2022-01-08] MEDS: NICOTINE 21 MG (NICODERM) PATCH TD SCH (08:17)
--- NOTE | 2022-01-08 10:44 | Physical Therapy Progress Note ---
Therapy Progress Note Patient declined PT at this time. Will attempt later today or tomorrow if schedule allows. 1 ref JUAN CHAVEZ PT Jan 08, 2022 10:44
[2022-01-08 12:00] VITALS: BP 114/58
[2022-01-08 15:39] VITALS: BP 142/67
[2022-01-08] MEDS: RIVAROXABAN 20 MG TABLET (XARELTO) PO SCH (17:18)
[2022-01-08 19:20] VITALS: BP 133/64
[2022-01-08] MEDS: ALPRAZolam 0.25 MG (XANAX) TAB PO PRN (21:25)
[2022-01-09] VITALS (8 sets, daily range): BP systolic 111–133; BP diastolic 62–72
[2022-01-09] MEDS: RT-ALBUTEROL/IPRATROPIUM 3 ML (DUONEB) VIAL INH PRN ×2 (00:21→00:22)
[2022-01-09] MEDS ORDERED: FUROSEMIDE 40 MG/4 ML INJ (LASIX) IVP ONE (00:30)
[2022-01-09] MEDS: NYSTATIN ORAL SUSP 5 ML UDC PO SCH ×5 (00:47→23:38)
[2022-01-09 02:20] LABS: ABG BASE EXCESS 4.5 MMOL/L (-2.5-2.5); ABG OXYGEN SATURATION 94 % (94-100); ABG PCO2 46 MMHG (35-45); ABG PH 7.41 (7.37-7.43); ABG PO2 66 MMHG (79-93); ABG TCO2 30.3 MMOL/L (21.0-31.0)
[2022-01-09 02:21] LABS: ALLENS TEST YES-POS; VENTILATOR NO
[2022-01-09 04:10] LABS: HEMOGLOBIN 7.8 g/dL (13.3-17.7)
[2022-01-09 04:12] LABS: MEAN PLATELET VOLUME 10.1 fL (9.0-12.2)
[2022-01-09 04:27] LABS: CALCIUM 6.9 MG/DL (8.5-10.1); CREATININE SERUM 0.64 MG/DL (0.60-1.30); POTASSIUM 3.6 MMOL/L (3.6-5.0)
[2022-01-09] MEDS: 1/2 NS W/KCL 20 MEQ/L 1,000 ML IV SCH (06:12)
[2022-01-09] MEDS: PANTOPRAZOLE 40 MG (PROTONIX) TAB PO SCH (06:44)
[2022-01-09] MEDS: RT-ALBUTEROL/IPRATROPIUM 3 ML (DUONEB) VIAL INH SCH ×5 (07:06→22:26)
--- NOTE | 2022-01-09 07:15 | Physical Therapy Progress Note ---
Therapy Progress Note Patient on hold due to declined in medical status. JUAN CHAVEZ PT Jan 09, 2022 07:15
[2022-01-09] MEDS: LEVOTHYROXINE 25 MCG (LEVOTHROID) TAB PO SCH (08:02)
[2022-01-09] MEDS: NICOTINE 21 MG (NICODERM) PATCH TD SCH (08:02)
[2022-01-09] MEDS: morphine ER 15 MG (MS CONTIN) TAB PO SCH (08:03)
--- NOTE | 2022-01-09 09:47 | Diagnostic Imaging Report ---
EXAMINATION: CHEST 1 VIEW, AP/PA ONLY. INDICATION: Hypoxia. COMPARISON: 12/16/2021. FINDINGS: New bilateral mid and lower lung zone consolidations. Small to moderate left pleural effusion has developed with fluid tracking in the major fissure. No pneumothorax. Stable left subclavian Port-A-Cath. Cardiac silhouette is unchanged. IMPRESSION: 1. New bilateral pulmonary consolidations may be due to pneumonia or edema. 2. Small to moderate left pleural effusion. Dictated by: Dictated on workstation # [id number]
[2022-01-09] MEDS ORDERED: KCL 20 MEQ TAB (K-DUR) PO ONE (10:30)
[2022-01-09] MEDS ORDERED: polyethylene glycoL POWDER 17 GM (MIRALAX) PACK PO PRN (10:45)
[2022-01-09] MEDS ORDERED: polyethylene glycoL POWDER 17 GM (MIRALAX) PACK PO ONE (10:45)
[2022-01-09] MEDS: SENNA W/DOCUSATE (SENOKOT S) TABLET PO SCH ×2 (11:04→19:45)
[2022-01-09] MEDS: cefTRIAXone 1 GM PRE-MIX 50 ML IV SCH (14:19)
[2022-01-09] MEDS ORDERED: AZITHROMYCIN INJECTION 500 MG in NS (IVPB) 250 ML IV SCH (15:00)
[2022-01-09] MEDS ORDERED: RT-ALBUTEROL/IPRATROPIUM 3 ML (DUONEB) VIAL INH PRN (16:15)
[2022-01-09] MEDS: RIVAROXABAN 20 MG TABLET (XARELTO) PO SCH (16:21)
--- NOTE | 2022-01-09 16:32 | Progress Note - Hospitalist ---
Subjective HPI/CC On Admission Date Seen by Provider: Jan 09, 2022 Time Seen by Provider: 10:20 Subjective/Events-last exam He is feeling better this morning. He has a cough and phlegm producation. He denies shortness of breath at this time, but was very short of breath overnight. He has some chest pain with coughing. Objective Exam Vital Signs Vital Signs Date Time Temp Pulse Resp B/P (MAP) Pulse Ox O2 Delivery O2 Flow Rate FiO2 01/09/22 15:26 37.1 96 22 111/64 (80) 92 High Flow N/C 6.00 01/09/22 08:00 80 Capillary Refill : Less Than 3 Seconds General Appearance: No Apparent Distress, Chronically ill Respiratory: No Respiratory Distress, Decreased Breath Sounds Cardiovascular: Regular Rate, Rhythm, No Murmur Gastrointestinal: Normal Bowel Sounds, Soft Extremity: Normal Inspection, Pedal Edema Neurologic/Psychiatric: Alert, Normal Mood/Affect Results/Procedures Lab Laboratory Tests 01/09/22 04:00 Patient resulted labs reviewed. Imaging: Reviewed Imaging Films, Reviewed Imaging Report Assessment/Plan Assessment and Plan Assess & Plan/Chief Complaint Acute on chronic respiratory failure with hypoxia Pneumonia Pulmonary edema Respiratory distress overnight requiring BIPAP Given Lasix Significant improvement this morning after diuresis and BiPAP XR concerning for pneumonia vs edema Procal elevated Begin Rocephin and Azithromycin Metastatic renal carcinoma to the bone Delirium Acute on chronic anemia Thrush Alcohol withdrawal HTN HLD AFib CAD DVT prophylaxis: already receiving therapeutic anticoagulation Diagnosis/Problems Diagnosis/Problems (1) Acute on chronic respiratory failure with hypoxia Status: Acute (2) PNA (pneumonia) Status: Acute Qualifiers: Pneumonia type: due to unspecified organism Laterality: bilateral (3) Metastatic renal cell carcinoma to bone Status: Acute (4) Delirium Status: Acute (5) Anemia Status: Acute Qualifiers: Anemia type: unspecified type Qualified Codes: D64.9 - Anemia, unspecified (6) Debility Status: Acute MAIK HILTON MD Jan 09, 2022 16:32
[2022-01-09] MEDS: DOCUSATE SODIUM 100 MG (COLACE) CAP PO SCH (19:45)
[2022-01-09] MEDS: ALPRAZolam 0.25 MG (XANAX) TAB PO PRN (19:45)
[2022-01-10] VITALS (7 sets, daily range): BP systolic 120–163; BP diastolic 68–80
[2022-01-10] MEDS: RT-ALBUTEROL/IPRATROPIUM 3 ML (DUONEB) VIAL INH SCH ×6 (02:54→21:54)
[2022-01-10 04:18] LABS: BASOPHILS % (AUTO) 0 % (0-10); EOSINOPHILS % (AUTO) 1 % (0-10); MEAN CORPUSCULAR VOLUME 99 fL (80-99); MEAN PLATELET VOLUME 9.7 fL (9.0-12.2)
[2022-01-10 04:20] LABS: HEMATOCRIT 22 % (40-54); HEMOGLOBIN 7.2 g/dL (13.3-17.7); LYMPHOCYTES # (AUTO) 0.5 10^3/uL (1.0-4.0); LYMPHOCYTES % (AUTO) 8 % (12-44); MEAN CORPUSCULAR HEMOGLOBIN 32 pg (25-34); MEAN CORPUSCULAR HGB CONC 32 g/dL (32-36); MONOCYTES # (AUTO) 0.4 10^3/uL (0.0-1.0); MONOCYTES % (AUTO) 6 % (0-12); NEUTROPHILS # (AUTO) 5.3 10^3/uL (1.8-7.8); NEUTROPHILS % (AUTO) 85 % (42-75); PLATELET COUNT 149 10^3/uL (130-400); WHITE BLOOD COUNT 6.3 10^3/uL (4.3-11.0)
[2022-01-10 04:41] LABS: CALCIUM 7.1 MG/DL (8.5-10.1); CREATININE SERUM 0.66 MG/DL (0.60-1.30); POTASSIUM 3.7 MMOL/L (3.6-5.0)
[2022-01-10] MEDS: PANTOPRAZOLE 40 MG (PROTONIX) TAB PO SCH (05:19)
[2022-01-10] MEDS: NYSTATIN ORAL SUSP 5 ML UDC PO SCH ×3 (05:19→16:53)
[2022-01-10] MEDS: DOCUSATE SODIUM 100 MG (COLACE) CAP PO SCH ×2 (08:04→19:50)
[2022-01-10] MEDS: AZITHROMYCIN 250 MG TAB (ZITHROMAX) PO SCH (08:04)
[2022-01-10] MEDS: morphine ER 15 MG (MS CONTIN) TAB PO SCH (08:06)
[2022-01-10] MEDS: SENNA W/DOCUSATE (SENOKOT S) TABLET PO SCH ×2 (08:07→19:51)
[2022-01-10] MEDS: LEVOTHYROXINE 25 MCG (LEVOTHROID) TAB PO SCH (08:07)
[2022-01-10] MEDS: NICOTINE 21 MG (NICODERM) PATCH TD SCH (08:12)
[2022-01-10] MEDS ORDERED: AZITHROMYCIN 250 MG TAB (ZITHROMAX) PO SCH ×2 (09:00)
[2022-01-10] MEDS: cefTRIAXone 1 GM PRE-MIX 50 ML IV SCH (12:38)
[2022-01-10] MEDS: RIVAROXABAN 20 MG TABLET (XARELTO) PO SCH (16:53)
--- NOTE | 2022-01-10 18:48 | Progress Note - Hospitalist ---
Subjective HPI/CC On Admission Date Seen by Provider: Jan 10, 2022 Time Seen by Provider: 10:45 Subjective/Events-last exam He is doing well this morning. He is not short of breath. He denies pain. He has no complaints. Objective Exam Vital Signs Vital Signs Date Time Temp Pulse Resp B/P (MAP) Pulse Ox O2 Delivery O2 Flow Rate FiO2 01/10/22 15:29 37.1 62 17 163/76 (105) 94 Room Air 01/10/22 11:55 6.00 01/09/22 08:00 80 Capillary Refill : Less Than 3 Seconds General Appearance: No Apparent Distress, WD/WN Respiratory: No Respiratory Distress, Decreased Breath Sounds Cardiovascular: Regular Rate, Rhythm, No Murmur Gastrointestinal: Normal Bowel Sounds, Soft Extremity: Normal Inspection, Pedal Edema Neurologic/Psychiatric: Alert, Normal Mood/Affect Skin: Normal Color, Warm/Dry Results/Procedures Lab Laboratory Tests 01/10/22 04:10 Patient resulted labs reviewed. Imaging: Reviewed Imaging Films, Reviewed Imaging Report Assessment/Plan Assessment and Plan Assess & Plan/Chief Complaint Acute on chronic respiratory failure with hypoxia Pneumonia Supplemental oxygen as needed Continue Rocephin and Azithromycin Metastatic renal carcinoma to the bone Delirium Acute on chronic anemia Thrush Alcohol withdrawal HTN HLD AFib CAD DVT prophylaxis: already receiving therapeutic anticoagulation Diagnosis/Problems Diagnosis/Problems (1) Acute on chronic respiratory failure with hypoxia Status: Acute (2) PNA (pneumonia) Status: Acute Qualifiers: Pneumonia type: due to unspecified organism Laterality: bilateral (3) Metastatic renal cell carcinoma to bone Status: Acute (4) Delirium Status: Acute (5) Anemia Status: Acute Qualifiers: Anemia type: unspecified type Qualified Codes: D64.9 - Anemia, unspecified (6) Debility Status: Acute MAIK HILTON MD Jan 10, 2022 18:48
[2022-01-10] MEDS: ALPRAZolam 0.25 MG (XANAX) TAB PO PRN (19:50)
[2022-01-11] MEDS: NYSTATIN ORAL SUSP 5 ML UDC PO SCH ×4 (00:11→17:30)
[2022-01-11] MEDS: RT-ALBUTEROL/IPRATROPIUM 3 ML (DUONEB) VIAL INH SCH ×6 (02:12→21:49)
[2022-01-11 04:00] VITALS: BP 132/72
[2022-01-11 05:19] LABS: HEMOGLOBIN 7.3 g/dL (13.3-17.7)
[2022-01-11] MEDS: PANTOPRAZOLE 40 MG (PROTONIX) TAB PO SCH (05:26)
[2022-01-11 07:21] VITALS: BP 127/69
[2022-01-11 08:00] VITALS: BP 127/69
--- NOTE | 2022-01-11 08:42 | Progress Note ---
Subjective Subjective Date Seen by Provider: Jan 11, 2022 Time Seen by Provider: 08:30 Interval events over the weekend - pt had pulmonary decline - had cxr showing pulm edema versus pneumonia, was given lasix, placed on bipap, higher oxygen flow and improved with the aforementioned treatments. Bed shortages at local nursing homes. Marco is sitting on commode at bedside, reports that he would feel better if he had a bowel movement. He states that his breathing is better. Review of Systems General: No Chills; Fatigue, Malaise HEENT: No Head Aches, No Sinus Congestion Pulmonary: Dyspnea, Cough Cardiovascular: No: Chest Pain, Palpitations Gastrointestinal: Constipation; No: Nausea, Abdominal Pain, Diarrhea Genitourinary: Frequency Musculoskeletal: leg pain (hip pain right and left) Neurological: Weakness; No: Confusion All Other Systems Reviewed All Other Systems Reviewed: Yes Objective Exam Vital Signs Vital Signs Date Time Temp Pulse Resp B/P (MAP) Pulse Ox O2 Delivery O2 Flow Rate FiO2 01/11/22 07:31 93 High Flow N/C 4.00 01/11/22 07:21 88 15 93 30.00 01/11/22 04:00 37.5 92 16 132/72 (92) 94 NIV Bilevel 30.00 01/11/22 02:12 96 18 98 30.00 01/10/22 23:14 37.9 105 17 141/74 (96) 95 NIV Bilevel 30.00 01/10/22 21:54 86 16 95 30.00 01/10/22 20:00 NIV Bilevel 30 01/10/22 19:20 37.1 93 17 156/68 (97) 91 High Flow N/C 3.00 01/10/22 18:46 97 High Flow N/C 3.00 01/10/22 15:29 37.1 62 17 163/76 (105) 94 Room Air 01/10/22 11:55 37.0 88 20 121/72 (88) 96 Nasal Cannula 6.00 I & O 01/11/22 07:00 Intake Total 1080 ml Output Total 370 ml Balance 710 ml General Appearance: No Apparent Distress, WD/WN Eyes: Bilateral Eye Normal Inspection, Bilateral Eye PERRL, Bilateral Eye EOMI HEENT: PERRL/EOMI, Other (very dry mucouc membranes) Neck: Normal Inspection Respiratory: No Respiratory Distress, Decreased Breath Sounds Cardiovascular: Regular Rate, Rhythm, No Murmur Gastrointestinal: Normal Bowel Sounds, Soft Rectal: Deferred Back: Normal Inspection Extremity: Normal Inspection, Pedal Edema Neurologic/Psychiatric: Alert, Normal Mood/Affect Skin: Normal Color, Warm/Dry Lymphatic: No Adenopathy Results Lab Laboratory Tests 01/11/22 05:10: Hemoglobin 7.3L, Hematocrit 23L Assessment/Plan Assessment/Plan Admission Dx Acute mental status changes/Delirium Atrial fibrillation Renal Cell Carcinoma, metastatic Chronic CAD Chronic Hypertension Chronic Hyperlipdemia Acute Anemia Assessment and Plan Acute mental status changes/Delirium Atrial fibrillation Renal Cell Carcinoma, metastatic Chronic CAD Chronic Hypertension Chronic Hyperlipdemia Acute Anemia Alcohol withdrawal Thrush Metastatic renal cell CA - discussed with pt's dtr, son and - I have talked to Dr. Duke - [place] and he is not available to see pt. - discussed case with Monse Hicks NP - for Dr. Duke - she wants scans at hospital. - see CT scan report below 1. Multifocal skeletal metastases are present. There is infiltrative metastasis involving the right proximal femur in the intertrochanteric region. This is at risk for pathologic fracture. MRI of the pelvis without and with IV contrast is recommended for further assessment. 2. No soft tissue metastases within the chest, abdomen, or pelvis. 3. Small volume of ascites has developed. 4. Small bilateral pleural effusions. - SEE nuclear medicine scan below: Findings: Abnormal uptake in the proximal right femur and mid to distal left femur, not substantially changed. Multiple rib lesions are less well seen however its likely owing to diminished sensitivity on a technical basis at today's exam. Uptake in the lower lumbar spine is no longer clearly visualized but this may also be technical. Impression: Rib and spinal bony metastases less well visualized, probably on a technical basis. Abnormalities in the femurs and proximal humeri not clearly changed. No convincing evidence for disease progression at this limited study. Acute Mental status Changes with delirium - supportive care, pt withdrawing from medications, continue with treatment with medication for his pain, but avoid excessive dosing. - pts reports he is smoking marijuana at home recently. Acute on chronic anemia - monitor labs Thrush - rx for nystatin swish and swallow limited code status Alcohol withdrawal - RESOLVED - ciwa protocol was initiated - now pt past need for protocol Rest of chronic issues will be managed with resumption of some of his home medications. Planning on pt going to long term today or tomorrow once we have confirmation of acceptance Admission Dx Acute mental status changes/Delirium Atrial fibrillation Renal Cell Carcinoma, metastatic Chronic CAD Chronic Hypertension Chronic Hyperlipdemia Acute Anemia Clinical Quality Measures Admission Status Admission Dx Acute mental status changes/Delirium Atrial fibrillation Renal Cell Carcinoma, metastatic Chronic CAD Chronic Hypertension Chronic Hyperlipdemia Acute Anemia ANNALISA VALDIVIA MD Jan 11, 2022 08:42
[2022-01-11] MEDS: AZITHROMYCIN 250 MG TAB (ZITHROMAX) PO SCH (08:53)
[2022-01-11] MEDS: DOCUSATE SODIUM 100 MG (COLACE) CAP PO SCH ×3 (08:53→20:14)
[2022-01-11] MEDS: LEVOTHYROXINE 25 MCG (LEVOTHROID) TAB PO SCH (08:53)
[2022-01-11] MEDS: morphine ER 15 MG (MS CONTIN) TAB PO SCH (08:54)
[2022-01-11] MEDS: SENNA W/DOCUSATE (SENOKOT S) TABLET PO SCH ×3 (08:54→20:14)
[2022-01-11] MEDS: NICOTINE 21 MG (NICODERM) PATCH TD SCH (08:54)
[2022-01-11] MEDS ORDERED: BISACODYL 10 MG SUPP (DULCOLAX) PR NR (09:00)
[2022-01-11] MEDS ORDERED: METHYLNALTREXONE 12 MG/0.6 ML (RELISTOR) VIAL SQ NR (09:00)
[2022-01-11] MEDS ORDERED: LACTULOSE SYRUP 10GM/15ML (ENULOSE) 30ML UDC PO NR (09:00)
[2022-01-11] MEDS ORDERED: BISACODYL 10 MG SUPP (DULCOLAX) PR PRN (09:00)
[2022-01-11] MEDS: ONDANSETRON 4 MG (ZOFRAN) ORAL DISSOLVE TAB SL PRN (09:14)
--- NOTE | 2022-01-11 09:37 | Physical Therapy Daily Note ---
PT Daily Note-Current Subjective Patient very alert and agrees to PT. Pain Section J - Health Conditions 1. Rarely or not at all 2. Occasionally 3. Frequently 4. Almost constantly 8. Unable to answer Pain Effect on Sleep: 8 Pain Interference with Therapy: 8 Pain Interference w/Day-to-Day: 8 Transfers SCALE: Activities may be completed with or without assistive devices. 3-Crywvacvxx-cghdwgj completes the activity by him/herself with no assistance from a helper. 5-Set-up or Clean-up Assistance-helper sets up or cleans up; patient completes activity. [place] assists only prior to or following the activity. 4-Supervision or Touching Assistance-helper provides verbal cues and/or touching/steadying and/or contact guard assistance as patient completes activity. Assistance may be provided throughout the activity or intermittently. 3-Partial/Moderate Assistance-helper does LESS THAN HALF the effort. Commerce lifts, holds or supports trunk or limbs, but provides less than half the effort. 2-Substantial/Maximal Assistance-helper does MORE THAN HALF the effort. [place] lifts or holds trunk or limbs and provides more than half the effort. 2-Inzcucgzl-lblzwj does ALL the effort. Patient does none of the effort to complete the activity. Or, the assistance of 2 or more helpers is required for the patient to complete the activity. If activity was not attempted, code reason: 7-Patient Refused. 9-Not Applicable-not attempted and the patient did not perform the activity before the current illness, exacerbation or injury. 10-Not Attempted due to Environmental Limitations-(lack of equipment, weather restraints, etc.). 88-Not Attempted due to Medical Conditions or Safety Concerns. Lying to Sitting/Side of Bed(Q: 2 Sit to Stand (QC): 2 Toilet Transfer (QC): 2 (commode) Weight Bearing Right Lower Extremity: Right Full Weight Bearing Left Lower Extremity: Left Full Weight Bearing Exercises Seated Therapy Exercises: Ankle pumps, Long arc quads Seated Reps: 12 Assessment Patient on commode for BM. Family present. Max assist with sit to stand with blocking bilateral knees and gait belt use. Increase activity as tolerated by patient. PT Mcfp Goals Mcfp Goals PT Mcfp Goals Time Frame: Jan 12, 2022 Roll Left & Right (QC): 3 (Cheri) Sit to Lying (QC): 3 (Cheri) Lying-Sitting on Side/Bed(QC): 3 (Cheri) Sit to Stand (QC): 3 (Cheri) Chair/Ilj-ul-Bbljl Xfer(QC): 4 (CGA) PT Plan Treatment/Plan Treatment Plan: Continue Plan of Care Treatment Plan: Bed Mobility, Education, Functional Activity Ramakrishna, Functional Strength, Safety, Therapeutic Exercise, Transfers Treatment Duration: Jan 12, 2022 Frequency: 6 times per week Estimated Hrs Per Day: .25 hour per day Patient and/or Family Agrees t: Yes Time Time In: 821 Time Out: 835 DATE: Jan 11, 2022 Total Billed Treatment Time: 14 Total Billed Treatment 1 visit FA 14 min JUAN CHAVEZ PT Jan 11, 2022 09:37
[2022-01-11] MEDS: ALPRAZolam 0.25 MG (XANAX) TAB PO PRN ×2 (11:24→19:49)
[2022-01-11 12:00] VITALS: BP 128/65
[2022-01-11] MEDS: cefTRIAXone 1 GM PRE-MIX 50 ML IV SCH (13:27)
[2022-01-11 16:15] VITALS: BP 124/76
[2022-01-11] MEDS: RIVAROXABAN 20 MG TABLET (XARELTO) PO SCH (17:30)
[2022-01-11 19:55] VITALS: BP 149/84
[2022-01-12] VITALS (7 sets, daily range): BP systolic 106–138; BP diastolic 62–77
[2022-01-12] MEDS: NYSTATIN ORAL SUSP 5 ML UDC PO SCH ×4 (00:48→17:10)
[2022-01-12] MEDS: RT-ALBUTEROL/IPRATROPIUM 3 ML (DUONEB) VIAL INH SCH ×6 (02:37→22:04)
[2022-01-12] MEDS: PANTOPRAZOLE 40 MG (PROTONIX) TAB PO SCH (06:35)
[2022-01-12 06:52] LABS: HEMOGLOBIN 8.1 g/dL (13.3-17.7)
[2022-01-12 07:07] LABS: CALCIUM 7.4 MG/DL (8.5-10.1); CREATININE SERUM 0.65 MG/DL (0.60-1.30); POTASSIUM 3.7 MMOL/L (3.6-5.0)
[2022-01-12] MEDS: DOCUSATE SODIUM 100 MG (COLACE) CAP PO SCH ×2 (08:38→19:55)
[2022-01-12] MEDS: LEVOTHYROXINE 25 MCG (LEVOTHROID) TAB PO SCH (08:38)
[2022-01-12] MEDS: morphine ER 15 MG (MS CONTIN) TAB PO SCH (08:38)
[2022-01-12] MEDS: AZITHROMYCIN 250 MG TAB (ZITHROMAX) PO SCH (08:38)
[2022-01-12] MEDS: SENNA W/DOCUSATE (SENOKOT S) TABLET PO SCH ×2 (08:38→19:55)
[2022-01-12] MEDS: NICOTINE 21 MG (NICODERM) PATCH TD SCH (08:38)
[2022-01-12] MEDS ORDERED: RIVA20TA2 PO (08:49)
[2022-01-12] MEDS ORDERED: PANT40TA52 PO (08:49)
[2022-01-12] MEDS ORDERED: MORP-68 PO (08:49)
[2022-01-12] MEDS ORDERED: ONDA4TAB11 SL (08:49)
[2022-01-12] MEDS ORDERED: IRON1TAB89 PO (08:49)
[2022-01-12] MEDS ORDERED: IPRA3AMP31 PO (08:49)
[2022-01-12] MEDS ORDERED: POLY17PO54 PO (08:49)
[2022-01-12] MEDS ORDERED: AZIT250T12 PO (08:49)
[2022-01-12] MEDS ORDERED: SENN1TAB76 PO (08:49)
[2022-01-12] MEDS ORDERED: NYST1000 PO (08:49)
[2022-01-12] MEDS ORDERED: ALPR.25T PO (08:49)
[2022-01-12] MEDS ORDERED: CEFD300C3 PO (08:49)
[2022-01-12] MEDS ORDERED: OXC5T PO (08:49)
--- NOTE | 2022-01-12 08:51 | Discharge Summary ---
Diagnosis/Chief Complaint Date of Admission Jan 05, 2022 at 09:11 Date of Discharge Reason Hospital Visit Pt is a 71 y/o male who has dx of metastatic renal cell CA. He reports that he is going to go home and sit on his couch and say his goodbye's. His family reports that he is smoking marijuana at home, and has been drinking fairly heavily. The family reports he is not eating or drinking other food or fluids very well. Discharge Summary Discharge Physical Examination Allergies: Coded Allergies: Penicillins (Unverified Allergy, Unknown, 10/06/21) Vitals & I&Os Vital Signs Date Time Temp Pulse Resp B/P (MAP) Pulse Ox O2 Delivery O2 Flow Rate FiO2 01/12/22 04:00 36.9 87 18 124/77 (93) 95 NIV Bilevel 30.00 8.00 01/10/22 20:00 30 Hospital Course Pending Labs Laboratory Tests 01/12/22 06:49: Hemoglobin 8.1, Hematocrit 25, Sodium Level 137, Potassium Level 3.7, Chloride Level 103, Carbon Dioxide Level 24, Anion Gap 10, Blood Urea Nitrogen 10, Creatinine 0.65, Estimat Glomerular Filtration Rate 102, BUN/Creatinine Ratio 15, Glucose Level 79, Calcium Level 7.4 Discharge Instructions to patient/family Please see electronic discharge instructions given to patient. Discharge Medications Reviewed and agree with Discharge Medication list on patient's Discharge Instruction sheet ANNALISA VALDIVIA MD Jan 12, 2022 08:51
--- NOTE | 2022-01-12 08:53 | Progress Note ---
Subjective Subjective Date Seen by Provider: Jan 12, 2022 Time Seen by Provider: 08:30 Pt reports that he is weak, but feeling much better, he had several bowel movements yesterday which made him feel better. He does complain of some gas pains most of the day yesterday. He denies chest pain, nausea, wants his oviedo left in place due to his weakness. Review of Systems General: No Chills; Fatigue, Malaise HEENT: No Head Aches, No Sinus Congestion Pulmonary: Dyspnea, Cough Cardiovascular: No: Chest Pain, Palpitations Gastrointestinal: Abdominal Pain, Constipation (improved); No: Nausea, Diarrhea Genitourinary: Other (oviedo in place) Musculoskeletal: leg pain (hip pain right and left) Neurological: Weakness; No: Confusion All Other Systems Reviewed All Other Systems Reviewed: Yes Objective Exam Vital Signs Vital Signs Date Time Temp Pulse Resp B/P (MAP) Pulse Ox O2 Delivery O2 Flow Rate FiO2 01/12/22 04:00 36.9 87 18 124/77 (93) 95 NIV Bilevel 30.00 8.00 01/12/22 02:38 98 16 93 30.00 01/12/22 00:20 37.2 94 20 133/62 (85) 98 NIV Bilevel 30.00 8.00 01/11/22 21:49 98 22 93 30.00 01/11/22 20:51 81 23 96 30.00 01/11/22 20:06 High Flow N/C 3.00 01/11/22 19:55 37.4 107 18 149/84 (105) 92 High Flow N/C 3.00 01/11/22 19:04 96 High Flow N/C 4.00 01/11/22 16:15 37.3 100 16 124/76 (92) 95 High Flow N/C 4.00 01/11/22 15:18 92 High Flow N/C 4.00 01/11/22 12:00 37.0 95 18 128/65 (86) 91 Nasal Cannula 4.00 01/11/22 11:45 94 High Flow N/C 4.00 01/11/22 11:34 97 High Flow N/C 5.00 I & O 01/12/22 07:00 Intake Total 1240 ml Output Total 1050 ml Balance 190 ml General Appearance: No Apparent Distress, WD/WN Eyes: Bilateral Eye Normal Inspection, Bilateral Eye PERRL, Bilateral Eye EOMI HEENT: PERRL/EOMI Neck: Normal Inspection Respiratory: No Respiratory Distress, Decreased Breath Sounds Cardiovascular: Regular Rate, Rhythm, No Murmur Gastrointestinal: Normal Bowel Sounds, Soft Rectal: Deferred Back: Normal Inspection Extremity: Normal Inspection, Pedal Edema Neurologic/Psychiatric: Alert, Normal Mood/Affect Skin: Normal Color, Warm/Dry Lymphatic: No Adenopathy Results Lab Laboratory Tests 01/11/22 12:10: Lab Scanned Report Transfusion Reaction Form 01/12/22 06:49: Hemoglobin 8.1L, Hematocrit 25L, Sodium Level 137, Potassium Level 3.7, Chloride Level 103, Carbon Dioxide Level 24, Anion Gap 10, Blood Urea Nitrogen 10, Creatinine 0.65, Estimat Glomerular Filtration Rate 102, BUN/Creatinine Ratio 15, Glucose Level 79, Calcium Level 7.4L Assessment/Plan Assessment/Plan Admission Dx Acute mental status changes/Delirium Atrial fibrillation Renal Cell Carcinoma, metastatic Chronic CAD Chronic Hypertension Chronic Hyperlipdemia Acute Anemia Assessment and Plan Acute mental status changes/Delirium Atrial fibrillation Renal Cell Carcinoma, metastatic Chronic CAD Chronic Hypertension Chronic Hyperlipdemia Acute Anemia Alcohol withdrawal Thrush Metastatic renal cell CA - discussed with pt's dtr, son and - I have talked to Dr. Duke - he is [place] the [place] and he is not available to see pt. - discussed case with Monse Hicks NP - for Dr. Duke - she wanted scans at hospital. - see CT scan report below 1. Multifocal skeletal metastases are present. There is infiltrative metastasis involving the right proximal femur in the intertrochanteric region. This is at risk for pathologic fracture. MRI of the pelvis without and with IV contrast is recommended for further assessment. 2. No soft tissue metastases within the chest, abdomen, or pelvis. 3. Small volume of ascites has developed. 4. Small bilateral pleural effusions. - SEE nuclear medicine scan below: Findings: Abnormal uptake in the proximal right femur and mid to distal left femur, not substantially changed. Multiple rib lesions are less well seen however its likely owing to diminished sensitivity on a technical basis at today's exam. Uptake in the lower lumbar spine is no longer clearly visualized but this may also be technical. Impression: Rib and spinal bony metastases less well visualized, probably on a technical basis. Abnormalities in the femurs and proximal humeri not clearly changed. No convincing evidence for disease progression at this limited study. Acute Mental status Changes with delirium - supportive care, pt withdrawing from medications, continue with treatment with medication for his pain, but avoid excessive dosing. - pts reports he is smoking marijuana at home recently. Acute on chronic anemia - monitor labs Thrush - rx for nystatin swish and swallow limited code status Alcohol withdrawal - RESOLVED - ciwa protocol was initiated - now pt past need for protocol Rest of chronic issues will be managed with resumption of some of his home medications. Planning on pt going to skilled nursing today or tomorrow once we have confirmation of acceptance Admission Dx Acute mental status changes/Delirium Atrial fibrillation Renal Cell Carcinoma, metastatic Chronic CAD Chronic Hypertension Chronic Hyperlipdemia Acute Anemia Clinical Quality Measures Admission Status Admission Dx Acute mental status changes/Delirium Atrial fibrillation Renal Cell Carcinoma, metastatic Chronic CAD Chronic Hypertension Chronic Hyperlipdemia Acute Anemia ANNALISA VALDIVIA MD Jan 12, 2022 08:53
--- NOTE | 2022-01-12 08:58 | Discharge Inst-Skilled Nursing ---
Discharge Inst-Skilled NF Reconcile Patient Problems Problems Reviewed?: Yes Patient Instructions Patient Problems: Acute mental status changes/Delirium Atrial fibrillation Renal Cell Carcinoma, metastatic Chronic CAD Chronic Hypertension Chronic Hyperlipdemia Acute Anemia Alcohol withdrawal Thrush pneumonia fluid overload Goal: increased strength Consult/Follow Up/Orders Follow Up Appt.: see below in "other orders" Skilled NF Admit to: [facility] ([facility]) I certify that [facility] services are required to be given on an inpatient basis because of the above named patient's need for group home care on a continuing basis for the conditions(s) for which he/she was receiving inpatient hospital services prior to his/her transfer to the [facility]. Shelter Facility Order: Nursing Services, Clerk To Justice-Evaluate & Treat, Physical Therapy-Evaluate & Treat Oxygen Delivery Method: High Flow N/C (4 liters during daytime or while awake with bipap at hs with 4 liters nc) Oxygen Flow Rate L/min (Range): 4 Discharge Diet: Regular Diet Daily Activity as Tolerated: Yes Resuscitation Status: Partial Code (do not intubate, no CPR, but pt does want bipap, bagged and "chemically coded") New & Resume Previous Orders New & Resume Previous Orders cbc, cmp in 1 wk from dc cxr 1 wk from dc please call to Dr. Srikanth Cho [facility] in [place] for follow up appt with their office and call to [facility] for follow up appt at my office dc oviedo catheter in 5 days from dc from [facility] Annalisa Manning Jan 12, 2022 08:54 ANNALISA MANNING MD Jan 12, 2022 08:58
--- NOTE | 2022-01-12 09:46 | Physical Therapy Daily Note ---
PT Daily Note-Current Subjective Patient agrees to PT. Pain Section J - Health Conditions 1. Rarely or not at all 2. Occasionally 3. Frequently 4. Almost constantly 8. Unable to answer Pain Effect on Sleep: 8 Pain Interference with Therapy: 8 Pain Interference w/Day-to-Day: 8 Transfers SCALE: Activities may be completed with or without assistive devices. 1-Mhrecfwbvh-jeojfji completes the activity by him/herself with no assistance from a helper. 5-Set-up or Clean-up Assistance-helper sets up or cleans up; patient completes activity. Edmond assists only prior to or following the activity. 4-Supervision or Touching Assistance-helper provides verbal cues and/or touching/steadying and/or contact guard assistance as patient completes activity. Assistance may be provided throughout the activity or intermittently. 3-Partial/Moderate Assistance-helper does LESS THAN HALF the effort. Edmond lifts, holds or supports trunk or limbs, but provides less than half the effort. 2-Substantial/Maximal Assistance-helper does MORE THAN HALF the effort. Edmond lifts or holds trunk or limbs and provides more than half the effort. 6-Ilfcgppys-mbmmpy does ALL the effort. Patient does none of the effort to complete the activity. Or, the assistance of 2 or more helpers is required for the patient to complete the activity. If activity was not attempted, code reason: 7-Patient Refused. 9-Not Applicable-not attempted and the patient did not perform the activity before the current illness, exacerbation or injury. 10-Not Attempted due to Environmental Limitations-(lack of equipment, weather restraints, etc.). 88-Not Attempted due to Medical Conditions or Safety Concerns. Lying to Sitting/Side of Bed(Q: 2 Sit to Stand (QC): 2 Chair/Eas-kz-Sfvhw Xfer(QC): 2 PT blocked bilateral knees with and utilized gait belt to perform sit to stand from low surface x 3 sets with SPT to w/c then recliner Weight Bearing Right Lower Extremity: Right Full Weight Bearing Left Lower Extremity: Left Full Weight Bearing Assessment Patient fatigues with minimal activity and is up in recliner with needs met. Patient is able to scoot back in the recliner to properly reposition. RN present to continue with her assessment. PT Leadership Coach Goals Leadership Coach Goals PT Leadership Coach Goals Time Frame: Jan 16, 2022 Roll Left & Right (QC): 3 (Cheri) Sit to Lying (QC): 3 (Cheri) Lying-Sitting on Side/Bed(QC): 3 (Cheri) Sit to Stand (QC): 3 (Cheri) Chair/Xng-tk-Dssre Xfer(QC): 4 (CGA) PT Plan Treatment/Plan Treatment Plan: Continue Plan of Care Treatment Plan: Bed Mobility, Education, Functional Activity Ramakrishna, Functional Strength, Safety, Therapeutic Exercise, Transfers Treatment Duration: Jan 16, 2022 Frequency: 6 times per week Estimated Hrs Per Day: .25 hour per day Patient and/or Family Agrees t: Yes Time Time In: 903 Time Out: 913 DATE: Jan 12, 2022 Total Billed Treatment Time: 10 Total Billed Treatment 1 visit FA 10 min JUAN CHAVEZ PT Jan 12, 2022 09:46
[2022-01-12] MEDS: ALPRAZolam 0.25 MG (XANAX) TAB PO PRN ×2 (10:54→19:55)
--- NOTE | 2022-01-12 12:19 | Diagnostic Imaging Report ---
INDICATION: Pneumonia. PA and lateral chest obtained at 9:21 a.m. and compared to 01/09/2022. FINDINGS: Heart and mediastinal silhouette are normal in appearance. Infiltrate in the left lung base has shown significant improvement; the left pleural effusion has decreased in size. Right basilar infiltrate appears about the same or mildly improved. Old right-sided rib fractures are again noted. Left-sided Port-A-Cath is unchanged. IMPRESSION: Significant improvement in left basilar infiltrate compared to the prior study. Right basilar infiltrate is minimally improved. Improvement in left pleural effusion compared to the prior study. Dictated by: Dictated on workstation # [id number]
[2022-01-12] MEDS: cefTRIAXone 1 GM PRE-MIX 50 ML IV SCH (13:43)
[2022-01-12] MEDS: RIVAROXABAN 20 MG TABLET (XARELTO) PO SCH (17:10)
[2022-01-13] MEDS: NYSTATIN ORAL SUSP 5 ML UDC PO SCH ×3 (00:31→11:24)
[2022-01-13] MEDS: RT-ALBUTEROL/IPRATROPIUM 3 ML (DUONEB) VIAL INH SCH ×3 (01:59→09:56)
[2022-01-13 03:09] VITALS: BP 109/62
[2022-01-13] MEDS: PANTOPRAZOLE 40 MG (PROTONIX) TAB PO SCH (05:53)
[2022-01-13 07:45] VITALS: BP 130/68
[2022-01-13] MEDS: LEVOTHYROXINE 25 MCG (LEVOTHROID) TAB PO SCH (07:47)
[2022-01-13] MEDS: morphine ER 15 MG (MS CONTIN) TAB PO SCH (07:48)
[2022-01-13] MEDS: NICOTINE 21 MG (NICODERM) PATCH TD SCH (07:48)
[2022-01-13] MEDS: AZITHROMYCIN 250 MG TAB (ZITHROMAX) PO SCH (07:48)
[2022-01-13] MEDS: DOCUSATE SODIUM 100 MG (COLACE) CAP PO SCH (07:48)
[2022-01-13] MEDS: SENNA W/DOCUSATE (SENOKOT S) TABLET PO SCH (07:48)
[2022-01-13] MEDS ORDERED: MICONAZOLE 2% POWDER (DESENEX AF) 90 GM TOP PRN (08:45)
--- NOTE | 2022-01-13 08:51 | Progress Note ---
Subjective Subjective Date Seen by Provider: Jan 12, 2022 Time Seen by Provider: 08:10 Late entry note - discharge note was initiated anticipating dc on 01/12 Pt is feeling better, he reports that he is much better, feeling stronger, but still weak. He states that his breathing is better. Review of Systems General: No Chills; Fatigue, Malaise HEENT: No Head Aches, No Sinus Congestion Pulmonary: Dyspnea, Cough Cardiovascular: No: Chest Pain, Palpitations Gastrointestinal: Abdominal Pain, Constipation (improved); No: Nausea, Diarrhea Genitourinary: Other (oviedo in place) Musculoskeletal: leg pain (hip pain right and left) Neurological: Weakness; No: Confusion All Other Systems Reviewed All Other Systems Reviewed: Yes Objective Exam Vital Signs Vital Signs Date Time Temp Pulse Resp B/P (MAP) Pulse Ox O2 Delivery O2 Flow Rate FiO2 01/13/22 07:45 36.7 91 16 130/68 (88) 93 Nasal Cannula 2.00 01/13/22 07:30 95 High Flow N/C 2.00 01/13/22 07:14 96 High Flow N/C 3.00 01/13/22 03:09 36.2 95 20 109/62 (78) 98 Nasal Cannula 2.00 01/13/22 01:59 94 16 100 30.00 01/12/22 23:14 37.0 98 20 106/65 (79) 99 Nasal Cannula 2.00 01/12/22 22:04 99 High Flow N/C 2.00 01/12/22 19:58 99 High Flow N/C 3.00 01/12/22 19:13 36.6 94 18 123/77 (92) 95 Nasal Cannula 2.00 01/12/22 18:56 96 High Flow N/C 2.00 01/12/22 15:45 37.6 96 18 115/66 (82) 99 High Flow N/C 2.00 2.00 01/12/22 14:35 99 High Flow N/C 2.00 01/12/22 11:46 36.7 93 20 116/66 (83) 97 01/12/22 10:46 96 High Flow N/C 2.00 01/12/22 08:58 High Flow N/C I & O 01/13/22 07:00 Intake Total 794 ml Output Total 650 ml Balance 144 ml General Appearance: No Apparent Distress, WD/WN Eyes: Bilateral Eye Normal Inspection, Bilateral Eye PERRL, Bilateral Eye EOMI HEENT: PERRL/EOMI Neck: Normal Inspection Respiratory: No Respiratory Distress, Other (improved breath sounds, but still distant in bases) Cardiovascular: Regular Rate, Rhythm, No Murmur Gastrointestinal: Normal Bowel Sounds, Soft Rectal: Deferred Back: Normal Inspection Extremity: Normal Inspection, Pedal Edema Neurologic/Psychiatric: Alert, Normal Mood/Affect Skin: Normal Color, Warm/Dry Lymphatic: No Adenopathy Assessment/Plan Assessment/Plan Admission Dx Acute mental status changes/Delirium Atrial fibrillation Renal Cell Carcinoma, metastatic Chronic CAD Chronic Hypertension Chronic Hyperlipdemia Acute Anemia Assessment and Plan Acute mental status changes/Delirium Atrial fibrillation Renal Cell Carcinoma, metastatic Chronic CAD Chronic Hypertension Chronic Hyperlipdemia Acute Anemia Alcohol withdrawal Thrush Metastatic renal cell CA - discussed with pt's dtr, son and - I have talked to Dr. Duke - [place] and [place] is not available to see pt. - discussed case with Monse Hicks NP - for Dr. Duke - she wanted scans at hospital. - see CT scan report below 1. Multifocal skeletal metastases are present. There is infiltrative metastasis involving the right proximal femur in the intertrochanteric region. This is at risk for pathologic fracture. MRI of the pelvis without and with IV contrast is recommended for further assessment. 2. No soft tissue metastases within the chest, abdomen, or pelvis. 3. Small volume of ascites has developed. 4. Small bilateral pleural effusions. - SEE nuclear medicine scan below: Findings: Abnormal uptake in the proximal right femur and mid to distal left femur, not substantially changed. Multiple rib lesions are less well seen however its likely owing to diminished sensitivity on a technical basis at today's exam. Uptake in the lower lumbar spine is no longer clearly visualized but this may also be technical. Impression: Rib and spinal bony metastases less well visualized, probably on a technical basis. Abnormalities in the femurs and proximal humeri not clearly changed. No convincing evidence for disease progression at this limited study. Acute Mental status Changes with delirium - supportive care, pt withdrawing from medications, continue with treatment with medication for his pain, but avoid excessive dosing. - pts reports he is smoking marijuana at home recently. Acute on chronic anemia - monitor labs Thrush - rx for nystatin swish and swallow limited code status Alcohol withdrawal - RESOLVED - ciwa protocol was initiated - now pt past need for protocol Rest of chronic issues will be managed with resumption of some of his home medications. Planning on pt going to skilled nursing today or tomorrow once we have confirmation of acceptance Admission Dx Acute mental status changes/Delirium Atrial fibrillation Renal Cell Carcinoma, metastatic Chronic CAD Chronic Hypertension Chronic Hyperlipdemia Acute Anemia Clinical Quality Measures Admission Status Admission Dx Acute mental status changes/Delirium Atrial fibrillation Renal Cell Carcinoma, metastatic Chronic CAD Chronic Hypertension Chronic Hyperlipdemia Acute Anemia ANNALISA VALDIVIA MD Jan 13, 2022 08:51
[2022-01-13] MEDS: ALPRAZolam 0.25 MG (XANAX) TAB PO PRN (09:37)
[2022-01-13 11:45] VITALS: BP 117/59
[2022-01-13 14:00] VITALS: BP 117/59
== END 2022-01-13 14:00 | DRG 896 ==
LOC: EDUNIT# 14:59 → ER 15:00 → 4TH 17:27 → OBSVTOIN 01-05 09:11 → 4TH 01-06 21:41
PROVIDERS: ADMIT Family Medicine; ATTEND Family Medicine
PROC: 5A0935A Assistance with Respiratory Ventilation, Less than 24 Consecutive Hours, High Flow/Velocity Cannula (ICD-10-PCS; principal; 2022-01-05)
DX: F19.931 Other psychoactive substance use, unspecified with withdrawal delirium (principal); J18.9 Pneumonia, unspecified organism; J96.21 Acute and chronic respiratory failure with hypoxia; C64.9 Malignant neoplasm of unspecified kidney, except renal pelvis; J44.0 Chronic obstructive pulmonary disease with (acute) lower respiratory infection; C79.51 Secondary malignant neoplasm of bone; I48.91 Unspecified atrial fibrillation; F10.239 Alcohol dependence with withdrawal, unspecified; I25.10 Atherosclerotic heart disease of native coronary artery without angina pectoris; I10 Essential (primary) hypertension; E78.5 Hyperlipidemia, unspecified; D63.0 Anemia in neoplastic disease; E78.00 Pure hypercholesterolemia, unspecified; F03.90 Unspecified dementia, unspecified severity, without behavioral disturbance, psychotic disturbance, mood disturbance, and anxiety; K21.9 Gastro-esophageal reflux disease without esophagitis; M19.90 Unspecified osteoarthritis, unspecified site; F41.9 Anxiety disorder, unspecified; F17.210 Nicotine dependence, cigarettes, uncomplicated; F12.90 Cannabis use, unspecified, uncomplicated; B37.9 Candidiasis, unspecified; R53.81 Other malaise
CPT/HCPCS: 36415; 36600; 71045; 71046; 71260; 74177; 78306; 80048; 80053; 80320; 82805; 83735; 84145; 85014; 85018; 85025; 85027; 86850; 86900; 86901; 86920; 90662; 94640; 94642; 94660; 94664; 94760; G0378

== ENCOUNTER → 2022-01-14 | Outpatient (CLI) | payer MEDICARE, MEDICAID ==
[~2022-01-14] MED LIST changes: +ALPR.25T PO; +ALPR0.254 PO; +AZIT250T12 PO; +CEFD300C3 PO; +IPRA3AMP31 PO; +IRON1TAB89 PO; +LEVO25TA5 PO; +MAGN400T7 PO; +MORP-68 PO; +MORP-69 PO; +NYST1000 PO; +ONDA-106 PO; +ONDA4TAB11 SL; +OXYC10TA7 PO; +POLY17PO54 PO; +POTA10CA43 PO; +RIVA20TA2 PO; +SENN1TAB76 PO
[2022-01-14 15:06] LABS: HEMATOCRIT 23 % (40-54); HEMOGLOBIN 7.3 g/dL (13.3-17.7); MEAN CORPUSCULAR HEMOGLOBIN 32 pg (25-34); MEAN CORPUSCULAR HGB CONC 32 g/dL (32-36); MEAN CORPUSCULAR VOLUME 99 fL (80-99); MEAN PLATELET VOLUME 9.2 fL (9.0-12.2); PLATELET COUNT 209 10^3/uL (130-400)
[2022-01-14 15:13] LABS: BILIRUBIN,TOTAL 0.5 MG/DL (0.1-1.0); CALCIUM 7.4 MG/DL (8.5-10.1); CREATININE SERUM 0.9 MG/DL (0.60-1.30); POTASSIUM 3.7 MMOL/L (3.6-5.0)
[2022-01-14 15:14] LABS: ALBUMIN 1.7 GM/DL (3.2-4.5); TOTAL PROTEIN 3.6 GM/DL (6.4-8.2)
== END ==
PROVIDERS: ATTEND Family Medicine
DX: K92.2 Gastrointestinal hemorrhage, unspecified (principal)
CPT/HCPCS: 80053; 85027

== ENCOUNTER 2022-01-26 10:49 | Outpatient (RCR) | payer MEDICARE, MEDICAID ==
[2022-01-19 11:43] VITALS: BP 107/61
[2022-01-19] MEDS: FERRIC CARBOXYMALTOSE INJ 750 MG in NS (IVPB) 250 ML IV SCH (12:06)
[~2022-01-26] VITALS: Ht 175 cm; Wt 78.5 kg
[2022-01-26] MEDS: FERRIC CARBOXYMALTOSE INJ 750 MG in NS (IVPB) 250 ML IV SCH (11:20)
[2022-01-26 11:45] VITALS: BP 97/58
== END 2022-01-26 11:45 | disposition home or self-care (01) ==
LOC: SDC 10:49
PROVIDERS: ATTEND Family Medicine
DX: D50.9 Iron deficiency anemia, unspecified (principal)
CPT/HCPCS: 96365